=== PATIENT | male | born 1965 | race Caucasian/White ===

== ENCOUNTER 2019-04-12 13:11 | Emergency (ER) | payer SELFPAY ==
[2019-04-12 13:11] VITALS: BP 161/113; PULSE 120; RESP 18; TEMP 36.7; O2SAT 98; BMI 25.1
--- NOTE | 2019-04-12 13:36 | ED.VISSUMM ---
- ER Visit Summary Date of Service: 04/12/19 Chief Complaint: Acute on chronic right shoulder pain History of Present Illness: The patient is a 54 M currently has no primary care physician. Patient states he has had 6 years of chronic pain shoulder and right side of his neck. States he saw the [facility] physician in the past for this. They told him that surgically there is nothing to be repaired. He has nerve damage and atrophy of the musculature of his right bicep tricep and forearm. States he has chronic pain every day and it can control the pain is looking for help. He denies any acute injury. There is no specific change. Currently has no physician. And he is not seeing pain management. Drinks 1/5 of whiskey every day just to help with the pain. That is nonalcoholic is normal for detox he is looking for pain control. Physical Examination: Middle-aged male no acute distress. Vital signs are stable and afebrile. He blood pressure is elevated 161/113 as is his pulse of 120 secondary to pain. Otherwise he is in no distress. HEENT exam unremarkable. Neck nontender. Lungs clear to auscultation bilaterally. Heart tachycardic no murmur abdomen soft nontender. Extremities moves all 4. He has pain on palpation of his right shoulder and right upper arm. There is no deformity, redness or swelling. He has a strong radial pulse in his right wrist. 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 That is also chronic. His atrophy of his bicep, tricep and forearm musculature which is also chronic. Neurologically he is awake and alert. He has the weakness and abnormalities of the right upper extremity. Test Results: None Emergency Department Course and Treatment: I explained the patient that this is a chronic pain condition. I also explained to him that he needs to see chronic pain management has one physician prescribed pain medication for him. I offered him detox but he states he can stop drinking in the time once his pain under control. Will be given 2 Vicodin here for pain. He is instructed to get a ride home. States his daughter can come pick him up. He will be referred to Dr. Wood of pain management. Treatment Plan: Follow-up for pain management. 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 It may contain incorrect words, spelling, and punctuation that were not noted in review of the chart prior to signing ED Disposition - Plan for ED Patient: Referrals: Care Physician,No Primary [Primary Care Provider] -
--- NOTE | 2019-04-12 13:40 | ED.DEP ---
ED Disposition - Plan for ED Patient: Disposition: Home or Assisted Living Instructions: ED Chronic Pain Referrals: Flakito Mckeon MD [NON-STAFF] - As soon as possible Karlee Wood MD [STAFF PHYSICIAN] - As soon as possible Additional Instructions: Follow-up with pain management soon as possible. Need to decrease your alcohol consumption eventually stop drinking.
[2019-04-12] MEDS: HYDROcodone Bitartrate/Apap 5/325 Tablet PO (13:56)
[2019-04-12 14:32] VITALS: BP 151/99; PULSE 98; RESP 14; O2SAT 99
== END 2019-04-12 14:32 | disposition home or self-care (01) ==
LOC: ED 13:53
PROVIDERS: Emergency Provider Emergency Medicine
DX: M79.621 Pain in right upper arm (principal); G89.29 Other chronic pain; M62.521 Muscle wasting and atrophy, not elsewhere classified, right upper arm; Z72.0 Tobacco use
CPT/HCPCS: 99283

== ENCOUNTER 2019-05-29 11:55 | Emergency (ER) | payer MEDICARE, SELFPAY ==
[2019-05-29 11:55] VITALS: BP 170/123; PULSE 104; RESP 16; TEMP 36.7; O2SAT 98; BMI 24.3
--- NOTE | 2019-05-29 12:12 | CT_ITS ---
STUDY: CT ABDOMEN AND PELVIS WITHOUT CONTRAST REASON FOR EXAM: Male, 54 years old. Left-sided abdominal pain. RADIATION DOSAGE (If Supplied By Facility): CTDIvol = ( 7.57 ) mGy, DLP = ( 406.72 ) mGycm TECHNIQUE: Transaxial images were obtained from the dome of the diaphragm to the symphysis pubis without oral contrast, and without intravenous contrast. Sagittal and coronal images were reconstructed. Individualized dose optimization techniques were used for this CT. COMPARISON: None. FINDINGS: The visualized lung bases are unremarkable. The visualized portions of the heart are within normal limits. There is decreased attenuation of the liver consistent with steatosis. Normal gallbladder and extrahepatic biliary system. Borderline splenomegaly. Normal pancreas. Normal bilateral adrenal glands. Normal right kidney. Normal left kidney. There is a small hiatal hernia. Normal small intestine. Normal colon. The appendix is visualized and appears normal. There is scattered atherosclerotic calcification of the abdominal aorta, without a demonstrated aneurysm. Normal inferior vena cava. Normal retroperitoneum. Normal urinary bladder. Normal abdominal wall. There are degenerative changes of the visualized lumbar spine. CT/Abdomen/Pelvis without Cont IMPRESSION: Fatty infiltration of the liver. Electronically Signed: Bharath Oliveros, at 13:06 EDT , Service support ,
[2019-05-29] MEDS: 0.9% Normal Saline 1,000 ML 1000 ML IV (12:19)
--- NOTE | 2019-05-29 12:22 | EKG12_ITS ---
Test Reason : Blood Pressure : / mmHG Vent. Rate : 068 BPM Atrial Rate : 068 BPM P-R Int : 136 ms QRS Dur : 092 ms QT Int : 418 ms P-R-T Axes : 052 063 053 degrees QTc Int : 444 ms Normal sinus rhythm Normal ECG Confirmed by MERRY WOLFE, JIMMIE ([id number]), assistant editor EMILY TAM ([id number] on 06/02/2019 12:09:00 PM Referred By: RUBENS Confirmed By:JEAN MARIE SOUSA MD
[2019-05-29] MEDS: Dicyclomine 20 MG/2 ML Vial IM (12:26)
[2019-05-29 12:30] LABS: Absolute Lymphocyte Count 1.15 X10^3/uL (0.83-4.51); Absolute Neutrophil Count 7.7 X10^3/uL (2.0-7.7); Eosinophil# 0.12 X10^3/uL; Eosinophils% 1.3 % (0-5); Hemoglobin 15.2 g/dL (13.0-16.5); Lymphocyte # 1.15 X10^3/ul (4.0); Mean Corp Hgb Conc 33.8 g/dL (32-36); Mean Corpuscular Volume 97.6 fL (80-94); Mean Platelet Vol. 9.6 fl (6.2-12.0); Monocyte# 0.48 X10^3/uL; NRBC Flagged by Analyzer 0 % (0-5); Neutrophil # 7.69 X10^3/uL (2.7-7.7); Neutrophil % 80.2 % (47-70); Platelet Count 187 K/mm3 (150-450); RBC Distribution Width CV 14.1 % (11.6-14.6); RBC Distribution Width SD 50.7 fl (35.1-43.9); Red Blood Count 4.61 M/mm3 (4.6-6.2); White Blood Count 9.6 K/mm3 (4.4-11.0)
[2019-05-29 12:39] LABS: Bacteria 0 SEEN /hpf (None Seen); Mucous, Urine 0 SEEN /hpf (<or=2+); Red Blood Cells-Urine 0 SEEN /hpf (0-5); Squamous Epithelial Cells - UA 0 SEEN /hpf (0-5); White Blood Cells 0 SEEN /hpf (0-5)
[2019-05-29 12:44] LABS: Color, Urine Yellow (Yellow); Glucose, Dipstick Normal (Normal); Ketone-Dipstick 5 mg/dl (Negative); Leukocyte Esterase-Dipstick 25 /ul (Negative); Nitrite-Dipstick Negative (Negative); Occult Blood-Urine 10 /ul (Negative); Protein-Dipstick Negative (Negative); Urine Bilirubin Dipstick Negative (Negative); Urine Clarity Clear (Clear); Urine Urobilinogen 1 mg/dl (Normal)
[2019-05-29 12:46] LABS: ALB/GLOB Ratio 1.1 RATIO (0.9-2.4); AST(SGOT) 24 U/L (15-37); Alanine Aminotransfer ALT/SGPT 30 U/L (16-61); Albumin, Serum 4.1 g/dL (3.2-5.0); Alkaline Phosphatase 114 U/L (45-117); Anion Gap 4 (5-15); BUN 9 mg/dL (7-18); BUN/Creat Ratio 9.1 RATIO (10-20); Calcium,Total 8.4 mg/dL (8.5-10.1); Chloride 104 mmol/L (98-107); Creatinine, Serum 0.99 mg/dL (0.70-1.30); EST Glomerular Filtration Rate 85 mL/min (>60); Est Glom Filt Rate - Afr Amer 102 mL/min (>60); Estimated Creatinine Clearance 87.28 ml/min; Globulin 3.7 g/dL (2.2-4.2); Glucose 106 mg/dL (74-106); Lipase 53 U/L (73-393); Potassium 3.5 mmol/L (3.5-5.1); Protein, Total 7.8 g/dL (6.4-8.2); Sodium Level 138 mmol/L (136-145)
[2019-05-29] MEDS: Ipratropium/Albuterol Sulfate 3 ML AMPUL.NEB INHALATION (13:05)
[2019-05-29 13:06] VITALS: PULSE 74; RESP 16; O2SAT 98
--- NOTE | 2019-05-29 13:28 | ED.VIS.GEN ---
History of Present Illness Chief Complaint: Abd Pain Informant: Patient Narrative: Patient presenting with left lower quadrant pain since yesterday. He has no diarrhea constipation no radiation to his testicle no flank pain. He has no dysuria hematuria. No penile discharge. He denies right lower quadrant or upper abdominal pain. Pain is described as crampy. Does admit to being an alcoholic and drinking every day at least 1/5 of some sort of hard liquor, he drank 2/5 of whiskey last night. Past Medical History - Allergies and Home Meds Allergies/Adverse Reactions: Allergies No Known Allergies Allergy (Verified 05/29/19 12:08) Primary Care Physician: Care Physician,No Primary [Primary Care Provider] - Past Medical History: - - Chronic neck pain, alcoholism Smoking Status: Current every day smoker Alcohol: Heavy Review of Systems All systems negative except as indicated General: Denies: Fever Cardiovascular: Denies: Chest pain Respiratory: Denies: Dyspnea, Cough Gastrointestinal: Reports: Abdominal pain. Denies: Nausea, Vomiting Genitourinary: Denies: Dysuria, Hematuria Musculoskeletal: Denies: Myalgias Neurological: Denies: Headache, Weakness Psych: Reports: Anxiety. Denies: Depression Physical Exam Vital Signs/Narrative: Vital Signs Temp Pulse Resp BP Pulse Ox 05/29/19 13:06 74 16 98 05/29/19 11:55 98.1 F 104 H 16 170/123 H 98 General: Well nourished Eyes: Perrl. Negative for: Scleral icterus ENT: Moist mucous membranes Cardiovascular: Regular rate, Regular rhythm Respiratory: No distress, CTA bilaterally Abdomen: Soft, - - There is some left lower quadrant abdominal pain no guarding or rebound no testicle pain no CVA tenderness. Back: Nontender. Negative for: CVA tenderness Skin: Normal color Neurological: Alert Diagnostic/Tx/Re-eval - Medical Decision Making Patient received Bentyl his symptoms are now gone. He had a CT which was negative other than fatty liver, his blood work was overall unremarkable. I had a long discussion with him about his alcohol use. He is meeting with the health care social worker right now to get some resources. Otherwise I will discharge him with Bentyl. ED Disposition - Plan for ED Patient: Disposition: Home or Assisted Living Instructions: ABDOMINAL PAIN, Possible Appendicitis [Male] Prescriptions: Dicyclomine HCl [Bentyl] 20 mg PO ACHS #30 cap Prescription Printed Referrals: Care Physician,No Primary [Primary Care Provider] - 3-5 Days
--- NOTE | 2019-05-29 13:30 | CM.ED ---
SOCIAL WORK INFORMANT: NURSING REASON FOR REFERRAL: ALCOHOL ABUSE LIVING SITUATION: PATIENT WAS RESIDING IN [place] AND HAS BEEN STAYING IN [place] FOR ABOUT 1 MONTH. PATIENT STATES HAS BEEN STAYING WITH FAMILY OR CAMPING. EMPLOYMENT/FINANCIAL: PATIENT STATES IS DISABLED. TRANSPORTATION: PATIENT REPORTS NO ISSUES. RESOURCES/SUPPORTS: PATIENT HAS GOOD SUPPORT FROM FAMILY, BUT RIGHT NOW IS HAVING SOME PROBLEMS. SOCIAL STRESSORS: PATIENT STATES NEEDS TO QUIT DRINKING. PATIENT STATES HAS BEEN DRINKING HEAVILY OVER THE LAST 5 YEARS SINCE HE BECAME DISABLED. PATIENT REPORTS DESIRE TO QUIT DRINKING. MENTAL HEALTH HX: PATIENT ADMITS TO DEPRESSION. PATIENT STATES HIS CHILDREN HAVE TOLD HIM THAT HE SCREAMS OUT WHILE HE IS SLEEPING. PATIENT REPORTS HAS NIGHTMARES FREQUENTLY. SUBSTANCE ABUSE HX: PATIENT ADMITS TO HEAVY DRINKING, BOTTLE OF WHISKEY/DAY. PATIENT WISHES TO STOP DRINKING. ASSESSMENT: MET WITH PATIENT IN ROOM AFTER DISCUSSING REFERRAL WITH NURSE. INTRODUCED ROLE AND REASON FOR REFERRAL. PATIENT OPEN TO DISCUSSING OPTIONS FOR TREATMENT. PATIENT UNSURE ABOUT INPATIENT TREATMENT AND AGREED TO HAVE THIS WORKER CALL AND SET UP INTAKE APPOINTMENT AT [facility] FOR SATURDAY MORNING. PATIENT GIVEN ADDITIONAL RESOURCES FOR OPTIONS. DISCUSSED ATTENDING AA MEETINGS. PATIENT GIVEN THIS WORKER'S CONTACT INFORMATION FOR ANY FURTHER NEEDS OR QUESTIONS. PLAN: HOME WITH RESOURCES FOR ALCOHOL TREATMENT PROVIDED. PATIENT TO ATTEND INTAKE APPOINTMENT AT [facility] SATURDAY MORNING AT 8AM. NAS WANG, VICE PRESIDENT BUSINESS [employer]PORATE DEVELOPMENT.
[2019-05-29 13:54] VITALS: BP 147/90; PULSE 71; RESP 16; O2SAT 98
--- NOTE | 2019-05-29 13:54 | ED.RN ---
REVIEWED D/C INSTRUCTIONS, FOLLOW UP CARE, PRESCRIPTION, AND S/S THAT WOULD WARRANT A RETURN TO THE ED WITH PT. PT VERBALIZED AN UNDERSTANDING AND DENIES FURTHER QUESTIONS FOR THIS RN. PT SKIN P/W/D, RESP EVEN AND UNLABORED, PT A&O X 3, NO DISTRESS NOTED. PT AMBULATED OUT OF ED, GAIT STEADY.
== END 2019-05-29 13:56 | disposition home or self-care (01) ==
PROVIDERS: Emergency Provider Emergency Medicine
DX: R10.32 Left lower quadrant pain (principal); F17.200 Nicotine dependence, unspecified, uncomplicated; F10.20 Alcohol dependence, uncomplicated
CPT/HCPCS: 74176; 80053; 81001; 83690; 84484; 85025; 93005; 94640; 96360; 96372; 99283; J7030; A4216

== ENCOUNTER 2023-01-30 08:07 | Emergency (ER) | payer SELFPAY ==
[2023-01-30 08:09] VITALS: BP 156/117; PULSE 135; RESP 18; TEMP 36.6; O2SAT 100; BMI 25.8
--- NOTE | 2023-01-30 08:31 | US_ITS ---
STUDY: ABDOMINAL ULTRASOUND - RIGHT UPPER QUADRANT REASON FOR VISIT: Male, 57 years old pain, n/v TECHNIQUE: Ultrasound evaluation of the right upper quadrant was performed with real-time and static bradley-scale imaging. TECHNICAL QUALITY: Adequate. COMPARISON: Comparison is made with prior CT scan of the pelvis dated May 29, 2019. FINDINGS: Liver: The liver measures 16 cm. There is increased echogenicity consistent with fatty infiltration. Focal fatty sparing is seen in the region of the gallbladder fossa. The bile ducts are within normal limits. There is hepatic color flow. The direction of portal flow is hepatopetal. There is no demonstrated mass lesion. Sludge is seen within the gallbladder lumen. Gallbladder: Normal distended gallbladder. The gallbladder wall measures 1.1 mm. There is a negative sonographic Rosa''s sign. There is no pericholecystic fluid. There are no gallstones. Common Bile Duct (C.B.D.): The common bile duct measures 4.3 mm. Pancreas: Normal size of the head, body and tail of the pancreas. There is increased echogenicity of the pancreas. There is no demonstrated pancreatic mass or cyst. Right Kidney: Normal size of the right kidney. The right kidney measures 11.9 cm x 6.5 cm x 6.1 cm. Normal renal cortex. The right cortex measures 1.1 cm. There is no demonstrated renal mass or cyst. There is no right hydronephrosis. US/Gallbladder IMPRESSION: Fatty infiltration of the liver with focal fatty sparing in the region of the gallbladder fossa. Sludge is seen within the gallbladder lumen. Electronically Signed: Bharath Oliveros MD at 9:45 EDT ,
--- NOTE | 2023-01-30 08:31 | EX.ED.DYSGE1 ---
HPI History of Present Illness Chief Complaint: Substance Abuse Informant: patient Narrative Narrative: 57-year-old male self declared alcoholic states he has been drinking aggressively for over 10 years, states he started drinking very heavily daily for about a week, starting with drinking 2/5 of whiskey and 1 day, then about 5 days ago he stopped cold turkey, and has been feeling withdrawal symptoms ever since. 2 or 3 days ago, he started having upper abdominal pain that goes all the way across, as well as occasional vomiting. He is tremulous, anxious, shaky. No seizures. He states he has been feeling like he has been hallucinating at times. No hematemesis, melena, bright red blood per rectum. No history of any abdominal surgeries. States he is a type II diabetic but takes no medication for it. Does not see a doctor. [facility] Medical History (Updated 01/30/23 @ 11:[address] Gómez Wisdom MD) ETOH abuse Type 2 diabetes mellitus Home Medications dicyclomine 10 mg capsule 20 mg PO ACHS #30 caps 05/29/19 [Rx Last Taken Unknown] promethazine 25 mg tablet 25 mg PO Q6H PRN PRN Nausea #10 TABLETS 01/30/23 [Rx Last Taken Unknown] Allergy/AdvReac Type Severity Reaction Status Date / Time No Known Allergies Allergy Verified 01/30/23 08:09 Social History (Updated 01/30/23 @ 08:[address] Gómez Wisdom MD) Smoking Status: Current every day smoker tobacco type: cigarettes alcohol intake: current alcohol intake frequency: 3 or more drinks per day Alcohol type: hard liquor ROS ROS ED Constitutional Constitutional ED: Reports fatigue and sweats; Denies chills or fever(s) Eyes Eyes: Denies change in vision or diplopia ENT ENT ED: Denies rhinorrhea or sore throat Cardiovascular Cardiovascular: Denies chest pain or palpitations Respiratory/Chest Respiratory/Chest: Denies cough or dyspnea Gastrointestinal Gastrointestinal: Reports abdominal pain, nausea and vomiting; Denies diarrhea or melena Genitourinary Genitourinary ED: Denies dysuria or hematuria Musculoskeletal Musculoskeletal: Denies back pain or neck pain Integumentary Denies abscess or rash Neurologic Neurologic: Denies headache(s), paresthesias, seizures or weakness Psychiatric Psychiatric: Reports anxiety and hallucinations; Denies suicidal thoughts EXAM Physical Exam Const Vital Signs: 01/30/23 08:09 Temperature 97.8 F Temperature Source Temporal Pulse Rate 135 H Respiratory Rate 18 Blood Pressure 156/117 H Blood Pressure Mean 130 Pulse Ox 100 Oxygen Delivery Method Room Air Positive well nourished and well developed General Appearance ED: well developed and NAD HEENT Reports moist mucous membranes normocephalic and atraumatic Eyes PERRL and EOMs intact bilaterally Neck full ROM and supple Resp normal respiratory effort and clear to auscultation bilaterally Cardio regular rate, regular rhythm and no murmurs Rate: tachycardic GI non-distended GI Narrative: Tender across upper abdomen with some mild involuntary rebound/guarding epigastrium and right upper quadrant. Otherwise benign. No pulsatile mass or distention. Auscultation: normoactive bowel sounds Palpation: soft Back/Spine no CVA tenderness General Back: other FROM Extremity normal to inspection General Extremety ED: Negative for edema, pulses abnormal or tenderness General Extremity: Negative for edema or pulses abnormal Neuro oriented x3, CN's II-XII intact bilaterally, no sensory deficits noted and gait normal Sensorium / Orientation: awake and alert Motor Exam: strength 5/5 throughout Psych mental status grossly normal Psych Narrative: Not delusional or hallucinating Mood & Affect: anxious Skin no rashes or lesions noted and no wounds MDM MDM MDM Narrative Medical decision making narrative: I think patient is withdrawing from alcohol, he may be out of the dangerous life-threatening phase of delirium tremens, he has not had any seizure activity which is good but he is having hallucinations which is concerning. I think he would benefit from admission for detox for multiple reasons. In the meantime we will work-up his abdominal pain which does not sound like typical withdrawal crampy-style pain, he does have an elevated bilirubin but the rest of his liver enzymes are unremarkable except for a slightly elevated alkaline phosphatase which can be seen simply with vomiting, drug screen and alcohol levels are 0 as expected, I did a gallbladder ultrasound which was negative for anything acute there. I will add a PT level. In the meantime while I was waiting for work-up I treated him with IV fluids, Zofran, Ativan which did help some. Alcoholic gastritis in the differential as well although he did not have the upper GI symptoms while he was drinking. I discussed admission with the patient, he was apprehensive but amenable. Then he changed his mind and wants to leave and stay at home. I had this discussion with he and his significant other. Patient appears to have the capacity to make this decision we discussed the risk and benefits he understands the risk of seizure, delirium tremens, and , and states if that happens I will just come back. He plans on not drinking anymore, which certainly is good, but given that he is likely to progress with regard to alcohol withdrawal, he needs to be discharged AGAINST MEDICAL ADVICE, patient understands this and we discussed everything and he will sign. History & Record Review Discussion w/independent historian: Patient and Family Additional record(s) reviewed:: Prior labs (Bilirubin elevated in 2019 as well, 1.4, and prior abdominal CT around the same time showed fatty liver disease) Lab Data Attestation: I reviewed the patient's lab results. Labs: Laboratory Results - last 24 hr 01/30/23 01/30/23 01/30/23 08:35 08:50 08:50 WBC 7.8 RBC 5.01 Hgb 16.1 Hct 46.8 MCV 93.4 MCH 32.1 H MCHC 34.4 RDW Std Deviation 44.1 H RDW Coeff of Josselyn 13.4 Plt Count 179 MPV 9.8 Immature Gran % (Auto) 0.600 Neut % (Auto) 77.8 H Lymph % (Auto) 12.1 L Throckmorton % (Auto) 7.5 Eos % (Auto) 1.4 Baso % (Auto) 0.6 Absolute Neuts (auto) 6.0 Absolute Lymphs (auto) 0.94 Nucleated RBC % 0 Sodium 136 Potassium 4.0 Chloride 101 Carbon Dioxide 26.0 Anion Gap 9 BUN 10 Creatinine 1.05 Estim Creat Clear Calc 79.49 Est GFR (MDRD) Af Amer 94 Est GFR (MDRD) Non-Af 78 BUN/Creatinine Ratio 9.5 L Glucose 135 H Calcium 9.4 Total Bilirubin 1.90 H AST 35 ALT 56 Alkaline Phosphatase 121 H Total Protein 8.2 Albumin 4.2 Globulin 4.0 Albumin/Globulin Ratio 1.0 Lipase 21 Urine Opiates Screen NEGATIVE Urine Methadone Screen NEGATIVE Ur Barbiturates Screen NEGATIVE Ur Phencyclidine Scrn NEGATIVE Ur Amphetamines Screen NEGATIVE MDMA (Ecstasy) Screen NEGATIVE U Benzodiazepines Scrn NEGATIVE Urine Cocaine Screen NEGATIVE U Cannabinoids Screen NEGATIVE Ur Drug Screen Comment Ethyl Alcohol 01/30/23 08:50 WBC RBC Hgb Hct MCV MCH MCHC RDW Std Deviation RDW Coeff of Josselyn Plt Count MPV Immature Gran % (Auto) Neut % (Auto) Lymph % (Auto) Throckmorton % (Auto) Eos % (Auto) Baso % (Auto) Absolute Neuts (auto) Absolute Lymphs (auto) Nucleated RBC % Sodium Potassium Chloride Carbon Dioxide Anion Gap BUN Creatinine Estim Creat Clear Calc Est GFR (MDRD) Af Amer Est GFR (MDRD) Non-Af BUN/Creatinine Ratio Glucose Calcium Total Bilirubin AST ALT Alkaline Phosphatase Total Protein Albumin Globulin Albumin/Globulin Ratio Lipase Urine Opiates Screen Urine Methadone Screen Ur Barbiturates Screen Ur Phencyclidine Scrn Ur Amphetamines Screen MDMA (Ecstasy) Screen U Benzodiazepines Scrn Urine Cocaine Screen U Cannabinoids Screen Ur Drug Screen Comment Ethyl Alcohol < 3.0 Radiography Diagnostic Testing: Clinical Impression(s) from Imaging Studies Gallbladder Ultrasound 01/30/23 08:31 IMPRESSION: Fatty infiltration of the liver with focal fatty sparing in the region of the gallbladder fossa. Sludge is seen within the gallbladder lumen. Electronically Signed: Bharath Oliveros MD at 9:45 EDT , Rhythm Strip Rhythm Strip: Sinus Tach Rate: 125 Ectopy: None Management Discussion w/another healthcare provider: Hospitalist Discharge Plan Triage Chief Complaint: Substance Abuse ED Provider: Gómez Wisdom Dx/Rx/DC Orders Clinical Impression: Alcohol withdrawal Instructions: ED Withdrawal Alcohol Prescriptions: New promethazine [promethazine] 25 mg tablet 25 mg PO Q6H PRN PRN (Reason: Nausea) Qty: 10 0RF No Action dicyclomine 10 MG capsule 20 mg PO ACHS Qty: 30 0RF Primary Care Provider: Care Physician,No Primary Referrals: Care Physician,No Primary [Primary Care Provider] - [facility] [Non-Staff] - As soon as possible Disposition Disposition: Against Medical Advice Capacity Capacity Assessment Tool Can the patient make a choice & communicate that choice?: Yes Can the patient understand benefits, risks and alternatives?: Yes Can the patient make a logical, rational choice?: Yes Is the choice the patient makes consistent w/ their values?: Yes Is there an impending, emergent risk to the patient?: Yes Does the patient have an Advance Directive?: No Is there a Surrogate Available?: Yes (sig other)
[2023-01-30] MEDS: 0.9% Normal Saline 1,000 ML 1000 ML IV (08:45)
[2023-01-30] MEDS: LORazepam 2 MG/ML Syringe 1 MG IV (08:48)
[2023-01-30] MEDS: Ondansetron 4 MG/2 ML Vial IV (08:48)
[2023-01-30 09:08] LABS: Absolute Lymphocyte Count 0.94 X10^3/uL (0.83-4.51); Basophil# 0.05 X10^3/uL; Basophil% 0.6 % (0-1); Eosinophil# 0.11 X10^3/uL; Eosinophils% 1.4 % (0-5); Hematocrit 46.8 % (40-54); Hemoglobin 16.1 g/dL (13.0-16.5); Lymphocyte # 0.94 X10^3/ul (0.83-4.51); Lymphocyte % 12.1 % (19-41); Mean Corp Hgb Conc 34.4 g/dL (32-36); Mean Corpuscular Hgb 32.1 pg (27.0-32.0); Mean Corpuscular Volume 93.4 fL (80-94); Mean Platelet Vol. 9.8 fl (6.2-12.0); Monocyte# 0.58 X10^3/uL; Monocyte% 7.5 % (0-10); NRBC Flagged by Analyzer 0 % (0-5); Neutrophil # 6.04 X10^3/uL (2.7-7.7); Neutrophil % 77.8 % (47-70); Platelet Count 179 K/mm3 (150-450); RBC Distribution Width CV 13.4 % (11.6-14.6); RBC Distribution Width SD 44.1 fl (35.1-43.9); Red Blood Count 5.01 M/mm3 (4.6-6.2); White Blood Count 7.8 K/mm3 (4.4-11.0)
[2023-01-30 09:12] LABS: Amphetamine Urine VISTA NEGATIVE (<1000 ng/mL); Barbiturate Urine VISTA NEGATIVE (< 200 ng/mL); Benzodiazepine Urine VISTA NEGATIVE (< 200 ng/mL); Cocaine Urine VISTA NEGATIVE (< 300 ng/mL); Ecstacy Urine VISTA NEGATIVE (< 500 ng/mL); Methadone Urine VISTA NEGATIVE (< 300 ng/mL); PCP Urine VISTA NEGATIVE (< 25 ng/mL); THC Urine VISTA NEGATIVE (< 50 ng/mL); Vista UDS pH Range 5
[2023-01-30 09:33] LABS: AST(SGOT) 35 U/L (15-37); Alanine Aminotransfer ALT/SGPT 56 U/L (16-61); Albumin, Serum 4.2 g/dL (3.2-5.0); Alkaline Phosphatase 121 U/L (45-117); Anion Gap 9 (5-15); BUN 10 mg/dL (7-18); BUN/Creat Ratio 9.5 RATIO (10-20); Calcium,Total 9.4 mg/dL (8.5-10.1); Chloride 101 mmol/L (98-107); Creatinine, Serum 1.05 mg/dL (0.70-1.30); EST Glomerular Filtration Rate 78 mL/min (>60); Est Glom Filt Rate - Afr Amer 94 mL/min (>60); Estimated Creatinine Clearance 79.49 ml/min; Glucose 135 mg/dL (74-106); Lipase 21 U/L (13-75); Protein, Total 8.2 g/dL (6.4-8.2); Sodium Level 136 mmol/L (136-145)
[2023-01-30 09:34] LABS: Alcohol, Blood (Medical)-Serum < 3.0 mg/dL
--- NOTE | 2023-01-30 10:26 | CM.ED ---
Social Work Referral Source: case find Referral Reason: No PCP/ Insurance ROSARIO met with patient and patient's daughter and introduced herself and role as [facility] Location Manager. Patient lying in hospital bed and agreeable to speak to SW with his daughter present. SW inquired about patient's knowledge/interest in [facility] program as well as other community resources. Patient reviewed information provided by care team regarding [facility], explaining he feels he has gotten through the worst of his detox and wants to ensure he is medically okay to go home. Patient reports no insurance and no community agency involvement but was interested in information. SW provided patient with Medicaid application and instructions, local counseling agencies, [facility] resource list, [employer] [employer] services and AA meeting information. Patient was receptive and reports no other needs at this time. Raven LOVELL, MELANY
--- NOTE | 2023-01-30 11:15 | ED.RN ---
PT STATES HE DOES NOT WANT TO STAY FOR DETOX. PT REQUEST TO GO HOME
== END 2023-01-30 11:27 | disposition left against medical advice (07) ==
PROVIDERS: Emergency Provider Emergency Medicine; Visit Provider Emergency Medicine
DX: F10.239 Alcohol dependence with withdrawal, unspecified (principal); E11.9 Type 2 diabetes mellitus without complications; K76.0 Fatty (change of) liver, not elsewhere classified; F17.210 Nicotine dependence, cigarettes, uncomplicated; Z53.29 Procedure and treatment not carried out because of patient's decision for other reasons
CPT/HCPCS: 76705; 80053; 80307; 82077; 83690; 85025; 96361; 96374; 96375; 99283; J7030; A4216; J2405

== ENCOUNTER 2024-02-09 06:00 | Inpatient (IN) | payer MEDICARE, SELFPAY ==
[2024-02-09] VITALS (10 sets, daily range): BP systolic 118–155; BP diastolic 78–105; PULSE 92–139; RESP 14–24; TEMP 35.7–36.9; O2SAT 95–98; BMI 22.4; BMI 22.2
--- NOTE | 2024-02-09 06:38 | EKG12_ITS ---
Test Reason : MEDICAL CLEARANCE Blood Pressure : / mmHG Vent. Rate : 132 BPM Atrial Rate : 132 BPM P-R Int : 156 ms QRS Dur : 082 ms QT Int : 278 ms P-R-T Axes : 037 054 040 degrees QTc Int : 411 ms Sinus tachycardia Otherwise normal ECG Confirmed by MERRY WOLFE, JIMMIE ([id number]), sound editor MONICA BARTH ([id number]) on 02/13/2024 6:12:32 AM Referred By: Confirmed By:JEAN MARIE SOUSA MD
[2024-02-09 07:29] LABS: Absolute Lymphocyte Count 1.13 X10^3/uL (0.83-4.51); Absolute Neutrophil Count 9.5 X10^3/uL (2.0-7.7); Basophil% 0.9 % (0-1); Eosinophil# 0.03 X10^3/uL; Eosinophils% 0.3 % (0-5); Hematocrit 45.7 % (40-54); Hemoglobin 15.7 g/dL (13.0-16.5); Lymphocyte # 1.13 X10^3/ul (0.83-4.51); Lymphocyte % 9.6 % (19-41); Mean Corp Hgb Conc 34.4 g/dL (32-36); Mean Corpuscular Hgb 32.6 pg (27.0-32.0); Mean Corpuscular Volume 94.8 fL (80-94); Mean Platelet Vol. 9.8 fl (6.2-12.0); Monocyte# 0.91 X10^3/uL; Monocyte% 7.8 % (0-10); NRBC Flagged by Analyzer 0 % (0-5); Neutrophil # 9.46 X10^3/uL (2.7-7.7); Neutrophil % 80.7 % (47-70); Platelet Count 179 K/mm3 (150-450); RBC Distribution Width CV 14.5 % (11.6-14.6); RBC Distribution Width SD 50.1 fl (35.1-43.9); Red Blood Count 4.82 M/mm3 (4.6-6.2); White Blood Count 11.7 K/mm3 (4.4-11.0)
[2024-02-09] MEDS: LORazepam 2 MG/ML Syringe 1 MG IV (07:30)
[2024-02-09] MEDS: Phenobarbital Sodium 130 MG/ML Vial 100 MG IM (07:31)
[2024-02-09] MEDS: Thiamine Hydrochloride 100 MG in 0.9% Normal Saline (50mL Bag) 50 ML 200 MG IV (07:34)
[2024-02-09] MEDS: 0.9% Normal Saline (1000mL) 1,000 ML 999 ML IV ×2 (07:34→08:06)
[2024-02-09] MEDS: chlordiazePOXIDE 25 MG Capsule PO (07:35)
--- NOTE | 2024-02-09 07:35 | EX.ED.DYSGE1 ---
HPI History of Present Illness Chief Complaint: Mental Health Informant: patient and police/rent and housing investigator Narrative Narrative: Patient is a 58-year-old male who reports that he has history of alcohol abuse. He states that he typically drinks whiskey. He reports that he typically drinks daily but has been trying to quit. He states that he thinks he has not had a drink for about 7 days. He denies any illicit drug use. Police brought the patient in because they were called to his house as he reported that there were people inside trying to harm him. When they arrived he was alone and was showing signs of actively hallucinating. Patient denies any previous history of seizure disorder or previous delirium tremens PFSH PFSH Medical History Type 2 diabetes mellitus ETOH abuse Home Medications ?Medication ?Instructions ?Recorded ?Last Taken ?Type NK 02/09/24 Unknown History Allergy/AdvReac Type Severity Reaction Status Date / Time No Known Allergies Allergy Verified 02/09/24 06:00 Social History (Updated 01/30/23 @ 08:[address] Gómez Wisdom MD) Smoking Status: Current every day smoker tobacco type: cigarettes alcohol intake: current alcohol intake frequency: 3 or more drinks per day Alcohol type: hard liquor ROS ROS ED Constitutional Constitutional ED: Reports sweats; Denies chills or fever(s) Eyes Eyes: Denies change in vision or diplopia ENT ENT ED: Denies sore throat Cardiovascular Cardiovascular: Reports racing heartbeat; Denies chest pain or palpitations Respiratory/Chest Respiratory/Chest: Denies cough or dyspnea Gastrointestinal Gastrointestinal: Reports nausea; Denies abdominal pain, diarrhea or vomiting Genitourinary Genitourinary ED: Denies dysuria Musculoskeletal Musculoskeletal: Reports myalgias Integumentary Denies rash Neurologic Neurologic: Reports paresthesias; Denies headache(s) Psychiatric Psychiatric: Reports anxiety; Denies suicidal ideation or suicidal thoughts Hematologic/Lymphatic Hematologic/Lymphatic: Denies easy bleeding or easy bruising Allergic/Immunologic Allergic/Immunologic ED: Denies mouth swelling or tongue swelling EXAM Physical Exam Const Vital Signs: 02/09/24 06:01 02/09/24 07:00 02/09/24 08:00 Temperature 96.2 F L Temperature Source Temporal Pulse Rate 125 H 139 H 126 H Respiratory Rate 17 23 H 24 H Blood Pressure 142/105 H 125/81 H 155/97 H Blood Pressure Mean 117 95 116 Pulse Ox 97 98 98 Oxygen Delivery Method Room Air Room Air Positive well nourished and well developed General Appearance ED: well developed; Negative for pallor HEENT HEENT Narrative: Normocephalic atraumatic No tongue or lip biting noted No airway edema or compromise No signs of infection in the posterior pharynx Eyes EOMs intact bilaterally Eyes Narrative: Pupils are dilated and sluggish to respond to light There is faint scleral injection noted General Eye ED: Negative for scleral icterus Neck supple Neck Narrative: No nuchal rigidity or meningeal signs Chest Wall palpation of chest normal Resp normal respiratory effort and clear to auscultation bilaterally Cardio regular rhythm Rate: tachycardic and other Other Details: Tachycardic rate with regular rhythm No obvious murmurs rubs or gallops Radial and carotid pulses are equal and symmetric GI non-tender, non-distended and no masses GI Narrative: Abdomen is soft nontender nondistended with hyperactive bowel sounds. No voluntary guarding or rigidity or pulsatile mass. No fluid wave noted Auscultation: hyperactive bowel sounds Palpation: soft Extremity normal to inspection Extremity Narrative: No asymmetric edema no pitting edema negative Homans' sign bilaterally Neuro CN's II-XII intact bilaterally Neuro Narrative: Patient is awake and alert to person and place but disoriented to time. Cranial nerves II through XII are grossly intact without focal neurologic deficit. No pronator drift no dysmetria no truncal ataxia NIH stroke scale score of 1 There are tremors of the upper extremities noted Sensorium / Orientation: alert Psych Psych Narrative: Patient is extremely anxious and jittery and is having visual hallucinations Skin no wounds Skin Narrative: There are beads of sweat present on the patient's skin no jaundice or pallor and no obvious signs of trauma or infection General Skin Exam: Negative for jaundice or pallor MDM MDM MDM Narrative Medical decision making narrative: Patient arrived to the ER hypertensive and tachycardic. He reported that he typically drinks daily and thinks he has not drank for 7 days. However he is disoriented to time and the fact that he has hallucinations with extreme anxiety tremors and visual beads of perspiration indicate that his last use of alcohol was most likely 2 to 3 days ago. His CIWA score is elevated at 34 indicating moderate to severe withdrawal. Secondary to his basic labs will be obtained and patient will be given IM phenobarbital IV Ativan and oral Librium to help with withdrawal symptoms. Chart review reveals he was seen in the ER for similar presentation roughly 1 year ago on January 30. As he had hallucinations at that time and his history and exam are not showing signs of trauma I do not feel there is need for head CT. I do believe the patient would benefit from admission as he has high risk to progress to delirium tremens/seizure activity. Therefore medicine will be contacted once patient's labs have resulted and he is reevaluated to assess his response to treatment. Patient's labs did show changes consistent with acute kidney injury as his creatinine 1 year ago was approximately 1 and today it is 2.07. After receiving 100 mg of IM phenobarbital 25 mg of oral Librium and 1 mg of IM Ativan as well as starting 2 L of IV fluid the patient's mental status has improved he has less tremors and less excitability/anxiety and his hallucinations have decreased as well. However he is remaining tachycardic and his symptoms despite improvement have not resolved sufficiently so therefore 2 more milligrams of IV Ativan will be obtained at this time. Based on his high risk for progression to seizures from alcohol withdrawal and the fact he also has acute kidney injury I do not feel it is safe for him to return home and therefore he will be admitted to the medical service for further care. This plan of care was discussed with the patient and he states he is agreeable to it at this time History & Record Review Discussion w/independent historian: Patient Additional record(s) reviewed:: Prior ED visit Lab Data Attestation: I reviewed the patient's lab results. Labs: Laboratory Results - last 24 hr 02/09/24 07:18 WBC 11.7 H RBC 4.82 Hgb 15.7 Hct 45.7 MCV 94.8 H MCH 32.6 H MCHC 34.4 RDW Std Deviation 50.1 H RDW Coeff of Josselyn 14.5 Plt Count 179 MPV 9.8 Immature Gran % (Auto) 0.700 Neut % (Auto) 80.7 H Lymph % (Auto) 9.6 L [place] % (Auto) 7.8 Eos % (Auto) 0.3 Baso % (Auto) 0.9 Absolute Neuts (auto) 9.5 H Absolute Lymphs (auto) 1.13 Nucleated RBC % 0 Sodium 134 L Potassium 3.5 Chloride 97 L Carbon Dioxide 22.0 Anion Gap 15 BUN 20 H Creatinine 2.07 H Estim Creat Clear Calc 38.83 Est GFR (MDRD) Af Amer 43 L Est GFR (MDRD) Non-Af 35 L BUN/Creatinine Ratio 9.7 L Glucose 161 H Calcium 10.7 H Magnesium 1.5 L Total Bilirubin 1.70 H Direct Bilirubin 0.35 H AST 64 H ALT 45 Alkaline Phosphatase 116 Total Protein 8.8 H Albumin 4.7 Globulin 4.1 TSH 7.88 H Salicylates 2.9 Acetaminophen < 2.0 L Ethyl Alcohol < 3.0 Management Discussion w/another healthcare provider: Hospitalist Discharge Plan Dx/Rx/DC Orders Clinical Impression: Alcohol withdrawal hallucinosis, Acute kidney injury Disposition Disposition: Acute Care Hospital [facility]
[2024-02-09 07:47] LABS: Acetaminophen (Tylenol) Level < 2.0 ug/mL (10.0-30.0); Alcohol, Blood (Medical)-Serum < 3.0 mg/dL; Salicylate 2.9 mg/dL (2.8-20.0)
[2024-02-09 07:51] LABS: AST(SGOT) 64 U/L (15-37); Alanine Aminotransfer ALT/SGPT 45 U/L (16-61); Albumin, Serum 4.7 g/dL (3.2-5.0); Alkaline Phosphatase 116 U/L (45-117); Anion Gap 15 (5-15); BUN 20 mg/dL (7-18); BUN/Creat Ratio 9.7 RATIO (10-20); Bilirubin, Direct 0.35 mg/dL (0.00-0.30); Calcium,Total 10.7 mg/dL (8.5-10.1); Chloride 97 mmol/L (98-107); Creatinine, Serum 2.07 mg/dL (0.70-1.30); EST Glomerular Filtration Rate 35 mL/min (>60); Est Glom Filt Rate - Afr Amer 43 mL/min (>60); Estimated Creatinine Clearance 38.83 ml/min; Globulin 4.1 g/dL (2.2-4.2); Glucose 161 mg/dL (74-106); Magnesium 1.5 mg/dL (1.6-2.6); Potassium 3.5 mmol/L (3.5-5.1); Protein, Total 8.8 g/dL (6.4-8.2); Sodium Level 134 mmol/L (136-145); Thyroid Stim Hormone (TSH) 7.88 uIU/mL (0.358-3.74)
[2024-02-09] MEDS: Folic Acid 1 MG in 0.9% Normal Saline (50mL Bag) 50 ML 200 MG IV (08:06)
[2024-02-09] MEDS: LORazepam 2 MG/ML Syringe IV (08:12)
--- NOTE | 2024-02-09 08:21 | HP.PCM.HOS_ITS ---
HPI - General General Date of Admission: 02/09/24 Date of Service: 02/09/24 Chief Complaint: Hallucinations HPI Narrative ROSSY NERI, is a 58 M who presented to the emergency department at [facility] on 02/09/2024 secondary to hallucinations. He was brought in by the police. He called the police and told them that there were people inside trying to harm him and when they arrived they found him alone and he was showing signs of actively hallucinating. The patient reported on presentation that he has a history of heavy alcohol abuse and drinks about a bottle of whiskey daily. He reported that he has been trying to quit and he thinks it has been about 5 to 7 days since his last drink but he is unsure. He denies any previous history of seizure disorder or DTs but it does not sound like he has had any persistent lengthy sobriety. Vital signs on presentation showed a temperature of 96.2, heart rate 125, respiratory 17, blood pressure was 142/105, and pulse ox was 97% on room air. His CBC shows a mild leukocytosis with a left shift but no signs of active infection. His chemistry panel shows mild hyponatremia with a sodium of 134, BUN of 20 and serum creatinine of 2.07. His glucose is 161 and it is documented that he is a diabetic but it does not appear that he is on any medication. His calcium was 10.7, magnesium 1.5 and bilirubin was elevated at 1.70. This is predominantly indirect as his direct bilirubin was 0.34. AST is 64 with a normal ALT consistent with alcohol abuse. TSH was mildly elevated 7.88. Serum salicylates was unremarkable, Tylenol level was less than 2 and F alcohol was less than 3. Urine toxicology is pending however he has not yet voided. Given his marked laboratory abnormalities and hallucinations he was treated with phenobarbital, Librium, Ativan and IV fluids in the emergency department and was clinically improving but still will require admission for alcohol detox. [facility] Medical History Tobacco abuse Type 2 diabetes mellitus ETOH abuse Home Medications ?Medication ?Instructions ?Recorded ?Last Taken ?Type acetaminophen 500 mg capsule 500 mg PO Q6H PRN pain 02/09/24 Unknown History multivitamin 1 tab PO DAILY 02/09/24 Unknown History Allergy/AdvReac Type Severity Reaction Status Date / Time No Known Allergies Allergy Verified 02/09/24 06:00 unable to obtain (Due to patient's mental status on presentation) unable to obtain (Due to patient's mental status on presentation) Social History Smoking Status: Current every day smoker tobacco type: cigarettes alcohol intake: current alcohol intake frequency: 3 or more drinks per day Alcohol type: hard liquor details: Was able to tell us that he drinks about a pint or more of whiskey daily substance use type: does not use Vital Signs Vital Signs Vital Signs: 02/09/24 06:01 02/09/24 07:00 02/09/24 08:00 Temperature 96.2 F L Temperature Source Temporal Pulse Rate 125 H 139 H 126 H Respiratory Rate 17 23 H 24 H Blood Pressure 142/105 H 125/81 H 155/97 H Blood Pressure Mean 117 95 116 Pulse Ox 97 98 98 Oxygen Delivery Method Room Air Room Air Weight Weight: 68.9 kg Body Mass Index (BMI) 22.4 Physical Exam Const alert, oriented x3 and average body habitus; Negative for no apparent distress, healthy appearing or well nourished Constitutional Narrative: Oriented x 3 but difficulty giving any other history tremulous, middle-aged, white male, sitting in a chair picking at his telemetry and IV tubing, fidgeting extensively, appears unhealthy General Appearance: cooperative Orientation / Consciousness: confused HEENT normocephalic, head/scalp atraumatic and hearing grossly normal bilaterally; Negative for moist oral mucous membranes HEENT Narrative: Dentition is poor, Mallampati is 2, no thrush, mucous membranes are dry Eyes PERRL, EOMs intact bilaterally and conjunctivae normal Eyes Narrative: No scleral icterus Neck no lymphadenopathy and supple Neck Narrative: Trachea midline, no thyroid enlargement Resp normal respiratory effort, no retractions, no use of accessory muscles and clear to auscultation bilaterally Resp Narrative: Diffusely diminished but clear Auscultation: Negative for rales, rhonchi or wheezes Cardio regular rhythm, S1 normal heart sound, S2 normal heart sound, no murmurs, no rub, no gallops and no clicks Cardio Narrative: Tachycardic GI normal to inspection, nondistended, normoactive bowel sounds, soft to palpation and non-tender Extremity no clubbing, cyanosis or edema Extremity Narrative: Pedal pulses and radial pulses are 2+ Skin no rashes or lesions noted, no wounds, No skin turgor normal, no jaundice, no petechiae and no mottling Skin Narrative: Multiple tattoos Neuro oriented x3, CN's II-XII intact bilaterally, moves all extremities and no focal motor deficits Neuro Narrative: Marked tremor, ambulates with a wide base of support with decreased stride length, patient somewhat mumbles with speech Psych Psych Narrative: Affect is flat and mood seems depressed Results Lab / Micro Data 02/09/24 07:18 02/09/24 07:18 Labs: Laboratory Results - last 24 hr 02/09/24 07:18: WBC 11.7 H, RBC 4.82, Hgb 15.7, Hct 45.7, MCV 94.8 H, MCH 32.6 H , MCHC 34.4, RDW Std Deviation 50.1 H, RDW Coeff of Josselyn 14.5, Plt Count 179, MPV 9.8, Immature Gran % (Auto) 0.700, Neut % (Auto) 80.7 H, Lymph % (Auto) 9.6 L, [place] % (Auto) 7.8, Eos % (Auto) 0.3, Baso % (Auto) 0.9, Absolute Neuts (auto) 9.5 H, Absolute Lymphs (auto) 1.13, Nucleated RBC % 0, Sodium 134 L, Potassium 3.5, Chloride 97 L, Carbon Dioxide 22.0, Anion Gap 15, BUN 20 H, Creatinine 2.07 H, Estim Creat Clear Calc 38.83, Est GFR (MDRD) Af Amer 43 L, Est GFR (MDRD) Non-Af 35 L, BUN/Creatinine Ratio 9.7 L, Glucose 161 H, Calcium 10.7 H, M agnesium 1.5 L, Total Bilirubin 1.70 H, Direct Bilirubin 0.35 H, AST 64 H, ALT 45, Alkaline Phosphatase 116, Total Protein 8.8 H, Albumin 4.7, Globulin 4.1, T SH 7.88 H, Salicylates 2.9, Acetaminophen < 2.0 L, Ethyl Alcohol < 3.0 Assessment & Plan Assessment/Plan (1) Acute kidney injury: (2) Alcohol withdrawal hallucinosis: (3) Elevated blood pressure reading: (4) Hyperglycemia: (5) Tachycardia: (6) Hypomagnesemia: (7) Hyperbilirubinemia: (8) Leukocytosis: (9) Hyponatremia: (10) Hypercalcemia: (11) Abnormal TSH: PLAN: Plan Acute alcohol withdrawal/hallucinations -Patient admitted to drinking at least a pint of whiskey daily -Reported that his last drink was about 5 days ago -Indicated that he had had a 45-day period of sobriety previously but not able to tell me when -Start phenobarbital taper -[facility] protocol with as needed Ativan -Thiamine and folate -Supportive medication for withdrawal symptoms -180 consultation YANIQUE secondary to dehydration -Patient indicated he had not been eating in about the last 5 to 7 days but only drinking Pedialyte -Appears markedly dehydrated on presentation -2 L IV fluid ordered by the emergency department -Will give 2 L and then reevaluate tomorrow -Avoid nephrotoxins as able Hyponatremia -Mild -Suspect related to marked dehydration -Repeat in a.m. Hypercalcemia -Anticipate this is related to hypercalcemia -Will trend to ensure further workup is not required Tachycardia -Suspect related to withdrawal -Should improve as withdrawal is treated Elevated blood pressure -Unclear if this is baseline elevation or related to withdrawal -Continue to monitor -As needed hydralazine for systolic pressure greater than 160 Hyperbilirubinemia -Likely related to alcohol use -Repeat in a.m. Hypomagnesemia -2 g IV mag replacement -Repeat in a.m. Hyperglycemia -Blood glucose levels 161 at 7 AM -Check hemoglobin A1c Suspected malnutrition -Dietitian consultation Leukocytosis -Likely related to dehydration and hemoconcentration -Repeat in a.m. -No signs of active infection DVT prophylaxis -Will utilize Lovenox 40 subcu daily since patient is so medically complex CODE STATUS -Full code Charges/Coding Visit Charges Inpatient E&M: 19520 Init Hosp L3
[2024-02-09 08:58] LABS: Amphetamine Urine VISTA NEGATIVE (<1000 ng/mL); Barbiturate Urine VISTA NEGATIVE (< 200 ng/mL); Benzodiazepine Urine VISTA NEGATIVE (< 200 ng/mL); Cocaine Urine VISTA NEGATIVE (< 300 ng/mL); Ecstacy Urine VISTA NEGATIVE (< 500 ng/mL); Methadone Urine VISTA NEGATIVE (< 300 ng/mL); PCP Urine VISTA NEGATIVE (< 25 ng/mL); THC Urine VISTA NEGATIVE (< 50 ng/mL); Vista UDS pH Range 5
[2024-02-09 09:00] LABS: T4 Free Direct 1.12 ng/dL (0.76-1.46)
[2024-02-09 09:04] LABS: Hemoglobin A1c 4.8 % (3.8-5.6)
[2024-02-09 09:23] LABS: International Normalized Ratio 1.1; Prothrombin Time (Protime)PT. 14.4 SECONDS (11.7-14.9)
[2024-02-09] MEDS: Magnesium Sulfate 2 GM in Dextrose 5%-Water (100mL Bag) 100 ML IV (11:16)
[2024-02-09] MEDS: Enoxaparin 40 MG/0.4 ML Syringe SC (11:17)
[2024-02-09] MEDS: Potassium Chloride Oral Tablet 20 MEQ 40 MEQ PO (11:20)
[2024-02-09] MEDS: Phenobarbital 32.4 MG Tablet 64.8 MG PO ×4 (11:21→21:07)
[2024-02-09] MEDS: LORazepam 1 MG Tablet 2 MG PO (11:32)
[2024-02-09 11:54] LABS: Bedside Glucose 116 mg/dL (74-106)
[2024-02-09 16:54] LABS: Bedside Glucose 133 mg/dL (74-106)
[2024-02-09] MEDS: 0.9% Saline Lock 10 ML Syringe IV (21:07)
[2024-02-09] MEDS: Acetaminophen 325 MG Tablet 650 MG PO (21:11)
[2024-02-09 23:39] LABS: Bedside Glucose 163 mg/dL (74-106)
[2024-02-10] VITALS (8 sets, daily range): BP systolic 115–129; BP diastolic 76–91; PULSE 73–92; RESP 16–18; TEMP 36.1–37.1; O2SAT 96–100; BMI 22.3
[2024-02-10] MEDS: Phenobarbital 32.4 MG Tablet 64.8 MG PO ×6 (02:20→21:45)
[2024-02-10 06:32] LABS: Absolute Lymphocyte Count 0.92 X10^3/uL (0.83-4.51); Absolute Neutrophil Count 3.3 X10^3/uL (2.0-7.7); Basophil# 0.05 X10^3/uL; Basophil% 1.1 % (0-1); Eosinophil# 0.13 X10^3/uL; Eosinophils% 2.8 % (0-5); Hemoglobin 12.3 g/dL (13.0-16.5); Lymphocyte # 0.92 X10^3/ul (0.83-4.51); Lymphocyte % 19.6 % (19-41); Mean Corp Hgb Conc 33.2 g/dL (32-36); Mean Corpuscular Hgb 32.8 pg (27.0-32.0); Mean Corpuscular Volume 98.7 fL (80-94); Mean Platelet Vol. 9.7 fl (6.2-12.0); Monocyte# 0.33 X10^3/uL; NRBC Flagged by Analyzer 0 % (0-5); Neutrophil # 3.25 X10^3/uL (2.7-7.7); Neutrophil % 69.1 % (47-70); POSITIVE COUNT YES; Platelet Count 89 K/mm3 (150-450); RBC Distribution Width CV 14.6 % (11.6-14.6); RBC Distribution Width SD 52.7 fl (35.1-43.9); Red Blood Count 3.75 M/mm3 (4.6-6.2); White Blood Count 4.7 K/mm3 (4.4-11.0)
[2024-02-10 06:53] LABS: ALB/GLOB Ratio 0.9 RATIO (0.9-2.4); AST(SGOT) 42 U/L (15-37); Alanine Aminotransfer ALT/SGPT 36 U/L (16-61); Albumin, Serum 3.2 g/dL (3.2-5.0); Alkaline Phosphatase 85 U/L (45-117); Anion Gap 6 (5-15); BUN 15 mg/dL (7-18); BUN/Creat Ratio 15.3 RATIO (10-20); Calcium,Total 8.6 mg/dL (8.5-10.1); Chloride 107 mmol/L (98-107); Creatinine, Serum 0.98 mg/dL (0.70-1.30); EST Glomerular Filtration Rate 84 mL/min (>60); Est Glom Filt Rate - Afr Amer 102 mL/min (>60); Estimated Creatinine Clearance 81.31 ml/min; Globulin 3.4 g/dL (2.2-4.2); Glucose 92 mg/dL (74-106); Magnesium 1.9 mg/dL (1.6-2.6); Phosphorus 3.5 mg/dL (2.5-4.9); Potassium 3.5 mmol/L (3.5-5.1); Protein, Total 6.6 g/dL (6.4-8.2); Sodium Level 136 mmol/L (136-145)
[2024-02-10 06:54] LABS: Differential Indicated SCAN CRITERIA MET
[2024-02-10 06:55] LABS: Differential Comment SCANNED
[2024-02-10 07:25] LABS: Bedside Glucose 121 mg/dL (74-106)
[2024-02-10] MEDS: Folic Acid 1 MG Tablet PO (09:16)
[2024-02-10] MEDS: Thiamine Hydrochloride 100 MG Tablet PO (09:16)
[2024-02-10] MEDS: Enoxaparin 40 MG/0.4 ML Syringe SC (09:17)
--- NOTE | 2024-02-10 11:03 | PCM.PN.HOSP ---
Reason for Visit Reason for Visit: Acute alcohol withdrawal Subjective Subjective Patient is doing much better today. No significant tremulousness and patient's orientation is much improved. Objective Data Objective Data Vital Signs: Vital Signs Temp Pulse Resp BP Pulse Ox O2 Del Method 97.9 F 85 18 122/86 H 96 Room Air 02/10/24 09:07 02/10/24 09:07 02/10/24 09:07 02/10/24 09:07 02/10/24 06:47 02/10/24 09:07 Oxygen Delivery Method Room Air Weight: 68.3 kg Body Mass Index (BMI) 22.3 Intake & Output: Intake and Output for Last 24 Hours 02/08/24 02/09/24 02/10/24 23:59 23:59 23:59 Intake Total 2323.0 / 2423.0 100 / 100 Balance 2323.0 / 2423.0 100 / 100 Medical Nutrition Assessment Dietitian: Malnutrition Criteria Met Start: 02/09/24 16:38 Freq: Status: Active Protocol: Document 02/09/24 16:38 RMA (Rec: 02/09/24 16:39 RMA [id number]) Nutrition Malnutrition Evidence of Malnutrition Exists Yes Malnutrition (severe): Chronic,Social/Behavioral/ Environmental Evidenced By Suboptimal Energy Intake ( Severe),Weight Loss (Severe) Clinical Problem Chronic Disease or Condition Related Malnutrition Etiology severe protein-calorie malnutrition in the context of chronic alcohol use/social circumstance related to inadequate energy intake Signs/Symptoms as evidenced by PO meeting less than 50% estimated nutrition needs x past 1-2 months and unintentional weight loss ~10-12% in less than 1 month; BMI 22.2 Status Active Problem Recommendation Dietitian Recommendations/Changes Continue 2200 calorie, consistent carbohydrate diet as ordered; liberalize diet as needed to promote adequate PO at meals. Will add 240mL glucerna shake w/ breakfast and lunch trays as tolerated. Adjust ONS as needed to support weight repletion. Lab / Micro Data 02/10/24 06:15 02/10/24 06:15 Labs: Laboratory Results - last 24 hr 02/09/24 11:34: POC Glucose 116 H 02/09/24 16:36: POC Glucose 133 H 02/09/24 21:18: POC Glucose 163 H 02/10/24 05:40: POC Glucose 121 H 02/10/24 06:15: WBC 4.7, RBC 3.75 L, Hgb 12.3 L, Hct 37.0 L, MCV 98.7 H, MCH 32.8 H, MCHC 33.2, RDW Std Deviation 52.7 H, RDW Coeff of Josselyn 14.6, Plt Count 89 L, MPV 9.7, Immature Gran % (Auto) 0.400, Neut % (Auto) 69.1, Lymph % (Auto) 19.6, [place] % (Auto) 7.0, Eos % (Auto) 2.8, Baso % (Auto) 1.1 H, Absolute Neuts (auto) 3.3, Absolute Lymphs (auto) 0.92, Nucleated RBC % 0, Differential Comment SCANNED, Sodium 136, Potassium 3.5, Chloride 107, Carbon Dioxide 23.0, Anion Gap 6, BUN 15, Creatinine 0.98, Estim Creat Clear Calc 81.31, Est GFR (MDRD) Af Amer 102, Est GFR (MDRD) Non-Af 84, BUN/Creatinine Ratio 15.3, Glucose 92, Calcium 8.6, Phosphorus 3.5, Magnesium 1.9, Total Bilirubin 1.30 H, AST 42 H, ALT 36, Alkaline Phosphatase 85, Total Protein 6.6, Albumin 3.2, Globulin 3.4, Albumin/Globulin Ratio 0.9 Physical Exam Const alert, oriented x3, no apparent distress and average body habitus; Negative for healthy appearing or well nourished Constitutional Narrative: Middle-aged, white male, lying in bed watching television, appears comfortable, nontoxic, no fidgeting or tremulousness noted today General Appearance: cooperative HEENT normocephalic, head/scalp atraumatic, hearing grossly normal bilaterally and moist oral mucous membranes HEENT Narrative: Mallampati is 2, no thrush Resp normal respiratory effort, no retractions, no use of accessory muscles and clear to auscultation bilaterally Resp Narrative: Diffusely diminished but clear Auscultation: Negative for rales, rhonchi or wheezes Cardio regular rate, regular rhythm, S1 normal heart sound, S2 normal heart sound, no murmurs, no rub, no gallops and no clicks GI normal to inspection, nondistended, normoactive bowel sounds, soft to palpation and non-tender Extremity no clubbing, cyanosis or edema Extremity Narrative: Pedal pulses and radial pulses are 2+ Neuro oriented x3, moves all extremities and no focal motor deficits Neuro Narrative: Speech is clear and no tremulousness today Speech: speech normal Psych Psych Narrative: Affect remains flat and mood remains depressed Assessment & Plan Assessment/Plan (1) Acute kidney injury: (2) Alcohol withdrawal hallucinosis: (3) Elevated blood pressure reading: (4) Hyperglycemia: (5) Tachycardia: (6) Hypomagnesemia: (7) Hyperbilirubinemia: (8) Leukocytosis: (9) Hyponatremia: (10) Hypercalcemia: (11) Abnormal TSH: PLAN: Plan Acute alcohol withdrawal/hallucinations -Patient admitted to drinking at least a pint of whiskey daily -Last drink was about 5 days before presentation -Continue phenobarb taper -CIWA protocol with as needed Ativan -Required 1 dose of IV Ativan since admission yesterday -Thiamine and folate -Supportive medication for withdrawal symptoms -180 consultation--> anticipate evaluation tomorrow Severe malnutrition -Dietitian is following -Supplements added -Likely related to alcohol consumption YANIQUE secondary to dehydration -Resolved Hyponatremia -Resolved Hypercalcemia -Resolved Tachycardia -Resolved Elevated blood pressure -Resolving Hyperbilirubinemia -Trending down -No need to follow any further Hypomagnesemia - resolved Hyperglycemia -Suspect stress response -Hemoglobin A1c was 4.8 Leukocytosis -Resolved Tobacco abuse -Continue nicotine patch as needed -Recommend cessation DVT prophylaxis -Continue Lovenox 40 subcu daily CODE STATUS -Full code Charges/Coding Visit Charges Inpatient E&M: 07084 Subs Hosp L2
[2024-02-10 12:08] LABS: Bedside Glucose 103 mg/dL (74-106)
[2024-02-10 17:23] LABS: Bedside Glucose 126 mg/dL (74-106)
[2024-02-10] MEDS: Acetaminophen 325 MG Tablet 650 MG PO (21:48)
[2024-02-10] MEDS: MELATONIN 3 MG TABLET PO (21:48)
[2024-02-10] MEDS: traZODone 100 MG Tablet PO (21:48)
[2024-02-10 22:16] LABS: Bedside Glucose 109 mg/dL (74-106)
[2024-02-11 01:26] VITALS: BP 95/55; PULSE 73; RESP 18; TEMP 36.8; O2SAT 98
[2024-02-11] MEDS: Phenobarbital 32.4 MG Tablet 64.8 MG PO ×3 (01:30→09:57)
[2024-02-11] MEDS: 0.9% Saline Lock 10 ML Syringe IV (01:30)
[2024-02-11 06:00] VITALS: BMI 23.2
[2024-02-11 06:03] VITALS: BP 114/76; PULSE 63; RESP 16; TEMP 37.1; O2SAT 99
[2024-02-11 07:12] LABS: Bedside Glucose 109 mg/dL (74-106)
[2024-02-11 09:44] VITALS: BP 115/68; PULSE 87; RESP 18; TEMP 36.5; O2SAT 96
[2024-02-11] MEDS: Folic Acid 1 MG Tablet PO (09:52)
[2024-02-11] MEDS: Enoxaparin 40 MG/0.4 ML Syringe SC (09:52)
[2024-02-11] MEDS: Thiamine Hydrochloride 100 MG Tablet PO (09:52)
--- NOTE | 2024-02-11 11:15 | CASEMGMT ---
RN?CM?[employer]?CM?to room to meet with patient for initial transition planning/care coordination?assessment.?RN?CM?introduced self and role at [facility].? Pt voices understanding and consents to?assessment?at this time.? Pt resting in bed in no distress at this time.? Pt is A/O at this time and answers all questions appropriately.?? Care providers, pharmacy, and demographics verified/updated at this time. PCP: No PCP. Provided w/local directory and also given [facility] info. Specialists: none Preferred Pharmacy: [facility] [place] Insurance: MCR A only Prescription Benefit:?Pt does not think he has Rx benefits. Living Will/HPOA:?Pt does not currently have LW/HCPOA and declines info at this time.? Pt made aware that he can contact as an out-pt and make appt in the future if he decides he would like to talk with someone about this or would like to utilize [facility] social work for advanced directive completion.?? LNOK: Madeline Bauer. 2 other children. Living Arrangements: Lives alone in 2nd-floor apt. Independent. Transportation:?Pt states drives self and states no transportation concerns at this time.?He states he has someone that can take him home. DME: ? Denies using any DME and denies needs.? HHC/SNF: No hx. No needs identified. Pt wishes to return home and states has no concerns with going home at time of discharge.? ?CM?to follow for any discharge planning/needs.? Pt voices no further concerns/needs at this time.? Advised pt to ask for?CM?if any further questions/concerns/needs arise.? Voices understanding. PLAN:??Home. CM to follow for cost of medications . Mirta BSN?RN?CM
--- NOTE | 2024-02-11 11:27 | DS.PCM_ITS ---
Providers Date of Admission: 02/09/24 Date of Discharge: 02/11/24 Primary Care Physician: No Primary Care Phys Reason For Visit: ETOH DETOX AND ACUTE WITHDRAWAL Diagnosis Discharge Diagnosis (1) Acute kidney injury: Status: Acute Code(s): N17.9 - Acute kidney failure, unspecified (2) Alcohol withdrawal hallucinosis: Status: Acute Code(s): F10.932 - Alcohol use, unspecified with withdrawal with perceptual disturbance (3) Elevated blood pressure reading: Status: Acute Code(s): R03.0 - Elevated blood-pressure reading, without diagnosis of hypertension (4) Hyperglycemia: Status: Acute Code(s): R73.9 - Hyperglycemia, unspecified (5) Tachycardia: Status: Acute Code(s): R00.0 - Tachycardia, unspecified (6) Hypomagnesemia: Status: Acute Code(s): E83.42 - Hypomagnesemia (7) Hyperbilirubinemia: Status: Acute Code(s): E80.6 - Other disorders of bilirubin metabolism (8) Leukocytosis: Status: Acute Code(s): D72.829 - Elevated white blood cell count, unspecified (9) Hyponatremia: Status: Acute Code(s): E87.1 - Hypo-osmolality and hyponatremia (10) Hypercalcemia: Status: Acute Code(s): E83.52 - Hypercalcemia (11) Abnormal TSH: Status: Acute Code(s): R79.89 - Other specified abnormal findings of blood chemistry Medications at Discharge Home Medications acetaminophen 500 mg capsule 500 mg PO Q6H PRN pain 02/09/24 multivitamin 1 tab PO DAILY 02/09/24 Hospital Course Operations None Procedures None Summary of Care Provided Minutes Spent on Discharge: 36 Hospital Course: ROSSY NERI, is a 58 M who presented to the emergency department at [facility] on 02/09/2024 secondary to hallucinations. He was brought in by the police. He called the police and told them that there were people inside trying to harm him and when they arrived they found him alone and he was showing signs of actively hallucinating. The patient reported on presentation that he has a history of heavy alcohol abuse and drinks about a bottle of whiskey daily. He reported that he has been trying to quit and he thinks it has been about 5 to 7 days since his last drink but he is unsure. He denies any previous history of seizure disorder or DTs but it does not sound like he has had any persistent lengthy sobriety. Vital signs on presentation showed a temperature of 96.2, heart rate 125, respiratory 17, blood pressure was 142/105, and pulse ox was 97% on room air. His CBC shows a mild leukocytosis with a left shift but no signs of active infection. His chemistry panel shows mild hyponatremia with a sodium of 134, BUN of 20 and serum creatinine of 2.07. His glucose is 161 and it is documented that he is a diabetic but it does not appear that he is on any medication. His calcium was 10.7, magnesium 1.5 and bilirubin was elevated at 1.70. This is predominantly indirect as his direct bilirubin was 0.34. AST is 64 with a normal ALT consistent with alcohol abuse. TSH was mildly elevated 7.88. Serum salicylates was unremarkable, Tylenol level was less than 2 and F alcohol was less than 3. Urine toxicology was completely negative. He was admitted to the medical floor and started on a phenobarbital taper per protocol and was started on as needed Ativan per [facility]. He was also given thiamine and folate and supplemental medications were added for symptom control. Within 24 hours his symptoms were much improved. His overall detox was very uneventful once he was admitted. He expressed a sincere interest in maintaining sobriety and [facility] evaluated the patient during his hospital course and felt he was appropriate for Vivitrol injection with outpatient follow-up at [address] [place] [address]. He was given Vivitrol prior to discharge and able to be discharged home in stable condition on 02/03/2024. He is to follow-up at the [facility] outpatient program for ongoing management with related to his alcohol addiction per the direction of the [facility] liaison. Discharge diagnoses: Acute alcohol withdraw-resolved Delirium tremens-resolved Hallucinations-resolved Severe malnutrition YANIQUE secondary to dehydration-resolved Hyponatremia-resolved Hypercalcemia-resolved Tachycardia-resolved Elevated blood pressure-resolved Hyperbilirubinemia-resolved Hypomagnesemia-resolved Hyperglycemia-resolved--> hemoglobin A1c was 4.8 Leukocytosis-resolved Tobacco abuse Physical Exam Const alert, oriented x3, no apparent distress, average body habitus and no limitations; Negative for healthy appearing or well nourished Constitutional Narrative: Middle-aged, white male, lying in bed watching television, appears comfortable, nontoxic General Appearance: cooperative, comfortable, well kempt and well developed Orientation / Consciousness: awake, oriented to person, oriented to place and oriented to time Exam Limitations: no limitations HEENT normocephalic, head/scalp atraumatic, hearing grossly normal bilaterally and moist oral mucous membranes HEENT Narrative: Dentition is good, Mallampati is 2, no thrush Eyes PERRL, EOMs intact bilaterally and conjunctivae normal Eyes Narrative: No scleral icterus Neck no lymphadenopathy and supple Neck Narrative: Trachea midline, no thyroid enlargement Resp normal respiratory effort, no retractions, no use of accessory muscles and clear to auscultation bilaterally Resp Narrative: Diffusely diminished but clear Auscultation: Negative for rales, rhonchi or wheezes Cardio regular rate, regular rhythm, S1 normal heart sound, S2 normal heart sound, no murmurs, no rub, no gallops and no clicks Cardio Narrative: \ GI normal to inspection, nondistended, normoactive bowel sounds, soft to palpation and non-tender Extremity no clubbing, cyanosis or edema Extremity Narrative: Pedal pulses and radial pulses are 2+ Skin no rashes or lesions noted, no wounds, No skin turgor normal, no jaundice, no petechiae and no mottling Skin Narrative: Multiple tattoos Neuro oriented x3, CN's II-XII intact bilaterally, moves all extremities and no focal motor deficits Neuro Narrative: No tremor noted, no hallucinations Speech: speech normal Psych affect normal Psych Narrative: Much more interactive and expressive today, interacts appropriately, eye contact is good, patient is very pleasant Medical Records Data Medical Nutrition Assessment Dietitian: Malnutrition Criteria Met Start: 02/09/24 16:38 Freq: Status: Active Protocol: Document 02/09/24 16:38 RMA (Rec: 02/09/24 16:39 RMA [id number]) Nutrition Malnutrition Evidence of Malnutrition Exists Yes Malnutrition (severe): Chronic,Social/Behavioral/ Environmental Evidenced By Suboptimal Energy Intake ( Severe),Weight Loss (Severe) Clinical Problem Chronic Disease or Condition Related Malnutrition Etiology severe protein-calorie malnutrition in the context of chronic alcohol use/social circumstance related to inadequate energy intake Signs/Symptoms as evidenced by PO meeting less than 50% estimated nutrition needs x past 1-2 months and unintentional weight loss ~10-12% in less than 1 month; BMI 22.2 Status Active Problem Recommendation Dietitian Recommendations/Changes Continue 2199 calorie, consistent carbohydrate diet as ordered; liberalize diet as needed to promote adequate PO at meals. Will add 240mL glucerna shake w/ breakfast and lunch trays as tolerated. Adjust ONS as needed to support weight repletion. Weight / BMI Weight Weight: 71.2 kg Body Mass Index (BMI) 23.2 ABG / Lab / Microbiology Data 02/10/24 06:15 02/10/24 06:15 Laboratory: Laboratory Results - last 24 hr 02/10/24 11:43: POC Glucose 103 02/10/24 17:00: POC Glucose 126 H 02/10/24 21:58: POC Glucose 109 H 02/11/24 06:08: POC Glucose 109 H D/C Instructions Discharge Diet: No restrictions Discharge Activity: Return to Normal Activity Meaningful Use Info Meaningful Use Meaningful Use Diagnoses (Choose all that apply): None applicable Ischemic Stroke Statin Dosing Therapy Reference: STATIN DOSE THERAPY REFERENCE: * Patients > 75 years receive moderate or high dose statin therapy. * Patients 75 years or YOUNGER should receive HIGH intensity statin dose unless contraindicated. You will be required to document reason for non-treatment if statin daily dose does not meet guidelines. HIGH DOSE STATIN THERAPY DAILY Atorvastatin > than or = to 40 mg Rosuvastatin > than or = to 20 mg Amlodipine + Atorvastatin > than or = to 2.5/40 mg Ezetimibe + Simvastatin 10/80 mg Simvastatin 80mg Discharge Plan Admission Admit Date/Time: 02/09/24 09:58 Primary Reason for Your Visit: Acute EtOH withdrawal Attending Provider: Thi Henning Primary Care Provider: Care Physician,Fanny Primary Instructions Additional Instructions / Restrictions: 1. Please follow-up with 180 per the directions of the liaison from [facility] Carlos) Discharge Orders/Prescriptions Prescriptions: Continued acetaminophen 500 mg capsule 500 mg PO Q6H PRN (Reason: pain) multivitamin Tablet 1 tab PO DAILY Referrals / Follow Up: Care Physician,No Primary [Primary Care Provider] - Disposition Disposition (needs filled in before D/C Order can be placed): Home, Self Care Charges/Coding Visit Charges Inpatient E&M: 74636 Disch Hosp >30min
[2024-02-11 11:32] LABS: Bedside Glucose 104 mg/dL (74-106)
--- NOTE | 2024-02-11 11:43 | PHA.DC.MR.R ---
Pharmacy [place] Med Reconciliation Pharmacy Service has performed discharge medication reconciliation for this patient. The patient's discharge medication list was reviewed for discrepancies and discrepancies were resolved. Medications at Discharge Home Medications acetaminophen 500 mg capsule 500 mg PO Q6H PRN pain 02/09/24 multivitamin 1 tab PO DAILY 02/09/24
[2024-02-11] MEDS: Vivitrol ID Card 1 EACH MC (12:56)
[2024-02-11] MEDS: Vivitrol Administration Needles 1 EACH MC (12:56)
[2024-02-11] MEDS: Naltrexone Microspheres 380 MG SYRINGE IM (12:56)
== END 2024-02-11 13:20 | disposition home or self-care (01) | DRG 896 ==
LOC: ED 08:23 → MS3 09:01
PROVIDERS: Admitting Provider Internal Medicine; Emergency Provider Emergency Medicine; Visit Provider Internal Medicine
DX: F10.131 Alcohol abuse with withdrawal delirium (principal); E43 Unspecified severe protein-calorie malnutrition; N17.9 Acute kidney failure, unspecified; E87.1 Hypo-osmolality and hyponatremia; E11.65 Type 2 diabetes mellitus with hyperglycemia; F10.132 Alcohol abuse with withdrawal with perceptual disturbance; E80.6 Other disorders of bilirubin metabolism; E83.42 Hypomagnesemia; E83.52 Hypercalcemia; F17.210 Nicotine dependence, cigarettes, uncomplicated; E86.0 Dehydration; Y90.0 Blood alcohol level of less than 20 mg/100 ml; R03.0 Elevated blood-pressure reading, without diagnosis of hypertension; Z68.23 Body mass index [BMI] 23.0-23.9, adult; Z79.01 Long term (current) use of anticoagulants
CPT/HCPCS: 36415; 80048; 80053; 80076; 80307; 80320; 80329; 82962; 83036; 83735; 84100; 84439; 84443; 85025; 85610; 93005; 94668; 97802; 99284; J7030; J7040; A4216; G0480; J3490

== ENCOUNTER 2024-02-12 16:39 | Observation (INO) | payer MEDICARE, SELFPAY ==
[2024-02-12] VITALS (9 sets, daily range): BP systolic 115–202; BP diastolic 81–148; PULSE 71–106; RESP 14–18; TEMP 36.4–36.6; O2SAT 98–99; BMI 23.5; BMI 23.0
--- NOTE | 2024-02-12 16:54 | CT_ITS ---
STUDY: CT BRAIN WITHOUT CONTRAST REASON FOR EXAM: Male, 58 years old. blurred vision, htn RADIATION DOSAGE (If Supplied By Facility): CTDIvol = ( 44.99 ) mGy, DLP = ( 829.85 ) mGycm TECHNIQUE: Transaxial CT imaging of the brain was performed without administration of intravenous contrast material. Individualized dose optimization techniques were used for this CT. COMPARISON: No relevant priors. FINDINGS: Normal soft tissue structures. Normal calvarium. Normal size ventricles and extra-axial spaces for the patient''s age. Normal white matter tracts of the cerebral hemispheres. Normal basal ganglia and thalami. Normal brainstem. Normal cerebellum. There is no intracranial hemorrhage. There are no findings of an acute ischemic infarction. Normal visualized paranasal sinuses. CT/Brain/Head without Contrast IMPRESSION: Normal unenhanced CT scan of the brain. Electronically Signed: Sridhar Cazares MD at 19:24 EDT ,
--- NOTE | 2024-02-12 16:55 | EKG12_ITS ---
Test Reason : DIZZY Blood Pressure : / mmHG Vent. Rate : 095 BPM Atrial Rate : 095 BPM P-R Int : 182 ms QRS Dur : 080 ms QT Int : 352 ms P-R-T Axes : 048 054 049 degrees QTc Int : 442 ms Normal sinus rhythm Normal ECG Confirmed by Yoel Castro ([id number]), news copy editor MONICA BARTH ([id number]) on 02/17/2024 1:17:49 PM Referred By: Confirmed By:Yoel Castro
--- NOTE | 2024-02-12 16:56 | EDS_ITS ---
HPI History of Present Illness Chief Complaint: Dizziness Detail of Chief Complaint: Lightheaded and blurred vision Informant: patient Narrative Narrative: Patient complains of feeling lightheaded and complains of blurred vision for about 2 hours. Patient states that he was recently admitted to the hospital and treated for hallucinations where he leading to discontinuing alcohol use. Patient states that he has not drank in 12 days. He was feeling good this morning. Patient states that he had eaten lunch and then somehow he fell off the couch and when he would look at the TV was blurry. Denies headache. Denies chest pain. Patient states that they did give him Vivitrol injection yesterday but did not send him home with any type of medications. Patient denies slurred speech or weakness in his extremities. He denies paresthesias [facility] Medical History Elevated blood pressure reading Chronic anemia History of alcohol abuse Tobacco abuse Type 2 diabetes mellitus Home Medications ?Medication ?Instructions ?Recorded ?Last Taken ?Type acetaminophen 500 mg capsule 500 mg PO Q6H PRN pain 02/09/24 Unknown History multivitamin 1 tab PO DAILY 02/09/24 Unknown History Allergy/AdvReac Type Severity Reaction Status Date / Time No Known Allergies Allergy Verified 02/12/24 16:43 Social History (Updated 02/12/24 @ 19:[address] Marce Toure MD) household members: family Smoking Status: Current every day smoker tobacco type: cigarettes alcohol intake: former details: Sober x 12 days since recent detox admission. substance use type: does not use ROS ROS ED Review of Systems ROS Unobtainable: other Constitutional Constitutional ED: Reports lethargy; Denies chills, fever(s), sweats or weight loss Eyes Eyes: Reports blurry vision; Denies change in vision or diplopia ENT ENT ED: Denies rhinorrhea or sore throat Cardiovascular Cardiovascular: Denies chest pain, orthopnea or racing heartbeat Respiratory/Chest Respiratory/Chest: Denies cough, dyspnea, dyspnea on exertion, orthopnea or sputum Gastrointestinal Gastrointestinal: Denies abdominal pain, diarrhea, nausea or vomiting Genitourinary Genitourinary ED: Denies dysuria, hematuria or urinary frequency Musculoskeletal Musculoskeletal: Denies arthralgias, back pain, myalgias or neck pain Integumentary Denies abscess, Abrasions or rash Neurologic Neurologic: Reports other Details: Lightheaded ; Denies headache(s) or weakness Psychiatric Psychiatric: Denies anxiety, depression or suicidal thoughts Endocrine Endocrinology: Denies polydipsia, polyphagia or polyuria Hematologic/Lymphatic Hematologic/Lymphatic: Denies easy bleeding, easy bruising or lymphadenopathy Allergic/Immunologic Allergic/Immunologic ED: Denies mouth swelling, tongue swelling or urticaria EXAM Physical Exam Const Vital Signs: 02/12/24 16:40 02/12/24 17:24 02/12/24 17:30 Temperature 98 F Temperature Source Temporal Pulse Rate 106 H 76 Respiratory Rate 18 16 Respiratory Effort Normal Non-Labored Respiratory Pattern Normal Blood Pressure 202/148 H 148/97 H Blood Pressure Mean 166 114 Pulse Ox 98 Oxygen Delivery Method Room Air 02/12/24 17:43 02/12/24 18:00 02/12/24 19:00 Temperature Temperature Source Pulse Rate 77 78 88 Respiratory Rate 16 14 14 Respiratory Effort Respiratory Pattern Blood Pressure 151/90 H 141/81 H 154/87 H Blood Pressure Mean 110 101 109 Pulse Ox 98 Oxygen Delivery Method 02/12/24 19:55 Temperature 97.6 F L Temperature Source Pulse Rate 89 Respiratory Rate 14 Respiratory Effort Respiratory Pattern Blood Pressure 154/98 H Blood Pressure Mean 116 Pulse Ox 99 Oxygen Delivery Method Positive well nourished and well developed General Appearance ED: well developed and NAD HEENT Reports TM's clear and moist mucous membranes normocephalic and atraumatic; Negative for trauma or tenderness Tympanic Membrane ED: Yes TM's clear Eyes PERRL and EOMs intact bilaterally General Eye ED: Negative for pale conjunctiva or scleral icterus Neck no lymphadenopathy, supple and no JVD General: Negative for tenderness Chest Wall inspection of chest normal and palpation of chest normal Chest: Negative for tenderness Resp normal respiratory effort and clear to auscultation bilaterally Effort and Inspection: Negative for respiratory distress or pain with movement Auscultation: Negative for rhonchi, wheezes or diminished lung sounds Cardio regular rate, regular rhythm, S1 normal heart sound, S2 normal heart sound and no murmurs Peripheral Pulses: pulses 2+ throughout GI normal to inspection, nondistended, normoactive bowel sounds, soft to palpation, non-tender, non-distended and no masses Back/Spine no CVA tenderness and no thoracic nor lumbar tenderness Extremity normal to inspection General Extremety ED: Negative for edema General Extremity: Negative for edema Neuro oriented x3, CN's II-XII intact bilaterally, no sensory deficits noted and gait normal Neuro Narrative: No focal deficits noted on exam. NIH stroke scale is a 0. He is able to count fingers with both eyes but he describes blurry sensation bilaterally left greater than right. Sensorium / Orientation: awake, alert, oriented to person, oriented to place and oriented to time Motor Exam: strength 5/5 throughout and strength abnormal Psych mental status grossly normal Skin no rashes or lesions noted and no wounds MDM MDM MDM Narrative Medical decision making narrative: Patient presents with blurred vision and hypertension. Etiology uncertain. NIH stroke scale 0. Ordered labetalol IV. Patient was placed on head waitress. EKG and labs as well as a CT of the brain without contrast will be obtained. CBC with differential obtained showed a white count of 5.7 with hemoglobin 12.5 and platelet count of 122. Chemistries unremarkable. Alcohol was less than 3. Troponin was 40. CT scan of the brain without contrast was normal. While in t he department I did give him labetalol 20 mg IV and his blood pressure did normalize. Patient's blurred vision improved and dizziness also improved however after going to the bathroom he still did feel little bit off balance. Patient states his vision is at least 90% better now. I did give him a dose of Antivert and thinks maybe that helped a little bit. This point etiology of the dizziness and blurred vision unclear will admit for further testing to rule out posterior stroke. Case discussed with hospitalist will evaluate patient for admission Lab Data Attestation: I reviewed the patient's lab results. Labs: Laboratory Results - last 24 hr 02/12/24 17:20 WBC 5.7 RBC 3.84 L Hgb 12.5 L Hct 37.2 L MCV 96.9 H MCH 32.6 H MCHC 33.6 RDW Std Deviation 50.4 H RDW Coeff of Josselyn 14.3 Plt Count 122 L MPV 10.7 Immature Gran % (Auto) 0.900 Neut % (Auto) 72.1 H Lymph % (Auto) 16.1 L [place] % (Auto) 8.6 Eos % (Auto) 1.4 Baso % (Auto) 0.9 Absolute Neuts (auto) 4.1 Absolute Lymphs (auto) 0.92 Nucleated RBC % 0 Sodium 136 Potassium 3.8 Chloride 104 Carbon Dioxide 27.0 Anion Gap 5 BUN 6 L Creatinine 0.75 Estim Creat Clear Calc 109.98 Est GFR (MDRD) Af Amer 138 Est GFR (MDRD) Non-Af 114 BUN/Creatinine Ratio 8.0 L Glucose 129 H Calcium 9.0 Magnesium 1.8 Troponin I High Sens 40 Ethyl Alcohol < 3.0 Radiography Diagnostic Testing: Clinical Impression(s) from Imaging Studies Brain CT 02/12/24 16:54 IMPRESSION: Normal unenhanced CT scan of the brain. Electronically Signed: Sridhar Cazares MD at 19:24 EDT , EKG Initial EKG: Attestation: I personally reviewed and interpreted this EKG as follows: Comments: Sinus rhythm with rate of 95 bpm with no acute ST segment changes Discharge Plan Triage Chief Complaint: Dizziness ED Provider: Awilda Lino Dx/Rx/DC Orders Clinical Impression: Dizziness, Hypertension, Blurred vision Prescriptions: No Action acetaminophen 500 mg capsule 500 mg PO Q6H PRN (Reason: pain) multivitamin Tablet 1 tab PO DAILY Primary Care Provider: Care Physician,No Primary Referrals: Care Physician,No Primary [Primary Care Provider] - Print Language: Ecuadorean Disposition Disposition: [facility]
[2024-02-12] MEDS: 0.9% Normal Saline (1000mL) 1,000 ML 150 ML IV (17:15)
[2024-02-12] MEDS: Labetalol (Prefilled) 20 MG/4 ML IV (17:15)
[2024-02-12 17:29] LABS: Absolute Lymphocyte Count 0.92 X10^3/uL (0.83-4.51); Absolute Neutrophil Count 4.1 X10^3/uL (2.0-7.7); Basophil# 0.05 X10^3/uL; Basophil% 0.9 % (0-1); Eosinophil# 0.08 X10^3/uL; Eosinophils% 1.4 % (0-5); Hematocrit 37.2 % (40-54); Hemoglobin 12.5 g/dL (13.0-16.5); Lymphocyte # 0.92 X10^3/ul (0.83-4.51); Lymphocyte % 16.1 % (19-41); Mean Corp Hgb Conc 33.6 g/dL (32-36); Mean Corpuscular Hgb 32.6 pg (27.0-32.0); Mean Corpuscular Volume 96.9 fL (80-94); Mean Platelet Vol. 10.7 fl (6.2-12.0); Monocyte# 0.49 X10^3/uL; Monocyte% 8.6 % (0-10); NRBC Flagged by Analyzer 0 % (0-5); Neutrophil # 4.11 X10^3/uL (2.7-7.7); Neutrophil % 72.1 % (47-70); Platelet Count 122 K/mm3 (150-450); RBC Distribution Width CV 14.3 % (11.6-14.6); RBC Distribution Width SD 50.4 fl (35.1-43.9); Red Blood Count 3.84 M/mm3 (4.6-6.2); White Blood Count 5.7 K/mm3 (4.4-11.0)
[2024-02-12 17:38] LABS: Alcohol, Blood (Medical)-Serum < 3.0 mg/dL
[2024-02-12 17:43] LABS: Anion Gap 5 (5-15); BUN 6 mg/dL (7-18); Chloride 104 mmol/L (98-107); Creatinine, Serum 0.75 mg/dL (0.70-1.30); EST Glomerular Filtration Rate 114 mL/min (>60); Est Glom Filt Rate - Afr Amer 138 mL/min (>60); Estimated Creatinine Clearance 109.98 ml/min; Glucose 129 mg/dL (74-106); Magnesium 1.8 mg/dL (1.6-2.6); Potassium 3.8 mmol/L (3.5-5.1); Sodium Level 136 mmol/L (136-145); Troponin-I HS 40 pg/mL (3.0-78.0)
[2024-02-12] MEDS: Meclizine HCl 25 MG Tablet PO (18:31)
--- NOTE | 2024-02-12 19:53 | HP.PCM.HOS_ITS ---
HPI - General General Date of Admission: 02/12/24 Date of Service: 02/12/24 Chief Complaint: Vision changes, dizziness/lightheadedness. 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, Chronic macrocytic anemia, Tobacco use, EtOH abuse, Hx of Diabetes mellitus type, likely undiagnosed Hypertension, recent discharge 02/11/2024 following evaluation treatment for alcohol detox with acute withdrawal in addition to acute kidney injury secondary to dehydration which resolved as well as electrolyte disturbances which resolved with supplementation and noted hyperglycemia likely stress response with alcohol abuse with hemoglobin A1c 4.8%, with alcohol withdrawal hallucinations noted and elevated blood sugar without hypertensive diagnosis in addition to elevated TSH however free T4 normal thus subclinical who now represents to the [facility] ED on 02/12/24 with history of lightheaded, blurred vision ongoing for approximately 2 hours with reported ongoing sobriety initially feeling good this morning and had even eaten lunch but unfortunately somehow became altered and fell off the couch family was attempting to look at the TV noted it was blurry with no headache related with recent Vivitrol injection the day prior at 180 with no focal weakness or altered speech or facial droop and no paresthesias prompting return to the ED for evaluation. In the ED NIH stroke scale is reported as 0. Patient does report ability to see things but still describes his vision is blurry bilaterally, left greater than right. Patient does report some double vision specifically when he gets up and he is unable to determine if it is with specific movements. He does report feeling unstable on both sides and does not specifically fall to 1 side. He does have chronic bilateral upper extremity weakness secondary to bicep muscle loss secondary to chronic neck issues and nerve impingement. Workup in the ED included T98, heart rate 106, BP 202/148, respiratory rate 18, 98% on room air with most recent repeat vitals heart rate 88, BP 154/87, respiratory rate 14, CBC with WBC 5.7, hemoglobin 12.5, MCV 96.9, platelet 122 without marked shift, BMP with BUN/creatinine 6/0.75, glucose 129, magnesium 1.8, troponin 40, ethyl alcohol less than 3, CT of the brain with no acute intracranial findings, EKG with sinus rhythm with no acute evidence of ischemia. In the ED patient administered meclizine 25 mg p.o. x 1 as well as labetalol 20 mg IV x 1 and maintenance IV fluids. [facility] Medical History (Updated 02/12/24 @ 20:[address] Marce Toure MD) Upper extremity weakness Chronic neck pain Elevated blood pressure reading Chronic anemia History of alcohol abuse Tobacco abuse Type 2 diabetes mellitus Home Medications ?Medication ?Instructions ?Recorded ?Last Taken ?Type acetaminophen 500 mg capsule 500 mg PO Q6H PRN pain 02/09/24 Unknown History multivitamin 1 tab PO DAILY 02/09/24 Unknown History Allergy/AdvReac Type Severity Reaction Status Date / Time No Known Allergies Allergy Verified 02/12/24 16:43 Family History (Updated 02/12/24 @ 20:[address] Marce Toure MD) Mother Alcohol abuse CVA (cerebral vascular accident) Lung cancer Father Alcohol abuse Hypertension Surgical History (Updated 02/12/24 @ 20:[address] Marce Toure MD) History of arthroscopy of both knees Social History (Updated 02/12/24 @ 20:[address] Marce Toure MD) household members: family Smoking Status: Current every day smoker tobacco type: cigarettes Electronic Cigarette Use: with nicotine alcohol intake: former details: Sober x 12 days since recent detox admission. substance use type: does not use ROS ROS Narrative Admission Review of Systems: CONSTITUTIONAL: No weight loss, fever, chills, + weakness or fatigue. HEENT: + Blurry vision, occasional double vision. Eyes: No visual loss, yellow sclerae. Ears, Nose, Throat: No hearing loss, sneezing, congestion, runny nose or sore throat. SKIN: No rash or itching, lesions, wounds. CARDIOVASCULAR: No chest pain, chest pressure or chest discomfort, palpitations, edema, orthopnea, syncopal events. RESPIRATORY: No shortness of breath, cough or sputum, wheezing, hemoptysis. GASTROINTESTINAL: No anorexia, nausea, vomiting or diarrhea, abdominal pain, melena, BRBPR. GENITOURINARY: No dysuria, frequency, urgency or retention. NEUROLOGICAL: + Blurry vision, occasional double vision, dizziness, lightheadedness, gait instability, chronic bilateral upper extremity weakness secondary to bicep muscle loss secondary to nerve injury/impingement with chronic neck issues. No headache, syncope, paralysis, ataxia, numbness or tingling in the extremities, new focal weakness, change in bowel or bladder control, seizure. MUSCULOSKELETAL: + muscle, back pain, joint pain or stiffness. HEMATOLOGIC: + anemia, easy bleeding/bruising. LYMPHATICS: No enlarged nodes. No history of splenectomy. PSYCHIATRIC: No history of depression or anxiety. ENDOCRINOLOGIC: No reports of sweating, cold or heat intolerance. No polyuria or polydipsia. ALLERGIES: No history of asthma, hives, eczema or rhinitis. Vital Signs Vital Signs Vital Signs: 02/12/24 16:40 02/12/24 17:24 02/12/24 17:30 Temperature 98 F Temperature Source Temporal Pulse Rate 106 H 76 Respiratory Rate 18 16 Respiratory Effort Normal Non-Labored Respiratory Pattern Normal Blood Pressure 202/148 H 148/97 H Blood Pressure Mean 166 114 Pulse Ox 98 Oxygen Delivery Method Room Air 02/12/24 17:43 02/12/24 18:00 02/12/24 19:00 Temperature Temperature Source Pulse Rate 77 78 88 Respiratory Rate 16 14 14 Respiratory Effort Respiratory Pattern Blood Pressure 151/90 H 141/81 H 154/87 H Blood Pressure Mean 110 101 109 Pulse Ox 98 Oxygen Delivery Method Weight Weight: 159 lb 2 oz Body Mass Index (BMI) 23.5 Physical Exam Narrative Physical Examination: General: Awake, alert, oriented x 3 and cooperative, seated upright in the ED bed, no acute distress. Skin: Normal color, normal turgor, no icterus, no cyanosis, several noted tattoos. HEENT: AT/NC, EOMI, PERRLA, MMM, no carotid bruits or JVD noted, wilkerson of vision intact but still maintains blurry vision bilaterally. Lungs: CTA bilaterally, moderate effort, mild decrease BL bases, no rales, ronchi or wheezing. Heart: Regular rate and rhythm; no gallop, rub audible. Abdomen: Soft, NTTP, ND, normal BS, no markedly appreciated HSM. Extremities: No cyanosis, clubbing, or edema. Status post previous injury to the neck with bilateral upper bicep muscle wasting and upper extremity weakness which is chronic. Neurological: Patient awake, alert, oriented as noted, cognitive function intact; pupils equally reactive to light and accommodation, cranial nerves grossly normal, moving all 4 extremities except limited upper extremity movement which is chronic component secondary to bicep muscle wasting secondary to nerve impingement/damage of the neck, no new otherwise noted focal deficits, strength otherwise preserved, sensation intact, equivocal Babinski, difficulty with performing finger-nose secondary to issues with upper extremities, no drift upper extremities, no drift to lower extremities, strength appropriately intact aside from deficits with upper extremity, feel divisions intact but still maintains that there is blurry vision bilaterally. Psychiatric: Affect appears mildly anxious, no acute evidence of depressive feelings. Results Lab / Micro Data 02/12/24 17:20 02/12/24 17:20 Labs: Laboratory Results - last 24 hr 02/12/24 17:20: WBC 5.7, RBC 3.84 L, Hgb 12.5 L, Hct 37.2 L, MCV 96.9 H, MCH 32.6 H, MCHC 33.6, RDW Std Deviation 50.4 H, RDW Coeff of Josselyn 14.3, Plt Count 122 L, MPV 10.7, Immature Gran % (Auto) 0.900, Neut % (Auto) 72.1 H, Lymph % (Auto) 16.1 L, [place] % (Auto) 8.6, Eos % (Auto) 1.4, Baso % (Auto) 0.9, Absolute Neuts (auto) 4.1, Absolute Lymphs (auto) 0.92, Nucleated RBC % 0, Sodium 136, Potassium 3.8, Chloride 104, Carbon Dioxide 27.0, Anion Gap 5, BUN 6 L, Creatinine 0.75, Estim Creat Clear Calc 109.98, Est GFR (MDRD) Af Amer 138, Est GFR (MDRD) Non-Af 114, BUN/Creatinine Ratio 8.0 L, Glucose 129 H, Calcium 9.0, Magnesium 1.8, Troponin I High Sens 40, Ethyl Alcohol < 3.0 Imaging Radiology Impression Brain CT 02/12/24 16:54 IMPRESSION: Normal unenhanced CT scan of the brain. 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, Chronic macrocytic anemia, Tobacco use, EtOH abuse, Hx of Diabetes mellitus type, likely undiagnosed Hypertension, recent discharge 02/11/2024 following evaluation treatment for alcohol detox with acute withdrawal in addition to acute kidney injury secondary to dehydration which resolved as well as electrolyte disturbances which resolved with supplementation and noted hyperglycemia likely stress response with alcohol abuse with hemoglobin A1c 4.8%, with alcohol withdrawal hallucinations noted and elevated blood sugar without hypertensive diagnosis in addition to elevated TSH however free T4 normal thus subclinical who now represents to the [facility] ED on 02/12/24 with history of lightheaded, blurred vision ongoing for approximately 2 hours with reported ongoing sobriety initially feeling good this morning and had even eaten lunch but unfortunately somehow became altered and fell off the couch family was attempting to look at the TV noted it was blurry with no headache related with recent Vivitrol injection the day prior at 180 with no focal weakness or altered speech or facial droop and no paresthesias prompting return to the ED for evaluation. #1. Vision changes, dizziness, lightheadedness concerning for acute stroke/TIA versus hypertensive urgency given BP upon ED presentation however it since improved: Will admit to PCU, will obtain MRI Brain, CTA head and neck cautiously given recent YANIQUE with dehydration with continued IV fluid administration in the interim, ECHO, PT/OT/Speech/Nutrition evaluation per protocol. Will allow permissive HTN, maintain on asa, add statin pending AM FLP, fall precautions. Mag 1.8, TSH recently obtained and noted to be elevated 7.88 however free T4 1.12 This subclinical with planned repeat outpatient, HgbA1c also recently obtained and noted be 4.8. FLP requested w/ hepatic profile also. Maintain on fall and aspiration precautions. Will request neurology consultation. #2. Elevated BP without hypertensive diagnosis: Patient with elevated blood pressure on several occasions thus suspect patient is hypertensive, at this point given presentation to be cautious until stroke ruled out and assure potentially alternate diagnosis including benign positional vertigo will maintain permissive hypertension with as needed agents per stroke protocol but once appropriate add oral regimen. #3. Chronic macrocytic anemia: Admission hemoglobin 12.5, MCV 96.9, likely baseline as patient had been elevated initially during his previous admission but he was dehydrated at that time, will continue to trend CBC as needed. #4. Thrombocytopenia, likely chronic component given alcohol abuse: Admission platelets 122, improved from previous last noted 89, continue to trend CBC as needed. #5. Abnormal TSH: Admission TSH elevated 7.88 however follow-up free T4 1.12 Which is normal range thus subclinical, given this had been performed during an acute admission recommended follow-up with PCP and repeat once clinically improved. #6. History of diabetes mellitus type II: Noted prior history in the chart, recent presentation with hemoglobin A1c 4.8%, encourage continued altered diet and lifestyle changes, will defer Accu-Cheks and insulin sliding scale at this time but continue ADA diet. #7. History of alcohol abuse: Now currently sober x 12 days, encourage continued sobriety, will maintain on thiamine, folic acid and multivitamin to be cautious. Recent status post Vivitrol injection at 180 the day previous to current presentation. Magnesium 1.8. Will obtain phosphorus level to be cautious. #8. Tobacco Abuse: Encouraged cessation, inpatient consultation per RT, NR if desired. Patient smokes ~ 1 pack q 2 weeks now but also heavily vapes. #9. DVT prophylaxis: Lovenox. Charges/Coding Visit Charges Inpatient E&M: 69690 Init Hosp L3
--- NOTE | 2024-02-12 20:02 | CT_ITS ---
We are attempting to reach an attending provider to discuss findings. An addendum with communication details will be sent when the communication is complete. EXAM: CT ANGIOGRAPHY HEAD AND NECK WITH INTRAVENOUS CONTRAST CLINICAL INDICATION: Neuro deficit, acute, stroke suspected TECHNIQUE: [place] [facility] [place]/head and neck CT angiography protocol performed with intravenous contrast. This CT exam was performed using one or more of the following dose reduction techniques: automated exposure control, adjustment of the mA and/or kV according to patient size, and/or use of iterative reconstruction technique. MIP reconstructed images were created and reviewed. CONTRAST: IV 100mL [id number] COMPARISON: Noncontrast CT head on the same date. FINDINGS: HEAD: RIGHT ANTERIOR CEREBRAL ARTERY: No significant abnormality. No occlusion or significant stenosis. Anterior communicating artery is present. No aneurysm. RIGHT MIDDLE CEREBRAL ARTERY: No significant abnormality. No occlusion or significant stenosis. No aneurysm. RIGHT POSTERIOR CEREBRAL ARTERY: No significant abnormality. No occlusion or significant stenosis. No aneurysm. RIGHT INTRACRANIAL INTERNAL CAROTID ARTERY: No significant abnormality. No significant stenosis. No dissection or occlusion. RIGHT INTRACRANIAL VERTEBRAL ARTERY: No significant abnormality. No significant stenosis. No dissection or occlusion. LEFT ANTERIOR CEREBRAL ARTERY: No significant abnormality. No occlusion or significant stenosis. No aneurysm. LEFT MIDDLE CEREBRAL ARTERY: No significant abnormality. No occlusion or significant stenosis. No aneurysm. LEFT POSTERIOR CEREBRAL ARTERY: No significant abnormality. No occlusion or significant stenosis. No aneurysm. LEFT INTRACRANIAL INTERNAL CAROTID ARTERY: No significant abnormality. No significant stenosis. No dissection or occlusion. LEFT INTRACRANIAL VERTEBRAL ARTERY: No significant abnormality. No significant stenosis. No dissection or occlusion. BASILAR ARTERY: No significant abnormality. No occlusion or significant stenosis. No aneurysm. OTHER VASCULATURE: No vascular malformation. NECK: RIGHT COMMON CAROTID ARTERY: No significant abnormality. No significant stenosis. No dissection or occlusion. RIGHT EXTRACRANIAL INTERNAL CAROTID ARTERY: Less than 50% stenosis by NASCET criteria at the proximal right internal carotid artery secondary to predominantly bland rather than calcified atheroma extending through the bifurcation and bulb. No dissection or occlusion. RIGHT EXTERNAL CAROTID ARTERY: No significant abnormality. No occlusion. RIGHT EXTRACRANIAL VERTEBRAL ARTERY: No significant abnormality. No significant stenosis. No dissection or occlusion. LEFT COMMON CAROTID ARTERY: No significant abnormality. No significant stenosis. No dissection or occlusion. LEFT EXTRACRANIAL INTERNAL CAROTID ARTERY: No significant abnormality. No significant stenosis. No dissection or occlusion. LEFT EXTERNAL CAROTID ARTERY: No significant abnormality. No occlusion. LEFT EXTRACRANIAL VERTEBRAL ARTERY: No significant abnormality. No significant stenosis. No dissection or occlusion. BRACHIOCEPHALIC AND SUBCLAVIAN ARTERIES: Normal as visualized. No occlusion or significant stenosis. LUNG APICES: Normal as visualized. HEAD and NECK: BONES/JOINTS: No significant abnormality. No discrete lytic or blastic abnormalities. SOFT TISSUES: At the distal arch anteriorly, there is a 3 mm deep ulceration with overlying soft tissue thickening perhaps indicative of a focal aortitis or other cause for ulceration. OTHER FINDINGS: Degenerative changes in the cervical spine. Multilevel disc herniations with moderate to severe multilevel canal stenosis. CAROTID STENOSIS REFERENCE USING NASCET CRITERIA: % ICA stenosis = (1 - narrowest ICA diameter/diameter of distal cervical ICA) x 100. Mild - <50% stenosis. Moderate - 50-69% stenosis. Severe - 70-94% stenosis. Near occlusion - 95-99% stenosis. Occluded - 100% stenosis. CT/CTA Head AND Neck W/ Contrast IMPRESSION: 1. At the distal arch anteriorly, there is a 3 mm deep ulceration with overlying soft tissue thickening perhaps indicative of a focal aortitis or other cause for ulceration. 2. No significant arterial pathology is otherwise identified in the head and neck. No large vessel occlusion or critical intracranial arterial stenosis. 3. Multilevel spinal canal stenosis. Electronically Signed: Jose Carter DO at 22:07 EDT ,
[2024-02-12 20:22] LABS: AST(SGOT) 42 U/L (15-37); Alanine Aminotransfer ALT/SGPT 46 U/L (16-61); Albumin, Serum 3.4 g/dL (3.2-5.0); Alkaline Phosphatase 96 U/L (45-117); Globulin 3.5 g/dL (2.2-4.2); Phosphorus 2.4 mg/dL (2.5-4.9); Protein, Total 6.9 g/dL (6.4-8.2)
--- NOTE | 2024-02-12 21:23 | ECHOD_ITS ---
Reason For Study: TIA/CVA Procedure This was a 2D Doppler, Color Flow transthoracic echocardiogram. Exam performed portable in patient room. Left Ventricle Normal LV size. Left ventricular systolic function is normal. The estimated ejection fraction is 55 %. Normal diastology for age. No regional wall motion abnormalities noted. Right Ventricle Normal RV size. Normal systolic function. Atria Normal left atrium. Normal right atrium. Bubble contrast study is negative for PFO/ASD. Mitral Valve The mitral valve is structurally normal. No prolapse or stenosis seen. Trivial mitral valve insufficiency. Tricuspid Valve Normal tricuspid valve. Trivial tricuspid valve insufficiency. Unable to estimate RV systolic pressure due to insufficient tricuspid regurgitant envelope. Aortic Valve Trisinus/trileaflet aortic valve. Pulmonic Valve Normal pulmonic valve. Great Vessels Normal aortic root. Pericardium/Pleural No pericardial effusion. Medication Performed a rapid injection of agitated mix of 9 cc saline and 1cc air to assess for atrial septal defect. MMode/2D Measurements & Calculations LVIDd: 4.9 cm IVSd: 1.1 cm LVOT diam: 2.1 cm LVIDs: 3.2 cm LVPWd: 1.0 cm RVDd: 3.3 cm FS: 33.5 % LVOT area: 3.6 cm2 Ao root diam: 3.6 cm LAV(MOD-bp): 51.3 ml LA A4 area: 19.0 cm2 LA dimension: 3.3 cm LAV(MOD-bp) Indexed: 27.6 ml/m2 LAV(MOD-sp2): 44.5 ml LAV(MOD-sp4): 53.4 ml RA A4 area: 13.2 cm2 Time Measurements MV dec time: 0.20 sec Doppler Measurements & Calculations MV E max antonio: 60.9 cm/sec Lat Peak E' Antonio: 10.0 cm/sec Med Peak E' Antonio: 9.6 cm/sec MV A max antonio: 65.9 cm/sec E/E' lat: 6.1 E/E' med: 6.3 MV E/A: 0.92 MV V2 max: 90.3 cm/sec MV P1/2t max antonio: 91.3 cm/sec Ao V2 max: 121.9 cm/sec MV max P.3 mmHg MV P1/2t: 75.2 msec Ao max P.9 mmHg MV V2 mean: 51.6 cm/sec MV dec slope: 355.6 cm/sec2 Ao V2 mean: 83.4 cm/sec MV mean P.3 mmHg Ao mean P.2 mmHg MV V2 VTI: 29.1 cm MVA(P1/2t): 2.9 cm2 Ao V2 VTI: 23.3 cm MVA(VTI): 1.9 cm2 AV (velocity ratio): 0.66 ADI(I,D): 2.4 cm2 ADI(V,D): 2.4 cm2 LV V1 max: 82.9 cm/sec SV(LVOT): 54.9 ml PA V2 max: 87.6 cm/sec LV V1 max P.7 mmHg PA max PG (full): 1.5 mmHg LV V1 mean P.5 mmHg LV V1 mean: 56.6 cm/sec LV V1 VTI: 15.3 cm ECHO/Echo Complete Interpretation Summary The estimated ejection fraction is 55 %. Structurally normal valves. Bubble contrast study is negative for PFO/ASD. Ordering Physician: Marce Toure Performed By: Harish Decker and Student
[2024-02-12] MEDS: Pantoprazole Sodium 20 MG Tablet PO (22:07)
[2024-02-12] MEDS: MELATONIN 3 MG TABLET PO (22:07)
[2024-02-12] MEDS: Aspirin 325 MG Tablet PO (22:07)
[2024-02-12] MEDS: Atorvastatin Calcium 80 MG Tablet PO (22:07)
[2024-02-12] MEDS: 0.9% Normal Saline (1000mL) 1,000 ML 100 ML IV (22:11)
[2024-02-12 23:03] LABS: Erythrocyte Sedimentation Rate 11 mm/hr (0-20)
[2024-02-13] VITALS (7 sets, daily range): BP systolic 123–150; BP diastolic 81–103; PULSE 76–94; RESP 16; TEMP 36.1–37.1; O2SAT 97–99; BMI 23.0
[2024-02-13 06:10] LABS: Absolute Lymphocyte Count 1.27 X10^3/uL (0.83-4.51); Absolute Neutrophil Count 2.5 X10^3/uL (2.0-7.7); Basophil# 0.07 X10^3/uL; Basophil% 1.5 % (0-1); Eosinophil# 0.15 X10^3/uL; Eosinophils% 3.3 % (0-5); Hematocrit 37.1 % (40-54); Hemoglobin 12.2 g/dL (13.0-16.5); Lymphocyte # 1.27 X10^3/ul (0.83-4.51); Lymphocyte % 27.5 % (19-41); Mean Corp Hgb Conc 32.9 g/dL (32-36); Mean Corpuscular Hgb 33.1 pg (27.0-32.0); Mean Corpuscular Volume 100.5 fL (80-94); Mean Platelet Vol. 10.2 fl (6.2-12.0); Monocyte# 0.56 X10^3/uL; Monocyte% 12.1 % (0-10); NRBC Flagged by Analyzer 0 % (0-5); Neutrophil # 2.52 X10^3/uL (2.7-7.7); Neutrophil % 54.7 % (47-70); Platelet Count 130 K/mm3 (150-450); RBC Distribution Width CV 14.6 % (11.6-14.6); RBC Distribution Width SD 54.3 fl (35.1-43.9); Red Blood Count 3.69 M/mm3 (4.6-6.2); White Blood Count 4.6 K/mm3 (4.4-11.0)
[2024-02-13 06:51] LABS: ALB/GLOB Ratio 0.9 RATIO (0.9-2.4); AST(SGOT) 41 U/L (15-37); Alanine Aminotransfer ALT/SGPT 45 U/L (16-61); Albumin, Serum 2.9 g/dL (3.2-5.0); Alkaline Phosphatase 78 U/L (45-117); Anion Gap 5 (5-15); BUN 5 mg/dL (7-18); BUN/Creat Ratio 6.6 RATIO (10-20); Calcium,Total 8.4 mg/dL (8.5-10.1); Chloride 109 mmol/L (98-107); Cholesterol 166 mg/dL (200); Creatinine, Serum 0.76 mg/dL (0.70-1.30); EST Glomerular Filtration Rate 113 mL/min (>60); Est Glom Filt Rate - Afr Amer 137 mL/min (>60); Estimated Creatinine Clearance 108.53 ml/min; Globulin 3.3 g/dL (2.2-4.2); Glucose 108 mg/dL (74-106); High Density Lipoprotein 37 mg/dL; Potassium 4.1 mmol/L (3.5-5.1); Protein, Total 6.2 g/dL (6.4-8.2); Sodium Level 141 mmol/L (136-145); Triglycerides 225 mg/dL; Very Low Density Lipoprotein 45 mg/dL (5-40)
--- NOTE | 2024-02-13 09:18 | MRI_ITS ---
EXAM: MR HEAD WITHOUT INTRAVENOUS CONTRAST CLINICAL INDICATION: TIA/CVA TECHNIQUE: Multiplanar and multisequence MR images of the brain were obtained without intravenous contrast. COMPARISON: CT head without contrast 02/12/2024. FINDINGS: BRAIN AND EXTRA-AXIAL SPACES: No diffusion restriction to suspect acute or subacute ischemic infarct. No focal signal abnormalities throughout the brain parenchyma in all pulse sequences. No midline shift and no mass effects. Normal ventricles and cisterns. No intra- or extra-axial hemorrhage. Posterior fossa structures are unremarkable. No hydrocephalus. SELLA: Unremarkable. Normal sella turcica, pituitary gland, infundibular stalk, optic chiasm and hypothalamus. AUDITORY SYSTEM: Unremarkable. The internal auditory canals are patent. BONES/JOINTS: Unremarkable. No discrete lytic or blastic abnormalities. SINUSES: Unremarkable as visualized. Clear. MASTOID AIR CELLS: Unremarkable as visualized. Clear. ORBITS: Unremarkable as visualized. Both globes, extraocular muscles, optic nerves and retrobulbar fat appear unremarkable. VASCULATURE: Unremarkable as visualized. Normal flow voids in the major intracranial circulation. MRI/Brain without Contrast IMPRESSION: Negative MRI brain without contrast. Electronically Signed: Cheo Alonzo MD at 15:02 EDT ,
[2024-02-13] MEDS: Pantoprazole Sodium 20 MG Tablet PO ×2 (10:08→21:08)
[2024-02-13] MEDS: Aspirin 81 MG TAB.CHEW PO (10:08)
[2024-02-13] MEDS: Thiamine Hydrochloride 100 MG Tablet PO (10:09)
[2024-02-13] MEDS: Multivitamins,Therapeutic Tablet 1 TABLET PO (10:09)
[2024-02-13] MEDS: Enoxaparin 40 MG/0.4 ML Syringe SC (10:09)
[2024-02-13] MEDS: Folic Acid 1 MG Tablet PO (10:09)
--- NOTE | 2024-02-13 13:48 | CASEMGMT ---
Addendum entered by Lisa Anderson 02/13/24 13:57: SW accidentally marked that patient had thoughts of harming himself. Patient denied wanting to harm himself. Lisa MOSLEY Original Note: SW went to patient's room. Introduced self and role at [facility]. Patient's daughter was present. Patient was okay with proceeding with PHQ 9 with daughter present. SW completed a PHQ 9 with patient as he may have had a TIA. Patient scored an 11 which indicates moderate depression. Patient stated he just started working with [facility] for counseling. Patient stated he was in the hospital a couple of days ago and was started on a medication which then resulted in issue with his blood pressure which is why patient is back in the hospital. Patient said he plans on working through his issues with a counselor at [facility]. Patient denies wanting to hurt himself, but does admit sometimes he gets frustrated. SW told patient if he feels like he would like to talk with SW while at [facility] he is welcome to ask for SW. Lisa MOSLEY
--- NOTE | 2024-02-13 15:10 | CASEMGMT ---
Met with patient to complete RANGEL form. RANGEL form explained to patient who voiced understanding and signed form. Original form placed in pt?s chart and copy provided to patient. Aleah Evans, Discharge Planning Asst
--- NOTE | 2024-02-13 15:58 | PCM.DC ---
Discharge Instructions Diet Discharge Diet: No restrictions Activity Discharge Activity: No Restrictions Follow Up Care Test Results: Test results from this visit will be discussed in further detail at your follow-up appointment, if applicable. Discharge Plan Admission Admit Date/Time: 02/12/24 19:55 Primary Reason for Your Visit: Lightheadedness and blurry vision Attending Provider: Arthur Barber Primary Care Provider: Care Physician,No Primary Consulting Providers: Tapan Hayes; Almaz Menjivar; Erin Christensen; Yuliya Anderson; Lorin Crocker; Heriberto Resendez; Crista Aiken; Rafita Mccormick; Adrien Crowell; Daily Tobar; Ambrosio Benites; My Woodall; Faith Ramos; Igor Granados; Basim Nicholas; Ariella Mayfield; Mario Hernandez; eDidre Henning; Isela Gordon; Marce Toure; Maximilian Carvajal Discharge Orders/Prescriptions Prescriptions: New atorvastatin 80 mg Tablet 80 mg PO QHS 90 Days Qty: 90 3RF amlodipine 5 mg Tablet 5 mg PO DAILY 90 Days Qty: 90 1RF pantoprazole 20 mg Tablet,Delayed Release (Dr/Ec) 20 mg PO BID 30 Days Qty: 60 2RF aspirin 81 mg Tablet,Chewable 81 mg PO BREAKFAST 90 Days Qty: 90 3RF Continued acetaminophen 500 mg capsule 500 mg PO Q6H PRN (Reason: pain) multivitamin Tablet 1 tab PO DAILY Referrals / Follow Up: Care Physician,No Primary [Primary Care Provider] - Disposition Disposition (needs filled in before D/C Order can be placed): Home, Self Care
--- NOTE | 2024-02-13 15:58 | PCM.DC.SUM ---
Providers Date of Admission: 02/12/24 Primary Care Physician: No Primary Care Phys Consultations 02/12/24 21:23 Consult: Tele-Neurology Routine Consulting Provider: [facility] Reason for Consult: Acute Ischemic Stroke/TIA EMERGENT Consult: No MD Notified: Yes Date Notified: 02/13/24 Time Notified: 04:07 Method of Notification: Answering Service Nursing Unit Staff Notify [facility] of Tele-Neurology Consult: Yes Reason For Visit: TIA Diagnosis Discharge Diagnosis (1) TIA (transient ischemic attack): Status: Acute Code(s): G45.9 - Transient cerebral ischemic attack, unspecified Medications at Discharge Home Medications acetaminophen 500 mg capsule 500 mg PO Q6H PRN pain 02/09/24 multivitamin 1 tab PO DAILY 02/09/24 Medical Records Data Medical Nutrition Assessment Dietitian: Malnutrition Criteria Met Start: 02/13/24 15:45 Freq: Status: Active Protocol: Document 02/13/24 15:45 LO (Rec: 02/13/24 15:45 LO [id number]) Nutrition Malnutrition Evidence of Malnutrition Exists Yes Malnutrition (severe): Acute Illness/Injury Evidenced By Suboptimal Energy Intake ( Severe),Weight Loss (Severe) Clinical Problem Acute Disease or Injury Related Malnutrition Etiology severe related to chronic alcohol use with recent detox Signs/Symptoms as evidenced by PO intakes meeting <50% of estimated needs for <1 month and unintentional weight loss of 10.7% in 2 weeks Status Active Problem Recommendation Dietitian Recommendations/Changes Continue Cardiac/1800CCD diet to manage medical conditions. Will order 120mL Glucerna 4x daily with medpass to promote weight gain Weight / BMI Weight Weight: 70.8 kg Body Mass Index (BMI) 23.0 ABG / Lab / Microbiology Data 02/13/24 05:26 02/13/24 05:26 Laboratory: Laboratory Results - last 24 hr 02/12/24 17:20: WBC 5.7, RBC 3.84 L, Hgb 12.5 L, Hct 37.2 L, MCV 96.9 H, MCH 32.6 H, MCHC 33.6, RDW Std Deviation 50.4 H, RDW Coeff of Josselyn 14.3, Plt Count 122 L, MPV 10.7, Immature Gran % (Auto) 0.900, Neut % (Auto) 72.1 H, Lymph % (Auto) 16.1 L, [place] % (Auto) 8.6, Eos % (Auto) 1.4, Baso % (Auto) 0.9, Absolute Neuts (auto) 4.1, Absolute Lymphs (auto) 0.92, Nucleated RBC % 0, ESR 11, Sodium 136, Potassium 3.8, Chloride 104, Carbon Dioxide 27.0, Anion Gap 5, BUN 6 L, Creatinine 0.75, Estim Creat Clear Calc 109.98, Est GFR (MDRD) Af Amer 138, Est GFR (MDRD) Non-Af 114, BUN/Creatinine Ratio 8.0 L, Glucose 129 H, Calcium 9.0, Phosphorus 2.4 L, Magnesium 1.8, Total Bilirubin 0.30, Direct Bilirubin 0.10, AST 42 H, ALT 46, Alkaline Phosphatase 96, Troponin I High Sens 40, C-React Prot Ext Range 13.20 H, Total Protein 6.9, Albumin 3.4, Globulin 3.5, Ethyl Alcohol < 3.0 02/13/24 05:26: WBC 4.6, RBC 3.69 L, Hgb 12.2 L, Hct 37.1 L, MCV 100.5 H, MCH 33.1 H, MCHC 32.9, RDW Std Deviation 54.3 H, RDW Coeff of Josselyn 14.6, Plt Count 130 L, MPV 10.2, Immature Gran % (Auto) 0.900, Neut % (Auto) 54.7, Lymph % (Auto) 27.5, [place] % (Auto) 12.1 H, Eos % (Auto) 3.3, Baso % (Auto) 1.5 H, Absolute Neuts (auto) 2.5, Absolute Lymphs (auto) 1.27, Nucleated RBC % 0, Sodium 141, Potassium 4.1, Chloride 109 H, Carbon Dioxide 27.0, Anion Gap 5, BUN 5 L, Creatinine 0.76, Estim Creat Clear Calc 108.53, Est GFR (MDRD) Af Amer 137, Est GFR (MDRD) Non-Af 113, BUN/Creatinine Ratio 6.6 L, Glucose 108 H, Calcium 8.4 L, Total Bilirubin 0.30, AST 41 H, ALT 45, Alkaline Phosphatase 78, Total Protein 6.2 L, Albumin 2.9 L, Globulin 3.3, Albumin/Globulin Ratio 0.9, Triglycerides 225 H, Cholesterol 166, LDL Cholesterol 84, VLDL Cholesterol 45 H, HDL Cholesterol 37 L Radiography Diagnostic Testing: Radiology Impression Brain CT 02/12/24 16:54 IMPRESSION: Normal unenhanced CT scan of the brain. Electronically Signed: Sridhar Cazares MD at 19:24 EDT , Head/Neck CTA 02/12/24 20:02 IMPRESSION: 1. At the distal arch anteriorly, there is a 3 mm deep ulceration with overlying soft tissue thickening perhaps indicative of a focal aortitis or other cause for ulceration. 2. No significant arterial pathology is otherwise identified in the head and neck. No large vessel occlusion or critical intracranial arterial stenosis. 3. Multilevel spinal canal stenosis. Electronically Signed: Jose Carter DO at 22:07 EDT , ADDENDUM: 02/12/24 2240 IMPRESSION: 1. At the distal arch anteriorly, there is a 3 mm deep ulceration with overlying soft tissue thickening perhaps indicative of a focal aortitis or other cause for ulceration. 2. No significant arterial pathology is otherwise identified in the head and neck. No large vessel occlusion or critical intracranial arterial stenosis. 3. Multilevel spinal canal stenosis. N.B. : The above Results were Read Back by Jose Carter DO to Marce Toure MD, and understanding confirmed on 02/12/2024 22:33:20 (ET). Electronically Signed: Jose Carter DO at 22:07 EDT , Echocardiogram 02/12/24 21:23 Interpretation Summary The estimated ejection fraction is 55 %. Structurally normal valves. Bubble contrast study is negative for PFO/ASD. Ordering Physician: Marce Toure Performed By: Harish Decker and Student Brain MRI 02/13/24 09:18 IMPRESSION: Negative MRI brain without contrast. Electronically Signed: Cheo Alonzo MD at 15:02 EDT , Meaningful Use Info Ischemic Stroke Statin Dosing Therapy Reference: STATIN DOSE THERAPY REFERENCE: * Patients > 75 years receive moderate or high dose statin therapy. * Patients 75 years or YOUNGER should receive HIGH intensity statin dose unless contraindicated. You will be required to document reason for non-treatment if statin daily dose does not meet guidelines. HIGH DOSE STATIN THERAPY DAILY Atorvastatin > than or = to 40 mg Rosuvastatin > than or = to 20 mg Amlodipine + Atorvastatin > than or = to 2.5/40 mg Ezetimibe + Simvastatin 10/80 mg Simvastatin 80mg Discharge Plan Admission Admit Date/Time: 02/12/24 19:55 Attending Provider: Arthur Barber Primary Care Provider: Care Physician,No Primary Consulting Providers: Tapan Hayes; Almaz Menjivar; Erin Christensen; Yuliya Anderson; Lorin Crocker; Heriberto Resendez; Crista Aiken; Rafita Mccormick; Adrien Crowell; Daily Tobar; Ambrosio Benites; My Woodall; Faith Ramos; Igor Granados; Basim Nicholas; Ariella Mayfield; Mario Hernandez; Deidre Henning; Isela Gordon; Marce Toure Discharge Orders/Prescriptions Prescriptions: No Action acetaminophen 500 mg capsule 500 mg PO Q6H PRN (Reason: pain) multivitamin Tablet 1 tab PO DAILY Referrals / Follow Up: Care Physician,No Primary [Primary Care Provider] -
[2024-02-13] MEDS: Ondansetron 4 MG/2 ML Vial IV (16:25)
[2024-02-13] MEDS: 0.9% Saline Lock 10 ML Syringe IV ×2 (16:25→21:12)
--- NOTE | 2024-02-13 16:46 | PCM.PN.HOSP ---
Reason for Visit Reason for Visit: Diagnoses Transient cerebral ischemic attack, unspecified (02/12/24) Subjective Subjective Patient admitted yesterday evening for new onset lightheadedness and blurry vision. Patient was recently hospitalized from 02/08 through 02/10 for alcohol withdrawal, tolerated phenobarb taper without significant issue. He was given Vivitrol shot prior to discharge. Had acute onset lightheadedness and blurry vision that lasted for about 2 hours that prompted him to come to the ED. He also noted that his blood pressure at home was very high. Notably did have some high blood pressure readings during previous admission but it was suspected this was more due to alcohol withdrawal and he was not started on any antihypertensive medications. Was given a dose of labetalol in the ED with improved blood pressure and some improvement in symptoms. Saw patient at the bedside this morning, several family members present. Patient was sitting up comfortably in bedside chair, conversing normally, in no acute distress. He did report ongoing blurry vision, only mildly improved from yesterday. Stated this was affecting his ambulation. Had not worked with physical therapy yet when I saw him. Also had not had his echo or MRI done yet at that point. He otherwise denied any acute pain or discomfort. Denies any other neurologic symptoms including weakness or numbness/tingling of extremities. Denied any fevers or chills. No other acute concerns at this time. Objective Data Objective Data Vital Signs: Vital Signs Temp Pulse Resp BP Pulse Ox O2 Del Method 98.1 F 79 16 150/103 H 98 Room Air 02/13/24 16:28 02/13/24 16:28 02/13/24 16:28 02/13/24 16:28 02/13/24 16:28 02/13/24 16:28 Oxygen Delivery Method Room Air Weight: 70.8 kg Body Mass Index (BMI) 23.0 Intake & Output: Intake and Output for Last 24 Hours 02/11/24 02/12/24 02/13/24 23:59 23:59 23:59 Intake Total 612.5 / 612.5 1800 / 1800 Balance 612.5 / 612.5 1800 / 1800 Medical Nutrition Assessment Dietitian: Malnutrition Criteria Met Start: 02/13/24 15:45 Freq: Status: Active Protocol: Document 02/13/24 15:45 CORINNE (Rec: 02/13/24 15:45 LO [id number]) Nutrition Malnutrition Evidence of Malnutrition Exists Yes Malnutrition (severe): Acute Illness/Injury Evidenced By Suboptimal Energy Intake ( Severe),Weight Loss (Severe) Clinical Problem Acute Disease or Injury Related Malnutrition Etiology severe related to chronic alcohol use with recent detox Signs/Symptoms as evidenced by PO intakes meeting <50% of estimated needs for <1 month and unintentional weight loss of 10.7% in 2 weeks Status Active Problem Recommendation Dietitian Recommendations/Changes Continue Cardiac/1800CCD diet to manage medical conditions. Will order 120mL Glucerna 4x daily with medpass to promote weight gain Lab / Micro Data 02/13/24 05:26 02/13/24 05:26 Labs: Laboratory Results - last 24 hr 02/12/24 17:20: WBC 5.7, RBC 3.84 L, Hgb 12.5 L, Hct 37.2 L, MCV 96.9 H, MCH 32.6 H, MCHC 33.6, RDW Std Deviation 50.4 H, RDW Coeff of Josselyn 14.3, Plt Count 122 L, MPV 10.7, Immature Gran % (Auto) 0.900, Neut % (Auto) 72.1 H, Lymph % (Auto) 16.1 L, [place] % (Auto) 8.6, Eos % (Auto) 1.4, Baso % (Auto) 0.9, Absolute Neuts (auto) 4.1, Absolute Lymphs (auto) 0.92, Nucleated RBC % 0, ESR 11, Sodium 136, Potassium 3.8, Chloride 104, Carbon Dioxide 27.0, Anion Gap 5, BUN 6 L, Creatinine 0.75, Estim Creat Clear Calc 109.98, Est GFR (MDRD) Af Amer 138, Est GFR (MDRD) Non-Af 114, BUN/Creatinine Ratio 8.0 L, Glucose 129 H, Calcium 9.0, Phosphorus 2.4 L, Magnesium 1.8, Total Bilirubin 0.30, Direct Bilirubin 0.10, AST 42 H, ALT 46, Alkaline Phosphatase 96, Troponin I High Sens 40, C-React Prot Ext Range 13.20 H, Total Protein 6.9, Albumin 3.4, Globulin 3.5, Ethyl Alcohol < 3.0 02/13/24 05:26: WBC 4.6, RBC 3.69 L, Hgb 12.2 L, Hct 37.1 L, MCV 100.5 H, MCH 33.1 H, MCHC 32.9, RDW Std Deviation 54.3 H, RDW Coeff of Josselyn 14.6, Plt Count 130 L, MPV 10.2, Immature Gran % (Auto) 0.900, Neut % (Auto) 54.7, Lymph % (Auto) 27.5, [place] % (Auto) 12.1 H, Eos % (Auto) 3.3, Baso % (Auto) 1.5 H, Absolute Neuts (auto) 2.5, Absolute Lymphs (auto) 1.27, Nucleated RBC % 0, Sodium 141, Potassium 4.1, Chloride 109 H, Carbon Dioxide 27.0, Anion Gap 5, BUN 5 L, Creatinine 0.76, Estim Creat Clear Calc 108.53, Est GFR (MDRD) Af Amer 137, Est GFR (MDRD) Non-Af 113, BUN/Creatinine Ratio 6.6 L, Glucose 108 H, Calcium 8.4 L, Total Bilirubin 0.30, AST 41 H, ALT 45, Alkaline Phosphatase 78, Total Protein 6.2 L, Albumin 2.9 L, Globulin 3.3, Albumin/Globulin Ratio 0.9, Triglycerides 225 H, Cholesterol 166, LDL Cholesterol 84, VLDL Cholesterol 45 H, HDL Cholesterol 37 L Radiography Diagnostic Testing: Radiology Impression Brain CT 02/12/24 16:54 IMPRESSION: Normal unenhanced CT scan of the brain. Electronically Signed: Sridhar Cazares MD at 19:24 EDT , Head/Neck CTA 02/12/24 20:02 IMPRESSION: 1. At the distal arch anteriorly, there is a 3 mm deep ulceration with overlying soft tissue thickening perhaps indicative of a focal aortitis or other cause for ulceration. 2. No significant arterial pathology is otherwise identified in the head and neck. No large vessel occlusion or critical intracranial arterial stenosis. 3. Multilevel spinal canal stenosis. Electronically Signed: Jose Carter DO at 22:07 EDT , ADDENDUM: 02/12/24 2240 IMPRESSION: 1. At the distal arch anteriorly, there is a 3 mm deep ulceration with overlying soft tissue thickening perhaps indicative of a focal aortitis or other cause for ulceration. 2. No significant arterial pathology is otherwise identified in the head and neck. No large vessel occlusion or critical intracranial arterial stenosis. 3. Multilevel spinal canal stenosis. N.B. : The above Results were Read Back by Jose Carter DO to Marce Toure MD, and understanding confirmed on 02/12/2024 22:33:20 (ET). Electronically Signed: Jose Carter DO at 22:07 EDT , Echocardiogram 02/12/24 21:23 Interpretation Summary The estimated ejection fraction is 55 %. Structurally normal valves. Bubble contrast study is negative for PFO/ASD. Ordering Physician: Marce Toure Performed By: Harish Decker and Student Brain MRI 02/13/24 09:18 IMPRESSION: Negative MRI brain without contrast. Electronically Signed: Cheo Alonzo MD at 15:02 EDT , Physical Exam Const alert, oriented x3, no apparent distress and average body habitus Constitutional Narrative: Pleasant middle-age male, sitting up comfortably in bedside chair, conversing normally, no acute distress. General Appearance: cooperative and comfortable HEENT normocephalic, head/scalp atraumatic, hearing grossly normal bilaterally, nasal mucous membranes and turbinates normal and moist oral mucous membranes Eyes PERRL, EOMs intact bilaterally and conjunctivae normal Eyes Narrative: No overt abnormalities noted on gross physical exam. Neck full ROM Chest inspection of chest normal Resp normal respiratory effort, normal air movement, no use of accessory muscles and clear to auscultation bilaterally Cardio regular rate, regular rhythm, no murmurs and peripheral pulses 2+ throughout GI normal to inspection, nondistended, normoactive bowel sounds, soft to palpation, non-tender and non-distended Back/Spine normal ROM Extremity normal to inspection, full ROM and no pedal edema Skin no rashes or lesions noted Neuro moves all extremities and no focal motor deficits Speech: speech normal Psych mental status grossly normal Assessment & Plan Assessment/Plan (1) Blurred vision: (2) Hypertension: (3) Dizziness: PLAN: Plan Patient is a 58-year-old male who presented [facility] ED on 02/12/2024 with new onset blurred vision and lightheadedness. 1. Vision changes and lightheadedness, CVA ruled out ? Neurology evaluated on 02/11. Stroke workup negative including CT brain without contrast, CTA head/neck, MRI brain without contrast and echo. Did have area on CTA head/neck concerning for focal aortitis at distal large of unclear significance, but seems unlikely this would be contributing to his current symptoms. Per neurology, have concern that patient may have issues requiring ophthalmology evaluation. PT/OT/case management following. Patient did have unsteadiness with gait and continued blurred vision on 02/13 working with therapy but otherwise had no issues. Blood pressure has been running somewhat high, unclear if this may be contributing to his symptoms, started amlodipine as noted below. Will monitor symptoms overnight and tomorrow and have patient work with therapy again tomorrow. Suspect patient will need close ophthalmology follow-up in the outpatient setting on discharge. Okay to continue statin, no need for aspirin therapy per neurology at this time. 2. Elevated blood pressure readings ? No previous diagnosis of hypertension. Blood pressures have been fairly consistently elevated to the 150s to 160s over 90s since admission. Will start amlodipine 5 mg daily on 02/12. Monitor BP closely. 3. Concern for area of focal aortitis ? CTA head/neck on admit showed a 3 mm deep ulceration with overlying soft tissue thickening at the distal aortic arch anteriorly concerning for focal aortitis or other cause of ulceration. Significance of this is unclear. Cardiology consulted for further evaluation. 4. Alcohol abuse with recent admission for alcohol detox ? Hospitalized from 02/08 to 02/10 for alcohol detox. Tolerated phenobarb taper well during that hospitalization and given Vivitrol shot on discharge. Alcohol level negative on admission. No need for CIWA protocol at this time. Encouraged continued cessation on discharge. Chronic medical conditions: ? Chronic mild macrocytic anemia: Hemoglobin stable at baseline 12-13. ? Mild thrombocytopenia: Platelets stable around 120-130. ? Abnormal TSH: TSH elevated at 7.88 on admit however free T4 1.12 in normal range. Consistent with subclinical hypothyroidism. Recommend repeat labs in 6 to 8 weeks. ? Tobacco abuse: Encouraged cessation. Nicotine patch ordered per patient request. DVT prophylaxis: Lovenox CODE STATUS: Full code, verified Expected disposition: Home, 1 to 2 days ? Patient notably was admitted under observation status for CVA/TIA workup. Patient will need to remain hospitalized another day for cardiology evaluation of focal aortitis as well as ongoing vision changes with lightheadedness. Changed to inpatient status. Total clinical time spent by myself addressing the patient's medical issues, reviewing all the data, and collaborating with patient's care team: 35 minutes. Charges/Coding Visit Charges Inpatient E&M: 18229 Subs Hosp L2
--- NOTE | 2024-02-13 17:16 | STROKE.CONS ---
Assessment and Plan: Stroke Assessment/Plan ROSSY NERI is a 58 M with a history of ETOH use and GERD, Fatty Liver Disease who presents for evaluation of transient vision blurring, dizziness, and gait instability in the setting of uncontrolled HTN. The patient reports he was getting up from a seated position when he felt dizzy, light headed, and his vision became blurry. He states he felt like he could not stay balanced or walk either, thus he presented to the ED. On arrival patient reports his blood pressure was very high approx 202/157 and he was given antihypertensives and was admitted. Neurological examination shows nonfocal examination with NIHSS 0. He does report blurring of vision but is able to read and has no visual field cut on examination. Neuroimaging shows CTA Brain and Neck without focal critical stenosis (<50% in R ICA) or occlusion and MRI Brain without acute stroke. Assessment/Plan: Neurological Sequelae of Hypertensive Urgency, now improved. - Given no focal deficits at time of presentation, and improvement with hypertension control, these symptoms are likely related to the acute persistent elevation of patient's blood pressure - Would recommend outpatient evaluation by ophthalmology of blurry vision to ensure no hypertensive changes Crista Aiken MD [facility] Stroke HPI Consult Data Date of Consult: 02/13/24 HPI Narrative HPI Narrative: ROSSY NERI is a 58 M with a history of ETOH use and GERD, Fatty Liver Disease who presents for evaluation of transient vision blurring, dizziness, and gait instability in the setting of uncontrolled HTN. [facility] Medical History Alcohol abuse GERD (gastroesophageal reflux disease) Smoker Upper extremity weakness Chronic neck pain Chronic anemia History of alcohol abuse Tobacco abuse Elevated blood pressure reading Type 2 diabetes mellitus Home Medications ?Medication ?Instructions ?Recorded ?Last Taken ?Type acetaminophen 500 mg capsule 500 mg PO Q6H PRN pain 02/09/24 Unknown History multivitamin 1 tab PO DAILY 02/09/24 Unknown History Allergy/AdvReac Type Severity Reaction Status Date / Time No Known Allergies Allergy Verified 02/12/24 16:43 Family History Mother Alcohol abuse CVA (cerebral vascular accident) Lung cancer Father Alcohol abuse Hypertension Surgical History History of arthroscopy of both knees Social History household members: family Smoking Status: Current every day smoker tobacco type: cigarettes Electronic Cigarette Use: with nicotine alcohol intake: former details: Sober x 12 days since recent detox admission. substance use type: does not use Vital Signs Vital Signs Vital Signs: 02/12/24 17:24 02/12/24 17:30 02/12/24 17:43 Temperature Temperature Source Pulse Rate 76 77 Respiratory Rate 16 16 Respiratory Effort Normal Non-Labored Respiratory Depth Respiratory Pattern Normal Blood Pressure 148/97 H 151/90 H Blood Pressure Mean 114 110 Blood Pressure Source Blood Pressure Position Blood Pressure Location Pulse Ox 98 Oxygen Delivery Method 02/12/24 18:00 02/12/24 19:00 02/12/24 19:55 Temperature 97.6 F L Temperature Source Pulse Rate 78 88 89 Respiratory Rate 14 14 14 Respiratory Effort Respiratory Depth Respiratory Pattern Blood Pressure 141/81 H 154/87 H 154/98 H Blood Pressure Mean 101 109 116 Blood Pressure Source Blood Pressure Position Blood Pressure Location Pulse Ox 99 Oxygen Delivery Method 02/12/24 20:00 02/12/24 21:15 02/12/24 21:30 Temperature 97.5 F L Temperature Source Oral Pulse Rate 99 71 Respiratory Rate 14 16 Respiratory Effort Normal Non-Labored Respiratory Depth Normal Respiratory Pattern Normal Blood Pressure 115/102 H 166/95 H Blood Pressure Mean 106 118 Blood Pressure Source Monitor Blood Pressure Position Supine Blood Pressure Location Left Arm Pulse Ox 99 Oxygen Delivery Method Room Air Room Air 02/12/24 23:50 02/13/24 01:29 02/13/24 01:30 Temperature 97.5 F L Temperature Source Temporal Pulse Rate 76 Respiratory Rate 16 Respiratory Effort Normal Non-Labored Respiratory Depth Normal Respiratory Pattern Normal Blood Pressure 135/81 H Blood Pressure Mean 99 Blood Pressure Source Monitor Blood Pressure Position Semi-Fowlers Blood Pressure Location Left Arm Pulse Ox 99 99 Oxygen Delivery Method Room Air Room Air Room Air 02/13/24 05:29 02/13/24 07:36 02/13/24 08:30 Temperature 96.9 F L Temperature Source Temporal Pulse Rate 83 Respiratory Rate 16 Respiratory Effort Normal Non-Labored Respiratory Depth Normal Respiratory Pattern Normal Blood Pressure 150/94 H Blood Pressure Mean 112 Blood Pressure Source Monitor Blood Pressure Position Semi-Fowlers Blood Pressure Location Left Arm Pulse Ox 99 97 Oxygen Delivery Method Room Air Room Air Room Air 02/13/24 09:30 02/13/24 12:30 02/13/24 14:00 Temperature 97.7 F L 98.7 F Temperature Source Oral Oral Pulse Rate 92 84 Respiratory Rate 16 16 Respiratory Effort Normal Non-Labored Respiratory Depth Normal Respiratory Pattern Normal Blood Pressure 123/89 H 139/101 H Blood Pressure Mean 100 113 Blood Pressure Source Monitor Monitor Blood Pressure Position Sitting Semi-Fowlers Blood Pressure Location Right Arm Right Arm Pulse Ox 98 98 Oxygen Delivery Method Room Air Room Air 02/13/24 16:28 Temperature 98.1 F Temperature Source Oral Pulse Rate 79 Respiratory Rate 16 Respiratory Effort Respiratory Depth Respiratory Pattern Blood Pressure 150/103 H Blood Pressure Mean 118 Blood Pressure Source Monitor Blood Pressure Position Sitting Blood Pressure Location Left Arm Pulse Ox 98 Oxygen Delivery Method Room Air Weight Weight: 70.8 kg Body Mass Index (BMI) 23.0 EEG Results Procedure Details EEG Procedure Details: ROSSY NERI is a 58 year old M with a past medical history of , who presents for evaluation of Electroencephalogram on DATE at TIME NIHSS NIHSS Nursing Documentation NIHSS Nursing Documentation: NIHSS: Ischemic Stroke/TIA Start: 02/12/24 21:23 Text: For PCU Patients: NIH and Neuro Check every 4 Status: Complete hours, PRN and with change in RN caregiver. Freq: [id number] Protocol: Activity Type Activity Date Activity User E-sign Co-sign Detail Recorded Client Recorded Date Recorded By Document 02/13/24 12:30 desktop 02/13/24 12:36 02/13/24 12:30 NIH Stroke Scale [NIHSS] A score of 0 is normal or asymptomatic . Total possible score is 42. Inpatient: RN or Physician to activate a stroke alert for onset of new stroke symptoms or with NIHSS increase >/= 3 points. Following change in neurological status, NIHSS will be performed per physician order or more frequently PRN. -1a. Level of Consciousness Alert; keenly responsive -1b. LOC Questions Answers BOTH questions correctly. -1c. LOC Commands Performs both tasks correctly . -2. Best Gaze Normal -3. Visual Partial hemianopia -4. Facial Palsy Normal symmetrical movements -5a. Left Arm No drift; arm holds 90 (or 45 ) degrees for full 10 seconds -5b. Right Arm No drift; arm holds 90 (or 45 ) degrees for full 10 seconds -6a. Left Leg No drift; leg holds 30-degree position for full 5 seconds -6b. Right Leg No drift; leg holds 30-degree position for full 5 seconds -7. Limb Ataxia Absent -8. Sensory Normal; no sensory loss -9. Best Language No aphasia; normal -10. Dysarthria Normal -11. Extinction and Inattention No abnormality -Total 1 Query Text:A score of 0 is normal or asymptomatic. Total possible score is 42 . ED: Notify Physician for NIHSS increase by > / = 3 points. Inpatient: RN or Physician to activate a stroke alert for NIHSS increase of > / = 3 points. Coma Scale [Assess] -Eye Opening Spontaneous -Motor Obeys Commands -Verbal Oriented [Total] -Coma Scale Total 15 Medical Records Data Medical Nutrition Assessment Dietitian: Malnutrition Criteria Met Start: 02/13/24 15:45 Freq: Status: Active Protocol: Document 02/13/24 15:45 (Rec: 02/13/24 15:45 [id number]) Nutrition Malnutrition Evidence of Malnutrition Exists Yes Malnutrition (severe): Acute Illness/Injury Evidenced By Suboptimal Energy Intake ( Severe),Weight Loss (Severe) Clinical Problem Acute Disease or Injury Related Malnutrition Etiology severe related to chronic alcohol use with recent detox Signs/Symptoms as evidenced by PO intakes meeting <50% of estimated needs for <1 month and unintentional weight loss of 10.7% in 2 weeks Status Active Problem Recommendation Dietitian Recommendations/Changes Continue Cardiac/[id number] diet to manage medical conditions. Will order 120mL Glucerna 4x daily with medpass to promote weight gain Lab / Micro Data 02/13/24 05:26 02/13/24 05:26 Labs: Laboratory Results - last 24 hr 02/12/24 17:20: WBC 5.7, RBC 3.84 L, Hgb 12.5 L, Hct 37.2 L, MCV 96.9 H, MCH 32.6 H, MCHC 33.6, RDW Std Deviation 50.4 H, RDW Coeff of Josselyn 14.3, Plt Count 122 L, MPV 10.7, Immature Gran % (Auto) 0.900, Neut % (Auto) 72.1 H, Lymph % (Auto) 16.1 L, [place] % (Auto) 8.6, Eos % (Auto) 1.4, Baso % (Auto) 0.9, Absolute Neuts (auto) 4.1, Absolute Lymphs (auto) 0.92, Nucleated RBC % 0, ESR 11, Sodium 136, Potassium 3.8, Chloride 104, Carbon Dioxide 27.0, Anion Gap 5, BUN 6 L, Creatinine 0.75, Estim Creat Clear Calc 109.98, Est GFR (MDRD) Af Amer 138, Est GFR (MDRD) Non-Af 114, BUN/Creatinine Ratio 8.0 L, Glucose 129 H, Calcium 9.0, Phosphorus 2.4 L, Magnesium 1.8, Total Bilirubin 0.30, Direct Bilirubin 0.10, AST 42 H, ALT 46, Alkaline Phosphatase 96, Troponin I High Sens 40, C-React Prot Ext Range 13.20 H, Total Protein 6.9, Albumin 3.4, Globulin 3.5, Ethyl Alcohol < 3.0 02/13/24 05:26: WBC 4.6, RBC 3.69 L, Hgb 12.2 L, Hct 37.1 L, MCV 100.5 H, MCH 33.1 H, MCHC 32.9, RDW Std Deviation 54.3 H, RDW Coeff of Josselyn 14.6, Plt Count 130 L, MPV 10.2, Immature Gran % (Auto) 0.900, Neut % (Auto) 54.7, Lymph % (Auto) 27.5, [place] % (Auto) 12.1 H, Eos % (Auto) 3.3, Baso % (Auto) 1.5 H, Absolute Neuts (auto) 2.5, Absolute Lymphs (auto) 1.27, Nucleated RBC % 0, Sodium 141, Potassium 4.1, Chloride 109 H, Carbon Dioxide 27.0, Anion Gap 5, BUN 5 L, Creatinine 0.76, Estim Creat Clear Calc 108.53, Est GFR (MDRD) Af Amer 137, Est GFR (MDRD) Non-Af 113, BUN/Creatinine Ratio 6.6 L, Glucose 108 H, Calcium 8.4 L, Total Bilirubin 0.30, AST 41 H, ALT 45, Alkaline Phosphatase 78, Total Protein 6.2 L, Albumin 2.9 L, Globulin 3.3, Albumin/Globulin Ratio 0.9, Triglycerides 225 H, Cholesterol 166, LDL Cholesterol 84, VLDL Cholesterol 45 H, HDL Cholesterol 37 L Imaging Radiology Impression Brain CT 02/12/24 16:54 IMPRESSION: Normal unenhanced CT scan of the brain. Electronically Signed: Sridhar Cazares MD at 19:24 EDT , Head/Neck CTA 02/12/24 20:02 IMPRESSION: 1. At the distal arch anteriorly, there is a 3 mm deep ulceration with overlying soft tissue thickening perhaps indicative of a focal aortitis or other cause for ulceration. 2. No significant arterial pathology is otherwise identified in the head and neck. No large vessel occlusion or critical intracranial arterial stenosis. 3. Multilevel spinal canal stenosis. Electronically Signed: Jose Carter DO at 22:07 EDT , ADDENDUM: 02/12/24 2240 IMPRESSION: 1. At the distal arch anteriorly, there is a 3 mm deep ulceration with overlying soft tissue thickening perhaps indicative of a focal aortitis or other cause for ulceration. 2. No significant arterial pathology is otherwise identified in the head and neck. No large vessel occlusion or critical intracranial arterial stenosis. 3. Multilevel spinal canal stenosis. N.B. : The above Results were Read Back by Jose Carter DO to Marce Toure MD, and understanding confirmed on 02/12/2024 22:33:20 (ET). Electronically Signed: Jose Carter DO at 22:07 EDT , Echocardiogram 02/12/24 21:23 Interpretation Summary The estimated ejection fraction is 55 %. Structurally normal valves. Bubble contrast study is negative for PFO/ASD. Ordering Physician: Marce Toure Performed By: Harish Decker and Student Brain MRI 02/13/24 09:18 IMPRESSION: Negative MRI brain without contrast. Electronically Signed: Cheo Alonzo MD at 15:02 EDT , Active Medications Active Medications Active Medications: Current Medications Generic Name Dose Route Start Last Admin Trade Name Freq PRN Reason Stop Dose Admin Acetaminophen 650 mg 02/12/24 21:23 Acetaminophen 325 Mg Tablet PO Q4H PRN PRN Fever, pain 1-06/25 Al Hydroxide/Mg Hydroxide 30 ml 02/12/24 21:23 Mag Hydrox/Al Hydrox/Simeth 30 Ml Udc PO Q6H PRN PRN Gastric Burning Albuterol Sulfate 2.5 mg 02/12/24 21:23 Albuterol 2.5 Mg/3 Ml Vial.Neb. INHALATION Q2H PRN PRN Dyspnea, wheezing Amlodipine Besylate 5 mg 02/13/24 16:55 Amlodipine 5 Mg Tablet PO DAILY [facility] Protocol Aspirin 81 mg 02/13/24 08:00 02/13/24 10:08 Aspirin 81 Mg Tab.Chew PO 81 mg BREAKFAST SUHAS Administration Atorvastatin Calcium 80 mg 02/12/24 22:00 02/12/24 22:07 Atorvastatin Calcium 80 Mg Tablet PO 80 mg QHS SUHAS Administration Enoxaparin Sodium 40 mg 02/13/24 10:00 02/13/24 10:09 Enoxaparin 40 Mg/0.4 Ml Syringe SC 40 mg DAILY SUHAS Administration Folic Acid 1 mg 02/13/24 08:00 02/13/24 10:09 Folic Acid 1 Mg Tablet PO 1 mg BREAKFAST SUHAS Administration Guaifenesin 20 ml 02/12/24 21:23 Guaifenesin 10 Ml Udc (200mg/10ml) PO Q4H PRN PRN COUGH Hydralazine HCl 5 mg 02/12/24 21:23 Hydralazine 20 Mg/Ml Vial IV 02/13/24 21:23 Q30M PRN maintain BP parameters with HR <60 Sodium Chloride 250 mls @ 15 mls/hr 02/12/24 20:57 IV .[id number] PRN Additional IVPB Infusion Sodium Chloride 250 mls @ 15 mls/hr 02/12/24 20:57 IV .[id number] PRN Saline Flush Melatonin 3 mg 02/12/24 21:23 02/12/24 22:07 Melatonin 3 Mg Tablet PO 3 mg QHS PRN PRN Administration INSOMNIA Multivitamins 1 tablet 02/13/24 08:00 02/13/24 10:09 Multivitamins,Therapeutic Tablet PO 1 tablet DAILYCM SUHAS Administration Nicotine 21 mg 02/12/24 21:23 02/13/24 10:08 Nicotine 21 Mg Patch TD 21 mg DAILY SUHAS Administration Ondansetron HCl 4 mg 02/12/24 21:23 02/13/24 16:25 Ondansetron 4 Mg/2 Ml Vial IV 4 mg Q8H PRN PRN Administration NAUSEA/VOMITING Pantoprazole Sodium 20 mg 02/12/24 21:23 02/13/24 10:08 Pantoprazole Sodium 20 Mg Tablet PO 20 mg BID SUHAS Administration Prochlorperazine Edisylate 5 mg 02/12/24 21:23 Prochlorperazine 10 Mg/2 Ml Vial IV Q4H PRN PRN Breakthrough Nausea/Vomiting Senna/Docusate Sodium 2 tablet 02/12/24 21:23 Senna/Docusate Sodium 1 Tablet PO BID PRN PRN Constipation Sodium Chloride 10 - 40 ml 02/12/24 20:57 02/13/24 16:25 0.9% Saline Lock 10 Ml Syringe IV 10 ml UD PRN Administration SALINE FLUSH Thiamine HCl 100 mg 02/13/24 08:00 02/13/24 10:09 Thiamine Hydrochloride 100 Mg Tablet PO 100 mg BREAKFAST SUHAS Administration
[2024-02-13] MEDS: amLODIPine 5 MG Tablet PO (18:09)
[2024-02-13] MEDS: Atorvastatin Calcium 80 MG Tablet PO (21:08)
[2024-02-13] MEDS: MELATONIN 3 MG TABLET PO (21:08)
[2024-02-14 00:52] VITALS: BMI 23.0
[2024-02-14 03:14] VITALS: BP 107/64; PULSE 69; RESP 16; TEMP 36.4; O2SAT 98
[2024-02-14 06:00] VITALS: BMI 23.1
[2024-02-14 07:04] VITALS: O2SAT 98
[2024-02-14 08:37] VITALS: BP 117/84; PULSE 102; RESP 18; TEMP 36.4; O2SAT 98
[2024-02-14] MEDS: Aspirin 81 MG TAB.CHEW PO (08:40)
[2024-02-14] MEDS: Pantoprazole Sodium 20 MG Tablet PO (08:40)
[2024-02-14] MEDS: amLODIPine 5 MG Tablet PO (08:40)
[2024-02-14] MEDS: Multivitamins,Therapeutic Tablet 1 TABLET PO (08:40)
[2024-02-14] MEDS: Folic Acid 1 MG Tablet PO (08:40)
[2024-02-14] MEDS: Thiamine Hydrochloride 100 MG Tablet PO (08:41)
[2024-02-14] MEDS: Enoxaparin 40 MG/0.4 ML Syringe SC (08:41)
[2024-02-14] MEDS: Acetaminophen 325 MG Tablet 650 MG PO (10:06)
--- NOTE | 2024-02-14 11:33 | CASEMGMT ---
Patient does not have a Healthcare Power of Assistant Statistician or Healthcare Living Will and is not interested in documents. Lisa Anderson [employer]
--- NOTE | 2024-02-14 12:59 | PCM.CONS.C ---
Assessment & Plan Assessment/Plan (1) Hypertension: PLAN: recommend that he be followed closely for his elevated Bp. BP better controlled on Norvasc. (2) Aortitis: PLAN: Question if this is a soft plaque on CT scan. He does not have a hx of autoimmune diseases to indicate temporal arteritis. Recommend that he be treated with a statin and ASA PLAN: Plan Do not feel any additional cardiac testing needs done. Can f/u on OP basis. Have suggested that he establish with a PCP. HPI Consult Data Date of Consult: 02/14/24 HPI Narrative HPI Narrative: ROSSY NERI, is a 58 M who presented to [facility] ER on 02/12/24 with vision changes. He had undergone a head and neck CTA which demonstrated at the distal arch anteriorly, there is a 3 mm deep ulceration with overlying soft tissue thickening perhaps indicative of a focal aortitis or other cause for ulceration. We were consulted for this. On admission he was noted to have significantly elevated hypertension. This was a new finding. He does not have any autoimmune diseases that he is aware of. 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 He denies any cardiac symptoms. Echocardiogram demonstrated an EF of 65% and normal valves. [facility] Medical History Alcohol abuse GERD (gastroesophageal reflux disease) Smoker Upper extremity weakness Chronic neck pain Chronic anemia History of alcohol abuse Tobacco abuse Elevated blood pressure reading Type 2 diabetes mellitus Home Medications ?Medication ?Instructions ?Recorded ?Last Taken ?Type acetaminophen 500 mg capsule 500 mg PO Q6H PRN pain 02/09/24 Unknown History multivitamin 1 tab PO DAILY 02/09/24 Unknown History amlodipine 5 mg tablet 5 mg PO DAILY 90 days #90 tabs 02/14/24 Unknown Rx aspirin 81 mg chewable tablet 81 mg PO BREAKFAST 90 days #90 tabs 02/14/24 Unknown Rx atorvastatin 80 mg tablet 80 mg PO QHS 90 days #90 tabs 02/14/24 Unknown Rx pantoprazole 20 mg tablet,delayed 20 mg PO BID 30 days #60 tabs 02/14/24 Unknown Rx release Allergy/AdvReac Type Severity Reaction Status Date / Time No Known Allergies Allergy Verified 02/12/24 16:43 Family History Mother Alcohol abuse CVA (cerebral vascular accident) Lung cancer Father Alcohol abuse Hypertension Surgical History History of arthroscopy of both knees Social History household members: family Smoking Status: Current every day smoker tobacco type: cigarettes Electronic Cigarette Use: with nicotine alcohol intake: former details: Sober x 12 days since recent detox admission. substance use type: does not use ROS ROS Narrative CONSTITUTIONAL: No weight loss, fever, chills, + weakness or fatigue. HEENT: + Blurry vision, occasional double vision. Eyes: No visual loss, yellow sclerae. Ears, Nose, Throat: No hearing loss, sneezing, congestion, runny nose or sore throat. CARDIOVASCULAR: No chest pain, chest pressure or chest discomfort, palpitations, edema, orthopnea, syncopal events. RESPIRATORY: No shortness of breath, cough or sputum, wheezing, hemoptysis. GASTROINTESTINAL: No anorexia, nausea, vomiting or diarrhea, abdominal pain, melena, BRBPR. GENITOURINARY: No dysuria, frequency, urgency or retention. NEUROLOGICAL: + Blurry vision, occasional double vision, dizziness, lightheadedness, gait instability, chronic bilateral upper extremity weakness secondary to bicep muscle loss secondary to nerve injury/impingement with chronic neck issues. No headache, syncope, paralysis, ataxia, numbness or tingling in the extremities, new focal weakness, change in bowel or bladder control, seizure. MUSCULOSKELETAL: + muscle, back pain, joint pain or stiffness. HEMATOLOGIC: + anemia, easy bleeding/bruising. PSYCHIATRIC: No history of depression or anxiety. ENDOCRINOLOGIC: No reports of sweating, cold or heat intolerance. No polyuria or polydipsia. Physical Exam Const alert, oriented x3, no apparent distress and healthy appearing HEENT normocephalic, head/scalp atraumatic, hearing grossly normal bilaterally, external ears normal, external nose normal and moist oral mucous membranes Eyes PERRL, EOMs intact bilaterally, conjunctivae normal and no scleral icterus Neck no lymphadenopathy, supple and no JVD Cardio regular rate, regular rhythm, S1 normal heart sound, S2 normal heart sound, no murmurs, no rub, no gallops, no clicks, no JVD and peripheral pulses 2+ throughout GI normal to inspection, nondistended, normoactive bowel sounds, soft to palpation, non-tender and non-distended Extremity normal to inspection, normal capillary refill, no clubbing, cyanosis or edema and no pedal edema Neuro oriented x3 and CN's II-XII intact bilaterally Neuro Narrative: muscle wasting of bilateral upper extremities. unable to left arms above shoulders. Psych cooperative and affect normal Risk Stratification Risk Stratification Applicable: No Charges/Coding Visit Charges Office Visits / Consults: [id number] IP Consult L3 Objective Data Vital Signs: Vital Signs Temp Pulse Resp BP Pulse Ox O2 Del Method 97.6 F L 102 H 18 117/84 H 98 Room Air 02/14/24 08:37 02/14/24 08:37 02/14/24 08:37 02/14/24 08:37 02/14/24 08:37 02/14/24 08:37 Oxygen Delivery Method Room Air Weight: 156 lb 15.506 oz Body Mass Index (BMI) 23.1 Intake & Output: Intake and Output for Last 24 Hours 02/12/24 02/13/24 02/14/24 23:59 23:59 23:59 Intake Total 612.5 / 612.5 1800 / 1800 700 / 700 Balance 612.5 / 612.5 1800 / 1800 700 / 700 Lab / Micro Data 02/13/24 05:26 02/13/24 05:26 Cardiology Labs/Tests Rhythm: EKG: ECHO: Stress Test: Cardiac Cath: PCI: CT Surgery: Holter monitor: EPS: PPM: CXR: Chest CT Scan: Radiography Diagnostic Testing: Radiology Impression Echocardiogram 02/12/24 21:23 Interpretation Summary The estimated ejection fraction is 55 %. Structurally normal valves. Bubble contrast study is negative for PFO/ASD. Ordering Physician: Marce Toure Performed By: Harish Decker and Student Brain MRI 02/13/24 09:18 IMPRESSION: Negative MRI brain without contrast. Electronically Signed: Cheo Alonzo MD at 15:02 EDT ,
--- NOTE | 2024-02-14 13:27 | PCM.DC.SUM ---
Providers Date of Admission: 02/12/24 Date of Discharge: 02/14/24 Primary Care Physician: Fanny Primary Care Phys Consultations 02/12/24 21:23 Consult: Tele-Neurology Routine Consulting Provider: [facility] Reason for Consult: Acute Ischemic Stroke/TIA EMERGENT Consult: No Notified: Yes Date Notified: 02/13/24 Time Notified: 04:07 Method of Notification: Answering Service Nursing Unit Staff Notify [facility] of Tele-Neurology Consult: Yes 02/13/24 16:46 Consult: Cardiology Routine Consulting Provider: Maximilian Carvajal Reason for Consult: concern for focal aortitis on CTA chest, presented w/ strokelike symptoms EMERGENT Consult: No Notified: Yes Date Notified: 02/13/24 Time Notified: 16:53 Method of Notification: Verbal Reason For Visit: TIA Diagnosis Discharge Diagnosis (1) Hypertension: Status: Chronic Code(s): I10 - Essential (primary) hypertension (2) Aortitis: Status: Acute Code(s): I77.6 - Arteritis, unspecified Medications at Discharge Home Medications acetaminophen 500 mg capsule 500 mg PO Q6H PRN pain 02/09/24 multivitamin 1 tab PO DAILY 02/09/24 amlodipine 5 mg tablet 5 mg PO DAILY 90 days #90 tabs 02/14/24 aspirin 81 mg chewable tablet 81 mg PO BREAKFAST 90 days #90 tabs 02/14/24 atorvastatin 80 mg tablet 80 mg PO QHS 90 days #90 tabs 02/14/24 pantoprazole 20 mg tablet,delayed release 20 mg PO BID 30 days #60 tabs 02/14/24 Hospital Course Operations None Procedures EKG, Transthoracic echo and - (CT brain without contrast, CTA head/neck, MRI brain without contrast) Summary of Care Provided Minutes Spent on Discharge: 35 Hospital Course: Patient is a 58-year-old male who presented [facility] [place] ED on 02/12/2024 with new onset blurred vision and lightheadedness. Hospital course as noted below. Discharged home with no therapy needs in stable condition on 02/13. 1. Vision changes and lightheadedness, CVA ruled out ? Neurology followed. Stroke workup negative including CT brain without contrast, CTA head/neck, MRI brain without contrast and echo. Did have area on CTA head/neck concerning for focal aortitis at distal arch but very unlikely this is contributing to current presentation. Seems most likely due to slightly high blood pressures as well as a possible ophthalmology issue. Good improvement by day of discharge with improved blood pressure control. PT/OT/case management followed. Patient did well with therapy on day of discharge. Recommended that patient have PCP place referral to ophthalmology for outpatient evaluation in the next few weeks. Continue aspirin and statin on discharge. 2. Elevated blood pressure readings ? No previous diagnosis of hypertension. Blood pressures were fairly consistently elevated to the 150s to 160s over 90s from admission through 02/12. Started amlodipine 5 mg daily on 02/12 with good improvement in BP, will continue this on discharge. 3. Concern for area of focal aortitis ? Cardiology evaluated on day of discharge. CTA head/neck on admit showed a 3 mm deep ulceration with overlying soft tissue thickening at the distal aortic arch anteriorly concerning for focal aortitis or other cause of ulceration. Per cardiology, may be a soft plaque; no history of autoimmune diseases so very low concern for temporal arteritis. Okay for discharge on aspirin and statin. No further cardiology evaluation needed. 4. Alcohol abuse with recent admission for alcohol detox ? Hospitalized from 02/08 to 02/10 for alcohol detox. Tolerated phenobarb taper well during that hospitalization and given Vivitrol shot on discharge. Alcohol level negative on admission. No need for CIWA protocol during this admission. Encouraged continued cessation on discharge. Chronic medical conditions: ? Chronic mild macrocytic anemia: Hemoglobin stable at baseline 12-13. ? Mild thrombocytopenia: Platelets stable around 120-130. ? Abnormal TSH: TSH elevated at 7.88 on admit however free T4 1.12 in normal range. Consistent with subclinical hypothyroidism. Recommend repeat labs in 6 to 8 weeks. ? Tobacco abuse: Encouraged cessation. Nicotine patch provided while inpatient per patient request. Total clinical time spent by myself addressing the patient's medical issues, reviewing all the data, and collaborating with patient's care team: 35 minutes. Physical Exam Const alert, oriented x3, no apparent distress and average body habitus Constitutional Narrative: Pleasant middle-age male, sitting up comfortably in bedside chair, conversing normally, no acute distress. General Appearance: cooperative and comfortable HEENT normocephalic, head/scalp atraumatic, hearing grossly normal bilaterally, nasal mucous membranes and turbinates normal and moist oral mucous membranes Eyes PERRL, EOMs intact bilaterally and conjunctivae normal Eyes Narrative: No overt abnormalities noted on gross physical exam. Neck full ROM Chest inspection of chest normal Resp normal respiratory effort, normal air movement, no use of accessory muscles and clear to auscultation bilaterally Cardio regular rate, regular rhythm, no murmurs and peripheral pulses 2+ throughout GI normal to inspection, nondistended, normoactive bowel sounds, soft to palpation, non-tender and non-distended Back/Spine normal ROM Extremity normal to inspection, full ROM and no pedal edema Skin no rashes or lesions noted Neuro moves all extremities and no focal motor deficits Speech: speech normal Psych mental status grossly normal Medical Records Data Medical Nutrition Assessment Dietitian: Malnutrition Criteria Met Start: 02/13/24 15:45 Freq: Status: Active Protocol: Document 02/13/24 15:45 (Rec: 02/13/24 15:45 [id number]) Nutrition Malnutrition Evidence of Malnutrition Exists Yes Malnutrition (severe): Acute Illness/Injury Evidenced By Suboptimal Energy Intake ( Severe),Weight Loss (Severe) Clinical Problem Acute Disease or Injury Related Malnutrition Etiology severe related to chronic alcohol use with recent detox Signs/Symptoms as evidenced by PO intakes meeting <50% of estimated needs for <1 month and unintentional weight loss of 10.7% in 2 weeks Status Active Problem Recommendation Dietitian Recommendations/Changes Continue Cardiac/1800CCD diet to manage medical conditions. Will order 120mL Glucerna 4x daily with medpass to promote weight gain Weight / BMI Weight Weight: 71.2 kg Body Mass Index (BMI) 23.1 ABG / Lab / Microbiology Data 02/13/24 05:26 02/13/24 05:26 Radiography Diagnostic Testing: Radiology Impression Echocardiogram 02/12/24 21:23 Interpretation Summary The estimated ejection fraction is 55 %. Structurally normal valves. Bubble contrast study is negative for PFO/ASD. Ordering Physician: Marce Toure Performed By: Harish Decker and Student Brain MRI 02/13/24 09:18 IMPRESSION: Negative MRI brain without contrast. Electronically Signed: Cheo Alonzo MD at 15:02 EDT , D/C Instructions Discharge Diet: No restrictions Meaningful Use Info Meaningful Use Meaningful Use Diagnoses (Choose all that apply): None applicable Ischemic Stroke Statin Dosing Therapy Reference: STATIN DOSE THERAPY REFERENCE: * Patients > 75 years receive moderate or high dose statin therapy. * Patients 75 years or YOUNGER should receive HIGH intensity statin dose unless contraindicated. You will be required to document reason for non-treatment if statin daily dose does not meet guidelines. HIGH DOSE STATIN THERAPY DAILY Atorvastatin > than or = to 40 mg Rosuvastatin > than or = to 20 mg Amlodipine + Atorvastatin > than or = to 2.5/40 mg Ezetimibe + Simvastatin 10/80 mg Simvastatin 80mg Discharge Plan Admission Admit Date/Time: 02/12/24 19:55 Primary Reason for Your Visit: Lightheadedness and blurry vision Attending Provider: Arthur Barber Primary Care Provider: Care Physician,No Primary Consulting Providers: Tapan Hayes; Almaz Menjivar; Erin Christensen; Yuliya Anderson; Lorin Crocker; Heriberto Resendez; Crista Aiken; Rafita Mccormick; Adrien Crowell; Daily Tobar; Ambrosio Benites; My Woodall; Faith Ramos; Igor Granados; Basim Nicholas; Ariella Mayfield; Mario Hernandez; Deidre Henning; Isela Gordon; Marce Toure; Maximilian Carvajal Discharge Orders/Prescriptions Prescriptions: New atorvastatin 80 mg Tablet 80 mg PO QHS 90 Days Qty: 90 3RF amlodipine 5 mg Tablet 5 mg PO DAILY 90 Days Qty: 90 1RF pantoprazole 20 mg Tablet,Delayed Release (Dr/Ec) 20 mg PO BID 30 Days Qty: 60 2RF aspirin 81 mg Tablet,Chewable 81 mg PO BREAKFAST 90 Days Qty: 90 3RF Continued acetaminophen 500 mg capsule 500 mg PO Q6H PRN (Reason: pain) multivitamin Tablet 1 tab PO DAILY Referrals / Follow Up: Care Physician,No Primary [Primary Care Provider] - Disposition Disposition (needs filled in before D/C Order can be placed): Home, Self Care Charges/Coding Visit Charges Inpatient E&M: 56072 Disch Hosp >30min
--- NOTE | 2024-02-14 13:33 | CASEMGMT ---
Patient has order for discharge. RN CM in to discuss needs at discharge. Patient denies needs or help at discharge. Patient had no further questions or concerns.
--- NOTE | 2024-02-14 13:51 | PHA.DC.MR.R ---
Pharmacy [place] Med Reconciliation Pharmacy Service has performed discharge medication reconciliation for this patient. Medication education papers prepared, patient discharged while looking through the chart. Medications reviewed. The patient's discharge medication list was reviewed for discrepancies and discrepancies were resolved. Medications at Discharge Home Medications acetaminophen 500 mg capsule 500 mg PO Q6H PRN pain 02/09/24 multivitamin 1 tab PO DAILY 02/09/24 amlodipine 5 mg tablet 5 mg PO DAILY 90 days #90 tabs 02/14/24 aspirin 81 mg chewable tablet 81 mg PO BREAKFAST 90 days #90 tabs 02/14/24 atorvastatin 80 mg tablet 80 mg PO QHS 90 days #90 tabs 02/14/24 pantoprazole 20 mg tablet,delayed release 20 mg PO BID 30 days #60 tabs 02/14/24
== END 2024-02-14 13:25 | disposition home or self-care (01) ==
LOC: ED 20:00 → PCU 20:16
PROVIDERS: Admitting Provider Family Medicine; Emergency Provider Emergency Medicine; Visit Provider Hospitalist
DX: I77.6 Arteritis, unspecified (principal); E11.9 Type 2 diabetes mellitus without complications; I10 Essential (primary) hypertension; D69.6 Thrombocytopenia, unspecified; H53.8 Other visual disturbances; Z79.82 Long term (current) use of aspirin; F17.210 Nicotine dependence, cigarettes, uncomplicated; K21.9 Gastro-esophageal reflux disease without esophagitis; K76.0 Fatty (change of) liver, not elsewhere classified; D53.9 Nutritional anemia, unspecified; R29.898 Other symptoms and signs involving the musculoskeletal system; F10.11 Alcohol abuse, in remission; R94.6 Abnormal results of thyroid function studies; R42 Dizziness and giddiness; I07.1 Rheumatic tricuspid insufficiency; Z86.73 Personal history of transient ischemic attack (TIA), and cerebral infarction without residual deficits
CPT/HCPCS: 36415; 70450; 70496; 70498; 70551; 80048; 80053; 80061; 80076; 80320; 83735; 84100; 84484; 85025; 85652; 86140; 92523; 92610; 93005; 93306; 94668; 94762; 96361; 96372; 96374; 96375; 97162; 97166; 97802; 99221; 99284; 99406; C1769; J7030; Q9967; A4216; G0378; G0480; J2405

== ENCOUNTER 2024-05-31 09:36 | Observation (INO) | payer MEDICARE, SELFPAY ==
[2024-05-31] VITALS (18 sets, daily range): BP systolic 101–163; BP diastolic 64–119; PULSE 96–117; RESP 15–33; TEMP 36.2–37.1; O2SAT 96–99; BMI 22.9; BMI 22.1
--- NOTE | 2024-05-31 10:27 | ED.VIS.CHEST ---
HPI History of Present Illness Chief Complaint: Chest Pain Narrative Narrative: Chief complaint and HPI: Chest pain. 59-year-old male with history of HTN, HLD, DM2 presents for evaluation of chest pain. Patient states that he woke up this morning with left sided chest pain. He states that it went away but then it reoccurred with walking. He describes it as pressure. Endorses some radiation to the left arm with occasional numbness. Fluctuates in intensity. Endorses intermittent lightheadedness and shortness of breath when the pain becomes severe. Denies any fever, chills, URI symptoms, abdominal pain, vomiting, dysuria. Does smoke tobacco. Denies any bilateral lower extremity swelling or pain. Denies any recent travel or surgeries. Review of systems: See HPI Medications: As listed on the chart Allergies: As listed on the chart PFSH: Per chart Vital signs: As listed on the chart. Reviewed. Physical exam: Gen: A&O x3, NAD Head: Normocephalic, atraumatic Eyes: No sclera icterus, conjunctiva clear ENT: Moist mucous membranes Neck: Trachea midline, No JVD CV: RRR, no murmurs, no peripheral edema, chest pain nonreproducible Resp: Lungs CTA BL, no w/r/c GI: Abd soft, non-distended, non-tender, no r/r/g Musc: Full ROM, no deformity Skin: Warm, dry Neuro: Alert, oriented, grossly intact, sensation intact Psych: Cooperative, appropriate mood and affect EKG: Interpreted by me/EM physician: EKG shows sinus tachycardia with a heart rate of 114. No acute ischemic changes. Diagnostic: Interpreted by me/EM physician: Chest x-ray without pneumonia, effusion, pneumothorax [facility] Medical History (Updated 05/31/24 @ 17:[address] Rajesh Gibson MD) Hyperlipidemia Alcohol withdrawal hallucinosis Alcohol abuse GERD (gastroesophageal reflux disease) Smoker Upper extremity weakness Chronic neck pain Chronic anemia History of alcohol abuse Tobacco abuse Elevated blood pressure reading Type 2 diabetes mellitus Home Medications ?Medication ?Instructions ?Recorded ?Last Taken ?Type NK 05/31/24 Unknown History Allergy/AdvReac Type Severity Reaction Status Date / Time No Known Allergies Allergy Verified 05/31/24 09:42 Family History Mother Alcohol abuse CVA (cerebral vascular accident) Lung cancer Father Alcohol abuse Hypertension Surgical History History of arthroscopy of both knees Social History household members: family Smoking Status: Current every day smoker tobacco type: cigarettes Electronic Cigarette Use: with nicotine alcohol intake: former details: Sober x 12 days since recent detox admission. substance use type: does not use EXAM Physical Exam Const Vital Signs: 05/31/24 09:37 05/31/24 09:45 05/31/24 10:26 Temperature 98.6 F Temperature Source Oral Pulse Rate 117 H Respiratory Rate 18 Respiratory Effort Normal Non-Labored Respiratory Pattern Normal Blood Pressure 133/90 H Blood Pressure Mean 104 Pulse Ox 99 Oxygen Delivery Method Room Air Room Air 05/31/24 10:43 05/31/24 11:27 05/31/24 12:05 Temperature 97.2 F L Temperature Source Oral Pulse Rate 103 H 112 H 108 H Respiratory Rate 16 16 16 Respiratory Effort Respiratory Pattern Blood Pressure 134/88 H 119/83 H 107/84 H Blood Pressure Mean 103 95 91 Pulse Ox 98 96 97 Oxygen Delivery Method Room Air Room Air Room Air 05/31/24 13:00 05/31/24 14:00 05/31/24 14:30 Temperature Temperature Source Pulse Rate 98 102 H 102 H Respiratory Rate 19 H 22 H 21 H Respiratory Effort Respiratory Pattern Blood Pressure 131/64 H 101/77 111/95 H Blood Pressure Mean 81 86 100 Pulse Ox 98 98 97 Oxygen Delivery Method 05/31/24 15:00 05/31/24 15:15 05/31/24 15:16 Temperature Temperature Source Pulse Rate 110 H 109 H 117 H Respiratory Rate 18 21 H 22 H Respiratory Effort Respiratory Pattern Blood Pressure 138/119 H Blood Pressure Mean 127 Pulse Ox 98 97 98 Oxygen Delivery Method Room Air 05/31/24 15:25 05/31/24 15:30 05/31/24 15:31 Temperature Temperature Source Pulse Rate 115 H 105 H 112 H Respiratory Rate 33 H 24 H 18 Respiratory Effort Respiratory Pattern Blood Pressure 163/103 H 155/112 H Blood Pressure Mean 119 123 Pulse Ox 98 98 98 Oxygen Delivery Method 05/31/24 15:41 05/31/24 15:45 Temperature 97.5 F L Temperature Source Pulse Rate 100 110 H Respiratory Rate 18 31 H Respiratory Effort Respiratory Pattern Blood Pressure 158/113 H Blood Pressure Mean 128 Pulse Ox 97 Oxygen Delivery Method MDM MDM MDM Narrative Medical decision making narrative: 59-year-old male presents for evaluation of chest pain. Has risk factors for CAD. Differential diagnosis includes but is not limited to CAD, electrolyte abnormality, arrhythmia, PE. Low risk for PE given PERC and Wells. Vitals reviewed. Aspirin ordered as well as nitro. Patient declined nitro. NS bolus ordered. Cardiac workup ordered. On chart review, patient had an admission for aortitis. He was treated with aspirin and statin. Cardiology was consulted. EF was 55%. EKG and chest x-ray reviewed. See above. CBC without leukocytosis. Patient has hemoconcentration with anemia of 16.9. Baseline thrombocytopenia. BMP is consistent with dehydration with mild hypokalemia and hyponatremia. Fluids running. P.o. potassium ordered. No YANIQUE. Magnesium level unremarkable. Troponin elevated at 121. Delta pending. BNP unremarkable. D-dimer elevated at 1.7 therefore CTA chest ordered to assess for PE. CTA chest without PE or dissection. Patient does have a small ulceration through the mural thrombus in the region of the aortic arch measuring 3 mm. Given this finding, vascular surgery was consulted and patient was discussed. No further recommendation at this time. Incidental finding. Repeat troponin downtrending at 107. Patient is still intermittently having chest pain. His heart score is 5 which makes him moderate risk. Patient will warrant admission for further cardiac workup. Patient was updated all his results and the plan. He confirmed understanding. Hospitalist service contacted and patient was discussed with Dr. Bunch who accepted admission. Impression: 1. Chest pain 2. Elevated troponin 3. Dehydration 4. Hypokalemia 5. Elevated D-dimer 6. History of thrombocytopenia 7. Small ulceration through the mural thrombus in the region of the aortic arch measuring 3 mm Lab Data Labs: Laboratory Results - last 24 hr 05/31/24 05/31/24 09:20 12:04 WBC 11.0 RBC 4.99 Hgb 16.9 H Hct 47.7 MCV 95.6 H MCH 33.9 H MCHC 35.4 RDW Std Deviation 48.9 H RDW Coeff of Josselyn 13.7 Plt Count 142 L MPV 10.5 Immature Gran % (Auto) 0.400 Neut % (Auto) 79.2 H Lymph % (Auto) 11.3 L [place] % (Auto) 7.1 Eos % (Auto) 1.2 Baso % (Auto) 0.8 Absolute Neuts (auto) 8.7 H Absolute Lymphs (auto) 1.25 Nucleated RBC % 0 D-Dimer Quant (PE/DVT) 1.70 H* Sodium 131 L Potassium 3.2 L Chloride 94 L Carbon Dioxide 23.0 Anion Gap 14 BUN 23 H Creatinine 1.30 Estim Creat Clear Calc 62.52 Est GFR (MDRD) Af Amer 73 Est GFR (MDRD) Non-Af 60 BUN/Creatinine Ratio 17.7 Glucose 107 H Calcium 9.9 Magnesium 2.2 Troponin I High Sens 121 H* 107 H B-Natriuretic Peptide 61.2 Radiography Diagnostic Testing: Clinical Impression(s) from Imaging Studies Chest X-Ray 05/31/24 10:52 IMPRESSION: No acute thoracic pathology. Electronically Signed: Bar Rice MD at 11:23 EDT , Chest CTA 05/31/24 12:20 IMPRESSION: No demonstrated pulmonary embolism or arterial dissection. There are no acute findings. There is a small ulceration through the mural thrombus in the region of the aortic arch. This measures 3 mm. Electronically Signed: Ike Kevin MD at 14:37 EDT , Discharge Plan Disposition Disposition: [facility] Care [facility] Discharge Date/Time: 05/31/24 16:15
[2024-05-31] MEDS: Aspirin 81 MG TAB.CHEW 324 MG PO (10:36)
[2024-05-31] MEDS: 0.9% Normal Saline (1000mL) 1,000 ML 999 ML IV (10:38)
[2024-05-31 10:43] LABS: Absolute Lymphocyte Count 1.25 X10^3/uL (0.83-4.51); Absolute Neutrophil Count 8.7 X10^3/uL (2.0-7.7); Basophil# 0.09 X10^3/uL; Basophil% 0.8 % (0-1); Eosinophil# 0.13 X10^3/uL; Eosinophils% 1.2 % (0-5); Hematocrit 47.7 % (40-54); Hemoglobin 16.9 g/dL (13.0-16.5); Lymphocyte # 1.25 X10^3/ul (0.83-4.51); Lymphocyte % 11.3 % (19-41); Mean Corp Hgb Conc 35.4 g/dL (32-36); Mean Corpuscular Hgb 33.9 pg (27.0-32.0); Mean Corpuscular Volume 95.6 fL (80-94); Mean Platelet Vol. 10.5 fl (6.2-12.0); Monocyte# 0.78 X10^3/uL; Monocyte% 7.1 % (0-10); NRBC Flagged by Analyzer 0 % (0-5); Neutrophil # 8.73 X10^3/uL (2.7-7.7); Neutrophil % 79.2 % (47-70); Platelet Count 142 K/mm3 (150-450); RBC Distribution Width CV 13.7 % (11.6-14.6); RBC Distribution Width SD 48.9 fl (35.1-43.9); Red Blood Count 4.99 M/mm3 (4.6-6.2)
--- NOTE | 2024-05-31 10:52 | RAD_ITS ---
STUDY: X-RAY CHEST REASON FOR EXAM: Male, 59 years old. Chest pain TECHNIQUE: Frontal view of the chest COMPARISON: None. FINDINGS: The lungs are clear. There are no pleural effusions. There is no pneumothorax. The heart is normal in size. The visualized osseous structures are within normal limits. RAD/Chest 1 View (Portable) IMPRESSION: No acute thoracic pathology. Electronically Signed: Bar Rice MD at 11:23 EDT ,
[2024-05-31 11:05] LABS: BNP,B-Type NATRIURETIC PEPTIDE 61.2 pg/mL (0-100)
[2024-05-31 11:14] LABS: Anion Gap 14 (5-15); BUN 23 mg/dL (7-18); BUN/Creat Ratio 17.7 RATIO (10-20); Calcium,Total 9.9 mg/dL (8.5-10.1); Chloride 94 mmol/L (98-107); EST Glomerular Filtration Rate 60 mL/min (>60); Est Glom Filt Rate - Afr Amer 73 mL/min (>60); Estimated Creatinine Clearance 62.52 ml/min; Glucose 107 mg/dL (74-106); Magnesium 2.2 mg/dL (1.6-2.6); Potassium 3.2 mmol/L (3.5-5.1); Sodium Level 131 mmol/L (136-145); Troponin-I HS (w/2H Reflex) 121 pg/mL (3.0-78.0)
--- NOTE | 2024-05-31 12:20 | CT_ITS ---
STUDY: CTA Chest WO/W Contrast Injection 05/31/2024 2:35 PM REASON FOR EXAM: Male, 59 years old. Chest pain. Concern for PE TECHNIQUE: The examination was performed with the intravenous administration of IV 100mL Isovue-370 contrast material. Post-processing of the angiographic images was performed, with axial imaging and 3D reconstruction. MIPS images were obtained. Individualized dose optimization techniques were used for this CT. COMPARISON: None. FINDINGS: There are degenerative changes of the shoulders. There is no pneumothorax. There is no demonstrated pleural abnormality. There are calcifications of the coronary arteries. There is a small ulceration through the mural thrombus in the region of the aortic arch. This measures 3 mm. Normal mediastinum. Normal hilar regions. Normal pulmonary arteries. There is atherosclerotic calcification of the aortic arch with tortuosity and elongation of the aortic arch and descending thoracic aorta. There are multi-level degenerative changes of the thoracic spine. There are no acute findings of the upper abdomen. CT/CTA Chest W/WO Contrast IMPRESSION: No demonstrated pulmonary embolism or arterial dissection. There are no acute findings. There is a small ulceration through the mural thrombus in the region of the aortic arch. This measures 3 mm. Electronically Signed: Ike Kevin MD at 14:37 EDT ,
[2024-05-31 12:38] LABS: Reflex Troponin-HS? (from REC) Y
[2024-05-31 12:54] LABS: Troponin-I HS 107 pg/mL (3.0-78.0)
[2024-05-31] MEDS: Potassium Chloride Oral Tablet 20 MEQ 40 MEQ PO (13:21)
--- NOTE | 2024-05-31 15:22 | ED.RN ---
Pt states he is unable to afford any of his home meds so he hasnt been taking them.
--- NOTE | 2024-05-31 15:27 | NURSING ---
PCU OBS [place] CHEST PAIN
[2024-05-31] MEDS: 0.9% Normal Saline (1000mL) 1,000 ML 100 ML IV (16:59)
[2024-05-31] MEDS: Sertraline 50 MG Tablet PO (16:59)
--- NOTE | 2024-05-31 17:35 | HP.PCM.HOS_ITS ---
HPI - General General Date of Admission: 05/31/24 HPI Narrative ROSSY NERI, is a 59 M who presents to the hospital with chest pain. He states that it started this morning at around 6 or 7 AM and was severe left substernal with of left arm numbness. He says it never really went away but it fluctuates between getting better and getting worse. He did have some increased pain with ambulation and activity. He was recently in the hospital in January with aortitis, he was treated with aspirin and statin per cardiology at that time. He had an echo at that time with an EF of 55%. Today EKG is nonischemic however he had a troponin of oh 124, the second troponin went down to 107. Though he still says that he has intermittent chest pain, he is only noticed lightheadedness and dizziness when the pain is severe. He also states that he has been struggling emotionally secondary to having a what sounds like a noted degenerative neuromuscular disease. He can no longer lift his arms above his head and he has to use a shower chair. This is caused significant distress with periods of suicidal ideation. Used to be seen by neurology at the [facility] but this was over 10 years ago and he has not been back because they told him that they could not fix him. I did encourage him to follow back up with neurology to see if there have been any treatments developed in the interim. COUNT INCLUDES [facility] Medical History (Updated 05/31/24 @ 17:[address] Rajesh Gibson MD) Hyperlipidemia Alcohol withdrawal hallucinosis Alcohol abuse GERD (gastroesophageal reflux disease) Smoker Upper extremity weakness Chronic neck pain Chronic anemia History of alcohol abuse Tobacco abuse Elevated blood pressure reading Type 2 diabetes mellitus Home Medications ?Medication ?Instructions ?Recorded ?Last Taken ?Type NK 05/31/24 Unknown History Allergy/AdvReac Type Severity Reaction Status Date / Time No Known Allergies Allergy Verified 05/31/24 09:42 Family History Mother Alcohol abuse CVA (cerebral vascular accident) Lung cancer Father Alcohol abuse Hypertension Surgical History History of arthroscopy of both knees Social History household members: family Smoking Status: Current every day smoker tobacco type: cigarettes Electronic Cigarette Use: with nicotine alcohol intake: former details: Sober x 12 days since recent detox admission. substance use type: does not use ROS Constitutional Constitutional: Denies chills, fatigue, fever(s) or malaise Eyes Eyes: Denies blurry vision ENT HEENT: Denies headache(s) or nasal discharge Cardiovascular Cardiovascular: Reports chest pain and lightheadedness; Denies dyspnea on exertion or syncope Respiratory/Chest Respiratory/Chest: Reports shortness of breath at rest; Denies cough or shortness of breath with exertion Gastrointestinal Gastrointestinal: Denies constipation, diarrhea, nausea or vomiting Genitourinary Genitourinary: Denies dysuria Neurologic Neurologic: Denies focal weakness, numbness or tremor(s) Psychiatric Psychiatric: Denies anxiety or depression Vital Signs Vital Signs Vital Signs: 05/31/24 09:37 05/31/24 09:45 05/31/24 10:26 Temperature 98.6 F Temperature Source Oral Pulse Rate 117 H Respiratory Rate 18 Respiratory Effort Normal Non-Labored Respiratory Pattern Normal Blood Pressure 133/90 H Blood Pressure Mean 104 Blood Pressure Source Blood Pressure Position Blood Pressure Location Pulse Ox 99 Oxygen Delivery Method Room Air Room Air 05/31/24 10:43 05/31/24 11:27 05/31/24 12:05 Temperature 97.2 F L Temperature Source Oral Pulse Rate 103 H 112 H 108 H Respiratory Rate 16 16 16 Respiratory Effort Respiratory Pattern Blood Pressure 134/88 H 119/83 H 107/84 H Blood Pressure Mean 103 95 91 Blood Pressure Source Blood Pressure Position Blood Pressure Location Pulse Ox 98 96 97 Oxygen Delivery Method Room Air Room Air Room Air 05/31/24 13:00 05/31/24 14:00 05/31/24 14:30 Temperature Temperature Source Pulse Rate 98 102 H 102 H Respiratory Rate 19 H 22 H 21 H Respiratory Effort Respiratory Pattern Blood Pressure 131/64 H 101/77 111/95 H Blood Pressure Mean 81 86 100 Blood Pressure Source Blood Pressure Position Blood Pressure Location Pulse Ox 98 98 97 Oxygen Delivery Method 05/31/24 15:00 05/31/24 15:15 05/31/24 15:16 Temperature Temperature Source Pulse Rate 110 H 109 H 117 H Respiratory Rate 18 21 H 22 H Respiratory Effort Respiratory Pattern Blood Pressure 138/119 H Blood Pressure Mean 127 Blood Pressure Source Blood Pressure Position Blood Pressure Location Pulse Ox 98 97 98 Oxygen Delivery Method Room Air 05/31/24 15:25 05/31/24 15:30 05/31/24 15:31 Temperature Temperature Source Pulse Rate 115 H 105 H 112 H Respiratory Rate 33 H 24 H 18 Respiratory Effort Respiratory Pattern Blood Pressure 163/103 H 155/112 H Blood Pressure Mean 119 123 Blood Pressure Source Blood Pressure Position Blood Pressure Location Pulse Ox 98 98 98 Oxygen Delivery Method 05/31/24 15:41 05/31/24 15:45 05/31/24 16:00 Temperature 97.5 F L Temperature Source Pulse Rate 100 110 H 96 Respiratory Rate 18 31 H 15 Respiratory Effort Respiratory Pattern Blood Pressure 158/113 H 141/96 H Blood Pressure Mean 128 110 Blood Pressure Source Blood Pressure Position Blood Pressure Location Pulse Ox 97 Oxygen Delivery Method 05/31/24 16:39 Temperature 98 F Temperature Source Oral Pulse Rate 97 Respiratory Rate 16 Respiratory Effort Respiratory Pattern Blood Pressure 139/96 H Blood Pressure Mean 110 Blood Pressure Source Monitor Blood Pressure Position Semi-Fowlers Blood Pressure Location Right Arm Pulse Ox 98 Oxygen Delivery Method Room Air Weight Weight: 149 lb 11.102 oz Body Mass Index (BMI) 22.1 Physical Exam Narrative General: Alert, Oriented x3, Cooperative, No apparent distress HEENT: Atraumatic, PERRLA, EOMI, Normocephalic Oral: Moist Mucosa Neck: Supple, No JVD Lungs: Diminished, Normal air movement, No rhonchi, No wheeze, No rales Cardiovascular: Regular rate, Regular Rhythm, Normal S1, Normal S2, No murmurs Abdomen: Soft, Non Tender, Non-Distended, No Hepato-splenomegaly Extremities: No edema, Capillary Refill Less than 3 Seconds Skin: No rashes, No breakdown Musculoskeletal: No Tenderness to Palpation of Joints or Extremities Neurological: Chronic neurological deficits with upper extremity weakness and asymmetrical loss of muscle mass Psych/Mental Status: Normal Affect, Appropriate Results Lab / Micro Data 05/31/24 09:20 05/31/24 09:20 Labs: Laboratory Results - last 24 hr 05/31/24 09:20: WBC 11.0, RBC 4.99, Hgb 16.9 H, Hct 47.7, MCV 95.6 H, MCH 33.9 H , MCHC 35.4, RDW Std Deviation 48.9 H, RDW Coeff of Josselyn 13.7, Plt Count 142 L, MPV 10.5, Immature Gran % (Auto) 0.400, Neut % (Auto) 79.2 H, Lymph % (Auto) 11.3 L, Trinity % (Auto) 7.1, Eos % (Auto) 1.2, Baso % (Auto) 0.8, Absolute Neuts (auto) 8.7 H, Absolute Lymphs (auto) 1.25, Nucleated RBC % 0, D-Dimer Quant (PE/DVT) 1.70 H*, Sodium 131 L, Potassium 3.2 L, Chloride 94 L, Carbon Dioxide 23.0, Anion Gap 14, BUN 23 H, Creatinine 1.30, Estim Creat Clear Calc 62.52, Est GFR (MDRD) Af Amer 73, Est GFR (MDRD) Non-Af 60, BUN/Creatinine Ratio 17.7, G lucose 107 H, Calcium 9.9, Magnesium 2.2, Troponin I High Sens 121 H*, B- Natriuretic Peptide 61.2 05/31/24 12:04: Troponin I High Sens 107 H Imaging Radiology Impression Chest X-Ray 05/31/24 10:52 IMPRESSION: No acute thoracic pathology. Electronically Signed: Bar Rice MD at 11:23 EDT , Chest CTA 05/31/24 12:20 IMPRESSION: No demonstrated pulmonary embolism or arterial dissection. There are no acute findings. There is a small ulceration through the mural thrombus in the region of the aortic arch. This measures 3 mm. Electronically Signed: Ike Kevin MD at 14:37 EDT , Assessment & Plan Assessment/Plan (1) Chest pain: PLAN: Plan 1. Chest pain ? Troponins are 124 and then 107, will obtain a third troponin ? He did have an echo in January so will not repeat while here, EF at that time was 55% ? Will obtain a stress test tomorrow morning for evaluation, he did have an elevated D-dimer so a CTA of the chest was done which was negative for PE but it did show his aortitis with mural thrombus ? It does not appear that he is still on aspirin, will restart ? Will obtain a lipid panel 2. 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 I did encourage him to follow-up with neurology as it has been about 10 years to see if there are any new treatments ? Will start him on Zoloft ? States that he has had suicidal ideation in the past but he feels more stable now, he is also formerly used alcohol to help cope which she says that he is better from that as well DVT: Ambulation 76 minutes was spent on direct patient care, including documentation as well as chart review and collaboration with colleagues Charges/Coding Visit Charges Inpatient E&M: 58240 Init Hosp L3
[2024-05-31 20:08] LABS: Troponin-I HS 98 pg/mL (3.0-78.0)
[2024-05-31 22:10] LABS: Troponin-I HS 97 pg/mL (3.0-78.0)
[2024-06-01] MEDS: 0.9% Normal Saline (1000mL) 1,000 ML 100 ML IV (03:26)
[2024-06-01] MEDS: 0.9% Saline Lock 10 ML Syringe IV (04:34)
[2024-06-01 04:35] VITALS: BP 137/89; PULSE 92; RESP 16; TEMP 36.7; O2SAT 100
[2024-06-01] MEDS: Aspirin 81 MG TAB.CHEW PO (06:16)
[2024-06-01 06:35] VITALS: BMI 22.7
[2024-06-01 09:10] VITALS: BP 141/92; PULSE 98; RESP 16; TEMP 36.7; O2SAT 100
[2024-06-01 09:24] LABS: Absolute Lymphocyte Count 0.88 X10^3/uL (0.83-4.51); Absolute Neutrophil Count 4.4 X10^3/uL (2.0-7.7); Basophil# 0.03 X10^3/uL; Basophil% 0.5 % (0-1); Eosinophils% 1.7 % (0-5); Hemoglobin 13.8 g/dL (13.0-16.5); Lymphocyte # 0.88 X10^3/ul (0.83-4.51); Lymphocyte % 14.8 % (19-41); Mean Corp Hgb Conc 33.7 g/dL (32-36); Mean Corpuscular Hgb 33.7 pg (27.0-32.0); Mean Platelet Vol. 10.7 fl (6.2-12.0); Monocyte# 0.47 X10^3/uL; Monocyte% 7.9 % (0-10); NRBC Flagged by Analyzer 0 % (0-5); Neutrophil # 4.41 X10^3/uL (2.7-7.7); Neutrophil % 74.3 % (47-70); POSITIVE COUNT YES; Platelet Count 85 K/mm3 (150-450); RBC Distribution Width SD 51.8 fl (35.1-43.9); White Blood Count 5.9 K/mm3 (4.4-11.0)
[2024-06-01 09:35] LABS: Differential Indicated SCAN CRITERIA MET
[2024-06-01 09:57] LABS: Anion Gap 9 (5-15); BUN 13 mg/dL (7-18); BUN/Creat Ratio 13.5 RATIO (10-20); Calcium,Total 9.4 mg/dL (8.5-10.1); Chloride 104 mmol/L (98-107); Cholesterol 196 mg/dL (200); Creatinine, Serum 0.97 mg/dL (0.70-1.30); EST Glomerular Filtration Rate 85 mL/min (>60); Est Glom Filt Rate - Afr Amer 103 mL/min (>60); Estimated Creatinine Clearance 83.12 ml/min; Glucose 75 mg/dL (74-106); High Density Lipoprotein 41 mg/dL; Potassium 3.5 mmol/L (3.5-5.1); Sodium Level 138 mmol/L (136-145); Triglycerides 238 mg/dL; Very Low Density Lipoprotein 48 mg/dL (5-40)
[2024-06-01 10:13] LABS: Differential Comment SCANNED; Platelet Estimate MOD DEC (ADEQ)
[2024-06-01] MEDS: Sertraline 50 MG Tablet PO (10:13)
[2024-06-01 10:14] LABS: Anisocytosis 2+; Stomatocyte 2+
[2024-06-01] MEDS: LORazepam 2 MG/ML Syringe 0.5 MG IV (11:45)
--- NOTE | 2024-06-01 12:20 | STRESSREP ---
Stress Test Report Date: 06/01/2024 Procedure: Pharmacologic stress nuclear imaging study Indications: Chest pain Consent: Per the patient Procedure: The patient underwent pharmacologic (Regadenoson 0.4mg ) evaluation with a peak heart rate of 123 beats per minute (75%predicted maximal heart rate) and a peak blood pressure of 132/84 mmHg. The baseline ECG demonstrated sinus rhythm. The peak pharmacologic ECG demonstrated no ischemic changes. [There were no cardiac dysrhythmias pretest, during pharmacologic infusion, or recovery]. [There was no complaint of chest discomfort during pharmacologic infusion or recovery]. The patient was injected with 11.8 millicuries of technetium 99m Cardiolite and subsequently rest SPECT Cardiolite nuclear imaging was obtained in the horizontal long, vertical long, and short axis views. The patient underwent pharmacologic (Regadenoson) evaluation. The patient was injected with 34.1 millicuries of technetium 99m Cardiolite and subsequently stress SPECT Cardiolite nuclear imaging was obtained in the horizontal long, vertical long, and short axis views. A gated Cardiolite study at peak stress was obtained. The examination was stopped secondary to completion of protocol. Rest and stress SPECT Cardiolite nuclear imaging status post realignment, normalization, and attenuation correction demonstrate no fixed or reversible perfusion defects. [There is end systolic thickening and brightening]. [The gated Cardiolite study demonstrates myocardial thickening and inward wall motion]. The reported LVEF is 57%. Impression: 1. Pharmacologic (Regadenoson) evaluation 2. Peak pharmacologic ECG with no diagnostic ischemic changes. 3. [There were no cardiac dysrhythmias pretest, during pharmacologic infusion, or recovery]. 5. [Rest and stress SPECT Cardiolite nuclear imaging demonstrate relative uniform tracer uptake and myocardial perfusion appearing within normal limits]. 6. The gated Cardiolite study reports an LVEF of 57%. This note was generated with [employer] software. It may contain incorrect words, spelling, and punctuation that were not noted in checking the note before signing.
[2024-06-01] MEDS: Pantoprazole Sodium 40 MG in 0.9% Normal Saline (100mL MB+) 100 ML 330 MG IV (13:36)
--- NOTE | 2024-06-01 14:09 | PCM.DC ---
Discharge Instructions Diet Discharge Diet: No restrictions Activity Discharge Activity: No Restrictions Follow Up Care Test Results: Test results from this visit will be discussed in further detail at your follow-up appointment, if applicable. Discharge Plan Admission Admit Date/Time: 05/31/24 15:53 Primary Reason for Your Visit: Chest pain Attending Provider: Arthur Barber Primary Care Provider: Care Physician,No Primary Consulting Providers: Rajesh Gibson Instructions Additional Instructions / Restrictions: Please take the Protonix twice daily for your acid reflux. Please start taking sertraline daily for depression. Please follow-up with a primary care doctor in the next few weeks and discuss other potential options for counseling and treatment of your depression. Discharge Orders/Prescriptions Prescriptions: New sertraline 50 mg Tablet 50 mg PO DAILY 30 Days Qty: 30 2RF pantoprazole [Protonix] 40 mg tablet,delayed release (DR/EC) 40 mg PO BID 30 Days Qty: 60 0RF Referrals / Follow Up: Care Physician,No Primary [Primary Care Provider] - Disposition Disposition (needs filled in before D/C Order can be placed): Home, Self Care
--- NOTE | 2024-06-01 14:12 | PCM.DC.SUM ---
Providers Date of Admission: 05/31/24 Date of Discharge: 06/01/24 Primary Care Physician: No Primary Care Phys Reason For Visit: CHEST PAIN Diagnosis Discharge Diagnosis (1) Chest pain: Status: Acute Code(s): R07.9 - Chest pain, unspecified Medications at Discharge Home Medications pantoprazole 40 mg tablet,delayed release (Protonix) 40 mg PO BID 30 days #60 tabs 06/01/24 sertraline 50 mg tablet 50 mg PO DAILY 30 days #30 tabs 06/01/24 Hospital Course Operations None Procedures EKG, Nuclear stress test and - (Chest x-ray, CTA chest) Summary of Care Provided Minutes Spent on Discharge: 35 Hospital Course: Patient is a 59-year-old male who presented [facility] ED on 05/31/2024 with chest pain. Short hospital course as noted below. Patient discharged home in stable condition on 06/01. 1. Chest pain, concern for untreated GERD ? Cardiac etiology ruled out. Troponins 124 > 107 > 98. No EKG changes noted. Chest x-ray and CTA chest with no concerning findings. Negative nuclear medicine stress test on 06/01. Notably had echo done in January that showed normal EF with no concerning findings. Hemodynamically stable during this hospitalization with no arrhythmias noted on telemetry. Unclear etiology of pain but GERD seems to be the most likely diagnosis. He reports intermittent symptoms over the past few months with episode that brought him in being the worst, and the symptoms do seem to correlate with what he eats and drinks. Is also a former heavy alcohol user and a current smoker. Was given a dose of IV Protonix as well as Tums while here with good relief of symptoms. Started patient on p.o. PPI twice daily and recommended that if his symptoms do not improve, he follow-up with his PCP and or gastroenterology for further evaluation. 2. Depression/anxiety ? Patient does report worsening depression and anxiety symptoms recently that he associates with an apparent chronic neurologic disease of unclear etiology. Has apparent remote history of suicidal ideation but strongly denies suicidal ideation at this time. Notes that he previously used alcohol to cope and after detox in January he has been trying to drink significantly less alcohol. Started patient on Zoloft while here and will continue this at discharge. Recommended that he establish with a PCP for further management and that he consider seeing his former neurologist for this neurologic disease when able. 3. History of alcohol abuse ? Previously underwent detox in late January of this year. Reports only occasional alcohol use since then. No alcohol withdrawal symptoms noted during hospitalization. Encouraged complete cessation of alcohol on discharge. 4. Tobacco abuse ? Current smoker. Denied need for nicotine replacement therapy while inpatient. Encouraged cessation on discharge. Total clinical time spent by myself addressing the patient's medical issues, reviewing all the data, and collaborating with patient's care team: 35 minutes. Physical Exam Const alert, oriented x3, no apparent distress and average body habitus Constitutional Narrative: Middle-age male, mildly anxious appearing but otherwise sitting up comfortably in bed, conversing normally, in no acute distress. General Appearance: cooperative and comfortable HEENT normocephalic, head/scalp atraumatic, hearing grossly normal bilaterally, nasal mucous membranes and turbinates normal and moist oral mucous membranes Eyes PERRL, EOMs intact bilaterally and conjunctivae normal Neck full ROM Chest inspection of chest normal Resp normal respiratory effort, normal air movement, no use of accessory muscles and clear to auscultation bilaterally Cardio regular rate, regular rhythm, no murmurs and peripheral pulses 2+ throughout GI normal to inspection, nondistended, normoactive bowel sounds, soft to palpation, non-tender and non-distended Back/Spine normal ROM Extremity normal to inspection, full ROM and no pedal edema Skin no rashes or lesions noted Neuro no focal motor deficits and no sensory deficits noted Speech: speech normal Psych mental status grossly normal Mood & Affect: anxious Weight / BMI Weight Weight: 69.944 kg Body Mass Index (BMI) 22.7 ABG / Lab / Microbiology Data 06/01/24 08:55 06/01/24 08:55 Laboratory: Laboratory Results - last 24 hr 05/31/24 18:04: Troponin I High Sens 98 H 05/31/24 19:06: Troponin I High Sens 97 H 06/01/24 08:55: WBC 5.9, RBC 4.10 L, Hgb 13.8, Hct 41.0, MCV 100.0 H, MCH 33.7 H, MCHC 33.7, RDW Std Deviation 51.8 H, RDW Coeff of Josselyn 14.0, Plt Count 85 L, MPV 10.7, Immature Gran % (Auto) 0.800, Neut % (Auto) 74.3 H, Lymph % (Auto) 14.8 L, Murray % (Auto) 7.9, Eos % (Auto) 1.7, Baso % (Auto) 0.5, Absolute Neuts (auto) 4.4, Absolute Lymphs (auto) 0.88, Nucleated RBC % 0, Differential Comment SCANNED, Platelet Estimate MOD DEC, Anisocytosis 2+, Stomatocytes 2+, Sodium 138, Potassium 3.5, Chloride 104, Carbon Dioxide 25.0, Anion Gap 9, BUN 13, Creatinine 0.97, Estim Creat Clear Calc 83.12, Est GFR (MDRD) Af Amer 103, Est GFR (MDRD) Non-Af 85, BUN/Creatinine Ratio 13.5, Glucose 75, Calcium 9.4, Triglycerides 238 H, Cholesterol 196, LDL Cholesterol 107, VLDL Cholesterol 48 H, HDL Cholesterol 41 Radiography Diagnostic Testing: Radiology Impression Chest CTA 05/31/24 12:20 IMPRESSION: No demonstrated pulmonary embolism or arterial dissection. There are no acute findings. There is a small ulceration through the mural thrombus in the region of the aortic arch. This measures 3 mm. Electronically Signed: Ike Kevin MD at 14:37 EDT Reading Location ID and State: [facility] / [place] , Service support , D/C Instructions Discharge Diet: No restrictions Meaningful Use Info Meaningful Use Meaningful Use Diagnoses (Choose all that apply): None applicable Ischemic Stroke Statin Dosing Therapy Reference: STATIN DOSE THERAPY REFERENCE: * Patients > 75 years receive moderate or high dose statin therapy. * Patients 75 years or YOUNGER should receive HIGH intensity statin dose unless contraindicated. You will be required to document reason for non-treatment if statin daily dose does not meet guidelines. HIGH DOSE STATIN THERAPY DAILY Atorvastatin > than or = to 40 mg Rosuvastatin > than or = to 20 mg Amlodipine + Atorvastatin > than or = to 2.5/40 mg Ezetimibe + Simvastatin 10/80 mg Simvastatin 80mg Discharge Plan Admission Admit Date/Time: 05/31/24 15:53 Primary Reason for Your Visit: Chest pain Attending Provider: Arthur Barber Primary Care Provider: Care Physician,No Primary Consulting Providers: Rajesh Gibson Instructions Additional Instructions / Restrictions: Please take the Protonix twice daily for your acid reflux. Please start taking sertraline daily for depression. Please follow-up with a primary care doctor in the next few weeks and discuss other potential options for counseling and treatment of your depression. Discharge Orders/Prescriptions Prescriptions: New sertraline 50 mg Tablet 50 mg PO DAILY 30 Days Qty: 30 2RF pantoprazole [Protonix] 40 mg tablet,delayed release (DR/EC) 40 mg PO BID 30 Days Qty: 60 0RF Referrals / Follow Up: Care Physician,No Primary [Primary Care Provider] - Disposition Disposition (needs filled in before D/C Order can be placed): Home, Self Care Charges/Coding Visit Charges Inpatient E&M: 10459 Disch Hosp >30min
--- NOTE | 2024-06-01 14:56 | CASEMGMT ---
RN CM noted pt DC order in. RN CM into pt room, Pt denies any questions or concerns at this time.
== END 2024-06-01 14:12 | disposition home or self-care (01) ==
LOC: ED 10:16 → PCU 16:07
PROVIDERS: Admitting Provider Family Medicine; Emergency Provider Surgery; Visit Provider Hospitalist
DX: R07.89 Other chest pain (principal); E11.9 Type 2 diabetes mellitus without complications; E87.6 Hypokalemia; E86.0 Dehydration; F41.9 Anxiety disorder, unspecified; R79.89 Other specified abnormal findings of blood chemistry; D64.9 Anemia, unspecified; K21.9 Gastro-esophageal reflux disease without esophagitis; F17.210 Nicotine dependence, cigarettes, uncomplicated; I10 Essential (primary) hypertension; E78.5 Hyperlipidemia, unspecified; F32.A Depression, unspecified; Z79.899 Other long term (current) drug therapy; R06.02 Shortness of breath
CPT/HCPCS: 36415; 71045; 71275; 78452; 80048; 80061; 83735; 83880; 84484; 85025; 85379; 93005; 93017; 96361; 96365; 96375; 99221; 99285; 99406; A9500; J7030; Q9967; A4216; G0378; J2785

== ENCOUNTER 2025-02-03 02:18 | Inpatient (IN) | payer MEDICARE, SELFPAY ==
[2025-02-03] VITALS (12 sets, daily range): BP systolic 100–152; BP diastolic 54–113; PULSE 79–114; RESP 15–20; TEMP 36.5–37.4; O2SAT 96–98; BMI 22.9; BMI 22.1
--- NOTE | 2025-02-03 02:41 | EDS_ITS ---
HPI History of Present Illness Chief Complaint: Mental Health Detail of Chief Complaint: Requesting detox for alcohol abuse. Informant: patient Onset/Context/Timing Onset: Days Context: Gradual Onset Timing: Continuous Current Severity: Moderate Maximum Severity: Moderate Narrative Narrative: 59-year-old male history of alcohol abuse. He said to go weeks or months without drinking but then when he drinks he goes on 3+ day benders where he drinks fifth of whiskey daily and sometimes as much is as a gallon of vodka. He said for the last 6 to 7 days he has gotten very little sleep and has tried to detox himself at home. He got to the point where he started seeing people chasing him they thought regarding kill him. And he knew it was time to come in. He has no known psychiatric illness or prior diagnoses. He has been told he is diabetic in the past and a history of a prior TIA and degenerative disc disease in his neck. He is requesting inpatient detox. Prior similar symptoms: Yes (When trying to detox himself.) Recent Illness/Hospitalization: No PFSH PFSH Medical History Hyperlipidemia Alcohol withdrawal hallucinosis Alcohol abuse GERD (gastroesophageal reflux disease) Smoker Upper extremity weakness Chronic neck pain Chronic anemia History of alcohol abuse Tobacco abuse Elevated blood pressure reading Type 2 diabetes mellitus Home Medications ?Medication ?Instructions ?Recorded ?Last Taken ?Type NK 02/03/25 Unknown History Allergy/AdvReac Type Severity Reaction Status Date / Time No Known Allergies Allergy Verified 02/03/25 02:20 Family History Mother Alcohol abuse CVA (cerebral vascular accident) Lung cancer Father Alcohol abuse Hypertension Surgical History History of arthroscopy of both knees Social History household members: family Smoking Status: Current every day smoker tobacco type: cigarettes Electronic Cigarette Use: with nicotine alcohol intake: former details: Sober x 12 days since recent detox admission. substance use type: does not use ROS ROS ED ROS Narrative Nausea and vomiting yesterday. Hallucinating. Constitutional Constitutional ED: Denies chills or fever(s) Eyes Eyes: Denies blurry vision ENT ENT ED: Denies ear pain Cardiovascular Cardiovascular: Denies chest pain Respiratory/Chest Respiratory/Chest: Denies cough or dyspnea Gastrointestinal Gastrointestinal: Reports nausea and vomiting; Denies abdominal pain, constipation, diarrhea or melena Genitourinary Genitourinary ED: Denies dysuria or hematuria Musculoskeletal Musculoskeletal: Denies arthralgias Integumentary Denies abscess Neurologic Neurologic: Denies headache(s) Psychiatric Psychiatric: Reports anxiety Endocrine Endocrinology: Denies cold intolerance Hematologic/Lymphatic Hematologic/Lymphatic: Reports none Allergic/Immunologic Allergic/Immunologic ED: Denies mouth swelling, tongue swelling or urticaria EXAM Physical Exam Narrative Exam Narrative: 39-year-old male vital signs are consistent with withdrawal. He is hypertensive 152/113 and is accelerated heart rate of 114. He is awake alert. He is anxious. He is sitting upright in bed. He does not look septic or toxic. H EENT exam pupils round react light. No trauma to his face or scalp. Moist mucous membranes. Neck nontender no lymphadenopathy. Lungs clear to auscultation bilaterally. Heart tachycardic 114 no murmur. Chest wall ribs nontender. Abdomen soft nontender. Moving all 4 extremities. 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 Dorsi plantarflexion intact. Nontender no edema. Back nontender. Neurologically is awake and alert. Answer questions following commands. He is neither aggressive or verbally abusive. He is cooperative. Makes eye contact. He is willfully answering questions. Const Vital Signs: 02/03/25 02:20 02/03/25 02:20 02/03/25 03:19 Temperature 98.8 F 98.8 F Temperature Source Oral Oral Pulse Rate 114 H 114 H 100 Respiratory Rate 20 H 20 H 19 H Blood Pressure 152/113 H 152/113 H 115/82 H Blood Pressure Mean 126 126 93 Blood Pressure Source Monitor Blood Pressure Position Semi-Fowlers Blood Pressure Location Right Arm Pulse Ox 98 98 97 Oxygen Delivery Method Room Air Room Air Room Air Positive well nourished and well developed; Negative for cachectic, contractures or unkempt General Appearance ED: well developed; Negative for unkempt, cachectic, contractures, cyanotic, diaphoretic, NAD or pallor Nutritional Appearance: Negative for cachectic HEENT Reports moist mucous membranes Negative for trauma or tenderness Eyes PERRL and EOMs intact bilaterally General Eye ED: Negative for pale conjunctiva Neck no lymphadenopathy, supple and no JVD Chest Wall inspection of chest normal and palpation of chest normal Resp normal respiratory effort Auscultation: Negative for rales, rhonchi or wheezes Cardio regular rhythm, S1 normal heart sound, S2 normal heart sound and no murmurs; Negative for regular rate Rate: tachycardic GI normal to inspection, nondistended, normoactive bowel sounds, non-tender, non- distended and no masses Palpation: soft; Negative for tender, guarding or rebound tenderness present Back/Spine no CVA tenderness General Back: Negative for CVA tenderness Cervical Spine: Negative for cervical spine tenderness Thoracic Spine / Upper Back: Negative for thoracic spinal tenderness Lumbar Spine / Lower Back: Negative for lumbar spinal tenderness Extremity normal to inspection General Extremety ED: Negative for edema or tenderness General Extremity: Negative for edema Neuro oriented x3 and CN's II-XII intact bilaterally Sensorium / Orientation: alert; Negative for orientation impaired, lethargic or stuporous Motor Exam: strength 5/5 throughout Psych mental status grossly normal Appearance: Negative for unkempt Attitude: No agitated Mood & Affect: anxious; Negative for depressed or tearful Skin no rashes or lesions noted and no wounds General Skin Exam: Negative for jaundice or pallor Lesions: No lesion noted Rashes: No rashes noted Trauma: Negative for abrasion Wounds: Negative for wounds noted MDM MDM MDM Narrative Medical decision making narrative: 39-year-old male requesting alcohol detox. Been trying to detox himself at home. He started having hallucinations which I think is secondary to both trying to detox himself, withdrawal and sleep deprivation. His exam otherwise is benign. Screening labs will be obtained to be admitted for detox. Repeat exam patient is doing well at 3:55 AM. The hospitalist on page for admission. Patient is doing well. His vital signs are much improved. I do not think he needs the ICU. The hospitalist and I discussed that were both comfortable with him being admitted to general medical floor for detox. Patient is comfortable with the plan. He is not having any hallucinations currently. History & Record Review Discussion w/independent historian: Patient Additional record(s) reviewed:: Prior inpatient record, Prior outpatient record, Prior ED visit and Prior labs Lab Data Attestation: I reviewed the patient's lab results. Lab results narrative: CBC shows normal white count 7. H&H 14 and 41. Platelets low at 94,000. Electrolytes shows sodium 135. Gap 13. Normal BUN of 14 creatinine 1. Glucose 107. Liver enzymes unremarkable other than AST elevated 53. Urine tox screen negative. Alcohol level negative. Labs: Laboratory Results - last 24 hr 02/03/25 02/03/25 02:51 03:02 WBC 7.7 RBC 4.39 L Hgb 14.5 Hct 41.4 MCV 94.3 H MCH 33.0 H MCHC 35.0 RDW Std Deviation 52.8 H RDW Coeff of Josselyn 15.3 H Plt Count 94 L MPV 10.8 Immature Gran % (Auto) 0.700 Neut % (Auto) 70.9 H Lymph % (Auto) 16.3 L [place] % (Auto) 8.9 Eos % (Auto) 2.5 Baso % (Auto) 0.7 Absolute Neuts (auto) 5.4 Absolute Lymphs (auto) 1.25 Nucleated RBC % 0 Sodium 135 Potassium 4.0 Chloride 97 L Carbon Dioxide 25.4 Anion Gap 13 BUN 14 Creatinine 1.00 Estim Creat Clear Calc 81.39 Est GFR (MDRD) Non-Af 88 BUN/Creatinine Ratio 13.9 Glucose 107 H Calcium 9.3 Total Bilirubin 0.90 AST 53 H ALT 27 Alkaline Phosphatase 105 Total Protein 7.3 Albumin 4.4 Globulin 2.9 Albumin/Globulin Ratio 1.5 Urine Opiates Screen NEGATIVE U Buprenorphine Qual NEGATIVE Ur Oxycodone Screen NEGATIVE Urine Methadone Screen NEGATIVE Urine Fentanyl Screen NEGATIVE Ur Barbiturates Screen NEGATIVE Ur Phencyclidine Scrn NEGATIVE Ur Amphetamines Screen NEGATIVE U Benzodiazepines Scrn NEGATIVE Urine Cocaine Screen NEGATIVE U Cannabinoids Screen NEGATIVE Ethyl Alcohol < 10.1 Discharge Plan Dx/Rx/DC Orders Clinical Impression: Alcohol abuse, Admitted to alcohol detoxification center, Depression, Hallucinations, visual Disposition Disposition: Acute Care Hospital [facility]
[2025-02-03 03:00] LABS: Absolute Lymphocyte Count 1.25 X10^3/uL (0.83-4.51); Absolute Neutrophil Count 5.4 X10^3/uL (2.0-7.7); Basophil# 0.05 X10^3/uL; Basophil% 0.7 % (0-1); Eosinophil# 0.19 X10^3/uL; Eosinophils% 2.5 % (0-5); Hematocrit 41.4 % (40-54); Hemoglobin 14.5 g/dL (13.0-16.5); Lymphocyte # 1.25 X10^3/ul (0.83-4.51); Lymphocyte % 16.3 % (19-41); Mean Corpuscular Volume 94.3 fL (80-94); Mean Platelet Vol. 10.8 fl (6.2-12.0); Monocyte# 0.68 X10^3/uL; Monocyte% 8.9 % (0-10); NRBC Flagged by Analyzer 0 % (0-5); Neutrophil # 5.44 X10^3/uL (2.7-7.7); Neutrophil % 70.9 % (47-70); POSITIVE COUNT YES; Platelet Count 94 K/mm3 (150-450); RBC Distribution Width CV 15.3 % (11.6-14.6); RBC Distribution Width SD 52.8 fl (35.1-43.9); Red Blood Count 4.39 M/mm3 (4.6-6.2); White Blood Count 7.7 K/mm3 (4.4-11.0)
[2025-02-03 03:27] LABS: Amphetamine Urine NEGATIVE (<1000 ng/mL); Barbiturate Urine NEGATIVE (< 200 ng/mL); Benzodiazepine Urine NEGATIVE (< 200 ng/mL); Buprenorphine Urine NEGATIVE (< 200 ng/mL); Cocaine Urine NEGATIVE (< 300 ng/mL); Fentanyl, Urine NEGATIVE; Methadone Urine NEGATIVE (< 300 ng/mL); Opiates Urine NEGATIVE (< 300 ng/mL); Oxycodone, Urine NEGATIVE (< 100 ng/mL); PCP Urine NEGATIVE (< 25 ng/mL); THC Urine NEGATIVE (< 50 ng/mL)
[2025-02-03 03:28] LABS: Alcohol, Blood (Medical)-Serum < 10.1 mg/dL (<=10.0)
[2025-02-03 03:39] LABS: ALB/GLOB Ratio 1.5 RATIO (0.9-2.4); AST(SGOT) 53 U/L (<=37); Alanine Aminotransfer ALT/SGPT 27 U/L (<=46); Albumin, Serum 4.4 g/dL (3.5-5.0); Alkaline Phosphatase 105 U/L (40-129); Anion Gap 13 (5-15); BUN 14 mg/dL (4-19); BUN/Creat Ratio 13.9 RATIO (10-20); Calcium,Total 9.3 mg/dL (7.6-11.0); Carbon Dioxide 25.4 mmol/L (21.0-32.0); Chloride 97 mmol/L (98-108); EST Glomerular Filtration Rate 88 (>60); Estimated Creatinine Clearance 81.39 ml/min (50-250); Globulin 2.9 g/dL (2.2-4.2); Glucose 107 mg/dL (70-99); Protein, Total 7.3 g/dL (5.9-8.4); Sodium Level 135 mmol/L (133-145)
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
[2025-02-03 05:25] LABS: International Normalized Ratio 0.9; Prothrombin Time (Protime)PT. 12.6 SECONDS (11.7-14.9)
[2025-02-03 05:36] LABS: Magnesium 1.6 mg/dL (1.5-2.2)
[2025-02-03] MEDS: 0.9% Normal Saline (1000mL) 1,000 ML 150 ML IV ×2 (06:07→12:34)
[2025-02-03] MEDS: Phenobarbital 32.4 MG Tablet 64.8 MG PO ×5 (06:08→21:40)
[2025-02-03] MEDS: hydrOXYzine PAM 25 MG Capsule 50 MG PO ×3 (06:08→21:40)
[2025-02-03] MEDS: 0.9% Saline Lock 10 ML Syringe IV ×2 (06:08→17:24)
[2025-02-03 06:23] LABS: Absolute Lymphocyte Count 1.66 X10^3/uL (0.83-4.51); Absolute Neutrophil Count 6.4 X10^3/uL (2.0-7.7); Basophil# 0.05 X10^3/uL; Basophil% 0.5 % (0-1); Eosinophil# 0.17 X10^3/uL; Eosinophils% 1.9 % (0-5); Hematocrit 40.7 % (40-54); Hemoglobin 14.1 g/dL (13.0-16.5); Lymphocyte # 1.66 X10^3/ul (0.83-4.51); Lymphocyte % 18.2 % (19-41); Mean Corp Hgb Conc 34.6 g/dL (32-36); Mean Corpuscular Hgb 32.9 pg (27.0-32.0); Mean Corpuscular Volume 94.9 fL (80-94); Mean Platelet Vol. 11.2 fl (6.2-12.0); Monocyte# 0.78 X10^3/uL; Monocyte% 8.6 % (0-10); NRBC Flagged by Analyzer 0 % (0-5); Neutrophil # 6.38 X10^3/uL (2.7-7.7); Platelet Count 103 K/mm3 (150-450); RBC Distribution Width CV 15.3 % (11.6-14.6); RBC Distribution Width SD 52.7 fl (35.1-43.9); Red Blood Count 4.29 M/mm3 (4.6-6.2); White Blood Count 9.1 K/mm3 (4.4-11.0)
[2025-02-03 07:27] LABS: Hemoglobin A1c 4.9 % (<=5.6)
[2025-02-03 07:46] LABS: Phosphorus 3.8 mg/dL (2.7-4.5)
[2025-02-03 08:04] LABS: Cholesterol 180 mg/dL (<=200); High Density Lipoprotein 52 mg/dL; Low Density Lipoprotein Calc. 106 mg/dL; Triglycerides 113 mg/dL; Very Low Density Lipoprotein 23 mg/dL (5-40); Vitamin B12 583 pg/mL (180-914)
[2025-02-03 08:08] LABS: ALB/GLOB Ratio 1.4 RATIO (0.9-2.4); AST(SGOT) 49 U/L (<=37); Alanine Aminotransfer ALT/SGPT 27 U/L (<=46); Albumin, Serum 4.3 g/dL (3.5-5.0); Alkaline Phosphatase 94 U/L (40-129); Anion Gap 15 (5-15); BUN 14 mg/dL (4-19); BUN/Creat Ratio 14.4 RATIO (10-20); Calcium,Total 9.2 mg/dL (7.6-11.0); Carbon Dioxide 22.2 mmol/L (21.0-32.0); Chloride 99 mmol/L (98-108); Creatinine, Serum 0.96 mg/dL (0.70-1.20); EST Glomerular Filtration Rate 93 (>60); Estimated Creatinine Clearance 81.66 ml/min (50-250); Glucose 110 mg/dL (70-99); Potassium 4.2 mmol/L (3.3-5.1); Protein, Total 7.4 g/dL (5.9-8.4); Sodium Level 137 mmol/L (133-145); Total Bilirubin 1.23 mg/dL (0.00-1.30)
[2025-02-03] MEDS: Folic Acid 1 MG Tablet PO (08:52)
[2025-02-03] MEDS: Thiamine Hydrochloride 100 MG Tablet PO (08:52)
[2025-02-03] MEDS: Gabapentin 300 MG Capsule PO (13:26)
[2025-02-03] MEDS: chlordiazePOXIDE 25 MG Capsule PO ×2 (14:32→21:40)
--- NOTE | 2025-02-03 15:13 | CASEMGMT ---
Unable to complete CM assessment at this time, pt with report of hallucinations and CIWA of 17.
[2025-02-03] MEDS: traZODone 100 MG Tablet PO (21:40)
[2025-02-03] MEDS: MELATONIN 3 MG TABLET PO (21:40)
[2025-02-04] MEDS: Gabapentin 300 MG Capsule PO ×2 (02:01→20:40)
[2025-02-04] MEDS: Phenobarbital 32.4 MG Tablet 64.8 MG PO ×6 (02:01→21:03)
[2025-02-04 02:07] VITALS: BP 114/67; PULSE 52; RESP 16; TEMP 36.5; O2SAT 94
[2025-02-04 03:51] VITALS: BMI 22.4
[2025-02-04] MEDS: chlordiazePOXIDE 25 MG Capsule PO ×3 (05:31→21:03)
--- NOTE | 2025-02-04 08:55 | PCM.PN.HOSP ---
Subjective Subjective Doing well, no issues overnight. CIWA score of 7 down from a high of 15 Objective Data Objective Data Vital Signs: Vital Signs Temp Pulse Resp BP Pulse Ox O2 Del Method 97.7 F L 52 L 16 114/67 94 Room Air 02/04/25 02:07 02/04/25 02:07 02/04/25 02:07 02/04/25 02:07 02/04/25 02:07 02/04/25 02:07 Oxygen Delivery Method Room Air Weight: 152 lb 1.903 oz Body Mass Index (BMI) 22.4 Intake & Output: Intake and Output for Last 24 Hours 02/03/25 02/04/25 02/05/25 03:59 03:59 03:59 Intake Total 1930.0 / 1930.0 Balance 1930.0 / 1930.0 Lab / Micro Data 02/03/25 06:11 02/03/25 06:11 Physical Exam Narrative General: Resting comfortably, alert, Oriented x3, Cooperative, No apparent distress HEENT: Atraumatic, PERRLA, EOMI, Normocephalic Oral: Moist Mucosa Neck: Supple, No JVD Lungs: Diminished, Normal air movement, No rhonchi, No wheeze, No rales Cardiovascular: Regular rate, Regular Rhythm, Normal S1, Normal S2, No murmurs Abdomen: Soft, Non Tender, Non-Distended, No Hepato-splenomegaly Extremities: No edema, Capillary Refill Less than 3 Seconds Skin: No rashes, No breakdown Musculoskeletal: No Tenderness to Palpation of Joints or Extremities Neurological: No focal neurological deficits, Motor Exam 5/5 strength throughout, Sensory exam intact to light touch and pain Psych/Mental Status: Anxious, tremors Assessment & Plan Assessment/Plan (1) Alcohol withdrawal hallucinosis: (2) Chronic alcohol abuse: PLAN: Plan 1. Alcohol withdrawal requesting detox/thrombocytopenia/tobacco abuse/anxiety/depression ? Continue with the alcohol withdrawal protocol ? She was having pretty significant hallucinations so he was started on Librium 25 mg p.o. 3 times daily scheduled ? Will have him follow-up with 180 to develop a discharge plan ? Thrombocytopenia is chronic and likely alcohol related ? Discussed cessation, will continue with nicotine replacement DVT: Ambulation Charges/Coding Visit Charges Inpatient E&M: 99633 Subs Hosp L2
[2025-02-04 09:06] VITALS: BP 118/80; PULSE 76; RESP 16; TEMP 36.7; O2SAT 98
[2025-02-04] MEDS: Folic Acid 1 MG Tablet PO (09:13)
[2025-02-04] MEDS: Thiamine Hydrochloride 100 MG Tablet PO (09:13)
[2025-02-04 13:43] VITALS: BP 127/82; PULSE 88; RESP 18; TEMP 36.6; TEMP 36.7; O2SAT 98
--- NOTE | 2025-02-04 14:15 | NURSING ---
updated by Linh social media developer that pt is making statements of suicide ideations. Aware Linh is going back in to talk with patient again, talked with primary RN and MANAGER OUTPATIENT pulled to sit with patient.
--- NOTE | 2025-02-04 15:24 | CASEMGMT ---
Social Work SW?to room to meet with patient for initial transition planning/care coordination?assessment.?SW?introduced self and role at [facility].? Pt voices understanding and consents to?assessment.? Pt is A/Ox4 and answers all questions appropriately.?? Care providers, pharmacy, and demographics verified. PCP: none Specialists: none Insurance: MCR A only Prescription Benefit:? none LNOK: ex Milady Cortez Living Arrangements: Pt lives alone in a one bedroom apartment with a flight of stairs to enter. Pt is independent with ADLs and IADLs but states he has difficulty with tasks due to debility from degenerative disc disease Transportation:?pt has a car and is able to provide own transportation DME: ? shower chair HHC/SNF: none previously Alcohol Use: Pt states he drinks a fifth of whiskey and a gallon of vodka in a 24 hour period. Pt states he took his first drink of whiskey at age 13 and has been drinking since then. Pt attempted to self detox at home but states he had significant hallucinations and came to the hospital to finish detox. Pt declined signing up for the [facility] program. SW inquired about treatment for substance use at discharge. Pt initially states he will depend on his family to help him remain sober, but then states that he would be better off . ROSARIO then completed the [place] Suicide Risk Assessment with pt. (See additional SW note). PLAN: Pt plans to return home alone. SW to assess for Suicide Risk. HECTOR Lopez
--- NOTE | 2025-02-04 15:54 | CASEMGMT ---
Social Work ? Suicide Risk Screen Reason for screening: SW met with pt to complete initial discharge planning/care coordination assessment. Pt making suicidal comments to this SW during assessment. [place] SUICIDAL IDEATION Ask questions 1 and 2. If both are negative, proceed to ?Suicidal Behavior? section. If the answer question 2 is yes, ask questions 3, 4, 5. If the answer to question 1 and/or 2 is ?yes?, complete ?Intensity of Ideation? section below. 1. Wish to be ? Subject endorses thoughts about a wish to be or not alive anymore, or wish to fall asleep and not wake up. Have you wished you were or wished you could go to sleep and not wake up? Lifetime: Time He/She [place] Most Suicidal: YES Past 1 month: YES Please Describe if yes: Pt states that he wishes he were all the time recently and has been having these thoughts since The Fall in 2013. Pt describes the fall as when he was diagnosed with degenerative disc disease and pt has become increasingly more disabled since that time and pt states things in his life continued to pile up. 2. Non-Specific Active Suicidal Thoughts General, non-specific thoughts of wanting to end one?s life/commit suicide (e.g., ?I?ve thought about killing myself?) without thoughts of ways to kills oneself/associated methods, intent, or plan during the assessment period. Have you actually had any thoughts of killing yourself? Lifetime: Time He/She [place] Most Suicidal: YES Past 1 month: YES Please Describe if yes: Pt states that he feels like killing himself every day and offers to SW ways in which he would complete the task. Pt states that he has researched how to kill himself and that hanging would be the most definate way to take his own life. Pt is able to describe the actions he would take in detail. 3. Active Suicidal Ideation with Any Methods (Not Plan) without Intent to Act Subject endorses thoughts of suicide and has thought of at least one method during the assessment period. This is different than a specific plan with time, place, or method details worked out (e.g., thought of method to kills self but not a specific plan). Includes person who would say ?I thought about thanking an overdose, but I never made a specific plan as to when, where or how. I would actually do it, and I would never go through with it.? Have you been thinking about how you might do this? Lifetime: Time He/She [place] Most Suicidal: YES Past 1 month: YES Please Describe if yes: Pt states to SW, hanging myself, the plan is always to hang myself. 4. Active Suicidal Ideation with Some Intent to Act, without Specific Plan Active suicidal thoughts of kills oneself fand subject reports having some intent to act on such thoughts, as opposed to ?I have the thoughts but I definitely will not do anything about them.? Have you had these thoughts and had some intention of acting on them? Lifetime: Time He/She [place] Most Suicidal: YES Past 1 month: YES Please Describe if yes: Pt states to this SW that he would jump out of the hospital window if he could get it opened. 5. Active Suicidal Ideation with Specific Plan and Intent Thoughts of kills oneself with details of plan fully or partially worked out and subject has some intent to care it out. Have you started to work out or worked out the details of how to kill yourself? Do you intend to carry out this plan? Lifetime: Time He/She [place] Most Suicidal: YES Past 1 month: YES Please Describe if yes: Pt states that he has researched how to kill himself and that hanging would definately be the way to go as it would only be painful for 30 seconds. Pt states he has made a noose and has it at home. INTENSITY OF IDEATION The following feature should be rated with respect to the most sever type of ideation (i.e., 1-5 from above, with 1 being the least severe and 5 being the most severe). Ask about time he/she/they were feeling the most suicidal. Lifetime - Most Severe Ideation: Type # (1-5): 5 Description: Recent - Most Severe Ideation: Type # (1-5): 5 Description: Frequency How many times have you had these thoughts? Lifetime: (1) Less than once a week (2) Once a week (3) 2-5 times in week (4) Daily or almost daily (5) Many times each day Recent, Past 1 month: (1) Less than once a week (2) Once a week (3) 2-5 times in week (4) Daily or almost daily (5) Many times each day Duration When you have the thoughts how long do they last? Lifetime: (1) Fleeting - few seconds or minutes (2) Less than 1 hour/some of the time (3) 1-4 hours/a lot of time 4) 4-8 hours/most of day (5) More than 8 hours/persistent or continuous Pt states that is varies with the day. Somedays thoughts are fleeting and some days they are persistant Recent, Past 1 month : (1) Fleeting - few seconds or minutes (2) Less than 1 hour/some of the time (3) 1-4 hours/a lot of time 4) 4-8 hours/most of day (5) More than 8 hours/persistent or continuous Pt states that is varies with the day. Somedays thoughts are fleeting and some days they are persistant Controllability Could/can you stop thinking about killing yourself or wanting to if you want to? Lifetime: (1) Easily able to control thoughts (2) Can control thoughts with little difficulty (3) Can control thoughts with some difficulty 4) Can control thoughts with a lot of difficulty (5) Unable to control thoughts (0) Does not attempt to control thoughts Recent, Past 1 month: (1) Easily able to control thoughts (2) Can control thoughts with little difficulty (3) Can control thoughts with some difficulty 4) Can control thoughts with a lot of difficulty (5) Unable to control thoughts (0) Does not attempt to control thoughts Deterrents Are there things - anyone or anything (e.g., family, jain, pain of ) - that stopped you from wanting to or acting on thoughts of committing suicide? Lifetime: (1) Deterrents definitely stopped you from attempting suicide (2) Deterrents probably stopped you (3) Uncertain that deterrents stopped you (4) Deterrents most likely did not stop you (5) Deterrents definitely did not stop you 0) Does not apply Recent: (1) Deterrents definitely stopped you from attempting suicide (2) Deterrents probably stopped you (3) Uncertain that deterrents stopped you (4) Deterrents most likely did not stop you (5) Deterrents definitely did not stop you 0) Does not apply Reasons for Ideation What sort of reasons did you have for thinking about wanting to or killing yourself? Was it to end the pain or stop the way you were feeling (in other words you couldn?t go on living with this pain or how you were feeling) or was it to get attention, revenge or a reaction from others? Or both? Lifetime: (1) Completely to get attention, revenge or a reaction from (2) Mostly to get attention, revenge or a reaction from others (3) Equally to get attention, revenge or a reaction from others and to end/stop the pain (4) Mostly to end or stop the pain (you couldn?t go on living with the pain or how you were feeling) (5) Completely to end or stop the pain (you couldn?t go on living with the pain or how you were feeling) (0) Does not apply Recent: (1) Completely to get attention, revenge or a reaction from (2) Mostly to get attention, revenge or a reaction from others (3) Equally to get attention, revenge or a reaction from others and to end/stop the pain (4) Mostly to end or stop the pain (you couldn?t go on living with the pain or how you were feeling) (5) Completely to end or stop the pain (you couldn?t go on living with the pain or how you were feeling) (0) Does not apply SUICIDAL BEHAVIOR Actual Attempt: A potentially self-injurious act committed with at least some wish to , as a result of act. Behavior was in part thought of as method to kill oneself. Intent does not have to be 100%. If there is any intent/desire to associated with the act, then it can be considered an actual suicide attempt. There does not have to be any injury of harm, just the potential for injury or harm. If person pulls trigger while gun is in mouth, but gun is broken so no injury results, this is considered an attempt. Inferring intent: Even if an individual denies intent/wish to , it may be inferred clinically from the behavior or circumstances. For example, a highly lethal act that is clearly not an accident so no other intent but suicide can be inferred (e.g. gunshot to head, jumping from window of a high floor/story). Also, if someone denies intent to , but they thought that what they did could be lethal, intent may be inferred. Have you made a suicide attempt? Have you done anything to harm yourself? Have you done anything dangerous where you could have ? What did you do? Did you as a way to end your life? Did you want to (even a little) when you ? Were you trying to end your life when you ? Or did you think it was possible you could have from ? Or did you do it purely for other reasons/without ANY intention of killing yourself like to relieve stress, feel better, get sympathy, or get something else to happen)? (Self -Injurious Behavior without suicidal intent) Lifetime: YES Past 3 months: YES If yes, describe: Pt stating that he has attempted suicide twice in the past month and once in 2022. Pt does explain in detail how he was going to complete suicide, planning to jump out of second story window at home. Pt stating he would dive out as to cause head injury and not jump feet first. And although pt considers this a suicide attempt, he does state that he did not actually jump. Total # of Attempts in His/Her Lifetime: 3 Total # of attempts in Past 3 months: 2 Has person engaged in Non-Suicidal Sefl-Injurious Behavior? Lifetime: YES Past 3 months: YES, Pt states he beat his head on the counter until it was bleeding to get the suicidal thoughts out of his head Interrupted Attempt: When the person is interrupted (by an outside circumstance) from starting the potentially self-injurious act (if not for that, actual attempt would have occurred). Overdose: Person has pills in hand but is stopped from ingesting. Once they ingest any pills, this becomes an attempt rather than an interrupted attempt. Shooting: Person has gun pointed toward self, gun is taken away by someone else, or is somehow prevented from pulling trigger. Once they pull the trigger, even if the gun fails to fire, it is an attempt. Jumping: Person is poised to jump, is grabbed and taken down from ledge. Hanging: Person has noose around neck but has not yet started to hang self -is stopped from doing so. Has there been a time when you started to do something to end your life but someone or something stopped you before you did anything? Lifetime: NO Past 3 months: NO If yes, describe: Pt states he would only make attempts when he is alone. No one know about his feelings except his exwife and he would make sure no one was around. Total # of interrupted attempts in His/Her Lifetime: Total # of interrupted attempts in Past 3 months: Aborted or Self-Interrupted Attempt: When person begins to take steps toward making a suicide attempt, but stops themselves before they have actually engaged in any self-destructive behavior. Examples are like interrupted attempts, except that the individual stops him/herself, instead of being stopped by something else. Has there been a time when you started to do something to try to end your life, but you stopped yourself before you did anything? Lifetime: YES Past 3 months: YES If yes, describe: Pt states that all attempts have been self interuppted. Pt states that he has carried out the actions that he has planned. Total # of aborted or self-interrupted attempts in His/Her Lifetime: in 2022 pt was on motorcycle with plan to drive into the overpass to kill himself and at the last moment he pulled away. Total # of aborted or self-interrupted attempts in Past 3 months: Pt states he has plans to jump out of the window of his two story home, but stopped himself prior to jumping. He also states he has a noose over the door, but did not put the noose around his neck. Preparatory Acts or Behavior: Acts or preparation towards imminently making a suicide attempt. This can include anything beyond a verbalization or thought, such as assembling a specific method (e.g., buying pills, purchasing a gun) or preparing for one?s by suicide (e.g., giving things away, writing a suicide note). Have you taken any steps towards making a suicide attempt or preparing to kill yourself (such as collecting pills, getting a gun, giving valuables away or writing a suicide note)? Lifetime: NO Past 3 months: YES If yes, describe: Pt states he has a suicide note written and at home and also has made a noose and it is at home. Total # of preparatory acts in His/Her Lifetime: 0 Total # of preparatory acts in Past 3 months: 2 Lethality/Medical Damage: 0. No physical damage or very minor physical damage (e.g., surface scratches). 1. Minor physical damage (e.g., lethargic speech; first-degree belle; mild bleeding; sprains). 2. Moderate physical damage; medical attention needed (e.g., conscious but sleepy, somewhat responsive; second-degree belle; bleeding of major vessel). 3. Moderately severe physical damage; medical hospitalization and likely intensive care required (e.g., comatose with reflexes intact; third-degree belle less than 20% of body; extensive blood loss but can recover; major fractures). 4. Severe physical damage; medical hospitalization with intensive care required (e.g., comatose without reflexes; third-degree belle over 20% of body; extensive blood loss with unstable vital signs; major damage to a vital area). 5. Most Recent attempt Date: Code: Most Lethal Attempt Date: Code: Initial/First Attempt Date: Code: Potential Lethality: Only Answer if Actual Lethality=0 Likely lethality of actual attempt if no medical damage (the following examples, while having no actual medical damage, had potential for very serious lethality: put gun in mouth and pulled the trigger but gun fails to fire so no medical damage; laying on train tracks with oncoming train but pulled away before run over). 0 = Behavior not likely to result in injury 1 = Behavior likely to result in injury but not likely to cause 2 = Behavior likely to result in despite available medical care Most Recent Attempt Code: This Week Most Lethal Attempt Code: Initial/First Attempt Code: Summary: Pt is open with SW sharing thoughts and feelings regarding suicidal ideations. Pt stating that in 2013 he was diagnosed with degenerative disc disease. This disease as gotten increasingly worse through the years and pt has become more and more disabled. 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 Pt making comments that It is going to happen, it is just a matter of when If I had a pistol, it would be done by now. Pt states he has sold all of his guns but does have a cross bow and a significant knife collection. Pt states he would not take his life with a knife though as it would be too gory for his family to clean up. Pt states that he hears in his head, Do it now pussy (referring to harming himself). Several times throughout assessment, pt talked about his children, grandchildren, father and 2 ex wives that are now his best friends. Pt showing pictures to this SW and expressing how much family means to him. Pt stating that his family is his only protective factor and reason that he has not taken his life yet. Stating things like, I do not want to do that to them but also stating after a little bit of time after I , they will be ok If I didn't have children, I would be gone by now. Pt is frustrated by his failing health and his progressive disability. Pt thinking of ways to harm himself while in the hospital. ROSARIO updated nursing staff and pt placed on suicide precautions. ROSARIO spoke with physician regarding course of care. Physician recommending pt complete detox program and be reassessed on Saturday for suicide risk. Pt to remain in suicide precautions until that time including sitter in the room. HECTOR Lopez
[2025-02-04 17:17] VITALS: BP 146/102; PULSE 94; RESP 18; TEMP 36.6; O2SAT 97
--- NOTE | 2025-02-04 17:31 | NURSING ---
1727 aware per pt's primary RN patient making statements he's going to leave. Dr. Gibson paged, security called, and washhouse hand updated.
--- NOTE | 2025-02-04 17:37 | NURSING ---
talked with Dr. Gibson aware he is pink slipping patient. Office hardy and security, primary RN updated.
--- NOTE | 2025-02-04 17:45 | NURSING ---
talked with ER social service assistant about patient.
[2025-02-04] MEDS: hydrOXYzine PAM 25 MG Capsule 50 MG PO (20:40)
[2025-02-04] MEDS: traZODone 100 MG Tablet PO (20:40)
[2025-02-04 21:00] VITALS: BP 126/81; PULSE 109; RESP 16; TEMP 36.6; O2SAT 98
[2025-02-05] MEDS: hydrOXYzine PAM 25 MG Capsule 50 MG PO ×2 (00:56→22:04)
[2025-02-05] MEDS: Phenobarbital 32.4 MG Tablet 64.8 MG PO ×5 (00:56→18:38)
[2025-02-05 02:00] VITALS: BP 114/75; PULSE 88; RESP 16; TEMP 36.6; O2SAT 98
[2025-02-05] MEDS: chlordiazePOXIDE 25 MG Capsule PO ×3 (05:44→20:01)
[2025-02-05 06:00] VITALS: BMI 23.7
[2025-02-05] MEDS: Folic Acid 1 MG Tablet PO (08:02)
[2025-02-05] MEDS: Thiamine Hydrochloride 100 MG Tablet PO (08:02)
[2025-02-05 08:32] VITALS: O2SAT 96
[2025-02-05 08:47] VITALS: BP 124/74; PULSE 64; RESP 16; TEMP 36.8; O2SAT 92
[2025-02-05 11:06] VITALS: BP 117/76; PULSE 78; RESP 16; TEMP 36.7; O2SAT 98
--- NOTE | 2025-02-05 12:16 | PCM.PN.HOSP ---
Subjective Subjective He states yesterday that he said that sometimes he can get overwhelmed and wishes that life would and he thinks that the pink slip was an over exaggeration he states that he never said that he was suicidal or that he wanted to hang himself. Objective Data Objective Data Vital Signs: Vital Signs Temp Pulse Resp BP Pulse Ox O2 Del Method 98.1 F 78 16 117/76 98 Room Air 02/05/25 11:06 02/05/25 11:06 02/05/25 11:06 02/05/25 11:06 02/05/25 11:06 02/05/25 11:06 Oxygen Delivery Method Room Air Weight: 160 lb 11.472 oz Body Mass Index (BMI) 23.7 Intake & Output: Intake and Output for Last 24 Hours 02/04/25 02/05/25 02/06/25 03:59 03:59 03:59 Intake Total 1930.0 / 1930.0 Balance 1930.0 / 1930.0 Lab / Micro Data 02/03/25 06:11 02/03/25 06:11 Physical Exam Narrative General: Resting comfortably, alert, Oriented x3, Cooperative, No apparent distress HEENT: Atraumatic, PERRLA, EOMI, Normocephalic Oral: Moist Mucosa Neck: Supple, No JVD Lungs: Diminished, Normal air movement, No rhonchi, No wheeze, No rales Cardiovascular: Regular rate, Regular Rhythm, Normal S1, Normal S2, No murmurs Abdomen: Soft, Non Tender, Non-Distended, No Hepato-splenomegaly Extremities: No edema, Capillary Refill Less than 3 Seconds Skin: No rashes, No breakdown Musculoskeletal: No Tenderness to Palpation of Joints or Extremities Neurological: No focal neurological deficits, Motor Exam 5/5 strength throughout, Sensory exam intact to light touch and pain Psych/Mental Status: Anxious, restless Assessment & Plan Assessment/Plan (1) Alcohol withdrawal hallucinosis: (2) Chronic alcohol abuse: PLAN: Plan 1. Alcohol withdrawal requesting detox/thrombocytopenia/tobacco abuse/anxiety/depression/suicidal ideation ? Continue with the alcohol withdrawal protocol ? She was having pretty significant hallucinations so he was started on Librium 25 mg p.o. 3 times daily scheduled ? Will have him follow-up with 180 to develop a discharge plan ? Thrombocytopenia is chronic and likely alcohol related ? Discussed cessation, will continue with nicotine replacement ? Will continue with the pink slip and have him evaluated by crisis, his CIWA score is 0 so he would be stable for transfer to a mental health facility if they agreed DVT: Ambulation Charges/Coding Visit Charges Inpatient E&M: 06830 Subs Hosp L2
--- NOTE | 2025-02-05 13:58 | CASEMGMT ---
Social Work Per physician, pt has been cleared for mental health assessment by Crisis. Clinicals faxed to crisis and a referral made. HECTOR Lopez
[2025-02-05] MEDS: Gabapentin 300 MG Capsule PO (16:25)
[2025-02-05 16:46] VITALS: BP 143/96; PULSE 83; RESP 16; TEMP 37.1; O2SAT 93
--- NOTE | 2025-02-05 16:54 | DCINST_ITS ---
Discharge Instructions Diet Discharge Diet: No restrictions DC O2, CPAP, BIPAP needs Home O2 Discharge instructions: No Follow Up Care Test Results: Test results from this visit will be discussed in further detail at your follow- up appointment, if applicable. Discharge Plan Admission Admit Date/Time: 02/03/25 04:50 Attending Provider: Rajesh Gibson Primary Care Provider: Care Physician,No Primary Consulting Providers: Volodymyr Ortiz Discharge Orders/Prescriptions Prescriptions: Continued omeprazole 40 mg capsule,delayed release(DR/EC) 40 mg PO DAILY PRN (Reason: heartburn) acetaminophen [Pain Relief (acetaminophen)] 325 mg tablet 650 mg PO Q6H PRN (Reason: pain) Referrals / Follow Up: Care Physician,No Primary [Primary Care Provider] - Disposition Disposition (needs filled in before D/C Order can be placed): Psychiatric Hospital or Unit
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
[2025-02-05 20:06] VITALS: BP 90/48; PULSE 70; RESP 16; TEMP 36.6; O2SAT 97
--- NOTE | 2025-02-05 21:00 | NURSING ---
Security notified that pt is very anxious. Squad will be here at 2300. 2120 pt called 911 And security at bedside
[2025-02-05] MEDS: LORazepam 1 MG Tablet PO (22:03)
[2025-02-05] MEDS: MELATONIN 3 MG TABLET PO (22:03)
--- NOTE | 2025-02-05 22:08 | NURSING ---
Pt restless but agreeable to take meds for anxiety. Pt denies feeling suicidal Pt stated earlier he was not going to go by squad to [facility]. After talking with pt he will take the meds. Security and hro outside of pt room.
--- NOTE | 2025-02-05 22:41 | NURSING ---
Kalyan Cortez called and does not want her family member going to [facility]. Talk to beronica in ed and she said no they do not have a choice. Karla notified and was told pt and family do not get to choice where to go
--- NOTE | 2025-02-05 22:48 | NURSING ---
fabric worker leader dago vidal family and pt do not have the right to pick where they go
--- NOTE | 2025-02-05 23:10 | NURSING ---
prior to leaving the pt stated he didnt want to go all the way to [place]. told the sitter in the room that he was going to video it all that he didnt want to be manhandled. pt did also call 911. security was called and this upset the pt. pt was restless pacing the room, this rn went in the room and told him he was not going to be manhandled as long as he was cooperative and that security was there to keep the nurses and staff safe since he was getting agitated, restless, swearing and saying he was going to video being manhandled. pt was told that he was pink slipped since he at one point said he was suicidal. pt stated the elementary school social worker twisted his words and he was not. much 1:1 time was spent talking w the pt and he did calmed down. security and HRO was outside the door, pt was cooperative. pt did go cooperatively onto the cot to be transferred.
== END 2025-02-05 23:05 | DRG 897 ==
LOC: ED 03:56 → MS3 05:09
PROVIDERS: Admitting Provider Internal Medicine; Emergency Provider Emergency Medicine; Visit Provider Family Medicine
DX: F10.232 Alcohol dependence with withdrawal with perceptual disturbance (principal); R45.851 Suicidal ideations; F22 Delusional disorders; D69.59 Other secondary thrombocytopenia; E11.65 Type 2 diabetes mellitus with hyperglycemia; D64.9 Anemia, unspecified; E78.5 Hyperlipidemia, unspecified; I10 Essential (primary) hypertension; F10.251 Alcohol dependence with alcohol-induced psychotic disorder with hallucinations; F41.8 Other specified anxiety disorders; K21.9 Gastro-esophageal reflux disease without esophagitis; F17.210 Nicotine dependence, cigarettes, uncomplicated; M47.812 Spondylosis without myelopathy or radiculopathy, cervical region; G89.29 Other chronic pain; Y90.0 Blood alcohol level of less than 20 mg/100 ml; Z86.73 Personal history of transient ischemic attack (TIA), and cerebral infarction without residual deficits; Z86.79 Personal history of other diseases of the circulatory system; Z75.1 Person awaiting admission to adequate facility elsewhere
CPT/HCPCS: 36415; 80053; 80061; 80307; 82077; 82607; 82746; 83036; 83735; 84100; 84443; 85025; 85610; 99285; A4216

== ENCOUNTER 2025-05-08 05:06 | Emergency (ER) | payer MEDICARE, SELFPAY ==
[2025-05-08 05:08] VITALS: BP 158/112; PULSE 122; RESP 18; TEMP 36.9; O2SAT 96; BMI 23.1
--- NOTE | 2025-05-08 05:20 | EKG12_ITS ---
Test Reason : DYSRHYTHMIA Blood Pressure : */* mmHG Vent. Rate : 112 BPM Atrial Rate : 112 BPM P-R Int : 158 ms QRS Dur : 86 ms QT Int : 344 ms P-R-T Axes : 34 41 34 degrees QTcB Int : 469 ms Sinus tachycardia Otherwise normal ECG Confirmed by MACHELLE WOLFE, MIKAELA ([id number]), commissioning editor HECTOR MISHRA ([id number]) on 05/10/2025 1:01:51 PM Referred By: Confirmed By: MIKAELA CARTY MD
[2025-05-08 05:21] VITALS: BP 158/112; PULSE 122; RESP 18; TEMP 36.9; O2SAT 96
[2025-05-08 05:35] LABS: Hematocrit 44.5 % (40-54); Hemoglobin 15.5 g/dL (13.0-16.5); Immature Granulocytes Count 0.040 X10^3/uL (0.0-0.0); Mean Corp Hgb Conc 34.8 g/dL (32-36); Mean Corpuscular Volume 95.1 fL (80-94); Mean Platelet Vol. 10.0 fl (6.2-12.0); NRBC Flagged by Analyzer 0 % (0-5); Platelet Count 163 K/mm3 (150-450); RBC Distribution Width CV 15.6 % (11.6-14.6); RBC Distribution Width SD 54.1 fl (35.1-43.9); Red Blood Count 4.68 M/mm3 (4.6-6.2); White Blood Count 7.6 K/mm3 (4.4-11.0)
[2025-05-08] MEDS: 0.9% Normal Saline (1000mL) 1,000 ML 999 ML IV (05:40)
--- OUTSIDE RECORDS SUMMARY | 2025-05-08 05:52 | XMS RPT_ITS | CCD ---
Author Organization [facility] Care Team Providers Care Tank Assembler Name Role Phone Care Physician, No Primary Primary Care Provider Unavailable Jere WOLFE, Dr. Virgen Emergency Provider [phone] Dr. Volodymyr Ortiz DO Admit Provider Unavail able Ortiz DO, Dr. Helm Attending Provider Unav ailable Volodymyr Ortiz Admitting Unavailable Rajesh Gibson Attending Unavailable Care Physician, No Primary Primary Care Unava ilable Volodymyr Ortiz Consulting Unavailable Rajesh Gibson Consulting Unavailable Volodymyr Ortiz Attending Unavailable Rajesh Gibson Admitting Unavailable Arthur Barber Attending Unavailable Care Physician, No Primary Primary Care Unava ilable Rajesh Gibson Consulting Unavailable Arthur Barber Consulting Unavailable Anastasia Nicholas Attending Unavailable Rajesh Gibson Attending Unavailable Shaye Loomis Attending Unavail able Care Physician, No Primary Referring Unava ilable Care Physician, No Primary Primary Care Unava ilable Care Physician, No Primary Primary Care Unava ilable Volodymyr Ortiz Admitting Unavailable Rajesh Gibson Attending Unavailable Volodymyr Ortiz Consulting Unavailable Care Physician, No Primary Primary Care Unava ilable Rajesh Gibson Admitting Unavailable Arthur Barber Attending Unavailable Rajesh Gibson Consulting Unavailable Medications Current Medications Medication Drug Class(es) Dates Sig (Normalized) Sig (Original) [place] (Nk) (1 source) Start: 02-03-2025 [place] (Nk) A ctive February 03, 2025 12:00am Completed/Discontinued Medications Medication Drug Class(es) Dates Sig (Normalized) Sig (Original) acetaminophen 500 mg oral capsule (1 source) Start: 02-09-2024 End: 05-31-2024 take 1 capsule by mouth every six hours as needed for pain Acetaminophen 500 mg capsule Discontinued 500 mg PO EVERY 6 HOURS as needed for pain February 09, 2024 12:00am May 31, 2024 3:22pm amLODIPine 5 mg oral tablet (1 source) Dihydropyridine Calcium Channel Charline Start: 02-14-2024 End: 05-31-2024 take 1 tablet by mouth once daily Amlodipine 5 mg Tablet Discontinued 5 mg PO DAILY 90 February 14, 2024 12:00am May 31, 2024 3:22pm aspirin 81 mg chewable tablet (1 source) Platelet Aggregation Inhibitor, Nonsteroidal Anti-inflammatory Drug Start: 02-14-2024 End: 05-31-2024 take 1 tablet by mouth at breakfast Aspirin 81 mg Tablet,Chewable Discontinued 81 mg PO WITH BREAKFAST 90 February 14, 2024 12:00am May 31, 2024 3:22pm atorvastatin 80 mg oral tablet (1 source) HMG-CoA Reductase Inhibitor Start: 02-14-2024 End: 05-31-2024 take 1 tablet by mouth at bedtime Atorvastatin 80 mg Tablet Discontinued 80 mg PO AT BEDTIME February 14, 2024 12:00am May 31, 2024 3:22pm dicyclomine hydrochloride 10 mg oral capsule (1 source) Anticholinergic Start: 05-29-2019 End: 02-09-2024 take 2 capsules by mouth at bedtime Dicyclomine 10 MG capsule Discontinued 20 mg PO BEFORE MEALS AND AT BEDTIME May 29, 2019 12:00am February 09, 2024 6:00am 24 hr metoprolol succinate 25 mg extended release oral tablet (1 source) beta-Adrenergic Charline Start: 03-11-2024 End: 05-31-2024 take 1 tablet by mouth once daily Metoprolol Succinate 25 mg tablet extended release 24 hr Discontinued 25 mg PO DAILY March 11, 2024 12:00am May 31, 2024 3:22pm Multivitamin tablet (1 source) Start: 02-09-2024 End: 05-31-2024 Multivitamin tablet Discontinued 1 {tbl} PO DAILY February 09, 2024 12:00am May 31, 2024 3:22pm pantoprazole 40 mg delayed release oral tablet (2 sources) Proton Pump Inhibitor Start: 06-01-2024 End: 02-03-2025 take 1 tablet by mouth twice daily Pantoprazole (Protonix) 40 mg tablet,delayed release (DR/EC) Discontinued 40 mg PO TWICE A DAY 60 June 01, 2024 12:00am February 03, 2025 2:20am Start: 02-14-2024 End: 05-31-2024 take 1 tablet by mouth twice daily Pantoprazole 20 mg Tablet,Delayed Release (Dr/Ec) Discontinued 20 mg PO TWICE A DAY 60 February 14, 2024 12:00am May 31, 2024 3:22pm promethazine hydrochloride 25 mg oral tablet (1 source) Phenothiazine Start: 01-30-2023 End: 02-09-2024 take 1 tablet by mouth every six hours as needed for nausea Promethazine 25 mg tablet Discontinued 25 mg PO EVERY 6 HOURS NEEDED as needed for Nausea January 30, 2023 12:00am February 09, 2024 6:00am sertraline 50 mg oral tablet (1 source) Serotonin Reuptake Inhibitor Start: 06-01-2024 End: 02-03-2025 take 1 tablet by mouth once daily Sertraline 50 mg Tablet Discontinued 50 mg PO DAILY June 01, 2024 12:00am February 03, 2025 2:20am Problems Active Problems Problem Classification Problem Date Documented Date Episodic/Chronic Acute and unspecified renal failure (1 source) Acute renal failure syndrome; Translations: [Acute kidney failure, unspecified] 02-19-2024 Episodic Alcohol-related disorders (10 sources) Alcohol abuse; Translations: [Alcohol abuse, uncomplicated] Onset: 02-05-2025 02-03-2025 Chronic Blindness and vision defects (3 sources) Blurring of visual image; Translations: [Other visual disturbances] 02-12-2024 Episodic Cardiac dysrhythmias (1 source) Tachycardia; Translations: [Tachycardia, unspecified] 02-19-2024 Episodic Coagulation and hemorrhagic disorders (3 sources) Thrombocytopenia co-occurrent and due to alcoholism; Translations: [Other secondary thrombocytopenia] Onset: 02-05-2025 02-03-2025 Episodic Conditions associated with dizziness or vertigo (1 source) Dizziness; Translations: [Dizziness and giddiness] 02-12-2024 Episodic Diabetes mellitus without complication (1 source) Hyperglycemia; Translations: [Hyperglycemia, unspecified] 02-19-2024 Episodic Diseases of white blood cells (1 source) Leukocytosis; Translations: [Elevated white blood cell count, unspecified] 02-19-2024 Chronic Disorders of lipid metabolism (1 source) Hyperlipidemia; Translations: [Hyperlipidemia, unspecified] 03-11-2024 Chronic Essential hypertension (1 source) Hypertensive disorder; Translations: [Essential (primary) hypertension] 02-12-2024 Chronic Fluid and electrolyte disorders (1 source) Hyponatremia; Translations: [Hypo-osmolality and hyponatremia] 02-19-2024 Episodic Mood disorders (2 sources) Depressive disorder; Translations: [Depression] 02-03-2025 Chronic Nausea and vomiting (3 sources) Nausea and vomiting; Translations: [Nausea with vomiting, unspecified] Onset: 02-05-2025 02-03-2025 Episodic Other circulatory disease (1 source) Aortitis; Translations: [Arteritis, unspecified] 02-14-2024 Chronic Other circulatory disease (1 source) Elevated blood pressure; Translations: [Elevated blood-pressure reading, without diagnosis of hypertension] 02-12-2024 Episodic Other nutritional; endocrine; and metabolic disorders (1 source) Hyperbilirubinemia; Translations: [Other disorders of bilirubin metabolism] 02-19-2024 Chronic Other nutritional; endocrine; and metabolic disorders (1 source) Hypomagnesemia; Translations: [Hypomagnesemia] 02-19-2024 Chronic Other nutritional; endocrine; and metabolic disorders (1 source) Hypercalcemia; Translations: [Hypercalcemia] 02-19-2024 Chronic Other screening for suspected conditions (not mental disorders or infectious disease) (1 source) Thyroid hormone tests abnormal; Translations: [Other specified abnormal findings of blood chemistry] 02-19-2024 Episodic Residual codes; unclassified (2 sources) Tobacco user; Translations: [Tobacco use] 02-03-2025 Episodic Residual codes; unclassified (1 source) Tobacco use; Translations: [Tobacco use] Onset: 02-05-2025 Episodic Transient cerebral ischemia (1 source) Transient cerebral ischemia; Translations: [Transient cerebral ischemic attack, unspecified] 02-12-2024 Chronic Unclassified (2 sources) Admitted to alcohol detoxification center 02-03-2025 Unclassified (1 source) Alcohol use, unspecified with withdrawal with perceptual disturbance; Translations: [Alcohol use, unspecified with withdrawal with perceptual disturbance] Onset: 02-05-2025 Past or Other Problems Problem Classification Problem Date Documented Da te Episodic/Chronic Nonspecific chest pain (3 sources) Chest pain; Translations: [Chest pain, unspecified] Onset: 06-08-2024 06-09-2024 Episodic Results Test Name Value Interpretation Reference Range Facility Discharge Instructionon 01-15 Discharge Instruction [facility] Medical Records Department [address] [place] [address] Instructions for Home/Discharge Instructions 02/05/25 1654 MR#: [id number] Acct: [id number] Name: ROSSY NERI Rep #: [id number] : 1965 59 From: Rajesh Gibson MD PCP: Care Physician,No Primary Status:ADM IN Discharge Instructions Diet Discharge Diet: No restrictions DC O2, CPAP, BIPAP needs Home O2 Discharge instructions: No Follow Up Care Test Results: Test results from this visit will be discussed in further detail at your follow-up appointment, if applicable. Discharge Plan Admission Admit Date/Time: 02/03/25 04:50 Attending Provider: Rajesh Gibson Primary Care Provider: Care Physician,No Primary Consulting Providers: Volodymyr Ortiz Discharge Orders/Prescriptions Prescriptions: Continued omeprazole 40 mg capsule,delayed release(DR/EC) 40 mg PO DAILY PRN (Reason: heartburn) acetaminophen [Pain Relief (acetaminophen)] 325 mg tablet 650 mg PO Q6H PRN (Reason: pain) Referrals / Follow Up: Care Physician,No Primary [Primary Care Provider] - Disposition Disposition (needs filled in before D/C Order can be placed): [facility] 02/05/25 1703 Rajesh Gibson MD CC: Dr. Volodymyr Ortiz DO; No Primary Care Physician Signed Normal [facility] Absolute lymphocyte countOrd ered By: Param Oquendo on 02-03-2025 Lymphocytes Auto (Unsp spec) [#/Vol] 1.25 10*3/uL 0.83-4.51 [facility] Absolute neutrophil countOrd ered By: Param Oquendo on 02-03-2025 Neutrophils (Bld) [#/Vol] 5.4 10*3/uL 2.0-7.7 [facility] Alcohol, Blood (Medical)-Ser umon 02-03-2025 SERUM ETOH < 10.1 Normal <=10.0 [facility] Comment on above: Result Comment: This test is for medical purposes only. The legal definition of intoxication varies according to local law. Performed By: #### L 100.0100, L505.5000, L501.9100, L500.4050 #### [facility] [address] [facility] [address] Amphetamine detection with 1 000 ng/mL as cutoffOrdered By: Param Oquendo on 02-03-2025 Amphetamines Screen method >1000 ng/mL Ql (U) Negative < 200 ng/mL [facility] Anion gap in Serum or Plasma Ordered By: Param Oquendo on 02-03-2025 Anion gap [Moles/Vol] 13 mmol/L 5-15 [facility] Automated blood erythrocyte countOrdered By: Param Oquendo on 02-03-2025 RBC (Bld) [#/Vol] 4.39 10*6/uL Low 4.6-6.2 [facility] Comment on above: Performed By: #### L 100.0100, L505.5000, L501.9100, L500.4050 #### [facility] [address] [place], [address] Automated blood hematocrit ( percentage)Ordered By: Param Oquendo on 02-03-2025 Hematocrit (Bld) [Volume fraction] 41.4 % Normal 40-54 [facility] Comment on above: Performed By: #### L 100.0100, L505.5000, L501.9100, L500.4050 #### [facility] [address] [place], [address] Automated lymphocyte count a s percentage of total leukocytesOrdered By: Param Oquendo on 02-03-2025 Lymphocytes/100 WBC Auto (Unsp spec) 16.3 % Low 19-41 [facility] BUN/creatinine ratioOrdered By: Param Oquendo on 05-21-2025 Urea nitrogen/Creatinine [Mass ratio] 13.9 mg/mg 10-20 [facility] Basophil percentageOrdered B y: Param Oquendo on 02-03-2025 Basophils/100 WBC (Bld) 0.7 % Normal 0-1 [facility] Comment on above: Performed By: #### L 100.0100, L505.5000, L501.9100, L500.4050 #### [facility] [address] [place], [address] Bilirubin, totalOrdered By: Param Oquendo on 02-03-2025 Bilirubin [Mass/Vol] 0.90 mg/dL 0.00-1.30 [facility] CBC W/Diff, Automatedon 01-15 Absolute Lymph 1.66 X10 3/uL Normal 0.83-4.51 [facility] Comment on above: Performed By: #### L 100.0100, L505.5000, L501.9100, L500.4050 #### [facility] [address] [place], [address] Absolute Neut 6.4 X10 3/uL Normal 2.0-7.7 [facility] Comment on above: Performed By: #### L 100.0100, L505.5000, L501.9100, L500.4050 #### [facility] [address] [place], [address] Basophils/100 WBC (Bld) 0.5 % Normal 0-1 [facility] Comment on above: Performed By: #### L 100.0100, L505.5000, L501.9100, L500.4050 #### [facility] [address] [place], [address] Eosinophils/100 WBC (Bld) 1.9 % Normal 0-5 [facility] Comment on above: Performed By: #### L 100.0100, L505.5000, L501.9100, L500.4050 #### [facility] [address] [place], [address] Erythrocyte distribution width (RBC) [Ratio] 15.3 % High 11.6-14.6 [facility] Comment on above: Performed By: #### L 100.0100, L505.5000, L501.9100, L500.4050 #### [facility] [address] [place], [address] Hematocrit (Bld) [Volume fraction] 40.7 % Normal 40-54 [facility] Comment on above: Performed By: #### L 100.0100, L505.5000, L501.9100, L500.4050 #### [facility] [address] [place], [address] Hemoglobin (Bld) [Mass/Vol] 14.1 g/dL Normal 13.0-16.5 [facility] Comment on above: Performed By: #### L 100.0100, L505.5000, L501.9100, L500.4050 #### [facility] [address] [place], [address] IG% 0.800 Normal 0.0-0.9 [facility] Comment on above: Result Comment: IG% - Immature Granulocytes (promyelocytes, myelocytes and metamyelocytes) > 1% indicates that a LEFT SHIFT is Present. Performed By: #### L 100.0100, L505.5000, L501.9100, L500.4050 #### [facility] [address] [place], [address] Lymphocytes/100 WBC (Bld) 18.2 % Low 19-41 [facility] Comment on above: Performed By: #### L 100.0100, L505.5000, L501.9100, L500.4050 #### [facility] [address] [place], [address] MCH (RBC) [Entitic mass] 32.9 pg High 27.0-32.0 [facility] Comment on above: Performed By: #### L 100.0100, L505.5000, L501.9100, L500.4050 #### [facility] [address] [place], [address] MCHC (RBC) [Mass/Vol] 34.6 g/dL Normal 32-36 [facility] Comment on above: Performed By: #### L 100.0100, L505.5000, L501.9100, L500.4050 #### [facility] [address] [place], [address] MCV (RBC) [Entitic vol] 94.9 fL High 80-94 [facility] Comment on above: Performed By: #### L 100.0100, L505.5000, L501.9100, L500.4050 #### [facility] [address] [place], [address] Monocytes/100 WBC (Bld) 8.6 % Normal 0-10 [facility] Comment on above: Performed By: #### L 100.0100, L505.5000, L501.9100, L500.4050 #### [facility] [address] [place], [address] Neutrophils/100 WBC (Bld) 70.0 % Normal 47-70 [facility] Comment on above: Performed By: #### L 100.0100, L505.5000, L501.9100, L500.4050 #### [facility] [address] [place], [address] Nucleated RBC (Bld) [#/Vol] 0 10*3/uL Normal 0-5 [facility] Comment on above: Performed By: #### L 100.0100, L505.5000, L501.9100, L500.4050 #### [facility] [address] [place], [address] Platelet mean volume (Bld) [Entitic vol] 11.2 fL Normal 6.2-12.0 [facility] Comment on above: Performed By: #### L 100.0100, L505.5000, L501.9100, L500.4050 #### [facility] [address] [place], [address] Platelets (Bld) [#/Vol] 103 10*3/uL Low 150-450 [facility] Comment on above: Performed By: #### L 100.0100, L505.5000, L501.9100, L500.4050 #### [facility] [address] [place], [address] RBC (Bld) [#/Vol] 4.29 10*6/uL Low 4.6-6.2 [facility] Comment on above: Performed By: #### L 100.0100, L505.5000, L501.9100, L500.4050 #### [facility] [address] [place], [address] RDW SD 52.7 fl High 35.1-43.9 [facility] Comment on above: Performed By: #### L 100.0100, L505.5000, L501.9100, L500.4050 #### [facility] [address] [place], [address] WBC (Bld) [#/Vol] 9.1 10*3/uL Normal 4.4-11.0 [facility] Comment on above: Performed By: #### L 100.0100, L505.5000, L501.9100, L500.4050 #### [facility] [address] [place], [address] Absolute Lymph 1.25 X10 3/uL Normal 0.83-4.51 [facility] Comment on above: Performed By: #### L 100.0100, L505.5000, L501.9100, L500.4050 #### [facility] [address] [place], [address] Absolute Neut 5.4 X10 3/uL Normal 2.0-7.7 [facility] Comment on above: Performed By: #### L 100.0100, L505.5000, L501.9100, L500.4050 #### [facility] [address] [place], [address] IG% 0.700 Normal 0.0-0.9 [facility] Comment on above: Result Comment: IG% - Immature Granulocytes (promyelocytes, myelocytes and metamyelocytes) > 1% indicates that a LEFT SHIFT is Present. Performed By: #### L 100.0100, L505.5000, L501.9100, L500.4050 #### [facility] [address] [place], [address] Lymphocytes/100 WBC (Bld) 16.3 % Low 19-41 [facility] Comment on above: Performed By: #### L 100.0100, L505.5000, L501.9100, L500.4050 #### [facility] [address] [place], [address] RDW SD 52.8 fl High 35.1-43.9 [facility] Comment on above: Performed By: #### L 100.0100, L505.5000, L501.9100, L500.4050 #### [facility] [address] [place], [address] Carbon dioxide, total [Moles /volume] in Central venous bloodOrdered By: Param Oquendo on 02-03-2025 CO2 [Moles/Vol] 25.4 mmol/L 21.0-32.0 [facility] Chloride assayOrdered By: Leopoldo Oquendo on 02-03-2025 Chloride [Moles/Vol] 97 mmol/L Low 98-108 [facility] Comprehensive Metabolic Prof ilon 02-03-2025 Albumin [Mass/Vol] 4.3 g/dL Normal 3.5-5.0 [facility] Comment on above: Performed By: #### L 501.9985, L500.4100, L501.9520, L503.0106, L500.4050 #### [facility] [address] [place], [address] Albumin/Globulin [Mass ratio] 1.4 {ratio} Normal 0.9-2.4 [facility] Comment on above: Performed By: #### L 501.9985, L500.4100, L501.9520, L503.0106, L500.4050 #### [facility] [address] [place], [address] ALK PHOS 94 U/L Normal 40-129 [facility] Comment on above: Performed By: #### L 501.9985, L500.4100, L501.9520, L503.0106, L500.4050 #### [facility] [address] [place], [address] ALT [Catalytic activity/Vol] 27 U/L Normal <=46 [facility] Comment on above: Performed By: #### L 501.9985, L500.4100, L501.9520, L503.0106, L500.4050 #### [facility] [address] [place], [address] AST [Catalytic activity/Vol] 49 U/L High <=37 [facility] Comment on above: Result Comment: Hemo lysis present, Results??could be affected. ?? Performed By: #### L 501.9985, L500.4100, L501.9520, L503.0106, L500.4050 #### [facility] [address] [place], [address] Bilirubin [Mass/Vol] 1.23 mg/dL Normal 0.00-1.30 [facility] Comment on above: Performed By: #### L 501.9985, L500.4100, L501.9520, L503.0106, L500.4050 #### [facility] [address] [place], [address] BUN/CRE 14.4 RATIO Normal 10-20 [facility] Comment on above: Performed By: #### L 501.9985, L500.4100, L501.9520, L503.0106, L500.4050 #### [facility] [address] [place], [address] Calcium [Mass/Vol] 9.2 mg/dL Normal 7.6-11.0 [facility] Comment on above: Performed By: #### L 501.9985, L500.4100, L501.9520, L503.0106, L500.4050 #### [facility] [address] [place], [address] Chloride [Moles/Vol] 99 mmol/L Normal 98-108 [facility] Comment on above: Performed By: #### L 501.9985, L500.4100, L501.9520, L503.0106, L500.4050 #### [facility] [address] [place], [address] CO2 [Moles/Vol] 22.2 mmol/L Normal 21.0-32.0 [facility] Comment on above: Performed By: #### L 501.9985, L500.4100, L501.9520, L503.0106, L500.4050 #### [facility] [address] [place], [address] Creatinine [Mass/Vol] 0.96 mg/dL Normal 0.70-1.20 [facility] Comment on above: Performed By: #### L 501.9985, L500.4100, L501.9520, L503.0106, L500.4050 #### [facility] [address] [place], [address] ECRCL 81.66 ml/min Normal 50-250 [facility] Comment on above: Performed By: #### L 501.9985, L500.4100, L501.9520, L503.0106, L500.4050 #### [facility] [address] [place], [address] GAP 15 Normal 5-15 [facility] Comment on above: Performed By: #### L 501.9985, L500.4100, L501.9520, L503.0106, L500.4050 #### [facility] [address] [place], [address] GFR/1.73 sq M.predicted among non-blacks MDRD (S/P/Bld) [Vol rate/Area] 93 mL/min/{1.73_m2} Normal >60 [facility] Comment on above: Result Comment: mL/m in/1.73m2 CKD-EPI Creatinine Equation (2020) Performed By: #### L 501.9985, L500.4100, L501.9520, L503.0106, L500.4050 #### [facility] [address] [place], [address] Globulin (S) [Mass/Vol] 3.0 g/dL Normal 2.2-4.2 [facility] Comment on above: Performed By: #### L 501.9985, L500.4100, L501.9520, L503.0106, L500.4050 #### [facility] [address] [place], [address] Glucose [Mass/Vol] 110 mg/dL High 70-99 [facility] Comment on above: Performed By: #### L 501.9985, L500.4100, L501.9520, L503.0106, L500.4050 #### [facility] [address] [place], [address] Potassium [Moles/Vol] 4.2 mmol/L Normal 3.3-5.1 [facility] Comment on above: Result Comment: Hemo lysis present, Results??could be affected. ?? Performed By: #### L 501.9985, L500.4100, L501.9520, L503.0106, L500.4050 #### [facility] [address] [place], [address] Sodium [Moles/Vol] 137 mmol/L Normal 133-145 [facility] Comment on above: Performed By: #### L 501.9985, L500.4100, L501.9520, L503.0106, L500.4050 #### [facility] [address] [place], [address] T PROT 7.4 g/dL Normal 5.9-8.4 [facility] Comment on above: Performed By: #### L 501.9985, L500.4100, L501.9520, L503.0106, L500.4050 #### [facility] [address] [place], [address] Urea nitrogen [Mass/Vol] 14 mg/dL Normal 4-19 [facility] Comment on above: Performed By: #### L 501.9985, L500.4100, L501.9520, L503.0106, L500.4050 #### [facility] [address] [place], [address] Albumin [Mass/Vol] 4.4 g/dL Normal 3.5-5.0 [facility] Comment on above: Performed By: #### L 100.0100, L505.5000, L501.9100, L500.4050 #### [facility] [address] [place], [address] Albumin/Globulin [Mass ratio] 1.5 {ratio} Normal 0.9-2.4 [facility] Comment on above: Performed By: #### L 100.0100, L505.5000, L501.9100, L500.4050 #### [facility] [address] [place], [address] ALK PHOS 105 U/L Normal 40-129 [facility] Comment on above: Performed By: #### L 100.0100, L505.5000, L501.9100, L500.4050 #### [facility] [address] [place], [address] ALT [Catalytic activity/Vol] 27 U/L Normal <=46 [facility] Comment on above: Performed By: #### L 100.0100, L505.5000, L501.9100, L500.4050 #### [facility] [address] [place], [address] AST [Catalytic activity/Vol] 53 U/L High <=37 [facility] Comment on above: Result Comment: Hemo lysis present, Results??could be affected. ?? Performed By: #### L 100.0100, L505.5000, L501.9100, L500.4050 #### [facility] [address] [place], [address] Bilirubin [Mass/Vol] 0.90 mg/dL Normal 0.00-1.30 [facility] Comment on above: Performed By: #### L 100.0100, L505.5000, L501.9100, L500.4050 #### [facility] [address] [place], [address] BUN/CRE 13.9 RATIO Normal 10-20 [facility] Comment on above: Performed By: #### L 100.0100, L505.5000, L501.9100, L500.4050 #### [facility] [address] [place], [address] Calcium [Mass/Vol] 9.3 mg/dL Normal 7.6-11.0 [facility] Comment on above: Performed By: #### L 100.0100, L505.5000, L501.9100, L500.4050 #### [facility] [address] [place], [address] Chloride [Moles/Vol] 97 mmol/L Low 98-108 [facility] Comment on above: Performed By: #### L 100.0100, L505.5000, L501.9100, L500.4050 #### [facility] [address] [place], [address] CO2 [Moles/Vol] 25.4 mmol/L Normal 21.0-32.0 [facility] Comment on above: Performed By: #### L 100.0100, L505.5000, L501.9100, L500.4050 #### [facility] [address] [place], [address] Creatinine [Mass/Vol] 1.00 mg/dL Normal 0.70-1.20 [facility] Comment on above: Performed By: #### L 100.0100, L505.5000, L501.9100, L500.4050 #### [facility] [address] [place], [address] ECRCL 81.39 ml/min Normal 50-250 [facility] Comment on above: Performed By: #### L 100.0100, L505.5000, L501.9100, L500.4050 #### [facility] [address] [place], [address] GAP 13 Normal 5-15 [facility] Comment on above: Performed By: #### L 100.0100, L505.5000, L501.9100, L500.4050 #### [facility] [address] [place], [address] GFR/1.73 sq M.predicted among non-blacks MDRD (S/P/Bld) [Vol rate/Area] 88 mL/min/{1.73_m2} Normal >60 [facility] Comment on above: Result Comment: mL/m in/1.73m2 CKD-EPI Creatinine Equation (2020) Performed By: #### L 100.0100, L505.5000, L501.9100, L500.4050 #### [facility] [address] [place], [address] Globulin (S) [Mass/Vol] 2.9 g/dL Normal 2.2-4.2 [facility] Comment on above: Performed By: #### L 100.0100, L505.5000, L501.9100, L500.4050 #### [facility] [address] [place], [address] Glucose [Mass/Vol] 107 mg/dL High 70-99 [facility] Comment on above: Performed By: #### L 100.0100, L505.5000, L501.9100, L500.4050 #### [facility] [address] [place], [address] Potassium [Moles/Vol] 4.0 mmol/L Normal 3.3-5.1 [facility] Comment on above: Result Comment: Hemo lysis present, Results??could be affected. ?? Performed By: #### L 100.0100, L505.5000, L501.9100, L500.4050 #### [facility] [address] [place], [address] Sodium [Moles/Vol] 135 mmol/L Normal 133-145 [facility] Comment on above: Performed By: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 PT IN PROCEDURE, WILL DRAW WHEN DONE Performed By: #### L 100.0100, L505.5000, L501.9100, L500.4050 #### [facility] [address] [place], [address] GFR/1.73 sq M.predicted among non-blacks MDRD (S/P/Bld) [Vol rate/Area] 85 mL/min/{1.73_m2} Normal >60 [facility] Comment on above: Order Comment: PT IN PROCEDURE, WILL DRAW WHEN DONE Result Comment: Non- GFR Calc Performed By: #### L 100.0100, L505.5000, L501.9100, L500.4050 #### [facility] [address] [place], [address] Glucose [Mass/Vol] 75 mg/dL Normal 74-106 [facility] Comment on above: Order Comment: PT IN PROCEDURE, WILL DRAW WHEN DONE Performed By: #### L 100.0100, L505.5000, L501.9100, L500.4050 #### [facility] [address] [place], [address] Potassium [Moles/Vol] 3.5 mmol/L Normal 3.5-5.1 [facility] Comment on above: Order Comment: PT IN PROCEDURE, WILL DRAW WHEN DONE Performed By: #### L 100.0100, L505.5000, L501.9100, L500.4050 #### [facility] [address] [place], [address] Sodium [Moles/Vol] 138 mmol/L Normal 136-145 [facility] Comment on above: Order Comment: PT IN PROCEDURE, WILL DRAW WHEN DONE Performed By: #### L 100.0100, L505.5000, L501.9100, L500.4050 #### [facility] [address] [place], [address] Urea nitrogen [Mass/Vol] 13 mg/dL Normal 7-18 [facility] Comment on above: Order Comment: PT IN PROCEDURE, WILL DRAW WHEN DONE Performed By: #### L 100.0100, L505.5000, L501.9100, L500.4050 #### [facility] [address] [place], [address] CBC W/Diff, Automatedon - Anisocytosis Ql (Bld) 2+ Normal [facility] Comment on above: Order Comment: PT IN PROCEDURE, WILL DRAW WHEN DONE Performed By: #### L 100.0100, L505.5000, L501.9100, L500.4050 #### [facility] [address] [place], [address] STOMATOCYTE 2+ Normal [facility] Comment on above: Order Comment: PT IN PROCEDURE, WILL DRAW WHEN DONE Performed By: #### L 100.0100, L505.5000, L501.9100, L500.4050 #### [facility] [address] [place], [address] PLT EST MOD DEC Normal ADEQ [facility] Comment on above: Order Comment: PT IN PROCEDURE, WILL DRAW WHEN DONE Performed By: #### L 100.0100, L505.5000, L501.9100, L500.4050 #### [facility] [address] [place], [address] SMEAR COMMENT SCANNED Normal [facility] Comment on above: Order Comment: PT IN PROCEDURE, WILL DRAW WHEN DONE Performed By: #### L 100.0100, L505.5000, L501.9100, L500.4050 #### [facility] [address] [place], [address] Discharge Instructionon 05-17 Discharge Instruction [facility] Medical Records Department [address] [place] [address] Instructions for Home/Discharge Instructions 06/01/24 1409 MR#: [id number] Acct: [id number] Name: ROSSY NERI Rep #: [id number] : 1965 59 From: Arthur Barber DO PCP: Care Physician,No Primary Status:ADM APOLLO Discharge Instructions Diet Discharge Diet: No restrictions Activity Discharge Activity: No Restrictions Follow Up Care Test Results: Test results from this visit will be discussed in further detail at your follow-up appointment, if applicable. Discharge Plan Admission Admit Date/Time: 05/31/24 15:53 Primary Reason for Your Visit: Chest pain Attending Provider: Arthur Barber Primary Care Provider: Care Physician,No Primary Consulting Providers: Rajesh Gibson Instructions Additional Instructions / Restrictions: Please take the Protonix twice daily for your acid reflux. Please start taking sertraline daily for depression. Please follow-up with a primary care doctor in the next few weeks and discuss other potential options for counseling and treatment of your depression. Discharge Orders/Prescriptions Prescriptions: New sertraline 50 mg Tablet 50 mg PO DAILY 30 Days Qty: 30 2RF pantoprazole [Protonix] 40 mg tablet,delayed release (DR/EC) 40 mg PO BID 30 Days Qty: 60 0RF Referrals / Follow Up: Care Physician,No Primary [Primary Care Provider] - Disposition Disposition (needs filled in before D/C Order can be placed): Home, Self Care 06/01/24 1412 Arthur Elisabeth MURRELL CC: Dr. Rajesh Gibson MD; No Primary Care Physician Signed Normal [facility] Lipid Profileon 06-01-2024 Cholesterol [Mass/Vol] 196 mg/dL Normal 200 [facility] Comment on above: Order Comment: PT IN PROCEDURE, WILL DRAW WHEN DONE Result Comment: <200 mg/dL Desirable 200-240 mg/dL Borderline >240 mg/dL High Risk Performed By: #### L 100.0100, L505.5000, L501.9100, L500.4050 #### [facility] [address] [place], [address] Cholesterol in HDL [Mass/Vol] 41 mg/dL Normal [facility] Comment on above: Order Comment: PT IN PROCEDURE, WILL DRAW WHEN DONE Result Comment: The drugs N-Acetylcysteine and Metamizole may falsely depress this assay. Reference Range HDL <40 mg/dL Low HDL Cholesterol HDL >or= 60 mg/dL High HDL Cholesterol Performed By: #### L 100.0100, L505.5000, L501.9100, L500.4050 #### [facility] [address] [place], [place], [id number] Cholesterol in LDL [Mass/Vol] 107 mg/dL Normal 0-130 [facility] Comment on above: Order Comment: PT IN PROCEDURE, WILL DRAW WHEN DONE Performed By: #### L 100.0100, L505.5000, L501.9100, L500.4050 #### [facility] [address] [place], [address] Cholesterol in VLDL [Mass/Vol] 48 mg/dL High 5-40 [facility] Comment on above: Order Comment: PT IN PROCEDURE, WILL DRAW WHEN DONE Performed By: #### L 100.0100, L505.5000, L501.9100, L500.4050 #### [facility] [address] [place], [address] Triglyceride [Mass/Vol] 238 mg/dL High [facility] Comment on above: Order Comment: PT IN PROCEDURE, WILL DRAW WHEN DONE Result Comment: The drugs N-Acetylcysteine and Metamizole may falsely depress this assay. Serum Triglycerides Reference Interval Normal <150 mg/dL Borderline high 150 - 199 mg/dL High 200 - 499 mg/dL Very High > or = 500 mg/dL Performed By: #### L 100.0100, L505.5000, L501.9100, L500.4050 #### [facility] [address] [place], [address] Stress Reporton 06-01-2024 Stress Report [facility] [address] [place] [address] MR#: [id number] Acct: [id number] Name: ROSSY NERI Rep #: [id number] : 1965 59 From: Anastasia Nicholas MD Primary Care: Care Physician,No Primary Status: ADM APOLLO Referring Dr: Mynor: Andrew Horton Stress Test Report Date: 06/01/2024 Procedure: Pharmacologic stress nuclear imaging study Indications: Chest pain Consent: Per the patient Procedure: The patient underwent pharmacologic (Regadenoson 0.4mg ) evaluation with a peak heart rate of 123 beats per minute (75%predicted maximal heart rate) and a peak blood pressure of 132/84 mmHg. The baseline ECG demonstrated sinus rhythm. The peak pharmacologic ECG demonstrated no ischemic changes. [There were no cardiac dysrhythmias pretest, during pharmacologic infusion, or recovery]. [There was no complaint of chest discomfort during pharmacologic infusion or recovery]. The patient was injected with 11.8 millicuries of technetium 99m Cardiolite and subsequently rest SPECT Cardiolite nuclear imaging was obtained in the horizontal long, vertical long, and short axis views. The patient underwent pharmacologic (Regadenoson) evaluation. The patient was injected with 34.1 millicuries of technetium 99m Cardiolite and subsequently stress SPECT Cardiolite nuclear imaging was obtained in the horizontal long, vertical long, and short axis views. A gated Cardiolite study at peak stress was obtained. The examination was stopped secondary to completion of protocol. Rest and stress SPECT Cardiolite nuclear imaging status post realignment, normalization, and attenuation correction demonstrate no fixed or reversible perfusion defects. [There is end systolic thickening and brightening]. [The gated Cardiolite study demonstrates myocardial thickening and inward wall motion]. The reported LVEF is 57%. Impression: 1. Pharmacologic (Regadenoson) evaluation 2. Peak pharmacologic ECG with no diagnostic ischemic changes. 3. [There were no cardiac dysrhythmias pretest, during pharmacologic infusion, or recovery]. 5. [Rest and stress SPECT Cardiolite nuclear imaging demonstrate relative uniform tracer uptake and myocardial perfusion appearing within normal limits]. 6. The gated Cardiolite study reports an LVEF of 57%. This note was generated with [employer] software. It may contain incorrect words, spelling, and punctuation that were not noted in checking the note before signing. 06/01/241223 Date Anastasia Nicholas MD CC: Dr. Arthur Barber DO; Dr. Harish Rowe DO; Dr. Rajesh Gibson MD; No Primary Care Physician Date Dictated: 06/01/241219 Date Transcribed: 06/01/241219 Restorative Coordinator: AMBER Signed Normal [facility] BNP,B-Type NATRIURETIC PEPTI Yasmin 05-31-2024 Natriuretic peptide B (Bld) [Mass/Vol] 61.2 pg/mL Normal 0-100 [facility] Comment on above: Performed By: #### L 100.0100, L505.5000, L501.9100, L500.4050 #### [facility] [address] [place], [address] Basic Metabolic Profile (BMP )on 05-31-2024 BUN/CRE 17.7 RATIO Normal 10-20 [facility] Comment on above: Order Comment: 1Y Performed By: #### L 100.0100, L505.5000, L501.9100, L500.4050 #### [facility] [address] [place], [address] CA,Total 9.9 mg/dL Normal 8.5-10.1 [facility] Comment on above: Order Comment: 1Y Performed By: #### L 100.0100, L505.5000, L501.9100, L500.4050 #### [facility] [address] [place], [address] Chloride [Moles/Vol] 94 mmol/L Low 98-107 [facility] Comment on above: Order Comment: 1Y Performed By: #### L 100.0100, L505.5000, L501.9100, L500.4050 #### [facility] [address] [place], [address] CO2 [Moles/Vol] 23.0 mmol/L Normal 21.0-32.0 [facility] Comment on above: Order Comment: 1Y Performed By: #### L 100.0100, L505.5000, L501.9100, L500.4050 #### [facility] [address] [place], [address] Creatinine [Mass/Vol] 1.30 mg/dL Normal 0.70-1.30 [facility] Comment on above: Order Comment: 1Y Result Comment: The validity of the calculated GFR GFRAA in patients over 70 years has not been determined. Clinical correlation is essential. Performed By: #### L 100.0100, L505.5000, L501.9100, L500.4050 #### [facility] [address] [place], [address] ECRCL 62.52 ml/min Normal [facility] Comment on above: Order Comment: 1Y Performed By: #### L 100.0100, L505.5000, L501.9100, L500.4050 #### [facility] [address] [place], [address] EST GFR - AA 73 mL/min Normal >60 [facility] Comment on above: Order Comment: 1Y Result Comment: Afri can Taiwanese GFR Calc Performed By: #### L 100.0100, L505.5000, L501.9100, L500.4050 #### [facility] [address] [place], [address] GAP 14 Normal 5-15 [facility] Comment on above: Order Comment: 1Y Performed By: #### L 100.0100, L505.5000, L501.9100, L500.4050 #### [facility] [address] [place], [address] GFR/1.73 sq M.predicted among non-blacks MDRD (S/P/Bld) [Vol rate/Area] 60 mL/min/{1.73_m2} Normal >60 [facility] Comment on above: Order Comment: 1Y Result Comment: Non- GFR Calc Performed By: #### L 100.0100, L505.5000, L501.9100, L500.4050 #### [facility] [address] [place], [address] Glucose [Mass/Vol] 107 mg/dL High 74-106 [facility] Comment on above: Order Comment: 1Y Result Comment: Fast ing Glucose result from 100 to 125 mg/dL suggests IMPAIRED HOMEOSTASIS per A.D.A. criteria. Performed By: #### L 100.0100, L505.5000, L501.9100, L500.4050 #### [facility] [address] [place], [address] Potassium [Moles/Vol] 3.2 mmol/L Low 3.5-5.1 [facility] Comment on above: Order Comment: 1Y Performed By: #### L 100.0100, L505.5000, L501.9100, L500.4050 #### [facility] [address] [place], [address] Sodium [Moles/Vol] 131 mmol/L Low 136-145 [facility] Comment on above: Order Comment: 1Y Performed By: #### L 100.0100, L505.5000, L501.9100, L500.4050 #### [facility] [address] [place], [address] Urea nitrogen [Mass/Vol] 23 mg/dL High 7-18 [facility] Comment on above: Order Comment: 1Y Performed By: #### L 100.0100, L505.5000, L501.9100, L500.4050 #### [facility] [address] [place], [address] CBC W/Diff, Automatedon 05-17 Absolute Lymph 1.25 X10 3/uL Normal 0.83-4.51 [facility] Comment on above: Performed By: #### L 100.0100, L503.6620, L500.2500, L501.5200, L501.5425, L300.8000 #### [facility] [address] [place], [address] Absolute Neut 8.7 X10 3/uL High 2.0-7.7 [facility] Comment on above: Performed By: #### L 100.0100, L503.6620, L500.2500, L501.5200, L501.5425, L300.8000 #### [facility] [address] [place], [address] Basophils/100 WBC (Bld) 0.8 % Normal 0-1 [facility] Comment on above: Performed By: #### L 100.0100, L503.6620, L500.2500, L501.5200, L501.5425, L300.8000 #### [facility] [address] [place], [address] Eosinophils/100 WBC (Bld) 1.2 % Normal 0-5 [facility] Comment on above: Performed By: #### L 100.0100, L503.6620, L500.2500, L501.5200, L501.5425, L300.8000 #### [facility] [address] [place], [address] Erythrocyte distribution width (RBC) [Ratio] 13.7 % Normal 11.6-14.6 [facility] Comment on above: Performed By: #### L 100.0100, L503.6620, L500.2500, L501.5200, L501.5425, L300.8000 #### [facility] [address] [place], [address] Hematocrit (Bld) [Volume fraction] 47.7 % Normal 40-54 [facility] Comment on above: Performed By: #### L 100.0100, L503.6620, L500.2500, L501.5200, L501.5425, L300.8000 #### [facility] [address] [place], [address] Hemoglobin (Bld) [Mass/Vol] 16.9 g/dL High 13.0-16.5 [facility] Comment on above: Performed By: #### L 100.0100, L503.6620, L500.2500, L501.5200, L501.5425, L300.8000 #### [facility] [address] [place], [address] IG% 0.400 Normal 0.0-0.9 [facility] Comment on above: Result Comment: IG% - Immature Granulocytes (promyelocytes, myelocytes and metamyelocytes) > 1% indicates that a LEFT SHIFT is Present. Performed By: #### L 100.0100, L503.6620, L500.2500, L501.5200, L501.5425, L300.8000 #### [facility] [address] [place], [address] Lymphocytes/100 WBC (Bld) 11.3 % Low 19-41 [facility] Comment on above: Performed By: #### L 100.0100, L503.6620, L500.2500, L501.5200, L501.5425, L300.8000 #### [facility] [address] [place], [address] MCH (RBC) [Entitic mass] 33.9 pg High 27.0-32.0 [facility] Comment on above: Performed By: #### L 100.0100, L503.6620, L500.2500, L501.5200, L501.5425, L300.8000 #### [facility] [address] [place], [address] MCHC (RBC) [Mass/Vol] 35.4 g/dL Normal 32-36 [facility] Comment on above: Performed By: #### L 100.0100, L503.6620, L500.2500, L501.5200, L501.5425, L300.8000 #### [facility] [address] [place], [address] MCV (RBC) [Entitic vol] 95.6 fL High 80-94 [facility] Comment on above: Performed By: #### L 100.0100, L503.6620, L500.2500, L501.5200, L501.5425, L300.8000 #### [facility] [address] [place], [address] Monocytes/100 WBC (Bld) 7.1 % Normal 0-10 [facility] Comment on above: Performed By: #### L 100.0100, L503.6620, L500.2500, L501.5200, L501.5425, L300.8000 #### [facility] [address] [place], [address] Neutrophils/100 WBC (Bld) 79.2 % High 47-70 [facility] Comment on above: Performed By: #### L 100.0100, L503.6620, L500.2500, L501.5200, L501.5425, L300.8000 #### [facility] [address] [place], [address] Nucleated RBC (Bld) [#/Vol] 0 10*3/uL Normal 0-5 [facility] Comment on above: Performed By: #### L 100.0100, L503.6620, L500.2500, L501.5200, L501.5425, L300.8000 #### [facility] [address] [place], [address] Platelet mean volume (Bld) [Entitic vol] 10.5 fL Normal 6.2-12.0 [facility] Comment on above: Performed By: #### L 100.0100, L503.6620, L500.2500, L501.5200, L501.5425, L300.8000 #### [facility] [address] [place], [address] Platelets (Bld) [#/Vol] 142 10*3/uL Low 150-450 [facility] Comment on above: Performed By: #### L 100.0100, L503.6620, L500.2500, L501.5200, L501.5425, L300.8000 #### [facility] [address] [place], [address] RBC (Bld) [#/Vol] 4.99 10*6/uL Normal 4.6-6.2 [facility] Comment on above: Performed By: #### L 100.0100, L503.6620, L500.2500, L501.5200, L501.5425, L300.8000 #### [facility] [address] [place], [address] RDW SD 48.9 fl High 35.1-43.9 [facility] Comment on above: Performed By: #### L 100.0100, L503.6620, L500.2500, L501.5200, L501.5425, L300.8000 #### [facility] [address] [place], [address] WBC (Bld) [#/Vol] 11.0 10*3/uL Normal 4.4-11.0 [facility] Comment on above: Performed By: #### L 100.0100, L503.6620, L500.2500, L501.5200, L501.5425, L300.8000 #### [facility] [address] [place], [address] CTA Chest W/WO Contraston CTA Chest W/WO Contrast [facility] [address] [place] [address] CTA Chest W/WO Contrast MR#: [id number] Acct: [id number] Name: ROSSY NERI Rep #: [id number] : 1965 M 59 From: Ike Rhoades PCP: Care Physician,No Primary Status: [facility] ER Study: CTA Chest W/WO Contrast Date of Exam: 05/31/24 Exam# [id number] Ordering Dr: Harish Rowe DO [id number] STUDY: CTA Chest WO/W Contrast Injection 05/31/2024 2:35 PM REASON FOR EXAM: Male, 59 years old. Chest pain. Concern for PE TECHNIQUE: The examination was performed with the intravenous administration of IV 100mL Isovue-370 contrast material. Post-processing of the angiographic images was performed, with axial imaging and 3D reconstruction. MIPS images were obtained. Individualized dose optimization techniques were used for this CT. COMPARISON: None. FINDINGS: There are degenerative changes of the shoulders. There is no pneumothorax. There is no demonstrated pleural abnormality. There are calcifications of the coronary arteries. There is a small ulceration through the mural thrombus in the region of the aortic arch. This measures 3 mm. Normal mediastinum. Normal hilar regions. Normal pulmonary arteries. There is atherosclerotic calcification of the aortic arch with tortuosity and elongation of the aortic arch and descending thoracic aorta. There are multi-level degenerative changes of the thoracic spine. There are no acute findings of the upper abdomen. CT/CTA Chest W/WO Contrast IMPRESSION: No demonstrated pulmonary embolism or arterial dissection. There are no acute findings. There is a small ulceration through the mural thrombus in the region of the aortic arch. This measures 3 mm. Electronically Signed: Ike Kevin MD at 14:37 EDT , CC: Dr. Harish Rowe, ; No Primary Care Physician Restorative Coordinator: Signed Normal [facility] Chest 1 View (Portable)on Chest 1 View (Portable) [facility] [address] [place] [address] Chest 1 View (Portable) MR#: [id number] Acct: [id number] Name: ROSSY NERI Rep #: [id number] : 1965 M 59 From: Bar Rice MD PCP: Care Physician,No Primary Status: [facility] ER Study: Chest 1 View (Portable) Date of Exam: 05/31/24 Exam# [id number] Ordering Dr: Harish Rowe DO [id number] STUDY: X-RAY CHEST REASON FOR EXAM: Male, 59 years old. Chest pain TECHNIQUE: Frontal view of the chest COMPARISON: None. FINDINGS: The lungs are clear. There are no pleural effusions. There is no pneumothorax. The heart is normal in size. The visualized osseous structures are within normal limits. RAD/Chest 1 View (Portable) IMPRESSION: No acute thoracic pathology. Electronically Signed: Bar Rice MD at 11:23 EDT , CC: Dr. Harish Rowe, ; No Primary Care Physician Restorative Coordinator: Signed Normal [facility] D-Dimer Quantitative (DVT/PE )on 05-31-2024 D-DIMER QUANT 1.70 FEU/ug/m Invalid Interpretation Code 0.27-0.49 [facility] Comment on above: Order Comment: CRITI BRANDON VALUE CALLED TO MOLLY GRANDE05/31/24 1144 Argenis Lollo.RESULTS READ BACK BY SAME. Result Comment: D-Di lita ELEVATED (>0.49): Additional studies and clinical assessments are indicated to conclude diagnosis of: Deep Vein Thrombosis (DVT) or Pulmonary Embolism (PE) Performed By: #### L 100.0100, L505.5000, L501.9100, L500.4050 #### [facility] [address] [place], [address] Emergency Department Summary on 05-31-2024 Emergency Department Summary [facility] Medical Records Department [address] [place] [address] Emergency Department Summary 05/31/24 MR#: [id number] Acct: [id number] Name: ROSSY NERI Rep #: [id number] : 1965 59 From: Harish Rowe DO PCP: Care Physician,No Primary Status:ADM APOLLO Location: [place] [address] HPI History of Present Illness Chief Complaint: Chest Pain Narrative Narrative: Chief complaint and HPI: Chest pain. 59-year-old male with history of HTN, HLD, DM2 presents for evaluation of chest pain. Patient states that he woke up this morning with left sided chest pain. He states that it went away but then it reoccurred with walking. He describes it as pressure. Endorses some radiation to the left arm with occasional numbness. Fluctuates in intensity. Endorses intermittent lightheadedness and shortness of breath when the pain becomes severe. Denies any fever, chills, URI symptoms, abdominal pain, vomiting, dysuria. Does smoke tobacco. Denies any bilateral lower extremity swelling or pain. Denies any recent travel or surgeries. Review of systems: See HPI Medications: As listed on the chart Allergies: As listed on the chart PFSH: Per chart Vital signs: As listed on the chart. Reviewed. Physical exam: Gen: A O x3, NAD Head: Normocephalic, atraumatic Eyes: No sclera icterus, conjunctiva clear ENT: Moist mucous membranes Neck: Trachea midline, No JVD CV: RRR, no murmurs, no peripheral edema, chest pain nonreproducible Resp: Lungs CTA BL, no w/r/c GI: Abd soft, non-distended, non-tender, no r/r/g Musc: Full ROM, no deformity Skin: Warm, dry Neuro: Alert, oriented, grossly intact, sensation intact Psych: Cooperative, appropriate mood and affect EKG: Interpreted by me/EM physician: EKG shows sinus tachycardia with a heart rate of 114. No acute ischemic changes. Diagnostic: Interpreted by me/EM physician: Chest x-ray without pneumonia, effusion, pneumothorax PFSH [facility] Medical History (Updated 05/31/24 @ 17:[address] Rajesh Gibson MD) Hyperlipidemia Alcohol withdrawal hallucinosis Alcohol abuse GERD (gastroesophageal reflux disease) Smoker Upper extremity weakness Chronic neck pain Chronic anemia History of alcohol abuse Tobacco abuse Elevated blood pressure reading Type 2 diabetes mellitus Home Medications ???Medication ???Instructions ???Recorded ???Last Taken ???Type NK 05/31/24 Unknown History Allergy/AdvReac Type Severity Reaction Status Date / Time No Known Allergies Allergy Verified 05/31/24 09:42 Family History Mother Alcohol abuse CVA (cerebral vascular accident) Lung cancer Father Alcohol abuse Hypertension Surgical History History of arthroscopy of both knees Social History household members: family Smoking Status: Current every day smoker tobacco type: cigarettes Electronic Cigarette Use: with nicotine alcohol intake: former details: Sober x 12 days since recent detox admission. substance use type: does not use EXAM Physical Exam Const Vital Signs: 05/31/24 09:37 05/31/24 09:45 05/31/24 10:26 Temperature 98.6 F Temperature Source Oral Pulse Rate 117 H Respiratory Rate 18 Respiratory Effort Normal Non-Labored Respiratory Pattern Normal Blood Pressure 133/90 H Blood Pressure Mean 104 Pulse Ox 99 Oxygen Delivery Method Room Air Room Air 05/31/24 10:43 05/31/24 11:27 05/31/24 12:05 Temperature 97.2 F L Temperature Source Oral Pulse Rate 103 H 112 H 108 H Respiratory Rate 16 16 16 Respiratory Effort Respiratory Pattern Blood Pressure 134/88 H 119/83 H 107/84 H Blood Pressure Mean 103 95 91 Pulse Ox 98 96 97 Oxygen Delivery Method Room Air Room Air Room Air 05/31/24 13:00 05/31/24 14:00 05/31/24 14:30 Temperature Temperature Source Pulse Rate 98 102 H 102 H Respiratory Rate 19 H 22 H 21 H Respiratory Effort Respiratory Pattern Blood Pressure 131/64 H 101/77 111/95 H Blood Pressure Mean 81 86 100 Pulse Ox 98 98 97 Oxygen Delivery Method 05/31/24 15:00 05/31/24 15:15 05/31/24 15:16 Temperature Temperature Source Pulse Rate 110 H 109 H 117 H Respiratory Rate 18 21 H 22 H Respiratory Effort Respiratory Pattern Blood Pressure 138/119 H Blood Pressure Mean 127 Pulse Ox 98 97 98 Oxygen Delivery Method Room Air 05/31/24 15:25 05/31/24 15:30 05/31/24 15:31 Temperature Temperature Source Pulse Rate 115 H 105 H 112 H Respiratory Rate 33 H 24 H 18 Respiratory Effort Respiratory Pattern Blood Pressure 163/103 H 155/11 (more content not included)... Normal [facility] H AND P Exam - Hospitaliston 05-31-2024 H&P Exam - Hospitalist [facility] Medical Records Department [address] [place] [address] H P Exam - Hospitalist 05/31/24 1735 MR#: [id number] Acct: [id number] Name: ROSSY NERI Rep #: [id number] : 1965 59 From: Rajesh Gibson MD PCP: Care Physician,No Primary Status:ADM APOLLO Location: [place] [address] HPI - General General Date of Admission: 05/31/24 HPI Narrative ROSSY NERI, is a 59 M who presents to the hospital with chest pain. He states that it started this morning at around 6 or 7 AM and was severe left substernal with of left arm numbness. He says it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 known psychiatric illness or prior diagnoses. He has been told he is diabetic in the past and a history of a prior TIA and degenerative disc disease in his neck. He is requesting inpatient detox. Prior similar symptoms: Yes (When trying to detox himself.) Recent Illness/Hospitalization: No PFSH [facility] Medical History Hyperlipidemia Alcohol withdrawal hallucinosis Alcohol abuse GERD (gastroesophageal reflux disease) Smoker Upper extremity weakness Chronic neck pain Chronic anemia History of alcohol abuse Tobacco abuse Elevated blood pressure reading Type 2 diabetes mellitus Home Medications ?Medication ?Instructions ?Recorded ?Last Taken ?Type NK 02/03/25 Unknown History Allergy/AdvReac Type Severity Reaction Status Date / Time No Known Allergies Allergy Verified 02/03/25 02:20 Family History Mother Alcohol abuse CVA (cerebral vascular accident) Lung cancer Father Alcohol abuse Hypertension Surgical History History of arthroscopy of both knees Social History household members: family Smoking Status: Current every day smoker tobacco type: cigarettes Electronic Cigarette Use: with nicotine alcohol intake: former details: Sober x 12 days since recent detox admission. substance use type: does not use ROS ROS ED ROS Narrative Nausea and vomiting yesterday. Hallucinating. Constitutional Constitutional ED: Denies chills or fever(s) Eyes Eyes: Denies blurry vision ENT ENT ED: Denies ear pain Cardiovascular Cardiovascular: Denies chest pain Respiratory/Chest Respiratory/Chest: Denies cough or dyspnea Gastrointestinal Gastrointestinal: Reports nausea and vomiting; Denies abdominal pain, constipation, diarrhea or melena Genitourinary Genitourinary ED: Denies dysuria or hematuria Musculoskeletal Musculoskeletal: Denies arthralgias Integumentary Denies abscess Neurologic Neurologic: Denies headache(s) Psychiatric Psychiatric: Reports anxiety Endocrine Endocrinology: Denies cold intolerance Hematologic/Lymphatic Hematologic/Lymphatic: Reports none Allergic/Immunologic Allergic/Immunologic ED: Denies mouth swelling, tongue swelling or urticaria EXAM Physical Exam Narrative Exam Narrative: 39-year-old male vital signs are consistent with withdrawal. He is [id number]/113 and is accelerated heart rate of 114. He is awake alert. He is anxious. He is sitting upright in bed. He does not look septic or toxic. H EENT exam pupils round react light. No trauma to his face or scalp. Moist mucous membranes. Neck nontender no lymphadenopathy. Lungs clear to auscultation bilaterally. Heart tachycardic 114 no murmur. Chest wall ribs nontender. Abdomen soft nontender. Moving all 4 extremities. 5 out of 5 traveling representative strength. Dorsi plantarflexion intact. Nontender no edema. Back nontender. Neurologically is awake and alert. Answer questions following commands. He is neither aggressive or verbally abusive. He is cooperative. Makes eye contact. He is willfully answering questions. Const Vital Signs: 02/03/25 02:20 02/03/25 02:20 02/03/25 03:19 Temperature 98.8 F 98.8 F Temperature Source Oral Oral Pulse Rate 114 H 114 H 100 Respiratory Rate 20 H 20 H 19 H Blood Pressure 152/113 H 152/113 H 115/82 H Blood Pressure Mean 126 126 93 Blood Pressure Source Monitor Blood Pressure Position Semi-Fowlers Blood Pressure Location Right Arm Pulse Ox 98 98 97 Oxygen Delivery Method Room Air Room Air Room Air Positive well nourished and well developed; Negative for cachectic, contracturesor unkempt General Appearance ED: well developed; Negative for unkempt, cachectic, contractures, cyanotic, diaphoretic, NAD or pallor Nutritional Appearance: Negative for cachectic HEENT Reports moist mucous membranes Negative for trauma or tenderness Eyes PERRL and EOMs intact bilaterally General Eye ED: Negative for pale conjunctiva Neck no lymphadenopathy, supple and no JVD Chest Wall inspection of chest normal and palpation of chest normal Resp normal respiratory effort Auscultation: Negative for rales, rhonchi or wheezes Cardio regular rhythm, S1 normal heart sound, S2 normal heart sound and no murmurs; Negative for regular rate Rate: tachycardic GI normal to inspection, nondistended, normoactive bowel sounds, non-tender, non-distended and no masses Palpation: soft; Negative for tender, guarding or rebound tenderness present Back/Spine no CVA tenderness General Back: Negative for CVA tenderness Cervical Spine: Negative for cervical spine tenderness Thoracic Spine / Upper Back: Negative for thoracic spinal tenderness Lumbar Spine / Lower Back: Negative for lumbar spinal tenderness Extremity normal to inspection General Extremety ED: Negative for edema or tenderness General Extremity: Negative for edema Neuro oriented x3 and CN's II-XII intact bilaterally Sensorium / Orientation: alert; Negative for orientation impaired, lethargic or stuporous Motor Exam: strength 5/5 throughout Psych mental status grossly normal Appearance: Negative for unkempt Attitude: No agitated Mood & Affect: anxious; Negative for depressed or tearful Skin no rashes or lesions noted and no wounds General Skin Exam: Negative for jaundice or pallor Lesions: No lesion noted Rashes: No rashes noted Trauma: Negative for abrasion Wounds: Negative for wounds noted MDM MDM MDM Narrative Medical decision making narrative: 39-year-old male requesting alcohol detox. Been trying to detox himself at home. He started having hallucinations which I think is secondary to both trying to detox himself, withdrawal and sleep deprivation. His exam otherwise is benign. Screening labs will be obtained to be admitted for detox. Repeat exam patient is doing well at 3:55 AM. The hospitalist on page for admission. Patient is doing well. His vital signs are much improved. I do notthink he needs the ICU. The hospitalist and I discussed that were both comfortable with him being admitted to general medical floor for detox. Patientis comfortable with the plan. He is not having any hallucinations currently. History & Record Review Discussion w/independent historian: Patient Additional record(s) reviewed:: Prior inpatient record, Prior outpatient record,Prior ED visit and Prior labs Lab Data Attestation: I reviewed the patient's lab results. Lab results narrative: CBC shows normal white count 7. H&H 14 and 41. Platelets low at 94,000. Electrolytes shows sodium 135. Gap 13. Normal BUN of 14 creatinine 1. [id number]. Liver enzymes unremarkable other than AST elevated 53. Urine tox screen negative. Alcohol level negative. Labs: Laboratory Results - last 24 hr 02/03/25 02/03/25 02:51 03:02 WBC 7.7 RBC 4.39 L Hgb 14.5 Hct 41.4 MCV 94.3 H MCH 33.0 H MCHC 35.0 RDW Std Deviation 52.8 H RDW Coeff of Josselyn 15.3 H Plt Count 94 L MPV 10.8 Immature Gran % (Auto) 0.700 Neut % (Auto) 70.9 H Lymph % (Auto) 16.3 L Mcduffie % (Auto) 8.9 Eos % (Auto) 2.5 Baso % (Auto) 0.7 Absolute Neuts (auto) 5.4 Absolute Lymphs (auto) 1.25 Nucleated RBC % 0 Sodium 135 Potassium 4.0 Chloride 97 L Carbon Dioxide 25.4 Anion Gap 13 BUN 14 Creatinine 1.00 Estim Creat Clear Calc 81.39 Est GFR (MDRD) Non-Af 88 BUN/Creatinine Ratio 13.9 Glucose 107 H Calcium 9.3 Total Bilirubin 0.90 AST 53 H ALT 27 Alkaline Phosphatase 105 Total Protein 7.3 Albumin 4.4 Globulin 2.9 Albumin/Globulin Ratio 1.5 Urine Opiates Screen NEGATIVE U Buprenorphine Qual NEGATIVE Ur Oxycodone Screen NEGATIVE Urine Methadone Screen NEGATIVE Urine Fentanyl Screen NEGATIVE Ur Barbiturates Screen NEGATIVE Ur Phencyclidine Scrn NEGATIVE Ur Amphetamines Screen NEGATIVE U Benzodiazepines Scrn NEGATIVE Urine Cocaine Screen NEGATIVE U Cannabinoids Screen NEGATIVE Ethyl Alcohol < 10.1 Discharge Plan Dx/Rx/DC Orders Clinical Impression: Alcohol abuse, Admitted to alcohol detoxification center, Depression, Hallucinations, visual Disposition Disposition: Acute Care Hospital [facility] What to do if you have Problems For any increased pain, shortness of breath, bleeding, nausea or vomiting, chestpain, or any unexpected problems, contact your Primary Care Provider. Call [facility] ([phone]) or report to the closest Emergency Room. Call 911 if necessary. 02/03/25 0359 <Electronically signed by Param Oquendo MD> Cosigner Signature (if applicable): CC: No Primary Care Physician ~ Signed [facility] Work Phone: Evaluation note Note Date & Type Note Facility Evaluation note Diagnosis Onset Date Resolution Admitted to alcohol detoxification center acute February 03, 2025 4:50am Alcohol abuse acute February 03, 025 4:50am Alcohol withdrawal hallucinosis acute February 03, 2025 4:50am Depression acute February 03, 2025 4:50am Hallucinations, visual acute 2024 4:50am Nausea and vomiting acute January 152024 4:50am Thrombocytopenia concurrent with and due to alcoholism acute February 03, 2025 4:50am Tobacco abuse acute February 03, 025 4:50am Chronic alcohol abuse chronic February 03, 2025 4:50am [facility] Work Phone: Reason for referral (narrative) Note Date & Type Note Facility Reason for referral (narrative) No reason for referral information available [facility] Work Phone: Chief Complaint and Reason for Visit Chief Complaint Admit Date ACUTE ETOH WITHDRAWL, HALLUCINATIONS & M ay 2024 4:50am Reason for Visit Admit Date Admitted to alcohol detoxification cente r February 03, 2025 4:50am Alcohol abuse February 03, 2025 4:50a m Alcohol withdrawal hallucinosis January 4:50am Depression February 03, 2025 4:50a m Hallucinations, visual February 03, 2025 4: 50am Nausea and vomiting February 03, 2025 4:50a m Thrombocytopenia concurrent with and due to alcoholism February 03, 2025 4:50am Tobacco abuse February 03, 2025 4:50a m Chronic alcohol abuse February 03, 2025 4:5 0am Family History No Family History Records Found Relationship Condition Age at Onset Recorded Date/T jose alejandro mother Alcohol abuse Unknown Cerebrovascular accident (CVA) Unknown Malignant neoplasm of lung Unknown father Alcohol abuse Unknown Hypertension Unknown Advance Directives No Advanced Directives Records Found Advance Directive Response Recorded Date/ Time Do you have a Healthcare Power of Closing Supervisor? No February 03, 2025 2:20am Summary Purpose Additional Source Comments Care Teams (unrecognized sec tion and content) Team Status: Active Member Role Status Dates No Primary Care Physician Primary Care Provider Active Team Status: Active Member Role Status Dates No Primary Care Physician Primary Care Provider Active Start: February 03, 2025 Dr. Param Oquendo MD Emergency Provider Active S tart: February 03, 2025 Dr. Volodymyr Ortiz DO Admit Provider Active Start: February 03, 2025 Dr. Volodymyr Ortiz DO Attending Provider Active Start: February 03, 2025 Goals (unrecognized section and content) Goals may be documented in a n alternate section (unrecognized sect ion and content) No Status Records FoundNo Status Records Found INFORMATION SOURCE (unrecogn ized section and content) DATE CREATED AUTHOR 02/15/2025 [facility] DATE CREATED AUTHOR AUTHOR'S RE ATION 04/26/2025 [facility] FOR RECORDS PERTAINING TO PATIENTS WHO ARE OR HAVE BEEN ENROLLED IN A CHEMICAL DEPENDENCY/SUBSTANCEABUSE PROGRAM, SOME INFORMATION MAY BE OMITTED. This clinical summary was aggregated from multiple sources. Caution should be exercised in using it in the provision of clinical care. This summary normalizes information from multiple sources, and as a consequence, information in this document may materially change the coding, format and clinical context of patient data. In addition, data may be omitted in some cases. CLINICAL DECISIONS SHOULD BE BASED ON THE PRIMARY CLINICAL RECORDS. [facility]. provides no warranty or guarantee of the accuracy or completeness of information in this document.
--- NOTE | 2025-05-08 05:58 | EX.ED.SAOD ---
HPI <Dr. Casi Rebolledo DO - Last Filed: 05/08/25 07:04> History of Present Illness Chief Complaint: ETOH Intox Informant: patient Narrative Narrative: Patient is a 60-year-old male with history of tobacco use, alcohol abuse, hypertension and binge drinking presenting for alcohol withdrawal as well as anxiety. Patient states he binge drank 3 fifths of 40 proof vodka on Saturday, 3 days ago. He notes he has not experienced alcohol withdrawal symptoms. He has been very anxious. Has not been sleeping. Has been feeling shaky. He states tonight he thinks he was hallucinating and heard someone banging on his door. When he checked the people there was nobody there. This happened 5 or 6 x 1 point he thought he saw someone carrying a bundle of shingles covered in rocks. He thinks he might have loosening to this however. He states when he drove here everything he is almost like a person. States this feels like his prior alcohol detox. He denies any HI or SI. He does feel like he had a panic attack when he is not so will try to break into his house and he came to the ER to feel safe. He notes that he had chest tightness and discomfort associated with this panic attack.. Reports tobacco use. Denies any drug use. He also notes has not slept in the past 3 days. Chart review shows the patient was admitted for alcohol detox 02/04 through 02/05. He was evaluated by crisis and ultimately pink slipped to a psychiatric facility for depression with suicidal ideation. [facility] <Dr. Casi Rebolledo DO - Last Filed: 05/08/25 07:04> [facility] Medical History Hyperlipidemia Alcohol abuse GERD (gastroesophageal reflux disease) Smoker Upper extremity weakness Chronic neck pain Chronic anemia History of alcohol abuse Tobacco abuse Elevated blood pressure reading Type 2 diabetes mellitus Home Medications ?Medication ?Instructions ?Recorded ?Last Taken ?Type NK 05/08/25 Unknown History Allergy/AdvReac Type Severity Reaction Status Date / Time No Known Allergies Allergy Verified 05/08/25 05:07 Family History Mother Alcohol abuse CVA (cerebral vascular accident) Lung cancer Father Alcohol abuse Hypertension Surgical History History of arthroscopy of both knees Social History household members: family Smoking Status: Current every day smoker tobacco type: cigarettes Electronic Cigarette Use: with nicotine alcohol intake: current alcohol intake frequency: 3 or more drinks per day substance use type: does not use ROS <Dr. Casi Rebolledo DO - Last Filed: 05/08/25 07:04> ROS ED Constitutional Constitutional ED: Denies chills or fever(s) Cardiovascular Cardiovascular: Reports chest pain Respiratory/Chest Respiratory/Chest: Reports dyspnea; Denies cough Gastrointestinal Gastrointestinal: Denies abdominal pain, nausea or vomiting Musculoskeletal Musculoskeletal: Reports arthralgias, myalgias, neck pain and other Details: Reports chronic pain. Integumentary Denies rash Psychiatric Psychiatric: Reports anxiety and depression; Denies suicidal ideation or suicidal thoughts Hematologic/Lymphatic Hematologic/Lymphatic: Denies easy bleeding or easy bruising EXAM <Dr. Casi Rebolledo, - Last Filed: 05/08/25 07:04> Physical Exam Const Vital Signs: 05/08/25 05:08 05/08/25 05:21 05/08/25 06:07 Temperature 98.4 F 98.4 F Temperature Source Oral Oral Pulse Rate 122 H 122 H 98 Respiratory Rate 18 18 18 Blood Pressure 158/112 H 158/112 H 138/94 H Blood Pressure Mean 127 127 108 Blood Pressure Source Monitor Blood Pressure Position Semi-Fowlers Blood Pressure Location Left Arm Pulse Ox 96 96 97 Oxygen Delivery Method Room Air Room Air Room Air 05/08/25 06:50 05/08/25 07:00 Temperature 98 F Temperature Source Pulse Rate 96 96 Respiratory Rate 18 18 Blood Pressure 133/93 H 141/87 H Blood Pressure Mean 106 105 Blood Pressure Source Blood Pressure Position Blood Pressure Location Pulse Ox 96 98 Oxygen Delivery Method Room Air Positive well nourished and well developed General Appearance ED: well developed and NAD HEENT Reports dry mucous membranes atraumatic Mouth ED: Yes dry mucous membranes Mouth: dry mucous membranes Eyes PERRL and EOMs intact bilaterally Neck supple and no JVD Chest Wall inspection of chest normal Resp normal respiratory effort and clear to auscultation bilaterally Cardio regular rhythm and no murmurs Rate: tachycardic GI soft to palpation, non-tender and non-distended Extremity General Extremety ED: Negative for edema General Extremity: Negative for edema Neuro oriented x3 Neuro Narrative: Mildly tremulous with some fasciculations of the right jaw and noted in the right arm. Sensorium / Orientation: alert, oriented to person, oriented to place and oriented to time Motor Exam: Negative for general weakness Psych thought process normal, denies homicidal ideation and denies suicidal ideation Appearance: grossly normal Attitude: calm Activity / Motor Behavior: appropriate eye contact Speech: normal speech Mood & Affect: anxious Thought Content: hallucination(s) Positive for auditory and visual Memory / Cognition: memory grossly intact Insight: insight good Judgement: fair Skin Lesions: no lesions Rashes: no rashes <Dr. Gómez Wisdom MD - Last Filed: 05/08/25 08:12> Physical Exam Const Vital Signs: 05/08/25 05:08 05/08/25 05:21 05/08/25 06:07 Temperature 98.4 F 98.4 F Temperature Source Oral Oral Pulse Rate 122 H 122 H 98 Respiratory Rate 18 18 18 Blood Pressure 158/112 H 158/112 H 138/94 H Blood Pressure Mean 127 127 108 Blood Pressure Source Monitor Blood Pressure Position Semi-Fowlers Blood Pressure Location Left Arm Pulse Ox 96 96 97 Oxygen Delivery Method Room Air Room Air Room Air 05/08/25 06:50 05/08/25 07:00 Temperature 98 F Temperature Source Pulse Rate 96 96 Respiratory Rate 18 18 Blood Pressure 133/93 H 141/87 H Blood Pressure Mean 106 105 Blood Pressure Source Blood Pressure Position Blood Pressure Location Pulse Ox 96 98 Oxygen Delivery Method Room Air MDM <Dr. Casi Rebolledo DO - Last Filed: 05/08/25 07:04> [facility] MDM Narrative Medical decision making narrative: Patient evaluated for concern of alcohol withdrawal as well as visual hallucinations and panic attack. Patient is acting appropriately emergency room. He seems to be having hallucinations however he knows that they are not real, regardless they were terrified for him to do it. They triggered what he describes as a panic attack. As he has reported some chest discomfort with it troponins are checked. Will obtain medical screening labs as well as cardiac labs and EKG in the emergency room. Patient is given phenobarbital and IV fluids in the emergency room. Patient at this time is not sure if he would like to be admitted for alcohol detox. He would like to see how he feels after the IV fluids. At this time the patient is anxious and having visual hallucinations he does seem to have capacity is insightful about why he is in the emergency room. On repeat evaluation patient is feeling better. His tachycardia is improving. He has about 500 cc of fluid so far. He seems much [place]. Workup largely is normal. Does have a mildly elevated anion gap but this could be dehydration related. His bicarb is normal and lower suspicion for any severe metabolic acidosis. Patient would like to follow-up outpatient and is not interested in the ramp program at this time. I do not think patient is in fulminant alcohol withdrawal especially as he only had 1 day of binge drinking. Will be given resources for 180 and the counseling center. Will obtain delta high-sensitivity troponin as he did have chest discomfort to ensure that there is no ACS as well. Patient is agreeable with this. Lab Data Attestation: I reviewed the patient's lab results. Labs: Laboratory Results - last 24 hr 05/08/25 05/08/25 05:17 07:14 WBC 7.6 RBC 4.68 Hgb 15.5 Hct 44.5 MCV 95.1 H MCH 33.1 H MCHC 34.8 RDW Std Deviation 54.1 H RDW Coeff of Josselyn 15.6 H Plt Count 163 MPV 10.0 Immature Gran % (Auto) 0.500 Neut % (Auto) 75.6 H Lymph % (Auto) 14.1 L [place] % (Auto) 7.5 Eos % (Auto) 1.6 Baso % (Auto) 0.7 Absolute Neuts (auto) 5.8 Absolute Lymphs (auto) 1.07 Nucleated RBC % 0 Sodium 138 Potassium 3.4 Chloride 97 L Carbon Dioxide 22.3 Anion Gap 19 H BUN 11 Creatinine 1.01 Estim Creat Clear Calc 79.72 Est GFR (MDRD) Non-Af 86 BUN/Creatinine Ratio 11.3 Glucose 139 H Calcium 11.5 H Total Bilirubin 0.74 AST 34 ALT 25 Alkaline Phosphatase 98 Troponin T High Sens 23 H Troponin T Hi Sens 2 Hr 21 Total Protein 7.9 Albumin 4.6 Globulin 3.3 Albumin/Globulin Ratio 1.4 Ethyl Alcohol < 10.1 Rhythm Strip Rhythm Strip: Sinus Tach Rate: 112 Ectopy: None EKG Initial EKG: Attestation: I personally reviewed and interpreted this EKG as follows: Interpretation: Sinus Tachycardia Comments: Sinus tachycardia rate 112 bpm Normal axis Normal intervals Normal ST segments <Dr. Gómez Wisdom MD - Last Filed: 05/08/25 08:12> [facility] Lab Data Labs: Laboratory Results - last 24 hr 05/08/25 05/08/25 05:17 07:14 WBC 7.6 RBC 4.68 Hgb 15.5 Hct 44.5 MCV 95.1 H MCH 33.1 H MCHC 34.8 RDW Std Deviation 54.1 H RDW Coeff of Josselyn 15.6 H Plt Count 163 MPV 10.0 Immature Gran % (Auto) 0.500 Neut % (Auto) 75.6 H Lymph % (Auto) 14.1 L [place] % (Auto) 7.5 Eos % (Auto) 1.6 Baso % (Auto) 0.7 Absolute Neuts (auto) 5.8 Absolute Lymphs (auto) 1.07 Nucleated RBC % 0 Sodium 138 Potassium 3.4 Chloride 97 L Carbon Dioxide 22.3 Anion Gap 19 H BUN 11 Creatinine 1.01 Estim Creat Clear Calc 79.72 Est GFR (MDRD) Non-Af 86 BUN/Creatinine Ratio 11.3 Glucose 139 H Calcium 11.5 H Total Bilirubin 0.74 AST 34 ALT 25 Alkaline Phosphatase 98 Troponin T High Sens 23 H Troponin T Hi Sens 2 Hr 21 Total Protein 7.9 Albumin 4.6 Globulin 3.3 Albumin/Globulin Ratio 1.4 Ethyl Alcohol < 10.1 Treatment and Re-Evaluation Narrative: Patient checked out to me pending delta troponin, the second troponin measurement is 21 which is in the normal range and down from his initial measurement in context of his unremarkable EKG. He is doing well he has no chest discomfort. He is insightful he is not currently hallucinating or having delusions, he states that he came in because of the hallucinations he was feeling unsafe and he has weapons at home. He states he feeling much better now, he has also had no sleep in the last night or 2, which I agree is likely contributed to his symptoms. He feels safe to go home, and he already has plans to follow-up with [facility], he is already in a program and he plans to continue that so that he does not fall off the wan. Discharge Plan Triage Chief Complaint: ETOH Intox ED Provider: Casi Rebolledo Dx/Rx/DC Orders Clinical Impression: Alcohol abuse, Hallucinations, visual, Anxiety Instructions: ED Panic Attack, ED Alcohol Abuse Prescriptions: No Action NK Primary Care Provider: Care Physician,No Primary Referrals: Counseling,Center [Group of Physicians] - Suzie Bales [Non-Staff] - Care Physician,No Primary [Primary Care Provider] - [facility] [Non-Staff] - Activity Restrictions/Additional Instructions: Please continue to abstain from alcohol. He been given some resources for outpatient follow-up for alcohol, psychiatry and family medicine. If you feel like your symptoms are worsening, need further help with alcohol detox or start to feel unsafe/have worsening psychiatric symptoms please return to the emergency room. Print Language: [place] Citizen Disposition Disposition: Home, Self Care
[2025-05-08 06:07] VITALS: BP 138/94; PULSE 98; RESP 18; O2SAT 97
[2025-05-08 06:12] LABS: Alcohol, Blood (Medical)-Serum < 10.1 mg/dL (<=10.0)
[2025-05-08 06:36] LABS: AST(SGOT) 34 U/L (<=37); Alanine Aminotransfer ALT/SGPT 25 U/L (<=46); Albumin, Serum 4.6 g/dL (3.5-5.0); Alkaline Phosphatase 98 U/L (40-129); Anion Gap 19 (5-15); BUN 11 mg/dL (4-19); BUN/Creat Ratio 11.3 RATIO (10-20); Calcium,Total 11.5 mg/dL (7.6-11.0); Carbon Dioxide 22.3 mmol/L (21.0-32.0); Chloride 97 mmol/L (98-108); Estimated Creatinine Clearance 79.72 ml/min (50-250); Globulin 3.3 g/dL (2.2-4.2); Glucose 139 mg/dL (70-99); Potassium 3.4 mmol/L (3.3-5.1)
[2025-05-08 06:50] VITALS: BP 133/93; PULSE 96; RESP 18; TEMP 36.6; O2SAT 96
[2025-05-08 06:55] LABS: Troponin T High Sensitivity 23 ng/L (<=22)
[2025-05-08 07:00] VITALS: BP 141/87; PULSE 96; RESP 18; O2SAT 98
[2025-05-08 07:42] LABS: Troponin T High Sens 2 HR 21 ng/L (<=22)
[2025-05-08 08:00] VITALS: BP 134/88; PULSE 89; RESP 16; O2SAT 99
== END 2025-05-08 08:15 | disposition home or self-care (01) ==
PROVIDERS: Emergency Provider Emergency Medicine; Visit Provider Emergency Medicine
DX: F10.129 Alcohol abuse with intoxication, unspecified (principal); E11.9 Type 2 diabetes mellitus without complications; F41.9 Anxiety disorder, unspecified; E78.5 Hyperlipidemia, unspecified; I10 Essential (primary) hypertension; F17.210 Nicotine dependence, cigarettes, uncomplicated; K21.9 Gastro-esophageal reflux disease without esophagitis; F32.A Depression, unspecified; R44.1 Visual hallucinations
CPT/HCPCS: 99283; 80053; 82077; 84484; 85025; 93005; A4216

== ENCOUNTER 2025-05-08 20:44 | Inpatient (IN) | payer MEDICARE, SELFPAY ==
[2025-05-08 20:45] VITALS: BP 107/92; PULSE 121; RESP 20; TEMP 36.6; O2SAT 99; BMI 23.0
--- NOTE | 2025-05-08 21:37 | EX.ED.DYSGE1 ---
HPI History of Present Illness Chief Complaint: Substance Abuse [facility] Medical History Suspected hypertension Anxiety and depression Tobacco use Thrombocytopenia concurrent with and due to alcoholism CKD (chronic kidney disease), stage II Hyperlipidemia Alcohol abuse GERD (gastroesophageal reflux disease) Upper extremity weakness Chronic neck pain Chronic anemia Type 2 diabetes mellitus Home Medications ?Medication ?Instructions ?Recorded ?Last Taken ?Type NK 05/08/25 Unknown History Allergy/AdvReac Type Severity Reaction Status Date / Time No Known Allergies Allergy Verified 05/08/25 20:45 Family History Mother Alcohol abuse CVA (cerebral vascular accident) Lung cancer Father Alcohol abuse Hypertension Surgical History History of arthroscopy of both knees Social History (Updated 05/08/25 @ 22:[address] Marce Toure MD) household members: family Smoking Status: Current every day smoker tobacco type: cigarettes Electronic Cigarette Use: with nicotine alcohol intake: current alcohol intake frequency: 3 or more drinks per day substance use type: does not use EXAM Physical Exam Const Vital Signs: 05/08/25 20:45 05/08/25 21:44 05/08/25 22:00 Temperature 97.8 F 98.2 F Temperature Source Temporal Pulse Rate 121 H 95 89 Respiratory Rate 20 H 15 13 Blood Pressure 107/92 H 112/88 H 132/78 H Blood Pressure Mean 97 96 96 Pulse Ox 99 98 97 Oxygen Delivery Method Room Air Room Air MDM MDM MDM Narrative Medical decision making narrative: HISTORY OF PRESENT ILLNESS: Chief complaint: Alcohol detox 60-year-old male history of anxiety, tobacco abuse, thrombocytopenia, chronic alcohol abuse, anemia, hypertension, TIA presents with request for alcohol detoxification. Notes is having visualizations and tremors in arms. Patient states he binge drank 3 fifths of 40 proof vodka on Saturday, 3 days ago. He notes he has not experienced alcohol withdrawal symptoms. He has been very anxious. Has not been sleeping. Has been feeling shaky. He states tonight he thinks he was hallucinating and heard someone banging on his door. He does not know if he fell or hit his head earlier. Denies loss of consciousness. REVIEW OF SYSTEMS: Pertinent positives: Visual hallucinations, tremors in arms Pertinent negatives: Chest pain PHYSICAL EXAM: Nursing triage notes reviewed, Vital signs reviewed Constitutional: please see [facility] HENT: MMM, atraumatic Eyes: Pupils equal round and reactive to light, Extraocular muscles intact Neck: No stridor, no JVD, full neck ROM Lungs: Clear to auscultation, No wheezing or rales. No increased work of breathing, no conversational dyspnea, no accessory muscle use, no nasal flaring. No respiratory distress noted Heart: Regular rate and rhythm, No murmurs, No rubs and No gallops, 2+ distal pulses (radial, femoral, posterior tibial) in all extremities Abdomen: Soft, there is no tenderness, rigidity, rebound or guarding, no obvious peritoneal signs, no palpable pulsatile abdominal masses, no auscultated abdominal bruit : No CVAT Extremities: No edema Neuro: Tremulous, moves all 4 extremities, sensation in all 4 extremities, Skin: No rash or lesions noted Psych: Anxious MEDICAL DECISION MAKING: Chief Complaint: please see [facility] External records reviewed: Reviewed prior hospitalization Factors affecting care: As per [facility] Social determinants of health: History of alcohol abuse History obtained from others: none Consults: internal medicine (Dr. Toure) recommended MedSurg admission [facility] Narrative: Patient was initially tachycardic rate 121, otherwise afebrile and nontoxic-appearing. Exam without focal deficits. Patient was tremulous, anxious with a elevated CIWA score. Medical clearance labs were obtained to assess appropriateness of detox. Given initial heart rate of 121 EKG was obtained. Patient was initially treated with IV Ativan and oral phenobarbital for symptom control. I had a CT scan of the brain rule out intracranial abnormalities given report of fall, visual elucidation's, history of alcohol abuse. ALL IMAGES (IF OBTAINED) HAVE BEEN PERSONALLY REVIEWED AND INTERPRETED BY MYSELF. CT scan of the brain negative for ICH CBC with no leukocytosis, no anemia or thrombocytopenia CMP without evidence of acute kidney injury, significant electrolyte abnormality, anion gap to suggest end organ hypo-perfusion, no evidence of metabolic acidosis with a normal bicarbonate, no evidence of hepatobiliary obstructive pathology. Urine tox screen is negative Serum alcohol is negative On reevaluation patient's vital signs improved. Heart rate improved to 89. Discussed with hospitalist who recommended MedSurg admission. The patient and/or family, caregivers express understanding. The patient and/or family, caregivers agrees with the plan. Shared decision making: I will have a discussion with the patient and or visitors regarding risk/benefits of further testing or admission. They will be made aware of of the risk/benefits inherent in this decision they will be given the opportunity to voice understanding. Total critical care time today provided was at least 35 minutes. This excludes separately billable procedures. Critical care time (if documented) is secondary to the patient having high probability of clinically significant/life threatening deterioration in the patient's condition which required my urgent intervention. Impression: 1. Alcohol abuse 2. Encounter for admission for alcohol detoxification 3. Alcohol withdrawal Dispo: Admit to [facility] This note was generated with [employer] dictation software. It may contain incorrect words, spelling, and punctuation that were not noted in review of the chart prior to signing. Lab Data Labs: Laboratory Results - last 24 hr 05/08/25 21:35 WBC 8.3 RBC 4.01 L Hgb 13.4 Hct 38.7 L MCV 96.5 H MCH 33.4 H MCHC 34.6 RDW Std Deviation 55.8 H RDW Coeff of Josselyn 16.0 H Plt Count 156 MPV 10.5 Immature Gran % (Auto) 0.500 Neut % (Auto) 67.3 Lymph % (Auto) 18.[address] [place] % (Auto) 8.8 Eos % (Auto) 4.0 Baso % (Auto) 0.7 Absolute Neuts (auto) 5.6 Absolute Lymphs (auto) 1.55 Nucleated RBC % 0 Sodium 140 Potassium 3.6 Chloride 104 Carbon Dioxide 23.6 Anion Gap 13 BUN 10 Creatinine 1.03 Estim Creat Clear Calc 78.17 Est GFR (MDRD) Non-Af 84 BUN/Creatinine Ratio 9.8 L Glucose 79 Calcium 9.5 Phosphorus 3.2 Magnesium 1.4 L Total Bilirubin 0.60 AST 35 ALT 26 Alkaline Phosphatase 93 Total Protein 7.1 Albumin 4.3 Globulin 2.8 Albumin/Globulin Ratio 1.5 Urine Opiates Screen NEGATIVE U Buprenorphine Qual NEGATIVE Ur Oxycodone Screen NEGATIVE Urine Methadone Screen NEGATIVE Urine Fentanyl Screen NEGATIVE Ur Barbiturates Screen PRESUMPTIVE POSITIVE Ur Phencyclidine Scrn NEGATIVE Ur Amphetamines Screen NEGATIVE U Benzodiazepines Scrn NEGATIVE Urine Cocaine Screen NEGATIVE U Cannabinoids Screen NEGATIVE Ethyl Alcohol < 10.1 Radiography Diagnostic Testing: Clinical Impression(s) from Imaging Studies Brain CT 05/08/25 21:52 IMPRESSION: No acute process identified. Reading [facility] Discharge Plan Triage Chief Complaint: Substance Abuse ED Provider: Carlyle Braxton Dx/Rx/DC Orders Prescriptions: No Action NK Primary Care Provider: Care Physician,No Primary Referrals: Care Physician,No Primary [Primary Care Provider] - Print Language: Tamazight
--- NOTE | 2025-05-08 21:39 | EKG12_ITS ---
Test Reason : DETOX Blood Pressure : */* mmHG Vent. Rate : 93 BPM Atrial Rate : 93 BPM P-R Int : 154 ms QRS Dur : 84 ms QT Int : 370 ms P-R-T Axes : 47 58 41 degrees QTcB Int : 460 ms Normal sinus rhythm Normal ECG Confirmed by MACHELLE WOLFE, MIKAELA ([id number]), editorial specialist HECTOR MISHRA ([id number]) on 05/10/2025 1:05:14 PM Referred By: Confirmed By: MIKAELA CARTY MD
[2025-05-08 21:44] VITALS: BP 112/88; PULSE 95; RESP 15; O2SAT 98
--- NOTE | 2025-05-08 21:52 | CT_ITS ---
PROCEDURE: BRAIN/HEAD WITHOUT CONTRAST 05/08/2025 REASON FOR EXAM: HEAD TRAUMA Initial encounter. TECHNIQUE: BRAIN/HEAD WITHOUT CONTRAST Coronal and Sagittal reconstruction series were provided. One or more dose reduction techniques were used (e.g., Automated exposure control, adjustment of the mA and/or kV according to patient size, use of iterative reconstruction technique. RADIATION DOSE SUMMARY: CTDlvol: 44.99 mGy DLP: 829.85 mGycm COMPARISON: MRI brain 2023 FINDINGS: Brain: No intra-axial or extra-axial hemorrhage. No acute ischemia or infarct appreciated. No mass, mass effect or midline shift. CSF Spaces: Ventricles and sulci are age-appropriate. Sinuses/Mastoids: The included mastoid air cells and paranasal sinuses are predominantly clear. Bones: No skull fracture appreciated. CT/Brain/Head without Contrast IMPRESSION: No acute process identified. Reading Location[facility]
--- NOTE | 2025-05-08 21:52 | PCM.HP.STD ---
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 presenting at that time secondary to recent binge drinking with complaint of potential withdrawal as well as anxiety reporting they had binge drank 3/5 of a 40 proof vodka on Saturday 3 days prior with lack of sleep, restlessness, tremulousness, potential tactile disturbances and hallucination prompting eventual ED evaluation for concern of withdrawal and significant anxiety/panic attack however he declined withdrawal admission with preference of judicious IV fluids and plan follow-up outpatient noting disinterest in the [facility] program now representing to the [facility] ED on 05/08/25 in the evening with history of worsening tremors, tactile disturbances, concern for hallucination prompting ED return and request for detoxification secondary to significant withdrawal. Initial 05/08/2025 early AM labs included CBC with WC 7.6, [place] 15.5, platelet 163 without marked shift, CMP with chloride 97, anion gap 19, BUN/creatinine 11/1.01, GFR 86, glucose 139, calcium 11.5, hepatic profile not marked appearing, initial troponin 23 with repeat delta 21, ethyl alcohol less than 10.1. Current visit with T97.8, heart rate 121, BP 107/92, respiratory rate 20, 99% on room air. In the ED patient ministered Ativan 2 mg IV x 1 as well as phenobarbital 97.2 mg p.o. x 1. Pending repeat ethyl alcohol level, CT head, CBC, CMP and UDS upon request evaluation of patient in addition to EKG. ED physician also noted planned CT head as patient in passing noted potentially falling and possibly hitting his head but not the best historian. [facility] Medical History Suspected hypertension Anxiety and depression Tobacco use Thrombocytopenia concurrent with and due to alcoholism CKD (chronic kidney disease), stage II Hyperlipidemia Alcohol abuse GERD (gastroesophageal reflux disease) Upper extremity weakness Chronic neck pain Chronic anemia Type 2 diabetes mellitus Home Medications ?Medication ?Instructions ?Recorded ?Last Taken ?Type NK 05/08/25 Unknown History Allergy/AdvReac Type Severity Reaction Status Date / Time No Known Allergies Allergy Verified 05/08/25 20:45 Family History Mother Alcohol abuse CVA (cerebral vascular accident) Lung cancer Father Alcohol abuse Hypertension Surgical History History of arthroscopy of both knees Social History (Updated 05/08/25 @ 22:[address] Marce Toure MD) household members: family Smoking Status: Current every day smoker tobacco type: cigarettes Smoking packs per day: 1 Smoking cigarettes per day: 20.0 Electronic Cigarette Use: with nicotine alcohol intake: current alcohol intake frequency: 3 or more drinks per day substance use type: does not use ROS ROS Narrative Admission Review of Systems: CONSTITUTIONAL: No weight loss, fever, chills, + weakness or fatigue. HEENT: Eyes: No visual loss, blurred vision, double vision or yellow sclerae. Ears, Nose, Throat: No hearing loss, sneezing, congestion, runny nose or sore throat. SKIN: No rash or itching, lesions, wounds. CARDIOVASCULAR: No chest pain, chest pressure or chest discomfort, palpitations, edema, orthopnea, syncopal events. RESPIRATORY: No shortness of breath, cough or sputum, wheezing, hemoptysis. GASTROINTESTINAL: + anorexia, nausea. No vomiting or diarrhea, abdominal pain, melena, BRBPR. GENITOURINARY: No dysuria, frequency, urgency or retention. NEUROLOGICAL: + Tremors, hallucinations/tactile disturbances, mild agitation. No headache, dizziness, syncope, paralysis, ataxia, numbness or tingling in the extremities, focal weakness, change in bowel or bladder control, seizure. MUSCULOSKELETAL: + muscle, back pain, joint pain or stiffness. HEMATOLOGIC: No anemia. + Easy bleeding/bruising. LYMPHATICS: No enlarged nodes. No history of splenectomy. PSYCHIATRIC: + History of anxiety and depression. ENDOCRINOLOGIC: No reports of sweating, cold or heat intolerance. No polyuria or polydipsia. ALLERGIES: No history of asthma, hives, eczema or rhinitis. Vital Signs Vital Signs Vital Signs: 05/08/25 20:45 Temperature 97.8 F Temperature Source Temporal Pulse Rate 121 H Respiratory Rate 20 H Blood Pressure 107/92 H Blood Pressure Mean 97 Pulse Ox 99 Oxygen Delivery Method Room Air Weight Weight: 156 lb Body Mass Index (BMI) 23.0 Physical Exam Narrative Physical Examination: General: Awake, alert, oriented to self, place and recent events, does appear restless, following commands however, seated upright in ED, status post Ativan/phenobarbital administration. Skin: Normal color, normal turgor, no icterus, no cyanosis except occasional stage ecchymoses, abrasion, several tattoos HEENT: AT/NC, EOMI, PERRLA, moderately dry MM, no carotid bruits or JVD noted. Lungs: Mildly diminished, greater bases, appropriate effort, end expiratory wheeze notable, denies any dyspnea sensation, no appreciated rales or rhonchi. No rales, ronchi or wheezing. Heart: Mildly tachycardic with regular rhythm; no gallop, rub audible. Abdomen: Soft, NTTP, ND, hyperactive BS, + HM. Extremities: No cyanosis, clubbing, or edema. Neurological: Patient awake, alert, oriented as noted, cognitive function intact; pupils equally reactive to light and accommodation, cranial nerves grossly normal, moving all 4 extremities, no focal deficits, tremulous, admits to tactile disturbances, restless, strength moderately globally decreased Psychiatric: Affect appears fatigued, restless, evident alcohol withdrawal, no acute evidence of depressive or anxiety feelings but does have underlying significant psychiatric history. 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 presenting at that time secondary to recent binge drinking with complaint of potential withdrawal as well as anxiety reporting they had binge drank 3/5 of a 40 proof vodka on Saturday 3 days prior with lack of sleep, restlessness, tremulousness, potential tactile disturbances and hallucination prompting eventual ED evaluation for concern of withdrawal and significant anxiety/panic attack however he declined withdrawal admission with preference of judicious IV fluids and plan follow-up outpatient noting disinterest in the [facility] program now representing to the [facility] ED on 05/08/25 in the evening with history of worsening tremors, tactile disturbances, concern for hallucination prompting ED return and request for detoxification. #1. Acute EtOH Withdrawal: Will admit to [facility] as long as preliminary CT head without any acute concerning findings per discussion with ED physician, routine labs obtained in the ED upon presentation earlier in the day, repeat pending upon evaluation. Given patient is now interested in sobriety, will initiate and continue on protocol with taper course of Phenobarbital, as needed gabapentin, Catapres, Bentyl, Vistaril, IV fluids, IV antiemetics, Tylenol as needed for pain. Will consult Case management for assistance for transition to next level of rehabilitation care. Mag, phos pending. Maintain on CIWA protocol concurrently. #2. Hypercalcemia, unclear etiology: 05/08/2021 calcium noted to be 11.5 upon labs checked earlier in the day, previous to this noted 02/03/2025 calcium normal level 9.2, repeat labs pending upon admission, if remain elevated will obtain ionized calcium and make further investigate pending results. As noted above planned hydration. #3. Hypertension: Patient has had longstanding issues with diastolic elevation, suspect underlying hypertension, SBP however 107 and potentially elevation related to alcohol withdrawal, will hold off on oral regimen addition, as needed IV hydralazine in the interim. #4. History of Diabetes mellitus type II: Most recent noted hemoglobin A1c 02/03/2025 with 4.9%, not on any regimen, will defer any Accu-Cheks/insulin sliding scale will maintain on ADA diet. #5. Chronic Kidney Disease Stage II per GFR trending: Earlier in the a.m. 05/08/2025 labs with BUN/Cr 1.01, GFR 86, baseline renal function primarily 0.7-1.0, pending repeat upon admission. #6. Chronic thrombocytopenia, secondary to alcohol abuse: Recent 05/08/2025 earlier in the day CBC with platelets 163, baseline previous to this have ranged 85-140 range, repeat admission level pending upon evaluation. #7. Tobacco Abuse: Encouraged cessation, inpatient consultation per RT, NR if desired. #8. Hyperlipidemia: Not on regimen, defer to outpatient. #9. GERD: Not on regimen, will have Mylanta as needed. #10. DVT prophylaxis: Low risk for type presentation, encourage ambulation. Charges/Coding Visit Charges Inpatient E&M: 58136 Init Hosp L3
[2025-05-08 22:00] VITALS: BP 132/78; PULSE 89; RESP 13; TEMP 36.8; O2SAT 97
[2025-05-08 22:07] LABS: AST(SGOT) 35 U/L (<=37); Alanine Aminotransfer ALT/SGPT 26 U/L (<=46); Albumin, Serum 4.3 g/dL (3.5-5.0); Alkaline Phosphatase 93 U/L (40-129); Anion Gap 13 (5-15); BUN 10 mg/dL (4-19); BUN/Creat Ratio 9.8 RATIO (10-20); Calcium,Total 9.5 mg/dL (7.6-11.0); Carbon Dioxide 23.6 mmol/L (21.0-32.0); Chloride 104 mmol/L (98-108); Estimated Creatinine Clearance 78.17 ml/min (50-250); Globulin 2.8 g/dL (2.2-4.2); Glucose 79 mg/dL (70-99); Potassium 3.6 mmol/L (3.3-5.1)
[2025-05-08] MEDS: 0.9% Normal Saline (1000mL) 1,000 ML 999 ML IV (22:10)
--- OUTSIDE RECORDS SUMMARY | 2025-05-08 22:10 | XMS RPT_ITS | CCD ---
Author Organization [facility] Care Team Providers Care Stave Jointer Name Role Phone Care Physician, No Primary Primary Care Provider Unavailable Jere WOLFE, Dr. Virgen Emergency Provider Dr. Volodymyr Ortiz DO Admit Provider Unavail [...] Barber Attending Unavailable Rajesh Gibson Consulting Unavailable Dr. Volodymyr Ortiz DO Other Provider Unavail able Paige WOLFE, Dr. Rajesh Mahoney Attending Provider Dr. Rajesh Gibson MD Other Provider Dr. Casi Rebolledo DO Emergency Provider Medications Current Medications Medication Drug Class(es) Dates Sig (Normalized) Sig (Original) [place] (Nk) (2 sources) Start: 05-08-2025 [place] (Nk) A ctive May 08, 2025 12:00am Start: 02-03-2025 [place] (Nk) A ctive February 03, 2025 12:00am Completed/Discontinued Medications Medication Drug Class(es) Dates Sig (Normalized) Sig (Original) acetaminophen 325 mg oral tablet (3 sources) Start: 02-03-2025 End: 05-08-2025 Acetaminophen (Pain Relief (Acetaminophen)) 325 mg tablet Discontinued 650 mg PO EVERY 6 HOURS as needed for pain February 03, 2025 12:00am May 08, 2025 5:07am Start: 02-09-2024 End: 05-31-2024 take 1 capsule by mouth every six hours as needed for pain Acetaminophen 500 mg capsule Discontinued 500 mg PO EVERY 6 HOURS as needed for pain February 09, 2024 12:00am May 31, 2024 3:22pm amLODIPine 5 mg oral tablet (2 sources) Dihydropyridine Calcium Channel Charline Start: 02-14-2024 End: 05-31-2024 take 1 tablet by mouth once daily Amlodipine 5 mg Tablet Discontinued 5 mg PO DAILY 90 90 February 14, 2024 12:00am May 31, 2024 3:22pm aspirin 81 mg chewable tablet (2 sources) Platelet Aggregation Inhibitor, Nonsteroidal Anti-inflammatory Drug Start: 02-14-2024 End: 05-31-2024 take 1 tablet by mouth at breakfast Aspirin 81 mg Tablet,Chewable Discontinued 81 mg PO WITH BREAKFAST 90 90 February 14, 2024 12:00am May 31, 2024 3:22pm atorvastatin 80 mg oral tablet (2 sources) HMG-CoA Reductase Inhibitor Start: 02-14-2024 End: 05-31-2024 take 1 tablet by mouth at bedtime Atorvastatin 80 mg Tablet Discontinued 80 mg PO AT BEDTIME 90 90 February 14, 2024 12:00am May 31, 2024 3:22pm dicyclomine hydrochloride 10 mg oral capsule (2 sources) Anticholinergic Start: 05-29-2019 End: 02-09-2024 take 2 capsules by mouth at bedtime Dicyclomine 10 MG capsule Discontinued 20 mg PO BEFORE MEALS AND AT BEDTIME 30 0 May 29, 2019 12:00am February 09, 2024 6:00am 24 hr metoprolol succinate 25 mg extended release oral tablet (2 sources) beta-Adrenergic Charline Start: 03-11-2024 End: 05-31-2024 take 1 tablet by mouth once daily Metoprolol Succinate 25 mg tablet extended release 24 hr Discontinued 25 mg PO DAILY 30 March 11, 2024 12:00am May 31, 2024 3:22pm Multivitamin tablet (2 sources) Start: 02-09-2024 End: 05-31-2024 Multivitamin tablet Discontinued 1 {tbl} PO DAILY February 09, 2024 12:00am May 31, 2024 3:22pm omeprazole 40 mg delayed release oral capsule (1 source) Proton Pump Inhibitor Start: 02-03-2025 End: 05-08-2025 take 1 capsule by mouth once daily as needed for gastroesophageal reflux disease Omeprazole 40 mg capsule,delayed release(DR/EC) Discontinued 40 mg PO DAILY as needed for heartburn February 03, 2025 12:00am May 08, 2025 5:07am pantoprazole 40 mg delayed release oral tablet (4 sources) Proton Pump Inhibitor Start: 06-01-2024 End: 02-03-2025 take 1 tablet by mouth twice daily Pantoprazole (Protonix) 40 mg tablet,delayed release (DR/EC) Discontinued 40 mg PO TWICE A DAY 60 30 0 June 01, 2024 12:00am February 03, 2025 2:20am Start: 02-14-2024 End: 05-31-2024 take 1 tablet by mouth twice daily Pantoprazole 20 mg Tablet,Delayed Release (Dr/Ec) Discontinued 20 mg PO TWICE A DAY 60 30 2 February 14, 2024 12:00am May 31, 2024 3:22pm promethazine hydrochloride 25 mg oral tablet (2 sources) Phenothiazine Start: 01-30-2023 End: 02-09-2024 take 1 tablet by mouth every six hours as needed for nausea Promethazine 25 mg tablet Discontinued 25 mg PO EVERY 6 HOURS NEEDED as needed for Nausea 10 January 30, 2023 12:00am February 09, 2024 6:00am sertraline 50 mg oral tablet (2 sources) Serotonin Reuptake Inhibitor Start: 06-01-2024 End: 02-03-2025 take 1 tablet by mouth once daily Sertraline 50 mg Tablet Discontinued 50 mg PO DAILY June 01, 2024 12:00am February 03, 2025 2:20am Problems Problem Classification Problem Date Documented Date Episodic/Chronic Acute and unspecified renal failure (2 sources) Acute renal failure syndrome; Translations: [Acute kidney failure, unspecified] 02-19-2024 Episodic Alcohol-related disorders (17 sources) Alcohol abuse; Translations: [Alcohol abuse, uncomplicated] Onset: 02-05-2025 02-03-2025 Chronic Anxiety disorders (1 source) Anxiety; Translations: [Anxiety disorder, unspecified] 05-08-2025 Chronic Blindness and vision defects (6 sources) Blurring of visual image; Translations: [Other visual disturbances] 02-12-2024 Episodic Cardiac dysrhythmias (2 sources) Tachycardia; Translations: [Tachycardia, unspecified] 02-19-2024 Episodic Coagulation and hemorrhagic disorders (5 sources) Thrombocytopenia co-occurrent and due to alcoholism; Translations: [Other secondary thrombocytopenia] Onset: 02-05-2025 02-03-2025 Episodic Conditions associated with dizziness or vertigo (2 sources) Dizziness; Translations: [Dizziness and giddiness] 02-12-2024 Episodic Diabetes mellitus without complication (2 sources) Hyperglycemia; Translations: [Hyperglycemia, unspecified] 02-19-2024 Episodic Diseases of white blood cells (2 sources) Leukocytosis; Translations: [Elevated white blood cell count, unspecified] 02-19-2024 Chronic Disorders of lipid metabolism (2 sources) Hyperlipidemia; Translations: [Hyperlipidemia, unspecified] 03-11-2024 Chronic Essential hypertension (2 sources) Hypertensive disorder; Translations: [Essential (primary) hypertension] 02-12-2024 Chronic Fluid and electrolyte disorders (2 sources) Hyponatremia; Translations: [Hypo-osmolality and hyponatremia] 02-19-2024 Episodic Mood disorders (4 sources) Depressive disorder; Translations: [Depression] 02-03-2025 Chronic Nausea and vomiting (5 sources) Nausea and vomiting; Translations: [Nausea with vomiting, unspecified] Onset: 02-05-2025 02-03-2025 Episodic Nonspecific chest pain (4 sources) Chest pain; Translations: [Chest pain, unspecified] Onset: 06-08-2024 06-09-2024 Episodic Other circulatory disease (2 sources) Aortitis; Translations: [Arteritis, unspecified] 02-14-2024 Chronic Other circulatory disease (2 sources) Elevated blood pressure; Translations: [Elevated blood-pressure reading, without diagnosis of hypertension] 02-12-2024 Episodic Other nutritional; endocrine; and metabolic disorders (2 sources) Hyperbilirubinemia; Translations: [Other disorders of bilirubin metabolism] 02-19-2024 Chronic Other nutritional; endocrine; and metabolic disorders (2 sources) Hypomagnesemia; Translations: [Hypomagnesemia] 02-19-2024 Chronic Other nutritional; endocrine; and metabolic disorders (2 sources) Hypercalcemia; Translations: [Hypercalcemia] 02-19-2024 Chronic Other screening for suspected conditions (not mental disorders or infectious disease) (2 sources) Thyroid hormone tests abnormal; Translations: [Other specified abnormal findings of blood chemistry] 02-19-2024 Episodic Residual codes; unclassified (4 sources) Tobacco user; Translations: [Tobacco use] 02-03-2025 Episodic Residual codes; unclassified (1 source) Tobacco use; Translations: [Tobacco use] Onset: 02-05-2025 Episodic Transient cerebral ischemia (2 sources) Transient cerebral ischemia; Translations: [Transient cerebral ischemic attack, unspecified] 02-12-2024 Chronic Unclassified (4 sources) Admitted to alcohol detoxification center 02-03-2025 Unclassified (1 source) Alcohol use, unspecified with withdrawal with perceptual disturbance; Translations: [Alcohol use, unspecified with withdrawal with perceptual disturbance] Onset: 02-05-2025 Results Test Name Value Interpretation Reference Range Facility Absolute lymphocyte countOrd ered By: Casi Rebolledo on 05-08-2025 Lymphocytes Auto (Unsp spec) [#/Vol] 1.07 10*3/uL 0.83-4.51 [facility] Absolute neutrophil countOrd ered By: Casi Rebolledo on 05-08-2025 Neutrophils (Bld) [#/Vol] 5.8 10*3/uL 2.0-7.7 [facility] Anion gap in Serum or Plasma Ordered By: Casi Rebolledo on 05-08-2025 Anion gap [Moles/Vol] 19 mmol/L High 5-15 [facility] Automated lymphocyte count a s percentage of total leukocytesOrdered By: Casi Rebolledo on 05-08-2025 Lymphocytes/100 WBC Auto (Unsp spec) 14.1 % Low 19-41 [facility] BUN/creatinine ratioOrdered By: Casi Rebolledo on 05-08-2025 Urea nitrogen/Creatinine [Mass ratio] 11.3 mg/mg 10-20 [facility] Basophil percentageOrdered B y: Casi Rebolledo on 05-08-2025 Basophils/100 WBC (Bld) 0.7 % 0-1 [facility] Bilirubin, totalOrdered By: Casi Rebolledo on 05-08-2025 Bilirubin [Mass/Vol] 0.74 mg/dL 0.00-1.30 [facility] Carbon dioxide, total [Moles /volume] in Central venous bloodOrdered By: Casi Rebolledo on 05-08-2025 CO2 [Moles/Vol] 22.3 mmol/L 21.0-32.0 [facility] Chloride assayOrdered By: Renny Rebolledo on 05-08-2025 Chloride [Moles/Vol] 97 mmol/L Low 98-108 [facility] Eosinophil percentageOrdered By: Casi Rebolledo on 05-08-2025 Eosinophils/100 WBC (Bld) 1.6 % 0-5 [facility] Erythrocyte distribution wid th ratioOrdered By: Casi Rebolledo on 05-08-2025 Erythrocyte distribution width (RBC) [Ratio] 15.6 % High 11.6-14.6 [facility] Erythrocyte distribution wid th standard deviationOrdered By: Casi Rebolledo on 05-08-2025 Erythrocyte distribution width (RBC) [Ratio] 54.1 fl High 35.1-43.9 [facility] Glomerular filtration rate ( GFR) estimation/1.73 sq m using serum, plasma, or whole bOrdered By: Casi Rebolledo on 05-08-2025 GFR/1.73 sq M.predicted among non-blacks MDRD (S/P/Bld) [Vol rate/Area] 86 mL/min/{1.73_m2} >60 [facility] Comment on above: mL/min/1.73m2 CKD-EP I Creatinine Equation (2020) Hematocrit Auto (Bld) [Volum e fraction]Ordered By: Casi Rebolledo on 05-08-2025 Hematocrit (Bld) [Volume fraction] 44.5 % 40-54 [facility] Hemoglobin measurementOrdere d By: Casi Rebolledo on 05-08-2025 Hemoglobin (Bld) [Mass/Vol] 15.5 g/dL 13.0-16.5 [facility] Immature granulocytes/100 WB C Auto (Bld)Ordered By: Casi Rebolledo on 05-08-2025 Immature granulocytes/100 WBC (Bld) 0.500 % 0.0-0.9 [facility] Comment on above: IG% - Immature Granu locytes (promyelocytes, myelocytes and metamyelocytes) > 1% indicates that a LEFT SHIFT is Present. Laboratory - Chemistry and C hemistry - challengeOrdered By: Casi Rebolledo on 05-08-2025 AST [Catalytic activity/Vol] 34 U/L <38 [facility] MCV (mean corpuscular volume ) determinationOrdered By: Casi Rebolledo on 05-08-2025 MCV (RBC) [Entitic vol] 95.1 fL High 80-94 [facility] Mean corpuscular hemoglobin (MCH) determinationOrdered By: Casi Rebolledo on 05-08-2025 MCH (RBC) [Entitic mass] 33.1 pg High 27.0-32.0 [facility] Mean corpuscular hemoglobin concentration (MCHC) determinationOrdered By: Casi Rebolledo on 05-08-2025 MCHC (RBC) [Mass/Vol] 34.8 g/dL 32-36 [facility] Mean platelet volume determi nationOrdered By: Casi Rebolledo on 05-08-2025 Platelet mean volume (Bld) [Entitic vol] 10.0 fL 6.2-12.0 [facility] Monocyte percentageOrdered B y: Casi Rebolledo on 05-08-2025 Monocytes/100 WBC (Bld) 7.5 % 0-10 [facility] Neutrophil percentageOrdered By: Casi Rebolledo on 05-08-2025 Neutrophils/100 WBC (Bld) 75.6 % High 47-70 [facility] Nucleated red blood cell per centageOrdered By: Casi Rebolledo on 08-23-2025 Nucleated RBC/100 WBC (Bld) [Ratio] 0 % 0-5 [facility] Platelet countOrdered By: Renny Rebolledo on 05-08-2025 Platelets (Bld) [#/Vol] 163 10*3/uL 150-450 [facility] Potassium measurement (mass/ volume)Ordered By: Casi Rebolledo on 05-08-2025 Potassium (Unsp spec) [Mass/Vol] 3.4 mmol/L 3.3-5.1 [facility] RBC Auto (Bld) [#/Vol]Ordere d By: Casi Rebolledo on 05-08-2025 RBC (Bld) [#/Vol] 4.68 10*6/uL 4.6-6.2 [facility] Serum creatinine measurement (mass/volume)Ordered By: Casi Rebolledo on 05-08-2025 Creatinine [Mass/Vol] 1.01 mg/dL 0.70-1.20 [facility] Serum globulin measurementOr dered By: Casi Rebolledo on 05-08-2025 Globulin (S) [Mass/Vol] 3.3 g/dL 2.2-4.2 [facility] Serum glucose measurement (m ass/volume)Ordered By: Casi Rebolledo on 05-08-2025 Glucose [Mass/Vol] 139 mg/dL High 70-99 [facility] Serum or plasma alanine roberts otransferase (ALT) measurementOrdered By: Casi Rebolledo on 05-08-2025 ALT [Catalytic activity/Vol] 25 U/L <47 [facility] Serum or plasma albumin julian urement (mass/volume)Ordered By: Casi Rebolledo on 05-08-2025 Albumin [Mass/Vol] 4.6 g/dL 3.5-5.0 [facility] Serum or plasma albumin/glob ulin mass ratioOrdered By: Casi Rebolledo on 05-08-2025 Albumin/Globulin [Mass ratio] 1.4 {ratio} 0.9-2.4 [facility] Serum or plasma alkaline ivory sphatase measurementOrdered By: Casi Rebolledo on 05-08-2025 ALP [Catalytic activity/Vol] 98 U/L 40-129 [facility] Serum or plasma calcium julian urement (mass/volume)Ordered By: Casi Rebolledo on 05-08-2025 Calcium [Mass/Vol] 11.5 mg/dL High 7.6-11.0 [facility] Serum or plasma ethanol julian urement (mass/volume)Ordered By: Casi Rebolledo on 05-08-2025 Ethanol [Mass/Vol] mg/dL <10.1 [facility] Comment on above: This test is for med ical purposes only. The legal definition of intoxication varies according to local law. Serum or plasma urea nitroge n measurement (mass/volume)Ordered By: Casi Rebolledo on 05-08-2025 Urea nitrogen [Mass/Vol] 11 mg/dL 4-19 [facility] Sodium levelOrdered By: Francie Rebolledo on 05-08-2025 Sodium [Moles/Vol] 138 mmol/L 133-145 [facility] Total proteinOrdered By: Alida Rebolledo on 05-08-2025 Protein [Mass/Vol] 7.9 g/dL 5.9-8.4 [facility] Troponin T.cardiac [Mass/vol ume] in Serum or Plasma by High sensitivity methodOrdered By: Casi Rebolledo on 05-08-2025 Troponin T.cardiac High sensitivity method [Mass/Vol] 21 ng/L <22 [facility] Troponin T.cardiac High sensitivity method [Mass/Vol] 23 ng/L High <22 [facility] White blood cell (WBC) count Ordered By: Casi Rebolledo on 05-08-2025 WBC (Bld) [#/Vol] 7.6 10*3/uL 4.4-11.0 [facility] Discharge Instructionon 01-15 Discharge Instruction [facility] Medical Records Department [address] [place] [address] Instructions for Home/Discharge Instructions 02/05/25 1654 MR#: [id number] Acct: [id number] Name: ROSSY NERI Rep #: [id number] : 1965 59 From: Rajesh Gibson MD [...] 1703 Rajesh Gibson MD CC: Dr. Volodymyr Ortiz, DO; No Primary Care Physician Signed Normal [facility] Absolute lymphocyte countOrd ered By: Volodymyr Meyer on 02-03-2025 Lymphocytes Auto (Unsp spec) [#/Vol] 1.66 10*3/uL 0.83-4.51 [facility] Absolute lymphocyte countOrd ered By: Param Oquendo on 02-03-2025 Lymphocytes Auto (Unsp spec) [#/Vol] 1.25 10*3/uL 0.83-4.51 [facility] Absolute neutrophil countOrd ered By: Volodymyr Meyer on 02-03-2025 Neutrophils (Bld) [#/Vol] 6.4 10*3/uL 2.0-7.7 [facility] Absolute neutrophil countOrd ered By: Param Oquendo on 02-03-2025 Neutrophils (Bld) [#/Vol] 5.4 10*3/uL 2.0-7.7 [facility] Alcohol, Blood (Medical)-Ser umon 02-03-2025 SERUM ETOH < 10.1 Normal <=10.0 [facility] Comment on above: Result Comment: This test is for medical purposes only. The legal definition of intoxication varies according to local law. Performed By: #### L 100.0100, L505.5000, L501.9100, L500.4050 #### [facility] [address] [place], [place], [id number] Amphetamine detection with 1 000 ng/mL as cutoffOrdered By: Param Oquendo on 02-03-2025 Amphetamines Screen method >1000 ng/mL Ql (U) Negative < 200 ng/mL [facility] Anion gap in Serum or Plasma Ordered By: Volodymyr Meyer on 02-03-2025 Anion gap [Moles/Vol] 15 mmol/L 01-28 [facility] Anion gap in Serum or Plasma Ordered By: Param Oquendo on 02-03-2025 Anion gap [Moles/Vol] 13 mmol/L 01-28 [facility] Automated blood erythrocyte countOrdered By: Param Oquendo on 02-03-2025 RBC (Bld) [#/Vol] 4.39 10*6/uL Low 4.6-6.2 [facility] Comment on above: Performed By: #### L 100.0100, L505.5000, L501.9100, L500.4050 #### [facility] [address], [place], [id number] Automated blood hematocrit ( percentage)Ordered By: Param Oquendo on 02-03-2025 Hematocrit (Bld) [Volume fraction] 41.4 % Normal 40-54 [facility] Comment on above: Performed By: #### L 100.0100, L505.5000, L501.9100, L500.4050 #### [facility] [address], [place], [id number] Automated lymphocyte count a s percentage of total leukocytesOrdered By: Volodymyr Meyer on 02-03-2025 Lymphocytes/100 WBC Auto (Unsp spec) 18.2 % Low [facility] Automated lymphocyte count a s percentage of total leukocytesOrdered By: Param Oquendo on 02-03-2025 Lymphocytes/100 WBC Auto (Unsp spec) 16.3 % Low [facility] BUN/creatinine ratioOrdered By: Volodymyr Meyer on 02-03-2025 Urea nitrogen/Creatinine [Mass ratio] 14.4 mg/mg 07-05 [facility] BUN/creatinine ratioOrdered By: Param Oquendo on 02-03-2025 Urea nitrogen/Creatinine [Mass ratio] 13.9 mg/mg 10-20 [facility] Basophil percentageOrdered B y: Volodymyr Meyer on 02-03-2025 Basophils/100 WBC (Bld) 0.5 % 0-1 [facility] Basophil percentageOrdered B y: Param Oquendo on 02-03-2025 Basophils/100 WBC (Bld) 0.7 % Normal 0-1 [facility] Comment on above: Performed By: #### L 100.0100, L505.5000, L501.9100, L500.4050 #### [facility] [address] [place], [address] Bilirubin, totalOrdered By: Volodymyr Meyer on 02-03-2025 Bilirubin [Mass/Vol] 1.23 mg/dL 0.00-1.30 [facility] Bilirubin, totalOrdered By: Param Oquendo on 02-03-2025 Bilirubin [Mass/Vol] 0.90 mg/dL 0.00-1.30 [facility] CBC W/Diff, Automatedon 01-15 Absolute Lymph 1.66 X10 3/uL Normal 0.83-4.51 [facility] Comment on above: Performed By: #### L 100.0100, L505.5000, L501.9100, L500.4050 #### [facility] [address] [place], [address] Absolute Neut 6.4 X10 3/uL Normal 2.0-7.7 [facility] Comment on above: Performed By: #### L 100.0100, L505.5000, L501.9100, L500.4050 #### [facility] [address] [place], [address] Basophils/100 WBC (Bld) 0.5 % Normal 0-1 [facility] Comment on above: Performed By: #### L 100.0100, L505.5000, L501.9100, L500.4050 #### [facility] [address] [place], [address] Eosinophils/100 WBC (Bld) 1.9 % Normal 0-5 [facility] Comment on above: Performed By: #### L 100.0100, L505.5000, L501.9100, L500.4050 #### [facility] [address] [place], [address] Erythrocyte distribution width (RBC) [Ratio] 15.3 % High 11.6-14.6 [facility] Comment on above: Performed By: #### L 100.0100, L505.5000, L501.9100, L500.4050 #### [facility] [address] [place], [address] Hematocrit (Bld) [Volume fraction] 40.7 % Normal 40-54 [facility] Comment on above: Performed By: #### L 100.0100, L505.5000, L501.9100, L500.4050 #### [facility] [address] [place], [address] Hemoglobin (Bld) [Mass/Vol] 14.1 g/dL Normal 13.0-16.5 [facility] Comment on above: Performed By: #### L 100.0100, L505.5000, L501.9100, L500.4050 #### [facility] [address] [place], [address] IG% 0.800 Normal 0.0-0.9 [facility] Comment on above: Result Comment: IG% - Immature Granulocytes (promyelocytes, myelocytes and metamyelocytes) > 1% indicates that a LEFT SHIFT is Present. Performed By: #### L 100.0100, L505.5000, L501.9100, L500.4050 #### [facility] [address] [place], [address] Lymphocytes/100 WBC (Bld) 18.2 % Low 19-41 [facility] Comment on above: Performed By: #### L 100.0100, L505.5000, L501.9100, L500.4050 #### [facility] [address] [place], [address] MCH (RBC) [Entitic mass] 32.9 pg High 27.0-32.0 [facility] Comment on above: Performed By: #### L 100.0100, L505.5000, L501.9100, L500.4050 #### [facility] [address] [place], [address] MCHC (RBC) [Mass/Vol] 34.6 g/dL Normal 32-36 [facility] Comment on above: Performed By: #### L 100.0100, L505.5000, L501.9100, L500.4050 #### [facility] [address] [place], [address] MCV (RBC) [Entitic vol] 94.9 fL High 80-94 [facility] Comment on above: Performed By: #### L 100.0100, L505.5000, L501.9100, L500.4050 #### [facility] [address] [place], [address] Monocytes/100 WBC (Bld) 8.6 % Normal 0-10 [facility] Comment on above: Performed By: #### L 100.0100, L505.5000, L501.9100, L500.4050 #### [facility] [address] [place], [address] Neutrophils/100 WBC (Bld) 70.0 % Normal 47-70 [facility] Comment on above: Performed By: #### L 100.0100, L505.5000, L501.9100, L500.4050 #### [facility] [address] [place], [address] Nucleated RBC (Bld) [#/Vol] 0 10*3/uL Normal 0-5 [facility] Comment on above: Performed By: #### L 100.0100, L505.5000, L501.9100, L500.4050 #### [facility] [address] [place], [address] Platelet mean volume (Bld) [Entitic vol] 11.2 fL Normal 6.2-12.0 [facility] Comment on above: Performed By: #### L 100.0100, L505.5000, L501.9100, L500.4050 #### [facility] [address] [place], [address] Platelets (Bld) [#/Vol] 103 10*3/uL Low 150-450 [facility] Comment on above: Performed By: #### L 100.0100, L505.5000, L501.9100, L500.4050 #### [facility] [address] [place], [address] RBC (Bld) [#/Vol] 4.29 10*6/uL Low 4.6-6.2 [facility] Comment on above: Performed By: #### L 100.0100, L505.5000, L501.9100, L500.4050 #### [facility] [address] [place], [address] RDW SD 52.7 fl High 35.1-43.9 [facility] Comment on above: Performed By: #### L 100.0100, L505.5000, L501.9100, L500.4050 #### [facility] [address] [place], [address] WBC (Bld) [#/Vol] 9.1 10*3/uL Normal 4.4-11.0 [facility] Comment on above: Performed By: #### L 100.0100, L505.5000, L501.9100, L500.4050 #### [facility] [address] [place], [address] Absolute Lymph 1.25 X10 3/uL Normal 0.83-4.51 [facility] Comment on above: Performed By: #### L 100.0100, L505.5000, L501.9100, L500.4050 #### [facility] [address] [place], [address] Absolute Neut 5.4 X10 3/uL Normal 2.0-7.7 [facility] Comment on above: Performed By: #### L 100.0100, L505.5000, L501.9100, L500.4050 #### [facility] [address] [place], [address] IG% 0.700 Normal 0.0-0.9 [facility] Comment on above: Result Comment: IG% - Immature Granulocytes (promyelocytes, myelocytes and metamyelocytes) > 1% indicates that a LEFT SHIFT is Present. Performed By: #### L 100.0100, L505.5000, L501.9100, L500.4050 #### [facility] [address] [place], [address] Lymphocytes/100 WBC (Bld) 16.3 % Low 19-41 [facility] Comment on above: Performed By: #### L 100.0100, L505.5000, L501.9100, L500.4050 #### [facility] [address] [place], [address] RDW SD 52.8 fl High 35.1-43.9 [facility] Comment on above: Performed By: #### L 100.0100, L505.5000, L501.9100, L500.4050 #### [facility] [address] [place], [address] Calculated very low density lipoprotein (VLDL) cholesterol measurementOrdered By: Volodymyr Meyer on 02-03-2025 Calculated very low density lipoprotein (VLDL) cholesterol measurement 23 mg/dL 5-40 [facility] Carbon dioxide, total [Moles /volume] in Central venous bloodOrdered By: Volodymyr Meyer on 02-03-2025 CO2 [Moles/Vol] 22.2 mmol/L 21.0-32.0 [facility] Carbon dioxide, total [Moles /volume] in Central venous bloodOrdered By: Param Oquendo on 02-03-2025 CO2 [Moles/Vol] 25.4 mmol/L 21.0-32.0 [facility] Chloride assayOrdered By: Adelfo Meyer on 02-03-2025 Chloride [Moles/Vol] 99 mmol/L 98-108 [facility] Chloride assayOrdered By: Leopoldo Oquendo on 02-03-2025 Chloride [Moles/Vol] 97 mmol/L Low 98-108 [facility] Comprehensive Metabolic Prof ilon 02-03-2025 Albumin [Mass/Vol] 4.3 g/dL Normal 3.5-5.0 [facility] Comment on above: Performed By: #### L 501.9985, L500.4100, L501.9520, L503.0106, L500.4050 #### [facility] [address] [place], [address] Albumin/Globulin [Mass ratio] 1.4 {ratio} Normal 0.9-2.4 [facility] Comment on above: Performed By: #### L 501.9985, L500.4100, L501.9520, L503.0106, L500.4050 #### [facility] [address] [place], [address] ALK PHOS 94 U/L Normal 40-129 [facility] Comment on above: Performed By: #### L 501.9985, L500.4100, L501.9520, L503.0106, L500.4050 #### [facility] [address] [place], [address] ALT [Catalytic activity/Vol] 27 U/L Normal <=46 [facility] Comment on above: Performed By: #### L 501.9985, L500.4100, L501.9520, L503.0106, L500.4050 #### [facility] [address] [place], [address] AST [Catalytic activity/Vol] 49 U/L High <=37 [facility] Comment on above: Result Comment: Hemo lysis present, Results??could be affected. ?? Performed By: #### L 501.9985, L500.4100, L501.9520, L503.0106, L500.4050 #### [facility] [address] [place], [address] Bilirubin [Mass/Vol] 1.23 mg/dL Normal 0.00-1.30 [facility] Comment on above: Performed By: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 L503.0106, L500.4050 #### [facility] [address] [place], [address] Total proteinOrdered By: Musa Meyer on 02-03-2025 Protein [Mass/Vol] 7.4 g/dL 5.9-8.4 [facility] Total proteinOrdered By: Matt Oquendo on 02-03-2025 Protein [Mass/Vol] 7.3 g/dL 5.9-8.4 [facility] Triglycerides measurementOrd ered By: Volodymyr Meyer on 02-03-2025 Triglyceride [Mass/Vol] 113 mg/dL <199 [facility] Comment on above: The drugs N-Acetylcy steine and Metamizole may falsely depress this assay. Normal range: <150 mg/dLBorderline High: 150-199 mg/dLHigh: 200-499 mg/dLVery High: >500 mg/dL Urine Drug Screen (VISTA)on 02-03-2025 AMPHETAMINES Negative Normal <1000 ng/mL [facility] Comment on above: Performed By: #### L 100.0100, L505.5000, L501.9100, L500.4050 #### [facility] [address] [place], [address] BARBITIURATES Negative Normal < 200 ng/mL [facility] Comment on above: Performed By: #### L 100.0100, L505.5000, L501.9100, L500.4050 #### [facility] [address] [place], [address] BENZODIAZIPINE Negative Normal < 200 ng/mL [facility] Comment on above: Performed By: #### L 100.0100, L505.5000, L501.9100, L500.4050 #### [facility] [address] [place], [address] BUP Ur Drug Scr Negative Normal < 200 ng/mL [facility] Comment on above: Performed By: #### L 100.0100, L505.5000, L501.9100, L500.4050 #### [facility] [address] [place], [address] COCAINE Negative Normal < 300 ng/mL [facility] Comment on above: Performed By: #### L 100.0100, L505.5000, L501.9100, L500.4050 #### [facility] [address] [place], [address] Fentanyl Negative Normal [facility] Comment on above: Performed By: #### L 100.0100, L505.5000, L501.9100, L500.4050 #### [facility] [address] [place], [address] METHADONE Negative Normal < 300 ng/mL [facility] Comment on above: Performed By: #### L 100.0100, L505.5000, L501.9100, L500.4050 #### [facility] [address] [place], [address] OPIATES Negative Normal < 300 ng/mL [facility] Comment on above: Performed By: #### L 100.0100, L505.5000, L501.9100, L500.4050 #### [facility] [address] [place], [address] OXYCODONE Negative Normal < 100 ng/mL [facility] Comment on above: Performed By: #### L 100.0100, L505.5000, L501.9100, L500.4050 #### [facility] [address] [place], [address] PCP Negative Normal < 25 ng/mL [facility] Comment on above: Performed By: #### L 100.0100, L505.5000, L501.9100, L500.4050 #### [facility] [address] [place], [address] THC Negative Normal < 50 ng/mL [facility] Comment on above: Performed By: #### L 100.0100, L505.5000, L501.9100, L500.4050 #### [facility] [address] [place], [address] Urine benzodiazepine levelOr dered By: Param Oquendo on 02-03-2025 Benzodiazepines Ql (U) Negative < 200 ng/mL [facility] Urine cocaine levelOrdered B y: Param Oquendo on 02-03-2025 Cocaine Ql (U) Negative < 300 ng/mL [facility] Urine ruiwi-9-ibjxdaueidkgwn abinol (THC) measurementOrdered By: Param Oquendo on 02-03-2025 Cannabinoids Screen Ql (U) Negative < 50 ng/mL [facility] Urine phencyclidine (PCP) de tectionOrdered By: Param Oquendo on 02-03-2025 Phencyclidine Ql (U) Negative < 25 ng/mL [facility] Vitamin B12on 02-03-2025 Cobalamin (Vitamin B12) [Mass/Vol] 583 pg/mL Normal 180-914 [facility] Comment on above: Performed By: #### L 501.9985, L500.4100, L501.9520, L503.0106, L500.4050 #### [facility] [address] [place], [address] Vitamin B12 ser/plasOrdered By: Volodymyr Meyer on 02-03-2025 Cobalamin (Vitamin B12) [Mass/Vol] 583 pg/mL 180-914 [facility] White blood cell (WBC) count Ordered By: Volodymyr Meyer on 02-03-2025 WBC (Bld) [#/Vol] 9.1 10*3/uL 4.4-11.0 [facility] White blood cell (WBC) count Ordered By: Param Oquendo on 02-03-2025 WBC (Bld) [#/Vol] 7.7 10*3/uL Normal 4.4-11.0 [facility] Comment on above: Performed By: #### L 100.0100, L505.5000, L501.9100, L500.4050 #### [facility] [address] [place], [address] Basic Metabolic Profile (BMP )on 06-01-2024 BUN/CRE 13.5 RATIO Normal 10-20 [facility] Comment on above: Order Comment: PT IN PROCEDURE, WILL DRAW WHEN DONE Performed By: #### L 100.0100, L505.5000, L501.9100, L500.4050 #### [facility] [address] [place], [address] CA,Total 9.4 mg/dL Normal 8.5-10.1 [facility] Comment on above: Order Comment: PT IN PROCEDURE, WILL DRAW WHEN DONE Performed By: #### L 100.0100, L505.5000, L501.9100, L500.4050 #### [facility] [address] [place], [address] Chloride [Moles/Vol] 104 mmol/L Normal 98-107 [facility] Comment on above: Order Comment: PT IN PROCEDURE, WILL DRAW WHEN DONE Performed By: #### L 100.0100, L505.5000, L501.9100, L500.4050 #### [facility] [address] [place], [address] CO2 [Moles/Vol] 25.0 mmol/L Normal 21.0-32.0 [facility] Comment on above: Order Comment: PT IN PROCEDURE, WILL DRAW WHEN DONE Performed By: #### L 100.0100, L505.5000, L501.9100, L500.4050 #### [facility] [address] [place], [address] Creatinine [Mass/Vol] 0.97 mg/dL Normal 0.70-1.30 [facility] Comment on above: Order Comment: PT IN PROCEDURE, WILL DRAW WHEN DONE Result Comment: The validity of the calculated GFR GFRAA in patients over 70 years has not been determined. Clinical correlation is essential. Performed By: #### L 100.0100, L505.5000, L501.9100, L500.4050 #### [facility] [address] [place], [address] ECRCL 83.12 ml/min Normal [facility] Comment on above: Order Comment: PT IN PROCEDURE, WILL DRAW WHEN DONE Performed By: #### L 100.0100, L505.5000, L501.9100, L500.4050 #### [facility] [address] [place], [address] EST GFR - AA 103 mL/min Normal >60 [facility] Comment on above: Order Comment: PT IN PROCEDURE, WILL DRAW WHEN DONE Result Comment: Afri can Dutch GFR Calc Performed By: #### L 100.0100, L505.5000, L501.9100, L500.4050 #### [facility] [address] [place], [address] GAP 9 Normal 5-15 [facility] Comment on above: Order Comment: PT IN PROCEDURE, WILL DRAW WHEN DONE Performed By: #### L 100.0100, L505.5000, L501.9100, L500.4050 #### [facility] [address] [place], [address] GFR/1.73 sq M.predicted among non-blacks MDRD (S/P/Bld) [Vol rate/Area] 85 mL/min/{1.73_m2} Normal >60 [facility] Comment on above: Order Comment: PT IN PROCEDURE, WILL DRAW WHEN DONE Result Comment: Non- GFR Calc Performed By: #### L 100.0100, L505.5000, L501.9100, L500.4050 #### [facility] [address] [place], [address] Glucose [Mass/Vol] 75 mg/dL Normal 74-106 [facility] Comment on above: Order Comment: PT IN PROCEDURE, WILL DRAW WHEN DONE Performed By: #### L 100.0100, L505.5000, L501.9100, L500.4050 #### [facility] [address] [place], [address] Potassium [Moles/Vol] 3.5 mmol/L Normal 3.5-5.1 [facility] Comment on above: Order Comment: PT IN PROCEDURE, WILL DRAW WHEN DONE Performed By: #### L 100.0100, L505.5000, L501.9100, L500.4050 #### [facility] [address] [place], [address] Sodium [Moles/Vol] 138 mmol/L Normal 136-145 [facility] Comment on above: Order Comment: PT IN PROCEDURE, WILL DRAW WHEN DONE Performed By: #### L 100.0100, L505.5000, L501.9100, L500.4050 #### [facility] [address] [place], [address] Urea nitrogen [Mass/Vol] 13 mg/dL Normal 7-18 [facility] Comment on above: Order Comment: PT IN PROCEDURE, WILL DRAW WHEN DONE Performed By: #### L 100.0100, L505.5000, L501.9100, L500.4050 #### [facility] [address] [place], [address] CBC W/Diff, Automatedon 05-17 Anisocytosis Ql (Bld) 2+ Normal [facility] Comment on above: Order Comment: PT IN PROCEDURE, WILL DRAW WHEN DONE Performed By: #### L 100.0100, L505.5000, L501.9100, L500.4050 #### [facility] [address] [place], [address] STOMATOCYTE 2+ Normal [facility] Comment on above: Order Comment: PT IN PROCEDURE, WILL DRAW WHEN DONE Performed By: #### L 100.0100, L505.5000, L501.9100, L500.4050 #### [facility] [address] [place], [address] PLT EST MOD DEC Normal ADEQ [facility] Comment on above: Order Comment: PT IN PROCEDURE, WILL DRAW WHEN DONE Performed By: #### L 100.0100, L505.5000, L501.9100, L500.4050 #### [facility] [address] [place], [address] SMEAR COMMENT SCANNED Normal [facility] Comment on above: Order Comment: PT IN PROCEDURE, WILL DRAW WHEN DONE Performed By: #### L 100.0100, L505.5000, L501.9100, L500.4050 #### [facility] [address] [place], [address] Discharge Instructionon 05-17 Discharge Instruction [facility] Medical Records Department [address] [place] [address] Instructions for Home/Discharge Instructions 06/01/24 1409 MR#: [id number] Acct: [id number] Name: ROSSY NERI Rep #: [id number] : 1965 59 From: Arthur Barber DO [...] placed): Home, Self Care 06/01/24 1412 Arthur Barber DO CC: Dr. Rajesh Gibson MD; No Primary Care Physician Signed Normal [facility] Lipid Profileon 06-01-2024 Cholesterol [Mass/Vol] 196 mg/dL Normal 200 [facility] Comment on above: Order Comment: PT IN PROCEDURE, WILL DRAW WHEN DONE Result Comment: <200 mg/dL Desirable 200-240 mg/dL Borderline >240 mg/dL High Risk Performed By: #### L 100.0100, L505.5000, L501.9100, L500.4050 #### [facility] [address] [facility], [address] Cholesterol in HDL [Mass/Vol] 41 mg/dL Normal [facility] Comment on above: Order Comment: PT IN PROCEDURE, WILL DRAW WHEN DONE Result Comment: The drugs N-Acetylcysteine and Metamizole may falsely depress this assay. Reference Range HDL <40 mg/dL Low HDL Cholesterol HDL >or= 60 mg/dL High HDL Cholesterol Performed By: #### L 100.0100, L505.5000, L501.9100, L500.4050 #### [facility] [address] [place], [address] Cholesterol in LDL [Mass/Vol] 107 mg/dL Normal 0-130 [facility] Comment on above: Order Comment: PT IN PROCEDURE, WILL DRAW WHEN DONE Performed By: #### L 100.0100, L505.5000, L501.9100, L500.4050 #### [facility] [address] [place], [address] Cholesterol in VLDL [Mass/Vol] 48 mg/dL High 5-40 [facility] Comment on above: Order Comment: PT IN PROCEDURE, WILL DRAW WHEN DONE Performed By: #### L 100.0100, L505.5000, L501.9100, L500.4050 #### [facility] [address] [place], [address] Triglyceride [Mass/Vol] 238 mg/dL High [facility] Comment on above: Order Comment: PT IN PROCEDURE, WILL DRAW WHEN DONE Result Comment: The drugs N-Acetylcysteine and Metamizole may falsely depress this assay. Serum Triglycerides Reference Interval Normal <150 mg/dL Borderline high 150 - 199 mg/dL High 200 - 499 mg/dL Very High > or = 500 mg/dL Performed By: #### L 100.0100, L505.5000, L501.9100, L500.4050 #### [facility] [address] [place], [address] Stress Reporton 06-01-2024 Stress Report [facility] [address] [place] [address] MR#: [id number] Acct: [id number] Name: ROSSY NERI Rep #: [id number] : 1965 59 From: Anastasia Nicholas MD Primary Care: Care Physician,No Primary Status: ADM APOLLO Referring Dr: Nkechi Horton Stress Test Report Date: 06/01/2024 Procedure: [...] of 57%. This note was generated with DNS:Net dictation software. It may contain incorrect words, spelling, and punctuation that were not noted in checking the note before signing. 06/01/241223 Date Anastasia Nicholas MD CC: Dr. Arthur Barber DO; Dr. Harish Rowe DO; Dr. Rajesh Gibson MD; No Primary Care Physician Date Dictated: 06/01/241219 Date Transcribed: 06/01/241219 Inventory Checker: AMBER Signed Normal [facility] BNP,B-Type NATRIURETIC PEPTI Yasmin 05-31-2024 Natriuretic peptide B (Bld) [Mass/Vol] 61.2 pg/mL Normal 0-100 [facility] Comment on above: Performed By: #### L 100.0100, L505.5000, L501.9100, L500.4050 #### [facility] [address] [place], [address] Basic Metabolic Profile (BMP )on 05-31-2024 BUN/CRE 17.7 RATIO Normal 10-20 [facility] Comment on above: Order Comment: 1Y Performed By: #### L 100.0100, L505.5000, L501.9100, L500.4050 #### [facility] [address] [place], [address] CA,Total 9.9 mg/dL Normal 8.5-10.1 [facility] Comment on above: Order Comment: 1Y Performed By: #### L 100.0100, L505.5000, L501.9100, L500.4050 #### [facility] [address] [place], [address] Chloride [Moles/Vol] 94 mmol/L Low 98-107 [facility] Comment on above: Order Comment: 1Y Performed By: #### L 100.0100, L505.5000, L501.9100, L500.4050 #### [facility] [address] [place], [address] CO2 [Moles/Vol] 23.0 mmol/L Normal 21.0-32.0 [facility] Comment on above: Order Comment: 1Y Performed By: #### L 100.0100, L505.5000, L501.9100, L500.4050 #### [facility] [address] [place], [address] Creatinine [Mass/Vol] 1.30 mg/dL Normal 0.70-1.30 [facility] Comment on above: Order Comment: 1Y Result Comment: The validity of the calculated GFR GFRAA in patients over 70 years has not been determined. Clinical correlation is essential. Performed By: #### L 100.0100, L505.5000, L501.9100, L500.4050 #### [facility] [address] [place], [address] ECRCL 62.52 ml/min Normal [facility] Comment on above: Order Comment: 1Y Performed By: #### L 100.0100, L505.5000, L501.9100, L500.4050 #### [facility] [address] [place], [address] EST GFR - AA 73 mL/min Normal >60 [facility] Comment on above: Order Comment: 1Y Result Comment: Afri can Dutch GFR Calc Performed By: #### L 100.0100, L505.5000, L501.9100, L500.4050 #### [facility] [address] [place], [address] GAP 14 Normal 5-15 [facility] Comment on above: Order Comment: 1Y Performed By: #### L 100.0100, L505.5000, L501.9100, L500.4050 #### [facility] [address] [place], [address] GFR/1.73 sq M.predicted among non-blacks MDRD (S/P/Bld) [Vol rate/Area] 60 mL/min/{1.73_m2} Normal >60 [facility] Comment on above: Order Comment: 1Y Result Comment: Non- GFR Calc Performed By: #### L 100.0100, L505.5000, L501.9100, L500.4050 #### [facility] [address] [place], [address] Glucose [Mass/Vol] 107 mg/dL High 74-106 [facility] Comment on above: Order Comment: 1Y Result Comment: Fast ing Glucose result from 100 to 125 mg/dL suggests IMPAIRED HOMEOSTASIS per A.D.A. criteria. Performed By: #### L 100.0100, L505.5000, L501.9100, L500.4050 #### [facility] [address] [place], [address] Potassium [Moles/Vol] 3.2 mmol/L Low 3.5-5.1 [facility] Comment on above: Order Comment: 1Y Performed By: #### L 100.0100, L505.5000, L501.9100, L500.4050 #### [facility] [address] [place], [address] Sodium [Moles/Vol] 131 mmol/L Low 136-145 [facility] Comment on above: Order Comment: 1Y Performed By: #### L 100.0100, L505.5000, L501.9100, L500.4050 #### [facility] [address] [place], [address] Urea nitrogen [Mass/Vol] 23 mg/dL High 7-18 [facility] Comment on above: Order Comment: 1Y Performed By: #### L 100.0100, L505.5000, L501.9100, L500.4050 #### [facility] [address] [place], [address] CBC W/Diff, Automatedon 09 Absolute Lymph 1.25 X10 3/uL Normal 0.83-4.51 [facility] Comment on above: Performed By: #### L 100.0100, L503.6620, L500.2500, L501.5200, L501.5425, L300.8000 #### [facility] [address] [place], [address] Absolute Neut 8.7 X10 3/uL High 2.0-7.7 [facility] Comment on above: Performed By: #### L 100.0100, L503.6620, L500.2500, L501.5200, L501.5425, L300.8000 #### [facility] [address] [place], [address] Basophils/100 WBC (Bld) 0.8 % Normal 0-1 [facility] Comment on above: Performed By: #### L 100.0100, L503.6620, L500.2500, L501.5200, L501.5425, L300.8000 #### [facility] [address] [place], [address] Eosinophils/100 WBC (Bld) 1.2 % Normal 0-5 [facility] Comment on above: Performed By: #### L 100.0100, L503.6620, L500.2500, L501.5200, L501.5425, L300.8000 #### [facility] [address] [place], [address] Erythrocyte distribution width (RBC) [Ratio] 13.7 % Normal 11.6-14.6 [facility] Comment on above: Performed By: #### L 100.0100, L503.6620, L500.2500, L501.5200, L501.5425, L300.8000 #### [facility] [address] [place], [address] Hematocrit (Bld) [Volume fraction] 47.7 % Normal 40-54 [facility] Comment on above: Performed By: #### L 100.0100, L503.6620, L500.2500, L501.5200, L501.5425, L300.8000 #### [facility] [address] [place], [address] Hemoglobin (Bld) [Mass/Vol] 16.9 g/dL High 13.0-16.5 [facility] Comment on above: Performed By: #### L 100.0100, L503.6620, L500.2500, L501.5200, L501.5425, L300.8000 #### [facility] [address] [place], [address] IG% 0.400 Normal 0.0-0.9 [facility] Comment on above: Result Comment: IG% - Immature Granulocytes (promyelocytes, myelocytes and metamyelocytes) > 1% indicates that a LEFT SHIFT is Present. Performed By: #### L 100.0100, L503.6620, L500.2500, L501.5200, L501.5425, L300.8000 #### [facility] [address] [place], [address] Lymphocytes/100 WBC (Bld) 11.3 % Low 19-41 [facility] Comment on above: Performed By: #### L 100.0100, L503.6620, L500.2500, L501.5200, L501.5425, L300.8000 #### [facility] [address] [place], [address] MCH (RBC) [Entitic mass] 33.9 pg High 27.0-32.0 [facility] Comment on above: Performed By: #### L 100.0100, L503.6620, L500.2500, L501.5200, L501.5425, L300.8000 #### [facility] [address] [place], [address] MCHC (RBC) [Mass/Vol] 35.4 g/dL Normal 32-36 [facility] Comment on above: Performed By: #### L 100.0100, L503.6620, L500.2500, L501.5200, L501.5425, L300.8000 #### [facility] [address] [place], [address] MCV (RBC) [Entitic vol] 95.6 fL High 80-94 [facility] Comment on above: Performed By: #### L 100.0100, L503.6620, L500.2500, L501.5200, L501.5425, L300.8000 #### [facility] [address] [place], [address] Monocytes/100 WBC (Bld) 7.1 % Normal 0-10 [facility] Comment on above: Performed By: #### L 100.0100, L503.6620, L500.2500, L501.5200, L501.5425, L300.8000 #### [facility] [address] [place], [address] Neutrophils/100 WBC (Bld) 79.2 % High 47-70 [facility] Comment on above: Performed By: #### L 100.0100, L503.6620, L500.2500, L501.5200, L501.5425, L300.8000 #### [facility] [address] [place], [address] Nucleated RBC (Bld) [#/Vol] 0 10*3/uL Normal 0-5 [facility] Comment on above: Performed By: #### L 100.0100, L503.6620, L500.2500, L501.5200, L501.5425, L300.8000 #### [facility] [address] [place], [address] Platelet mean volume (Bld) [Entitic vol] 10.5 fL Normal 6.2-12.0 [facility] Comment on above: Performed By: #### L 100.0100, L503.6620, L500.2500, L501.5200, L501.5425, L300.8000 #### [facility] [address] [place], [address] Platelets (Bld) [#/Vol] 142 10*3/uL Low 150-450 [facility] Comment on above: Performed By: #### L 100.0100, L503.6620, L500.2500, L501.5200, L501.5425, L300.8000 #### [facility] [address] [place], [address] RBC (Bld) [#/Vol] 4.99 10*6/uL Normal 4.6-6.2 [facility] Comment on above: Performed By: #### L 100.0100, L503.6620, L500.2500, L501.5200, L501.5425, L300.8000 #### [facility] [address] [place], [address] RDW SD 48.9 fl High 35.1-43.9 [facility] Comment on above: Performed By: #### L 100.0100, L503.6620, L500.2500, L501.5200, L501.5425, L300.8000 #### [facility] [address] [place], [address] WBC (Bld) [#/Vol] 11.0 10*3/uL Normal 4.4-11.0 [facility] Comment on above: Performed By: #### L 100.0100, L503.6620, L500.2500, L501.5200, L501.5425, L300.8000 #### [facility] [address] [place], [address] CTA Chest W/WO Contraston CTA Chest W/WO Contrast [facility] [address] [place] [address] CTA Chest W/WO Contrast MR#: [id number] Acct: [id number] Name: ROSSY NERI Rep #: [id number] : 1965 M 59 From: Ike Rhoades PCP: Care Physician,No Primary Status: [facility] ER Study: CTA Chest W/WO Contrast Date of Exam: 05/31/24 Exam# [id number] Ordering Dr: Harish Rowe DO [id number] STUDY: CTA Chest WO/W Contrast Injection 05/31/2024 [...] at 14:37 EDT , CC: Dr. Harish Bland-Andrew, DO; No Primary Care Physician Inventory Checker: Signed Normal [facility] Chest 1 View (Portable)on Chest 1 View (Portable) [facility] Imaging Services [address] [place] [address] Chest 1 View (Portable) MR#: [id number] Acct: [id number] Name: ROSSY NERI Rep #: [id number] : 1965 M 59 From: Bar Rice MD PCP: Care Physician,No Primary Status: [facility] ER Study: Chest 1 View (Portable) Date of Exam: 05/31/24 Exam# [id number] Ordering Dr: Harish Rowe DO [id number] STUDY: X-RAY CHEST REASON FOR EXAM: Male, [...] at 11:23 EDT , CC: Dr. Harish Rowe DO; No Primary Care Physician Inventory Checker: Signed Normal [facility] D-Dimer Quantitative (DVT/PE )on 05-31-2024 D-DIMER QUANT 1.70 FEU/ug/m Invalid Interpretation Code 0.27-0.49 [facility] Comment on above: Order Comment: CRITI BRANDON VALUE CALLED TO MOLLY GRANDE05/31/24 1144 Argenis Gen.RESULTS READ BACK BY SAME. Result Comment: D-Di lita ELEVATED (>0.49): Additional studies and clinical assessments are indicated to conclude diagnosis of: Deep Vein Thrombosis (DVT) or Pulmonary Embolism (PE) Performed By: #### L 100.0100, L505.5000, L501.9100, L500.4050 #### [facility] [address] [place], [address] Emergency Department Summary on 05-31-2024 Emergency Department Summary [facility] Medical Records Department [address] [place] [address] Emergency Department Summary 05/31/24 MR#: [id number] Acct: [id number] Name: ROSSY NERI Rep #: [id number] : 1965 59 From: Harish Rowe DO PCP: Care Physician,No Primary Status:ADM APOLLO Location: [place] [address] HPI History of Present Illness Chief Complaint: [...] physician: Chest x-ray without pneumonia, effusion, pneumothorax [facility] Medical History (Updated 05/31/24 @ 17:58 by [...] H 155/11 (more content not included)... Normal [facility] H AND P Exam - Hospitaliston 05-31-2024 H&P Exam - Hospitalist [facility] Medical Records Department [address] [place] [address] H P Exam - Hospitalist 05/31/24 1735 MR#: [id number] Acct: [id number] Name: ROSSY NERI Rep #: [id number] : 1965 59 From: Rajesh Gibson MD PCP: Care Physician,No Primary Status:ADM APOLLO Location: [place] [address] HPI - General General Date of Admission: [...] to be seen by neurology at the [facility] but this was over 10 years ago and he has not been back because they told him that they could not fix him. I did encourage him to follow back up with neurology to see if there have been any treatments developed in the interim. [facility] Medical History (Updated 05/31/24 @ [...] Blood Pres (more content not included)... Normal [facility] L501.4020on 05-31-2024 TROPONIN-I HS 97 pg/mL High 3.0-78.0 [facility] Comment on above: Order Comment: Comme nts: SPECIMEN #2'TROP' Serial specimen #1, #2 or #3: 2 Result Comment: Plea se Note: New Test Units and Gender Specific Reference Ranges. For more information see Policy Stat Procedure Bricelyn High Sensitivity Troponin (TNIH) and attachments. Performed By: #### L 100.0100, L505.5000, L501.9100, L500.4050 #### [facility] [address] [place], [place], [address] TROPONIN-I HS 98 pg/mL High 3.0-78.0 [facility] Comment on above: Order Comment: 'TROP ' Serial specimen #1, #2 or #3: 1 Result Comment: Plea se Note: New Test Units and Gender Specific Reference Ranges. For more information see Policy Stat Procedure Bricelyn High Sensitivity Troponin (TNIH) and attachments. Performed By: #### L 100.0100, L505.5000, L501.9100, L500.4050 #### [facility] [address] [place], [place], [address] TROPONIN-I HS 107 pg/mL High 3.0-78.0 [facility] Comment on above: Result Comment: Ralph teixeira Note: New Test Units and Gender Specific Reference Ranges. For more information see Policy Stat Procedure Bricelyn High Sensitivity Troponin (TNIH) and attachments. Performed By: #### L 100.0100, L505.5000, L501.9100, L500.4050 #### [facility] [address] [place], [address] L501.5425on 05-31-2024 TROPONIN-I HS 121 pg/mL Invalid Interpretation Code 3.0-78.0 [facility] Comment on above: Order Comment: 1Y Result Comment: Crit ical Result(s) Called at: 11:13:15 05/31/2024 by: KARINE MENG to Maribel Marte. Results read back by same. Please Note: New Test Units and Gender Specific Reference Ranges. For more information see Policy Stat Procedure Bricelyn High Sensitivity Troponin (TNIH) and attachments. Performed By: #### L 100.0100, L505.5000, L501.9100, L500.4050 #### [facility] [address] [place], [address] Magnesiumon 05-31-2024 Magnesium [Mass/Vol] 2.2 mg/dL Normal 1.6-2.6 [facility] Comment on above: Order Comment: 1Y Performed By: #### L 100.0100, L505.5000, L501.9100, L500.4050 #### [facility] [address] [place], [address] Cardiology Visit Reporton Cardiology Visit Report [facility] [address] [place], [place] [address] OFFICE VISIT Date of Service: 03/11/24 MR#: [id number] Acct: [id number] Name: ROSSY NERI Rep #: [id number] : 1965 Provider: CHEPE Byers Age/Sex: 59/M Location: [facility] Status: Signed HPI [facility] History of Present Illness Details: Rossy Neri is a 59 year old male that presented to [facility] 02/12/2024 with concerns over a stroke. 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
[2025-05-08 22:12] LABS: Hematocrit 38.7 % (40-54); Hemoglobin 13.4 g/dL (13.0-16.5); Immature Granulocytes Count 0.040 X10^3/uL (0.0-0.0); Mean Corp Hgb Conc 34.6 g/dL (32-36); Mean Corpuscular Volume 96.5 fL (80-94); Mean Platelet Vol. 10.5 fl (6.2-12.0); NRBC Flagged by Analyzer 0 % (0-5); Platelet Count 156 K/mm3 (150-450); RBC Distribution Width CV 16.0 % (11.6-14.6); RBC Distribution Width SD 55.8 fl (35.1-43.9); Red Blood Count 4.01 M/mm3 (4.6-6.2); White Blood Count 8.3 K/mm3 (4.4-11.0)
[2025-05-08 22:14] LABS: Barbiturate Urine PRESUMPTIVE POSITIVE (< 200 ng/mL); Benzodiazepine Urine NEGATIVE (< 200 ng/mL); PCP Urine NEGATIVE (< 25 ng/mL); THC Urine NEGATIVE (< 50 ng/mL)
[2025-05-08 22:27] LABS: Alcohol, Blood (Medical)-Serum < 10.1 mg/dL (<=10.0)
[2025-05-08 22:59] LABS: Magnesium 1.4 mg/dL (1.5-2.2)
[2025-05-08 23:22] VITALS: BP 109/68; PULSE 85; RESP 16; O2SAT 99
--- OUTSIDE RECORDS SUMMARY | 2025-05-08 23:30 | XMS RPT_ITS | CCD ---
Author Organization [facility] Care Team Providers Care Assistant Commissioner Name Role Phone Care Physician, No Primary Primary Care Provider Unavailable Jere WOLFE, Dr. Virgen Emergency Provider [phone] Dr. Volodymyr Ortiz DO Admit Provider Unavail able Ortiz DO, Dr. Helm Attending Provider Unav ailable Volodymyr Ortiz Admitting Unavailable Rajesh Gibson Attending Unavailable Care Physician, No Primary Primary Care Unava ilable Voloydmyr Ortiz Consulting Unavailable Rajesh Gibson Consulting Unavailable [...] Provider Dr. Casi Rebolledo DO Emergency Provider [phone] Medications Current Medications Medication Drug Class(es) Dates Sig (Normalized) Sig (Original) [place] (Nk) (2 sources) Start: 05-08-2025 [place] (Nk) A ctive May 08, 2025 12:00am Start: 02-03-2025 [place] (Nk) A ctive February 03, 2025 12:00am [...] Auto (Unsp spec) [#/Vol] 1.07 10*3/uL 0.83-4.51 [facility] Absolute neutrophil countOrd ered By: Casi Rebolledo on 05-08-2025 Neutrophils (Bld) [#/Vol] 5.8 10*3/uL 2.0-7.7 [facility] Anion gap in Serum or Plasma Ordered By: Casi Rebolledo on 05-08-2025 Anion gap [Moles/Vol] 19 mmol/L High 5-15 [facility] Automated lymphocyte count a s percentage of total leukocytesOrdered By: Casi Rebolledo on 05-08-2025 Lymphocytes/100 WBC Auto (Unsp spec) 14.1 % Low 19-41 [facility] BUN/creatinine ratioOrdered By: Casi Rebolledo on 05-08-2025 Urea nitrogen/Creatinine [Mass ratio] 11.3 mg/mg 10-20 [facility] Basophil percentageOrdered B y: Casi Rebolledo on 05-08-2025 Basophils/100 WBC (Bld) 0.7 % 0-[address] [facility] Bilirubin, totalOrdered By: Casi Rebolledo on 05-08-2025 Bilirubin [Mass/Vol] 0.74 mg/dL 0.00-1.[address] [facility] Carbon dioxide, total [Moles /volume] in Central venous bloodOrdered By: Casi Rebolledo on 05-08-2025 CO2 [Moles/Vol] 22.3 mmol/L 21.0-32.0 [facility] Chloride assayOrdered By: Renny Rebolledo on 05-08-2025 Chloride [Moles/Vol] 97 mmol/L Low 98-[address] [facility] Eosinophil percentageOrdered By: Casi Rebolledo on 05-08-2025 Eosinophils/100 WBC (Bld) 1.6 % 0-5 [facility] Erythrocyte distribution wid th ratioOrdered By: Casi Rebolledo on 05-08-2025 Erythrocyte distribution width (RBC) [Ratio] 15.6 % High 11.6-14.6 [facility] Erythrocyte distribution wid th standard deviationOrdered By: Casi Rebolledo on 05-08-2025 Erythrocyte distribution width (RBC) [Ratio] 54.1 fl High 35.1-43.9 [facility] Glomerular filtration rate ( GFR) estimation/1.73 sq m using serum, plasma, or whole bOrdered By: Casi Rebolledo on 05-08-2025 GFR/1.73 sq M.predicted among non-blacks MDRD (S/P/Bld) [Vol rate/Area] 86 mL/min/{1.73_m2} >60 [facility] Comment on above: mL/min/1.73m2 CKD-EP I Creatinine Equation (2020) Hematocrit Auto (Bld) [Volum e fraction]Ordered By: Casi Rebolledo on 05-08-2025 Hematocrit (Bld) [Volume fraction] 44.5 % 40-54 [facility] Hemoglobin measurementOrdere d By: Casi Rebolledo on 05-08-2025 Hemoglobin (Bld) [Mass/Vol] 15.5 g/dL 13.0-16.5 [facility] Immature granulocytes/100 WB C Auto (Bld)Ordered By: Casi Rebolledo on 05-08-2025 Immature granulocytes/100 WBC (Bld) 0.500 % 0.0-0.9 [facility] Comment on above: IG% - Immature Granu locytes (promyelocytes, myelocytes and metamyelocytes) > 1% indicates that a LEFT SHIFT is Present. Laboratory - Chemistry and C hemistry - challengeOrdered By: Casi Rebolledo on 05-08-2025 AST [Catalytic activity/Vol] 34 U/L <38 [facility] MCV (mean corpuscular volume ) determinationOrdered By: Casi Rebolledo on 05-08-2025 MCV (RBC) [Entitic vol] 95.1 fL High 80-94 [facility] Mean corpuscular hemoglobin (MCH) determinationOrdered By: Casi Rebolledo on 05-08-2025 MCH (RBC) [Entitic mass] 33.1 pg High 27.0-32.0 [facility] Mean corpuscular hemoglobin concentration (MCHC) determinationOrdered By: Casi Rebolledo on 05-08-2025 MCHC (RBC) [Mass/Vol] 34.8 g/dL 32-36 [facility] Mean platelet volume determi nationOrdered By: Casi Rebolledo on 05-08-2025 Platelet mean volume (Bld) [Entitic vol] 10.0 fL 6.2-12.0 [facility] Monocyte percentageOrdered B y: Casi Rebolledo on 05-08-2025 Monocytes/100 WBC (Bld) 7.5 % 0-[address] [facility] Neutrophil percentageOrdered By: Casi Rebolledo on 05-08-2025 Neutrophils/100 WBC (Bld) 75.6 % High 47-70 [facility] Nucleated red blood cell per centageOrdered By: Casi Rebolledo on 08-23-2025 Nucleated RBC/100 WBC (Bld) [Ratio] 0 % 0-5 [facility] Platelet countOrdered By: Renny Rebolledo on 05-08-2025 Platelets (Bld) [#/Vol] 163 10*3/uL 150-450 [facility] Potassium measurement (mass/ volume)Ordered By: Casi Rebolledo on 05-08-2025 Potassium (Unsp spec) [Mass/Vol] 3.4 mmol/L 3.3-5.1 [facility] RBC Auto (Bld) [#/Vol]Ordere d By: Casi Rebolledo on 05-08-2025 RBC (Bld) [#/Vol] 4.68 10*6/uL 4.6-6.2 [facility] Serum creatinine measurement (mass/volume)Ordered By: Casi Rebolledo on 05-08-2025 Creatinine [Mass/Vol] 1.01 mg/dL 0.70-1.20 [facility] Serum globulin measurementOr dered By: Casi Rebolledo on 05-08-2025 Globulin (S) [Mass/Vol] 3.3 g/dL 2.2-4.2 [facility] Serum glucose measurement (m ass/volume)Ordered By: Casi Rebolledo on 05-08-2025 Glucose [Mass/Vol] 139 mg/dL High 70-99 [facility] Serum or plasma alanine roberts otransferase (ALT) measurementOrdered By: Casi Rebolledo on 05-08-2025 ALT [Catalytic activity/Vol] 25 U/L <47 [facility] Serum or plasma albumin julina urement (mass/volume)Ordered By: Casi Rebolledo on 05-08-2025 Albumin [Mass/Vol] 4.6 g/dL 3.5-5.0 [facility] Serum or plasma albumin/glob ulin mass ratioOrdered By: Casi Rebolledo on 05-08-2025 Albumin/Globulin [Mass ratio] 1.4 {ratio} 0.9-2.4 [facility] Serum or plasma alkaline ivory sphatase measurementOrdered By: Casi Rebolledo on 05-08-2025 ALP [Catalytic activity/Vol] 98 U/L 40-129 [facility] Serum or plasma calcium julian urement (mass/volume)Ordered By: Casi Rebolledo on 05-08-2025 Calcium [Mass/Vol] 11.5 mg/dL High 7.6-11.0 [facility] Serum or plasma ethanol julian urement (mass/volume)Ordered By: Casi Rebolledo on 05-08-2025 Ethanol [Mass/Vol] mg/dL <10.1 [facility] Comment on above: This test is for med ical purposes only. The legal definition of intoxication varies according to local law. Serum or plasma urea nitroge n measurement (mass/volume)Ordered By: Casi Rebolledo on 05-08-2025 Urea nitrogen [Mass/Vol] 11 mg/dL 4-19 [facility] Sodium levelOrdered By: Francie Rebolledo on 05-08-2025 Sodium [Moles/Vol] 138 mmol/L 133-145 [facility] Total proteinOrdered By: Alida Rebolledo on 05-08-2025 Protein [Mass/Vol] 7.9 g/dL 5.9-8.4 [facility] Troponin T.cardiac [Mass/vol ume] in Serum or Plasma by High sensitivity methodOrdered By: Casi Rebolledo on 05-08-2025 Troponin T.cardiac High sensitivity method [Mass/Vol] 21 ng/L <22 [facility] Troponin T.cardiac High sensitivity method [Mass/Vol] 23 ng/L High <22 [facility] White blood cell (WBC) count Ordered By: Casi Rebolledo on 05-08-2025 WBC (Bld) [#/Vol] 7.6 10*3/uL 4.4-11.0 [facility] Discharge Instructionon 01-15 Discharge Instruction [facility] Medical Records Department [address] [place] [address] Instructions for Home/Discharge Instructions 02/05/25 1654 MR#: [id number] Acct: [id number] Name: ROSSY NERI Rep #: [id number] : [id number] From: Rajesh Gibson MD [...] DO; No Primary Care Physician Signed Normal [facility] Absolute lymphocyte countOrd ered By: Volodymyr Meyer on 02-03-2025 Lymphocytes Auto (Unsp spec) [#/Vol] 1.66 10*3/uL 0.83-4.51 [facility] Absolute lymphocyte countOrd ered By: Param Oquendo on 02-03-2025 Lymphocytes Auto (Unsp spec) [#/Vol] 1.25 10*3/uL 0.83-4.51 [facility] Absolute neutrophil countOrd ered By: Volodymyr Meyer on 02-03-2025 Neutrophils (Bld) [#/Vol] 6.4 10*3/uL 2.0-7.7 [facility] Absolute neutrophil countOrd ered By: Param Oquendo on 02-03-2025 Neutrophils (Bld) [#/Vol] 5.4 10*3/uL 2.0-7.7 [facility] Alcohol, Blood (Medical)-Ser umon 02-03-2025 SERUM ETOH < 10.1 Normal <=10.0 [facility] Comment on above: Result Comment: This test is for medical purposes only. The legal definition of intoxication varies according to local law. Performed By: #### L 100.0100, L505.5000, L501.9100, L500.4050 #### [facility] Laboratory [address] [place], [place], [id number] Amphetamine detection with 1 000 ng/mL as cutoffOrdered By: Param Oquendo on 02-03-2025 Amphetamines Screen method >1000 ng/mL Ql (U) Negative < 200 ng/mL [facility] Anion gap in Serum or Plasma Ordered By: Volodymyr Meyer on 02-03-2025 Anion gap [Moles/Vol] 15 mmol/L 01-28 [facility] Anion gap in Serum or Plasma Ordered By: Param Oquendo on 02-03-2025 Anion gap [Moles/Vol] 13 mmol/L 01-28 [facility] Automated blood erythrocyte countOrdered By: Param Oquendo on 02-03-2025 RBC (Bld) [#/Vol] 4.39 10*6/uL Low 4.6-6.2 [facility] Comment on above: Performed By: #### L 100.0100, L505.5000, L501.9100, L500.4050 #### [facility] [address] [place], [place], [id number] Automated blood hematocrit ( percentage)Ordered By: Param Oquendo on 02-03-2025 Hematocrit (Bld) [Volume fraction] 41.4 % Normal 40-54 [facility] Comment on above: Performed By: #### L 100.0100, L505.5000, L501.9100, L500.4050 #### [facility] [address] [place], [place], [id number] Automated lymphocyte count a s percentage of total leukocytesOrdered By: Volodymyr Meyer on 02-03-2025 Lymphocytes/100 WBC Auto (Unsp spec) 18.2 % Low [facility] Automated lymphocyte count a s percentage of total leukocytesOrdered By: Param Oquendo on 02-03-2025 Lymphocytes/100 WBC Auto (Unsp spec) 16.3 % Low [facility] BUN/creatinine ratioOrdered By: Volodymyr Meyer on 02-03-2025 Urea nitrogen/Creatinine [Mass ratio] 14.4 mg/mg 07-05 [facility] BUN/creatinine ratioOrdered By: Param Oquendo on 02-03-2025 Urea nitrogen/Creatinine [Mass ratio] 13.9 mg/mg 10-20 [facility] Basophil percentageOrdered B y: Volodymyr Meyer on 02-03-2025 Basophils/100 WBC (Bld) 0.5 % 0-[address] [facility] Basophil percentageOrdered B y: Param Oquendo on 02-03-2025 Basophils/100 WBC (Bld) 0.7 % Normal 0-[address] [facility] Comment on above: Performed By: #### L 100.0100, L505.5000, L501.9100, L500.4050 #### [facility] [address] [place], [address] Bilirubin, totalOrdered By: Volodymyr Meyer on 02-03-2025 Bilirubin [Mass/Vol] 1.23 mg/dL 0.00-1.[address] [facility] Bilirubin, totalOrdered By: Param Oquendo on 02-03-2025 Bilirubin [Mass/Vol] 0.90 mg/dL 0.00-1.[address] [facility] CBC W/Diff, Automatedon 01-15 Absolute Lymph 1.66 X10 3/uL Normal 0.83-4.51 [facility] Comment on above: Performed By: #### L 100.0100, L505.5000, L501.9100, L500.4050 #### [facility] [address] [place], [address] Absolute Neut 6.4 X10 3/uL Normal 2.0-7.7 [facility] Comment on above: Performed By: #### L 100.0100, L505.5000, L501.9100, L500.4050 #### [facility] [address] [place], [address] Basophils/100 WBC (Bld) 0.5 % Normal 0-[address] [facility] Comment on above: Performed By: #### L 100.0100, L505.5000, L501.9100, L500.4050 #### [facility] [address] [place], [address] Eosinophils/100 WBC (Bld) 1.9 % Normal 0-5 [facility] Comment on above: Performed By: #### L 100.0100, L505.5000, L501.9100, L500.4050 #### [facility] [address] [place], [address] Erythrocyte distribution width (RBC) [Ratio] 15.3 % High 11.6-14.6 [facility] Comment on above: Performed By: #### L 100.0100, L505.5000, L501.9100, L500.4050 #### [facility] [address] [place], [address] Hematocrit (Bld) [Volume fraction] 40.7 % Normal 40-54 [facility] Comment on above: Performed By: #### L 100.0100, L505.5000, L501.9100, L500.4050 #### [facility] [address] [place], [address] Hemoglobin (Bld) [Mass/Vol] 14.1 g/dL Normal 13.0-16.5 [facility] Comment on above: Performed By: #### L 100.0100, L505.5000, L501.9100, L500.4050 #### [facility] [address] [place], [address] IG% 0.800 Normal 0.0-0.9 [facility] Comment on above: Result Comment: IG% - Immature Granulocytes (promyelocytes, myelocytes and metamyelocytes) > 1% indicates that a LEFT SHIFT is Present. Performed By: #### L 100.0100, L505.5000, L501.9100, L500.4050 #### [facility] [address] [place], [address] Lymphocytes/100 WBC (Bld) 18.2 % Low 19-41 [facility] Comment on above: Performed By: #### L 100.0100, L505.5000, L501.9100, L500.4050 #### [facility] [address] [place], [address] MCH (RBC) [Entitic mass] 32.9 pg High 27.0-32.0 [facility] Comment on above: Performed By: #### L 100.0100, L505.5000, L501.9100, L500.4050 #### [facility] [address] [place], [address] MCHC (RBC) [Mass/Vol] 34.6 g/dL Normal 32-36 [facility] Comment on above: Performed By: #### L 100.0100, L505.5000, L501.9100, L500.4050 #### [facility] [address] [place], [address] MCV (RBC) [Entitic vol] 94.9 fL High 80-94 [facility] Comment on above: Performed By: #### L 100.0100, L505.5000, L501.9100, L500.4050 #### [facility] [address] [place], [address] Monocytes/100 WBC (Bld) 8.6 % Normal 0-[address] [facility] Comment on above: Performed By: #### L 100.0100, L505.5000, L501.9100, L500.4050 #### [facility] [address] [place], [address] Neutrophils/100 WBC (Bld) 70.0 % Normal 47-70 [facility] Comment on above: Performed By: #### L 100.0100, L505.5000, L501.9100, L500.4050 #### [facility] [address] [place], [address] Nucleated RBC (Bld) [#/Vol] 0 10*3/uL Normal 0-5 [facility] Comment on above: Performed By: #### L 100.0100, L505.5000, L501.9100, L500.4050 #### [facility] [address] [place], [address] Platelet mean volume (Bld) [Entitic vol] 11.2 fL Normal 6.2-12.0 [facility] Comment on above: Performed By: #### L 100.0100, L505.5000, L501.9100, L500.4050 #### [facility] [address] [place], [address] Platelets (Bld) [#/Vol] 103 10*3/uL Low 150-450 [facility] Comment on above: Performed By: #### L 100.0100, L505.5000, L501.9100, L500.4050 #### [facility] [address] [place], [address] RBC (Bld) [#/Vol] 4.29 10*6/uL Low 4.6-6.2 [facility] Comment on above: Performed By: #### L 100.0100, L505.5000, L501.9100, L500.4050 #### [facility] [address] [place], [address] RDW SD 52.7 fl High 35.1-43.9 [facility] Comment on above: Performed By: #### L 100.0100, L505.5000, L501.9100, L500.4050 #### [facility] [address] [place], [address] WBC (Bld) [#/Vol] 9.1 10*3/uL Normal 4.4-11.0 [facility] Comment on above: Performed By: #### L 100.0100, L505.5000, L501.9100, L500.4050 #### [facility] [address] [place], [address] Absolute Lymph 1.25 X10 3/uL Normal 0.83-4.51 [facility] Comment on above: Performed By: #### L 100.0100, L505.5000, L501.9100, L500.4050 #### [facility] [address] [place], [address] Absolute Neut 5.4 X10 3/uL Normal 2.0-7.7 [facility] Comment on above: Performed By: #### L 100.0100, L505.5000, L501.9100, L500.4050 #### [facility] [address] [place], [address] IG% 0.700 Normal 0.0-0.9 [facility] Comment on above: Result Comment: IG% - Immature Granulocytes (promyelocytes, myelocytes and metamyelocytes) > 1% indicates that a LEFT SHIFT is Present. Performed By: #### L 100.0100, L505.5000, L501.9100, L500.4050 #### [facility] [address] [place], [address] Lymphocytes/100 WBC (Bld) 16.3 % Low 19-41 [facility] Comment on above: Performed By: #### L 100.0100, L505.5000, L501.9100, L500.4050 #### [facility] [address] [place], [address] RDW SD 52.8 fl High 35.1-43.9 [facility] Comment on above: Performed By: #### L 100.0100, L505.5000, L501.9100, L500.4050 #### [facility] [address] [place], [address] Calculated very low density lipoprotein (VLDL) cholesterol measurementOrdered By: Volodymyr Meyer on 02-03-2025 Calculated very low density lipoprotein (VLDL) cholesterol measurement 23 mg/dL 5-40 [facility] Carbon dioxide, total [Moles /volume] in Central venous bloodOrdered By: Volodymyr Meyer on 02-03-2025 CO2 [Moles/Vol] 22.2 mmol/L 21.0-32.0 [facility] Carbon dioxide, total [Moles /volume] in Central venous bloodOrdered By: Param Oquendo on 02-03-2025 CO2 [Moles/Vol] 25.4 mmol/L 21.0-32.0 [facility] Chloride assayOrdered By: Adelfo Meyer on 02-03-2025 Chloride [Moles/Vol] 99 mmol/L 98-[address] [facility] Chloride assayOrdered By: Leopoldo Oquendo on 02-03-2025 Chloride [Moles/Vol] 97 mmol/L Low 98-[address] [facility] Comprehensive Metabolic Prof ilon 02-03-2025 Albumin [Mass/Vol] 4.3 g/dL Normal 3.5-5.0 [facility] Comment on above: Performed By: #### L 501.9985, L500.4100, L501.9520, L503.0106, L500.4050 #### [facility] [address] [place], [address] Albumin/Globulin [Mass ratio] 1.4 {ratio} Normal 0.9-2.4 [facility] Comment on above: Performed By: #### L 501.9985, L500.4100, L501.9520, L503.0106, L500.4050 #### [facility] [address] [place], [address] ALK PHOS 94 U/L Normal 40-129 [facility] Comment on above: Performed By: #### L 501.9985, L500.4100, L501.9520, L503.0106, L500.4050 #### [facility] [address] [place], [address] ALT [Catalytic activity/Vol] 27 U/L Normal <=46 [facility] Comment on above: Performed By: #### L 501.9985, L500.4100, L501.9520, L503.0106, L500.4050 #### [facility] [address] [place], [address] AST [Catalytic activity/Vol] 49 U/L High <=37 [facility] Comment on above: Result Comment: Hemo lysis present, Results??could be affected. ?? Performed By: #### L 501.9985, L500.4100, L501.9520, L503.0106, L500.4050 #### [facility] [address] [place], [address] Bilirubin [Mass/Vol] 1.23 mg/dL Normal 0.00-1.[address] [facility] Comment on above: Performed By: #### L 501.9985, L500.4100, L501.9520, L503.0106, L500.4050 #### [facility] [address] [place], [address] BUN/CRE 14.4 RATIO Normal 10-20 [facility] Comment on above: Performed By: #### L 501.9985, L500.4100, L501.9520, L503.0106, L500.4050 #### [facility] [address] [place], [address] Calcium [Mass/Vol] 9.2 mg/dL Normal 7.6-11.0 [facility] Comment on above: Performed By: #### L 501.9985, L500.4100, L501.9520, L503.0106, L500.4050 #### [facility] [address] [place], [address] Chloride [Moles/Vol] 99 mmol/L Normal 98-[address] [facility] Comment on above: Performed By: #### L 501.9985, L500.4100, L501.9520, L503.0106, L500.4050 #### [facility] [address] [place], [address] CO2 [Moles/Vol] 22.2 mmol/L Normal 21.0-32.0 [facility] Comment on above: Performed By: #### L 501.9985, L500.4100, L501.9520, L503.0106, L500.4050 #### [facility] [address] [place], [address] Creatinine [Mass/Vol] 0.96 mg/dL Normal 0.70-1.20 [facility] Comment on above: Performed By: #### L 501.9985, L500.4100, L501.9520, L503.0106, L500.4050 #### [facility] [address] [place], [address] ECRCL 81.66 ml/min Normal 50-250 [facility] Comment on above: Performed By: #### L 501.9985, L500.4100, L501.9520, L503.0106, L500.4050 #### [facility] [address] [place], [address] GAP 15 Normal 5-15 [facility] Comment on above: Performed By: #### L 501.9985, L500.4100, L501.9520, L503.0106, L500.4050 #### [facility] [address] [place], [address] GFR/1.73 sq M.predicted among non-blacks MDRD (S/P/Bld) [Vol rate/Area] 93 mL/min/{1.73_m2} Normal >60 [facility] Comment on above: Result Comment: mL/m in/1.73m2 CKD-EPI Creatinine Equation (2020) Performed By: #### L 501.9985, L500.4100, L501.9520, L503.0106, L500.4050 #### [facility] [address] [place], [address] Globulin (S) [Mass/Vol] 3.0 g/dL Normal 2.2-4.2 [facility] Comment on above: Performed By: #### L 501.9985, L500.4100, L501.9520, L503.0106, L500.4050 #### [facility] [address] [place], [address] Glucose [Mass/Vol] 110 mg/dL High 70-99 [facility] Comment on above: Performed By: #### L 501.9985, L500.4100, L501.9520, L503.0106, L500.4050 #### [facility] [address] [place], [address] Potassium [Moles/Vol] 4.2 mmol/L Normal 3.3-5.1 [facility] Comment on above: Result Comment: Hemo lysis present, Results??could be affected. ?? Performed By: #### L 501.9985, L500.4100, L501.9520, L503.0106, L500.4050 #### [facility] [address] [place], [address] Sodium [Moles/Vol] 137 mmol/L Normal 133-145 [facility] Comment on above: Performed By: #### L 501.9985, L500.4100, L501.9520, L503.0106, L500.4050 #### [facility] [address] [place], [address] T PROT 7.4 g/dL Normal 5.9-8.4 [facility] Comment on above: Performed By: #### L 501.9985, L500.4100, L501.9520, L503.0106, L500.4050 #### [facility] [address] [place], [address] Urea nitrogen [Mass/Vol] 14 mg/dL Normal 4-19 [facility] Comment on above: Performed By: #### L 501.9985, L500.4100, L501.9520, L503.0106, L500.4050 #### [facility] [address] [place], [address] Albumin [Mass/Vol] 4.4 g/dL Normal 3.5-5.0 [facility] Comment on above: Performed By: #### L 100.0100, L505.5000, L501.9100, L500.4050 #### [facility] [address] [place], [address] Albumin/Globulin [Mass ratio] 1.5 {ratio} Normal 0.9-2.4 [facility] Comment on above: Performed By: #### L 100.0100, L505.5000, L501.9100, L500.4050 #### [facility] [address] [place], [address] ALK PHOS 105 U/L Normal 40-129 [facility] Comment on above: Performed By: #### L 100.0100, L505.5000, L501.9100, L500.4050 #### [facility] [address] [place], [address] ALT [Catalytic activity/Vol] 27 U/L Normal <=46 [facility] Comment on above: Performed By: #### L 100.0100, L505.5000, L501.9100, L500.4050 #### [facility] [address] [place], [address] AST [Catalytic activity/Vol] 53 U/L High <=37 [facility] Comment on above: Result Comment: Hemo lysis present, Results??could be affected. ?? Performed By: #### L 100.0100, L505.5000, L501.9100, L500.4050 #### [facility] [address] [place], [address] Bilirubin [Mass/Vol] 0.90 mg/dL Normal 0.00-1.[address] [facility] Comment on above: Performed By: #### L 100.0100, L505.5000, L501.9100, L500.4050 #### [facility] [address] [place], [address] BUN/CRE 13.9 RATIO Normal 10-20 [facility] Comment on above: Performed By: #### L 100.0100, L505.5000, L501.9100, L500.4050 #### [facility] [address] [place], [address] Calcium [Mass/Vol] 9.3 mg/dL Normal 7.6-11.0 [facility] Comment on above: Performed By: #### L 100.0100, L505.5000, L501.9100, L500.4050 #### [facility] [address] [place], [address] Chloride [Moles/Vol] 97 mmol/L Low 98-[address] [facility] Comment on above: Performed By: #### L 100.0100, L505.5000, L501.9100, L500.4050 #### [facility] [address] [place], [address] CO2 [Moles/Vol] 25.4 mmol/L Normal 21.0-32.0 [facility] Comment on above: Performed By: #### L 100.0100, L505.5000, L501.9100, L500.4050 #### [facility] [address] [place], [address] Creatinine [Mass/Vol] 1.00 mg/dL Normal 0.70-1.20 [facility] Comment on above: Performed By: #### L 100.0100, L505.5000, L501.9100, L500.4050 #### [facility] [address] [place], [address] ECRCL 81.39 ml/min Normal 50-250 [facility] Comment on above: Performed By: #### L 100.0100, L505.5000, L501.9100, L500.4050 #### [facility] [address] [place], [address] GAP 13 Normal 5-15 [facility] Comment on above: Performed By: #### L 100.0100, L505.5000, L501.9100, L500.4050 #### [facility] [address] [place], [address] GFR/1.73 sq M.predicted among non-blacks MDRD (S/P/Bld) [Vol rate/Area] 88 mL/min/{1.73_m2} Normal >60 [facility] Comment on above: Result Comment: mL/m in/1.73m2 CKD-EPI Creatinine Equation (2020) Performed By: #### L 100.0100, L505.5000, L501.9100, L500.4050 #### [facility] [address] [place], [address] Globulin (S) [Mass/Vol] 2.9 g/dL Normal 2.2-4.2 [facility] Comment on above: Performed By: #### L 100.0100, L505.5000, L501.9100, L500.4050 #### [facility] [address] [place], [address] Glucose [Mass/Vol] 107 mg/dL High 70-99 [facility] Comment on above: Performed By: #### L 100.0100, L505.5000, L501.9100, L500.4050 #### [facility] [address] [place], [address] Potassium [Moles/Vol] 4.0 mmol/L Normal 3.3-5.1 [facility] Comment on above: Result Comment: Hemo lysis present, Results??could be affected. ?? Performed By: #### L 100.0100, L505.5000, L501.9100, L500.4050 #### [facility] [address] [place], [address] Sodium [Moles/Vol] 135 mmol/L Normal 133-145 [facility] Comment on above: Performed By: #### L 100.0100, L505.5000, L501.9100, L500.4050 #### [facility] [address] [place], [address] T PROT 7.3 g/dL Normal 5.9-8.4 [facility] Comment on above: Performed By: #### L 100.0100, L505.5000, L501.9100, L500.4050 #### [facility] [address] [place], [address] Urea nitrogen [Mass/Vol] 14 mg/dL Normal 4-19 [facility] Comment on above: Performed By: #### L 100.0100, L505.5000, L501.9100, L500.4050 #### [facility] [address] [place], [address] Emergency Department Summary on 02-03-2025 Emergency Department Summary [facility] Medical Records Department [address] [place] [address] Emergency Department Summary 02/03/25 MR#: [id number] Acct: [id number] Name: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 hallucinosis resolved February 03, 2025 4:50am [facility] Work Phone: Discharge summary 02-03-2025 Note Date & Type Note Facility 02-03-2025 Discharge summary [facility] Discharge summary note 06-01-2024 Note Date & Type Note Facility 06-01-2024 Note [facility] Medical Records Department [address] [place] [address] Discharge Summary 06/01/24 1412 MR#: [id number] Acct: [id number] Name: ROSSY NERI Rep #: [id number] : 1965 59 From: Arthur Barber DO PCP: Care Physician,No Primary Status:DIS APOLLO Location: [place] [address] Providers Date of Admission: 05/31/24 Date of [...] Patient is a 59-year-old male who presented [facility] ED on 05/31/2024 with chest pain. Short [...] Hct 41.0, MCV (more content not included)... [facility] Discharge summary Note Date & Type Note Facility Discharge summary Note Date/Time February 03, 2025 3:59a m [facility] Medical Records Department [address] [place] [address] Emergency Department Summary 02/03/25 MR#: [id number] Acct: [id number] Name: ROSSY NERI Rep #:[id number] : 1965 59 From: Param Oquendo MD [...] signs are consistent with withdrawal. He is cvliqjpqrvly186/113 and is accelerated heart rate of 114. [...] all 4 extremities. 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 Dorsi plantarflexion intact. Nontender no edema. [...] 13. Normal BUN of 14 creatinine 1. Nynncnm399. Liver enzymes unremarkable other than AST elevated [...] 70.9 H Lymph % (Auto) 16.3 L Cedar % (Auto) 8.9 Eos % (Auto) 2.5 [...] Hallucinations, visual Disposition Disposition: Acute Care Hospital [facility] What to do if you have Problems For any increased pain, shortness of breath, bleeding, nausea or vomiting, chestpain, or any unexpected problems, contact your Primary Care Provider. Call [facility] ([phone]) or report to the closest Emergency Room. Call 911 if necessary. 02/03/25 0359 <Electronically signed by Param Oquendo MD> Osmanyigner Signature (if applicable): CC: No Primary Care Physician ~ Signed [facility] Work Phone: Evaluation note Note Date & [...] alcohol abuse chronic February 03, 2025 4:50am [facility] Work Phone: Hospital Discharge instructions Note Date [...] symptoms please return to the emergency room. [facility] Work Phone: Reason for referral (narrative) Note Date & Type Note Facility Reason for referral (narrative) No reason for referral information available [facility] Work Phone: Chief Complaint and Reason for [...] Do you have a Healthcare Power of Vocational Coordinator? No February 03, 2025 2:20am Advance Directive Response Recorded Date/ Time Do you have a Healthcare Power of Vocational Coordinator? No February 03, 2025 5:22am Do you have a Healthcare Power of Vocational Coordinator? No May 08, 2025 5:08am Summary Purpose [...] 03, 2025 End: February 05, 2025 Dr. Rajesh Gibson MD [...] section and content) DATE CREATED AUTHOR 02/15/2025 [facility] DATE CREATED AUTHOR AUTHOR'S RE SAXENA 04/26/2025 [facility] FOR RECORDS PERTAINING TO PATIENTS WHO [...] BE BASED ON THE PRIMARY CLINICAL RECORDS. [facility] [employer] [facility]. provides no warranty or guarantee of the accuracy or completeness of information in this document.
[2025-05-08 23:58] VITALS: BMI 22.8
[2025-05-09 00:17] VITALS: BP 138/83; PULSE 73; RESP 18; TEMP 36.6; O2SAT 99
[2025-05-09] MEDS: 0.9% Saline Lock 10 ML Syringe IV (00:54)
[2025-05-09] MEDS: Magnesium Sulfate 2 GM in Dextrose 5%-Water (100mL Bag) 100 ML IV (00:58)
[2025-05-09] MEDS: Lactated Ringers 1,000 ML 125 ML IV (03:56)
[2025-05-09 04:37] VITALS: BP 127/84; PULSE 80; RESP 16; TEMP 36.6; O2SAT 95
[2025-05-09 07:26] VITALS: O2SAT 95
[2025-05-09 08:10] VITALS: BP 131/78; PULSE 73; RESP 16; TEMP 36.6; O2SAT 98
[2025-05-09] MEDS: Thiamine Hydrochloride 100 MG Tablet PO (08:17)
[2025-05-09] MEDS: Nicotine (PBKC) 21 MG Patch TD (08:18)
--- NOTE | 2025-05-09 10:14 | PN.HOSP_ITS ---
Reason for Visit Chief Complaint: Acute EtOH Withdrawal Subjective Subjective Patient was seen and examined today, he does not complain of any tremors or anxiety this morning. Patient's last use of alcohol was 4 days prior, patient had 3/5 of 40 proof vodka on Saturday this week. This examiner feels its unlikely the patient will go through significant alcohol withdrawal, I think it is a good idea the patient stays in talks with addiction home health care social worker tomorrow. Objective Data Objective Data Vital Signs: Vital Signs Temp Pulse Resp BP Pulse Ox O2 Del Method 97.8 F 73 16 131/78 H 98 Room Air 05/09/25 08:10 05/09/25 08:10 05/09/25 08:10 05/09/25 08:10 05/09/25 08:10 05/09/25 08:10 Oxygen Delivery Method Room Air Weight: 70.2 kg Body Mass Index (BMI) 22.8 Intake & Output: Intake and Output for Last 24 Hours 05/07/25 05/08/25 05/09/25 23:59 23:59 23:59 Intake Total 1000 / 1000 104 / 104 Balance 1000 / 1000 104 / 104 Lab / Micro Data 05/08/25 21:35 05/08/25 21:35 Labs: Laboratory Results - last 24 hr 05/08/25 21:35: WBC 8.3, RBC 4.01 L, Hgb 13.4, Hct 38.7 L, MCV 96.5 H, MCH 33.4 H, MCHC 34.6, RDW Std Deviation 55.8 H, RDW Coeff of Josselyn 16.0 H, Plt Count 156, MPV 10.5, Immature Gran % (Auto) 0.500, Neut % (Auto) 67.3, Lymph % (Auto) 18.7 L, Bailey % (Auto) 8.8, Eos % (Auto) 4.0, Baso % (Auto) 0.7, Absolute Neuts (auto) 5.6, Absolute Lymphs (auto) 1.55, Nucleated RBC % 0, Sodium 140, Potassium 3.6, Chloride 104, Carbon Dioxide 23.6, Anion Gap 13, BUN 10, Creatinine 1.03, Estim Creat Clear Calc 78.17, Est GFR (MDRD) Non-Af 84, BUN/Creatinine Ratio 9.8 L, Glucose 79, Calcium 9.5, Phosphorus 3.2, Magnesium 1.4 L, Total Bilirubin 0.60, AST 35, ALT 26, Alkaline Phosphatase 93, Total Protein 7.1, Albumin 4.3, Globulin 2.8, Albumin/Globulin Ratio 1.5, Urine Opiates Screen NEGATIVE, U Buprenorphine Qual NEGATIVE, Ur Oxycodone Screen NEGATIVE, Urine Methadone Screen NEGATIVE, Urine Fentanyl Screen NEGATIVE, Ur Barbiturates Screen PRESUMPTIVE POSITIVE, Ur Phencyclidine Scrn NEGATIVE, Ur Amphetamines Screen NEGATIVE, U Benzodiazepines Scrn NEGATIVE, Urine Cocaine Screen NEGATIVE, U Cannabinoids Screen NEGATIVE, Ethyl Alcohol < 10.1 Radiography Diagnostic Testing: Radiology Impression Brain CT 05/08/25 21:52 IMPRESSION: No acute process identified. [facility] Physical Exam Const alert, oriented x3, no apparent distress, average body habitus and healthy appearing General Appearance: cooperative, well kempt and well developed Orientation / Consciousness: awake, oriented to person, oriented to place and oriented to time HEENT normocephalic, head/scalp atraumatic and moist oral mucous membranes Eyes PERRL, EOMs intact bilaterally and conjunctivae normal Neck supple, no JVD, thyroid normal and no carotid bruits General: trachea midline Resp normal respiratory effort, no retractions, no use of accessory muscles and clear to auscultation bilaterally Auscultation: Negative for rales, rhonchi or wheezes Cardio regular rate, regular rhythm, S1 normal heart sound, S2 normal heart sound, no murmurs, no rub and no gallops GI normal to inspection, nondistended, normoactive bowel sounds, soft to palpation, non-tender and non-distended Extremity no clubbing, cyanosis or edema Skin no rashes or lesions noted General Skin Exam: no breakdown Neuro oriented x3, CN's II-XII intact bilaterally, moves all extremities, no focal motor deficits and no sensory deficits noted Sensorium / Orientation: awake and alert Speech: speech normal Psych affect normal Assessment & Plan Assessment/Plan (1) Anxiety: PLAN: Plan 1. Anxiety and hallucinations-possible alcohol withdrawal-again I have a problem attributing his symptoms to alcohol withdrawal, patient's last drink was 4 days ago and it was 40 proof vodka. Patient will be treated as an alcohol detox patient will be seen by addiction home health care social worker tomorrow, hopefully he can be discharged tomorrow. #2 previous history of psychiatric disorder-according to his medical record here in January of this year, patient was pink slipped to a psychiatric facility due to suicidal ideation recently. It may be necessary to have the patient reevaluated by crisis if he espouses any desire to hurt himself. Total clinical time spent by myself addressing the patient's medical issues, reviewing all of his data, and collaborating with patient's care team: 35 minutes Charges/Coding Visit Charges Inpatient E&M: 13000 Subs Hosp L2
[2025-05-09 13:39] VITALS: BP 118/74; PULSE 86; RESP 16; TEMP 36.6; O2SAT 99
--- NOTE | 2025-05-09 14:15 | ADDICTION ---
Met w/ patient to discuss RAMP program. Discussed tx options, provided resources.
[2025-05-09] MEDS: hydrOXYzine PAM 25 MG Capsule 50 MG PO ×2 (15:21→22:16)
[2025-05-09 22:00] VITALS: BP 128/93; PULSE 82; RESP 16; TEMP 36.7; O2SAT 100
[2025-05-10 05:12] VITALS: BP 148/93; PULSE 73; RESP 18; TEMP 36.4; O2SAT 100
[2025-05-10] MEDS: hydrOXYzine PAM 25 MG Capsule 50 MG PO (05:14)
[2025-05-10 11:03] VITALS: BP 137/98; PULSE 85; RESP 16; TEMP 36.5; O2SAT 99
--- NOTE | 2025-05-10 11:31 | DCINST_ITS ---
Discharge Instructions DC O2, CPAP, BIPAP needs Home O2 Discharge instructions: No Dressing / Incision Discharge Activity: Return to Normal Activity Weight Bearing Status: Full weight bearing Follow Up Care Test Results: Test results from this visit will be discussed in further detail at your follow- up appointment, if applicable. Discharge Plan Admission Admit Date/Time: 05/08/25 22:06 Primary Reason for Your Visit: alcohol detox Attending Provider: Bahman Chou Primary Care Provider: Care Physician,No Primary Consulting Providers: Marce Toure Instructions Additional Instructions / Restrictions: recommend following up with outpatient detox services Discharge Orders/Prescriptions Prescriptions: New trazodone 100 mg Tablet 100 mg PO QHS PRN PRN (Reason: Insomnia) Qty: 30 0RF Rx Instructions: 1/2 to one at bedtime for sleep Referrals / Follow Up: Care Physician,No Primary [Primary Care Provider] - Disposition Disposition (needs filled in before D/C Order can be placed): Home, Self Care
--- NOTE | 2025-05-10 11:36 | PCM.DC.SUM ---
Providers Date of Admission: 05/08/25 Date of Discharge: 05/10/25 Primary Care Physician: No Primary Care Phys Reason For Visit: ACUTE ETOH WITHDRAWAL Diagnosis Discharge Diagnosis (1) Anxiety: Status: Acute Code(s): F41.9 - Anxiety disorder, unspecified Plan 1. Anxiety and hallucinations-possible alcohol withdrawal-again I have a problem attributing his symptoms to alcohol withdrawal, patient's last drink was 4 days ago and it was 40 proof vodka. Patient will be treated as an alcohol detox patient will be seen by addiction social insurance analyst tomorrow, hopefully he can be discharged tomorrow. #2 previous history of psychiatric disorder-according to his medical record here in January of this year, patient was pink slipped to a psychiatric facility due to suicidal ideation recently. It may be necessary to have the patient reevaluated by crisis if he espouses any desire to hurt himself. Total clinical time spent by myself addressing the patient's medical issues, reviewing all of his data, and collaborating with patient's care team: 35 minutes Medications at Discharge Home Medications trazodone 100 mg tablet 100 mg PO QHS PRN PRN Insomnia #30 tabs 05/10/25 Hospital Course Operations None Procedures None Summary of Care Provided Minutes Spent on Discharge: 30 Hospital Course: This 60-year-old white male was seen in the emergency room at [facility] requesting services for alcohol detox. Patient's last drink had been several days ago according to the patient. Patient was admitted to [place] [address] and orders were entered using the alcohol detox order set, during the hospital stay, patient had no symptoms of DTs. He was seen in consultation by addiction social insurance analyst, he was placed on phenobarb during his hospital stay. On 05/10/2025, patient was seen and examined: On examination he appeared in good health and spirits. Vital signs as documented. Skin warm and dry and without overt rashes. Neck without JVD, neck was supple, trachea midline, thyroid was normal. Lungs clear bilaterally, normal air movement was noted. Heart exam notable for regular rhythm, normal sounds and absence of murmurs, rubs or gallops. Abdomen unremarkable and without evidence of organomegaly, masses, or abdominal aortic enlargement. Bowel sounds are present, abdomen is not distended. Extremities nonedematous, no cyanosis was noted, no clubbing was noted. Neuro: Cranial nerves II through XII are grossly intact, no focal motor deficits were noted, sensation to light touch and pinprick intact, motor exam 5/5 throughout. Psych: Patient is alert and oriented x3, he does not appear anxious or depressed, he does not appear agitated. Patient was felt to be stable for discharge home on 05/10/2025, patient was urged to follow-up with an outpatient alcohol detox program. This examiner provided a prescription for some trazodone for sleep for the patient as an outpatient. Weight / BMI Weight Weight: 70.2 kg Body Mass Index (BMI) 22.8 ABG / Lab / Microbiology Data 05/08/25 21:35 05/08/25 21:35 D/C Instructions Weight Bearing Status: Full weight bearing DC O2, CPAP, BIPAP Needs Home O2 Discharge instructions: No Meaningful Use Info Meaningful Use Meaningful Use Diagnoses (Choose all that apply): None applicable Discharge Plan Admission Admit Date/Time: 05/08/25 22:06 Primary Reason for Your Visit: alcohol detox Attending Provider: Bahman Chou Primary Care Provider: Care Physician,Fanny Primary Consulting Providers: Marce Toure Instructions Additional Instructions / Restrictions: recommend following up with outpatient detox services Discharge Orders/Prescriptions Prescriptions: New trazodone 100 mg Tablet 100 mg PO QHS PRN PRN (Reason: Insomnia) Qty: 30 0RF Rx Instructions: 1/2 to one at bedtime for sleep Referrals / Follow Up: Care Physician,No Primary [Primary Care Provider] - Disposition Disposition (needs filled in before D/C Order can be placed): Home, Self Care Charges/Coding Visit Charges Inpatient E&M: 38169 Disch Hosp
--- NOTE | 2025-05-10 12:13 | PHA.DC.MC.R ---
Pharmacy [facility] Counseling Pharmacy Service has performed discharge medication reconciliation and counseling for this patient. 1. TRAZODONE 50-100MG PO QHS PRN INSOMNIA The patient's discharge medication list was reviewed for discrepancies and discrepancies were resolved. The patient was counseled on the following discharge medications and changes in medications for homegoing were reviewed. The Reason for Use, instructions for use, and potential side effects were reviewed for all new medications. The patient's questions regarding all of their medications were answered. The patient was able to verbally demonstrate an understanding of their discharge medications. Medications at Discharge Home Medications trazodone 100 mg tablet 100 mg PO QHS PRN PRN Insomnia #30 tabs 05/10/25
== END 2025-05-10 12:35 | disposition home or self-care (01) | DRG 897 ==
LOC: ED 23:07 → MS3 23:27
PROVIDERS: Admitting Provider Family Medicine; Emergency Provider Emergency Medicine; Visit Provider Internal Medicine
DX: F10.139 Alcohol abuse with withdrawal, unspecified (principal); E11.22 Type 2 diabetes mellitus with diabetic chronic kidney disease; I12.9 Hypertensive chronic kidney disease with stage 1 through stage 4 chronic kidney disease, or unspecified chronic kidney disease; F17.210 Nicotine dependence, cigarettes, uncomplicated; N18.2 Chronic kidney disease, stage 2 (mild); Y90.0 Blood alcohol level of less than 20 mg/100 ml
CPT/HCPCS: 70450; 80053; 80307; 82077; 83735; 84100; 85025; 93005; 99283; A4216; J2405

== ENCOUNTER 2025-06-28 07:55 | Emergency (ER) | payer SELFPAY ==
[2025-06-28 07:57] VITALS: BP 152/130; PULSE 151; RESP 18; TEMP 37.1; O2SAT 98; BMI 24.6
--- NOTE | 2025-06-28 09:03 | EDS_ITS ---
HPI History of Present Illness Chief Complaint: General Illness Narrative Narrative: Chief complaint and HPI: 60-year-old male with past medical history of degenerative disc disease with chronic neck, Review of systems: See HPI Medications: As listed on the chart Allergies: As listed on the chart PFSH: Per chart Vital signs: As listed on the chart. Reviewed. Physical exam: Gen: A&O x3, NAD Head: Normocephalic, atraumatic Eyes: No sclera icterus, conjunctiva clear ENT: Moist mucous membranes Neck: Trachea midline, No JVD CV: RRR, no murmurs, no peripheral edema Resp: Lungs CTA BL, no w/r/c GI: Abd soft, non-distended, non-tender, no r/r/g Musc: Full ROM, no deformity Skin: Warm, dry Neuro: Alert, oriented, grossly intact, sensation intact Psych: Cooperative, appropriate mood and affect [facility] Medical History Suspected hypertension Anxiety and depression Tobacco use Thrombocytopenia concurrent with and due to alcoholism CKD (chronic kidney disease), stage II Hyperlipidemia Alcohol abuse GERD (gastroesophageal reflux disease) Upper extremity weakness Chronic neck pain Chronic anemia Type 2 diabetes mellitus Home Medications ?Medication ?Instructions ?Recorded ?Last Taken ?Type trazodone 100 mg tablet 100 mg PO QHS PRN PRN Insomn ia #30 05/10/25 Unknown Rx tabs Allergy/AdvReac Type Severity Reaction Status Date / Time No Known Allergies Allergy Verified 06/28/25 07:57 Family History Mother Alcohol abuse CVA (cerebral vascular accident) Lung cancer Father Alcohol abuse Hypertension Surgical History History of arthroscopy of both knees Social History (Updated 05/08/25 @ 22:[address] Marce Toure MD) household members: family Smoking Status: Current every day smoker tobacco type: cigarettes Electronic Cigarette Use: with nicotine alcohol intake: current alcohol intake frequency: 3 or more drinks per day substance use type: does not use EXAM Physical Exam Const Vital Signs: 06/28/25 07:57 06/28/25 08:03 Temperature 98.7 F Temperature Source Oral Pulse Rate 151 H Respiratory Rate 18 Respiratory Effort Normal Respiratory Pattern Normal Blood Pressure 152/130 H Blood Pressure Mean 137 Pulse Ox 98 Oxygen Delivery Method Room Air Discharge Plan Triage Chief Complaint: General Illness ED Provider: Harish Rowe Dx/Rx/DC Orders Prescriptions: No Action trazodone 100 mg Tablet 100 mg PO QHS PRN PRN (Reason: Insomnia) Qty: 30 0RF Rx Instructions: 1/2 to one at bedtime for sleep Primary Care Provider: Care Physician,No Primary Referrals: Care Physician,No Primary [Primary Care Provider, Medical] Print Language: Occitan
--- NOTE | 2025-06-28 09:03 | EX.ED.DYSGE1 ---
HPI History of Present Illness Chief Complaint: General Illness Narrative Narrative: Chief complaint and HPI: 60-year-old male with past medical history of degenerative disc disease with chronic neck, bilateral shoulder, and lower back pain presents for evaluation of the above pain. Patient states that he self medicates with alcohol for his pain. States that he intermittently drinks. Last drink was approximately 5 days ago. Denies any withdrawal symptoms. States he is not interested in admission for detox. States that he is only here for pain control. Uses Tylenol, Biofreeze, and intermittent lidocaine patches. Has not tried ibuprofen or Aleve. Has been evaluated by an orthopedic surgeon at [facility] in the past and was told that his condition could not be surgically corrected. States since he stopped drinking his pain has flared up. Feels like his typical chronic flares. Denies any recent trauma. Denies fever, chills, nausea, vomiting, numbness, new weakness, urinary retention, stool or urinary incontinence. Review of systems: See HPI Medications: As listed on the chart Allergies: As listed on the chart PFSH: Per chart Vital signs: As listed on the chart. Reviewed. Physical exam: Gen: A&O x3, NAD Head: Normocephalic, atraumatic Eyes: No sclera icterus, conjunctiva clear, PERRL ENT: Moist mucous membranes Neck: Trachea midline, full range of motion, no midline spinal tenderness, tenderness to palpation of the bilateral paraspinal musculature-this recreates his pain in his neck CV: RRR, no murmurs, no peripheral edema Resp: Lungs CTA BL, no w/r/c GI: Abd soft, non-distended, non-tender, no r/r/g Musc: Full ROM, no deformity, strength +5/5 in all extremities, no midline spinal tenderness, no bony step-offs, tenderness to palpation of the paraspinal musculature of the lower lumbar spine bilaterally and bilateral trapezius muscles, DP/PT pulses +2 bilateral Skin: Warm, dry, intact Neuro: Alert, oriented, grossly intact, sensation intact, no focal deficits Psych: Cooperative, appropriate mood and affect [facility] Medical History Suspected hypertension Anxiety and depression Tobacco use Thrombocytopenia concurrent with and due to alcoholism CKD (chronic kidney disease), stage II Hyperlipidemia Alcohol abuse GERD (gastroesophageal reflux disease) Upper extremity weakness Chronic neck pain Chronic anemia Type 2 diabetes mellitus Home Medications ?Medication ?Instructions ?Recorded ?Last Taken ?Type acetaminophen 500 mg capsule 1,000 mg PO Q6H PRN pain 06/28/25 06/27/25 History trazodone 100 mg tablet 50 - 100 mg PO QHS PRN 06/28/25 06/27/25 History insomnia/ANXIETY Allergy/AdvReac Type Severity Reaction Status Date / Time No Known Allergies Allergy Verified 06/28/25 07:57 Family History Mother Alcohol abuse CVA (cerebral vascular accident) Lung cancer Father Alcohol abuse Hypertension Surgical History History of arthroscopy of both knees Social History (Updated 05/08/25 @ 22:[address] Marce Toure MD) household members: family Smoking Status: Current every day smoker tobacco type: cigarettes Electronic Cigarette Use: with nicotine alcohol intake: current alcohol intake frequency: 3 or more drinks per day substance use type: does not use EXAM Physical Exam Const Vital Signs: 06/28/25 07:57 06/28/25 08:03 06/28/25 10:04 Temperature 98.7 F Temperature Source Oral Pulse Rate 151 H 133 H Respiratory Rate 18 18 Respiratory Effort Normal Respiratory Pattern Normal Blood Pressure 152/130 H 143/99 H Blood Pressure Mean 137 113 Pulse Ox 98 99 Oxygen Delivery Method Room Air Room Air MDM MDM MDM Narrative Medical decision making narrative: 60-year-old male with past medical history of degenerative disc disease with chronic neck, bilateral shoulder, and lower back pain presents for evaluation of the above pain. Patient states he self medicates with alcohol for his pain. States he intermittently drinks. Last drink was approximately 5 days ago. Denies any withdrawal symptoms. States he is not interested admission for detox. States he is only here for pain control. There has been no trauma. There is nothing to suggest any infectious etiology. There is no neurologic findings to suggest an acute cauda equina syndrome, infectious etiology, or any acute radiculopathy. At this point I do not feel any emergent imaging such as x-rays or MRI are warranted. Patient symptoms will be treated with IM Toradol and lidocaine patch. Cannot give narcotics nor muscle relaxers given patient drove today. Will reevaluate after Toradol. Plan will be to discharge home with muscle relaxers and pain management to follow-up. On reevaluation, patient's pain mildly improved but still present. He is tachycardic with heart rate in the 130s. I do suspect this is secondary to pain as well as possible alcohol withdrawal however cannot rule out electrolyte abnormalities, arrhythmia, cardiac etiology. I did recommend further workup for his tachycardia including EKG, cardiac workup, laboratory workup, and possible admission for alcohol detox. Patient states that he is not interested in admission for alcohol detox. He states that he believes his tachycardia is secondary to pain and declined further workup of the listed above. I personally explained to him that choosing to do so may result in permanent bodily harm. I discussed at length that without further evaluation or monitoring there may be unforeseen circumstances and deterioration causing harm because of their choice. I did inform him that if you detox at home it can result in . He is alert and oriented and can make his own decision. He states that he is aware of the serious risks as explained, but continues to want to discharge home without further workup. Considering his decision, follow-up has been arranged for pain management, primary care doctor, and orthopedic physician. He was aware of the importance of follow-up as instructed. He was advised that he should return to the ED immediately if he changes his mind at any time or if his condition begins to change or worsen. He confirmed understand the plan. Patient discharged home. Impression: 1. Chronic pain with history of degenerative disc disease 2. Possible alcohol withdrawal Discharge Plan Triage Chief Complaint: General Illness ED Provider: Harish Rowe Dx/Rx/DC Orders Prescriptions: No Action trazodone 100 mg tablet 50 - 100 mg PO QHS PRN (Reason: insomnia/ANXIETY) acetaminophen 500 mg capsule 1,000 mg PO Q6H PRN (Reason: pain) Primary Care Provider: Care Physician,No Primary Referrals: Care Physician,No Primary [Primary Care Provider, Medical] Print Language: [place] Citizen
[2025-06-28] MEDS: Ketorolac 30 MG/ML Syringe IM (09:27)
[2025-06-28] MEDS: Lidocaine 5% Patch 1 PATCH TOPICAL (09:27)
[2025-06-28 10:04] VITALS: BP 143/99; PULSE 133; RESP 18; O2SAT 99
[2025-06-28 10:41] VITALS: BP 143/99; PULSE 133; RESP 18; TEMP 37; O2SAT 99
== END 2025-06-28 10:42 | disposition home or self-care (01) ==
PROVIDERS: Emergency Provider Surgery; Visit Provider Surgery
DX: M50.30 Other cervical disc degeneration, unspecified cervical region (principal); E11.22 Type 2 diabetes mellitus with diabetic chronic kidney disease; N18.2 Chronic kidney disease, stage 2 (mild); F17.210 Nicotine dependence, cigarettes, uncomplicated; G89.29 Other chronic pain; E78.5 Hyperlipidemia, unspecified; K21.9 Gastro-esophageal reflux disease without esophagitis; M25.511 Pain in right shoulder; M25.512 Pain in left shoulder; M54.50 Low back pain, unspecified
CPT/HCPCS: 96372; 99284

== ENCOUNTER 2025-06-28 19:13 | Inpatient (IN) | payer MEDICARE, SELFPAY ==
[2025-06-28 19:15] VITALS: BP 167/148; PULSE 139; RESP 20; TEMP 36.8; O2SAT 100; BMI 24.7
[2025-06-28 20:38] LABS: Hematocrit 41.6 % (40-54); Hemoglobin 14.4 g/dL (13.0-16.5); Immature Granulocytes Count 0.030 X10^3/uL (0.0-0.0); Mean Corp Hgb Conc 34.6 g/dL (32-36); Mean Corpuscular Volume 93.3 fL (80-94); Mean Platelet Vol. 10.8 fl (6.2-12.0); NRBC Flagged by Analyzer 0 % (0-5); Platelet Count 134 K/mm3 (150-450); RBC Distribution Width CV 14.0 % (11.6-14.6); RBC Distribution Width SD 48.1 fl (35.1-43.9); Red Blood Count 4.46 M/mm3 (4.6-6.2); White Blood Count 9.5 K/mm3 (4.4-11.0)
[2025-06-28 21:00] VITALS: RESP 18
[2025-06-28 21:17] LABS: Barbiturate Urine NEGATIVE (< 200 ng/mL); Benzodiazepine Urine NEGATIVE (< 200 ng/mL); PCP Urine NEGATIVE (< 25 ng/mL); THC Urine NEGATIVE (< 50 ng/mL)
[2025-06-28 21:19] LABS: Alcohol, Blood (Medical)-Serum 32.6 mg/dL (<=10.0)
[2025-06-28 21:20] LABS: AST(SGOT) 113 U/L (<=37); Alanine Aminotransfer ALT/SGPT 118 U/L (<=46); Albumin, Serum 4.5 g/dL (3.5-5.0); Alkaline Phosphatase 106 U/L (40-129); Anion Gap 18 (5-15); BUN 15 mg/dL (4-19); BUN/Creat Ratio 13.6 RATIO (10-20); Calcium,Total 9.7 mg/dL (7.6-11.0); Carbon Dioxide 23.7 mmol/L (21.0-32.0); Chloride 99 mmol/L (98-108); Estimated Creatinine Clearance 72.54 ml/min (50-250); Globulin 2.9 g/dL (2.2-4.2); Glucose 105 mg/dL (70-99); Lipase 24 U/L (13-75); Potassium 3.5 mmol/L (3.3-5.1)
[2025-06-28 21:31] VITALS: BP 132/90; PULSE 102; RESP 18; TEMP 36.8; O2SAT 97
[2025-06-28 22:00] VITALS: BP 121/95; PULSE 108; RESP 18; O2SAT 99
[2025-06-28 23:51] VITALS: BMI 22.6
[2025-06-29] VITALS (7 sets, daily range): BP systolic 113–149; BP diastolic 74–98; PULSE 80–105; RESP 14–18; TEMP 36.2–37; O2SAT 94–99
[2025-06-29] MEDS: Nicotine (PBKC) 21 MG Patch TD ×2 (00:51→09:43)
[2025-06-29] MEDS: hydrOXYzine PAM 25 MG Capsule 50 MG PO ×3 (04:04→17:26)
[2025-06-29] MEDS: Thiamine Hydrochloride 100 MG Tablet PO (09:43)
[2025-06-29] MEDS: FLU VACCINE 2025-26(6MOS UP) 45 MCG/0.5 ML SYRINGE IM (10:03)
[2025-06-30 01:37] VITALS: BP 128/81; PULSE 77; RESP 16; TEMP 37.1; O2SAT 94
[2025-06-30] MEDS: 0.9% Saline Lock 10 ML Syringe IV ×2 (03:13→08:48)
[2025-06-30 07:00] VITALS: BP 133/77; PULSE 74; RESP 18; TEMP 36.3; O2SAT 98
[2025-06-30 08:30] VITALS: BP 142/92; PULSE 80; RESP 16; TEMP 36.9; O2SAT 98
[2025-06-30] MEDS: Thiamine Hydrochloride 100 MG Tablet PO (08:42)
[2025-06-30] MEDS: Nicotine (PBKC) 21 MG Patch TD (08:42)
[2025-06-30] MEDS: hydrOXYzine PAM 25 MG Capsule 50 MG PO ×3 (08:49→23:32)
[2025-06-30 12:53] VITALS: BP 125/86; PULSE 95; RESP 16; TEMP 36.7; O2SAT 95
[2025-06-30 15:14] VITALS: BP 143/83; PULSE 100; RESP 16; TEMP 36.8; O2SAT 98
[2025-06-30] MEDS: Nicotine 4mg Gum (PBKC) 4 MG GUM PO ×2 (18:15→23:29)
[2025-06-30 21:29] VITALS: BP 137/93; PULSE 93; RESP 16; TEMP 36.7; O2SAT 97
[2025-07-01] VITALS (64 sets, daily range): BP systolic 116–160; BP diastolic 82–118; PULSE 72–136; RESP 12–31; TEMP 35.8–36.9; O2SAT 79–100
[2025-07-01] MEDS: 0.9% Saline Lock 10 ML Syringe IV ×5 (05:25→19:01)
[2025-07-01] MEDS: hydrOXYzine PAM 25 MG Capsule 50 MG PO ×2 (07:05→11:26)
[2025-07-01] MEDS: Thiamine Hydrochloride 100 MG Tablet PO (08:12)
[2025-07-01] MEDS: Nicotine (PBKC) 21 MG Patch TD (08:13)
[2025-07-01] MEDS: Nicotine 4mg Gum (PBKC) 4 MG GUM PO (08:17)
[2025-07-02] VITALS (9 sets, daily range): BP systolic 96–150; BP diastolic 63–95; PULSE 74–98; RESP 12–14; TEMP 36.6–36.9; O2SAT 92–98; BMI 23.8
[2025-07-02] MEDS: 0.9% Saline Lock 10 ML Syringe IV (05:35)
[2025-07-02] MEDS: Thiamine Hydrochloride 100 MG Tablet PO (09:08)
[2025-07-02] MEDS: hydrOXYzine PAM 25 MG Capsule 50 MG PO (09:08)
[2025-07-02] MEDS: Nicotine (PBKC) 21 MG Patch TD (09:12)
== END 2025-07-02 12:27 | disposition left against medical advice (07) | DRG 894 ==
LOC: ED 21:18 → PCU 06-29 05:38 → ICU 07-01 16:41
PROVIDERS: Admitting Provider Family Medicine; Emergency Provider Emergency Medicine; Visit Provider Internal Medicine
DX: F10.139 Alcohol abuse with withdrawal, unspecified (principal); E11.22 Type 2 diabetes mellitus with diabetic chronic kidney disease; F32.A Depression, unspecified; E78.5 Hyperlipidemia, unspecified; F17.210 Nicotine dependence, cigarettes, uncomplicated; N18.2 Chronic kidney disease, stage 2 (mild); F41.8 Other specified anxiety disorders; G89.29 Other chronic pain; Z23 Encounter for immunization; Z79.899 Other long term (current) drug therapy; Y90.1 Blood alcohol level of 20-39 mg/100 ml; Z91.148 Patient's other noncompliance with medication regimen for other reason
CPT/HCPCS: 80053; 80307; 82077; 83690; 85025; 99283; 99406; A4216